=== PATIENT | male | born 1945 | race Caucasian/White ===

== ENCOUNTER 2018-02-07 17:12 | Inpatient (IN) | payer MEDICARE ==
[2018-02-07] MEDS ORDERED: Atropine SYRINGE* 0.1 MG/ML 10 ML SYRINGE (1 MG) ONE (18:01)
[2018-02-07 18:12] LABS: ABS Basophils 0.1 10^3/ul (0-0.2); ABS Eosinophils 0.1 10^3/ul (0-0.6); ABS Lymphocytes 1.2 10^3/ul (1.0-4.8); ABS Monocytes 0.8 10^3/ul (0-0.8); ABS Neutrophils 4.5 10^3/ul (1.5-7.7); ABS Nucleated RBC 0 10^3/ul; Eosinophil % 1.4 % (0-6); Hematocrit 51 % (42-52); Lymphocyte % 18.2 % (25-47); Mean Corpuscular HGB Conc 33 g/dl (31-36); Mean Corpuscular Hemoglobin 31 pg (27-31); Mean Corpuscular Volume 94 fL (80-94); Mean Platelet Volume 10.3 um3 (7.4-10.4); Nucleated Red Blood Cells % 0.1; Platelet Count 190 10^3/ul (150-450); Red Blood Count 5.46 10^6/ul (4.0-5.4); Red Cell Distribution Width 14 % (10.5-15); White Blood Count 6.8 10^3/ul (3.5-10.8)
--- NOTE | 2018-02-07 18:50 | RAD ---
Indication: Cough, chest pain. Comparison: No relevant prior exams available on the [facility] for comparison. Technique: Upright AP 1830 hours Report: Cutaneous pacemaker pads noted. Partial atelectasis of the bilateral lower lobes. Negative for pleural effusion or pneumothorax. Negative for cardiomegaly. Unremarkable central pulmonary vasculature and mediastinal contours. IMPRESSION: Partial atelectasis of the bilateral lower lobes of the lungs.
[2018-02-07 19:03] LABS: EGFR Non-African American 77.5 (>60)
[2018-02-07] MEDS ORDERED: Dextrose 50% Syringe 50 ML* 25 GM/50 ML SYRINGE IV PUSH PRN (20:04)
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
[2018-02-07] MEDS: Insulin LISPRO* 1 UNITS UNIT SUBCUT SCH (22:17)
[2018-02-07] MEDS: Heparin VIAL(*) 5000 UNITS/ML VIAL (FIVE THOUSAND) SUBCUT SCH (22:18)
[2018-02-07] MEDS ORDERED: Saline NASAL SPRAY 0.65%* BTL BOTH NARES PRN (23:55)
[2018-02-08] MEDS: Benzonatate CAP* 100 MG PO PRN ×3 (05:06→18:50)
[2018-02-08 05:44] LABS: Hematocrit 45 % (42-52); Hemoglobin 14.9 g/dl (14.0-18.0); Mean Corpuscular HGB Conc 33 g/dl (31-36); Mean Corpuscular Hemoglobin 31 pg (27-31); Mean Corpuscular Volume 93 fL (80-94); Platelet Count 159 10^3/ul (150-450); Red Blood Count 4.79 10^6/ul (4.0-5.4); Red Cell Distribution Width 14 % (10.5-15); White Blood Count 4.9 10^3/ul (3.5-10.8)
[2018-02-08 07:42] LABS: EGFR Non-African American 95.9 (>60)
--- NOTE | 2018-02-08 08:41 | ECHO ---
Patient: YESENIA HERNANDEZ [facility] Rec#: [id number] : 1945 Date: 02/08/2018 Age: 73y Height: 167.64 cm / 66.0 in Weight: 68.04 kg / 150.0 lbs Sex: M BSA: 1.77 Room#: ICU-1 Admit Date#: 02/07/2018 Type: Inpatient Referring: Dixie Hernandez DO Reading: Wild Ruffin MD Box Order [facility] Transthoracic Echocardiogram Indication: Complete heart block BP: 132/47 HR: 84 Rhythm: Heart Block Findings History: Progressively worsening shortness of breath and lower extremity edema for the past few weeks, no other known medical history. Technical Comments: The study quality is fair. Completed at 0825. Left Ventricle: The left ventricular chamber size is normal. Mild concentric left ventricular hypertrophy is observed. There is global hypokinesis of the left ventricle with minor regional variation. There is moderately decreased left ventricular systolic function. The estimated ejection fraction is 40-45%. High degre AV block with irregular R-R intervals making evaluation of EF difficult The assessment of diastolic function is non-diagnostic. Left Atrium: The left atrium is mildly dilated. Right Ventricle: Moderator Band present. The right ventricular cavity size is normal. The right ventricular global systolic function is low normal. Right Atrium: The right atrial cavity size is normal. Aortic Valve: The aortic valve is trileaflet. The aortic valve leaflets are mildly thickened. There is a trace of aortic regurgitation. There is no evidence of aortic stenosis. Mitral Valve: The mitral valve leaflets are mildly thickened. There is mild mitral regurgitation. There is no evidence of mitral stenosis. Tricuspid Valve: The tricuspid valve leaflets are normal. There is mild to moderate tricuspid regurgitation. The right ventricular systolic pressure is estimated at 49 mmHg. There is evidence of moderate pulmonary hypertension. There is no tricuspid stenosis. Pulmonic Valve: The pulmonic valve appears normal. There is trace to mild pulmonic regurgitation. There is no pulmonic stenosis. Pericardium: There is no significant pericardial effusion. Aorta: There is no dilatation of the aortic arch. The aortic root is normal in size. Pulmonary Artery: The main pulmonary artery appears normal. Venous: The inferior vena cava appears normal in size. There is less than 50% respiratory change in the inferior vena cava dimension. Summary: There was not any prior study for comparison. Conclusions There is global hypokinesis of the left ventricle with minor regional variation. There is moderately decreased left ventricular systolic function. The estimated ejection fraction is 40-45%. High degre AV block with irregular R-R intervals making evaluation of EF difficult The right ventricular global systolic function is low normal. There is a trace of aortic regurgitation. There is mild mitral regurgitation. There is mild to moderate tricuspid regurgitation. There is evidence of moderate pulmonary hypertension. There is no significant pericardial effusion. Measurements Name Value Normal Range RVIDd (AP) 2D 2.7 cm (0.9 - 2.6) RVDdMajor (2D) 4.4 cm (2.2 - 4.4) RAd ISD 4CH 4.6 cm (3.4 - 4.9) RA (A4C)W 4.1 cm (2.9 - 4.6) IVSd (2D) 1.1 cm (0.6 - 1) LVPWd (2D) 1.1 cm (0.6 - 1) LVIDd (2D) 4.1 cm (3.6 - 5.4) LVIDs (2D) 3.4 cm - LV FS (2D) 18 % (25 - 45) Aortic Annulus 1.9 cm (1.4 - 2.6) Ao root diameter (2D) 2.6 cm (2.1 - 3.5) Ascending Ao 2.8 cm (2.1 - 3.4) Aortic arch 2.6 cm (1.8 - 3.4) LA dimension (AP) 2D 3.6 cm (2.3 - 3.8) LAd ISD 4CH 4.9 cm (2.9 - 5.3) LA ISD 4CH W 4.2 cm (2.5 - 4.5) Name Value Normal Range LA ESV SP 4CH (A/L) 51 ml - LA ESV SP 2CH (A/L) 79 ml - LA ESV BP (A/L) 70 ml - LA ESV BP (A/L) index 39 ml/m2 - LA ESV SP 4CH (MOD) 45 ml - LA ESV SP 2CH (MOD) 77 ml - Name Value Normal Range MV E-wave Vmax 0.9 m/sec - MV deceleration time 186 msec - MV A-wave Vmax 1.02 m/sec - MV E:A ratio 0.92 ratio - LV septal e' Vmax 0.05 m/sec - LV lateral e' Vmax 0.07 m/sec - LV E:e' septal ratio 18 ratio - LV E:e' lateral ratio 12.86 ratio - Name Value Normal Range AV Vmax 1.65 m/sec - AV VTI 34.54 cm - AV peak gradient 11.09 mmHg - AV mean gradient 5.91 mmHg - LVOT Vmax 1.04 m/sec - LVOT VTI 21.86 cm - LVOT peak gradient 4.39 mmHg - LVOT mean gradient 2.48 mmHg - DURAN Vmax 0.84 m/sec - Name Value Normal Range TR Vmax 3.2 m/sec - TR peak gradient 41 mmHg - RAP 8 mmHg - RVSP 49 mmHg - IVC diameter 1.9 cm - Name Value Normal Range PV Vmax 1.34 m/sec - PV peak gradient 7.3 mmHg -
[2018-02-08] MEDS: Insulin LISPRO* 1 UNITS UNIT SUBCUT SCH ×4 (09:15→21:11)
[2018-02-08] MEDS: Heparin VIAL(*) 5000 UNITS/ML VIAL (FIVE THOUSAND) SUBCUT SCH (09:16)
--- NOTE | 2018-02-08 09:17 | RAD ---
Indication: Leg edema. Duplex Doppler sonography of the deep venous system of both lower extremities was performed. Bilaterally the common femoral veins, proximal greater saphenous veins, proximal deep femoral veins, femoral veins, popliteal veins, posterior tibial veins appear patent and compressible. In the right lower extremity one of the paired peroneal veins is noncompressible. In the left lower extremity both paired peroneal veins appear noncompressible. This is consistent with deep venous thrombosis of one of the peroneal veins in the right lower extremity and both peroneal veins in the left lower extremity. Complex fluid collection in the right popliteal fossa measures 3.0 x 0.9 x 1.2 cm. IMPRESSION: Deep venous thrombosis in one of the paired peroneal veins of the right lower extremity and both peroneal veins the left lower extremity. Popliteal cyst is noted in the right popliteal fossa.
--- NOTE | 2018-02-08 12:24 | ED ---
Ericka Shannon Edward, scribed for Humberto Decker MD on 02/07/18 at 1800 . Palpitations / Dysrhythmia - HPI Summary HPI Summary: 73 y/o male BIBA sent from [place] for worrying EKG and SOB. SOB aggravated by deep breaths, not alleviated by anything. Pt also c/o pressure in his stomach when he eats for several weeks, per triage note. Associated sx: congestion, and R arm swelling, wheezing cough. PMHx no heart conditions. Pt states he hasn't seen a doctor in long time. - History of Current Complaint Chief Complaint: EDDysrhythmPalp Hx Obtained From: Patient Onset/Duration: Lasting Weeks Timing: Constant Aggravating: Nothing Alleviating: Nothing Associated Signs & Symptoms: Shortness of Breath - Allergy/Home Medications Allergies/Adverse Reactions: Allergies Allergy/AdvReac Type Severity Reaction Status Date / Time No Known Allergies Allergy Verified 02/07/18 18:27 Home Medications: Home Medications Aspirin TAB* [Aspirin 325 MG TAB*] 325 - 650 mg PO BID PRN 02/07/18 [History Confirmed 02/07/18] Multivitamins/Minerals TAB* [Theragran/minerals TAB*] 1 tab PO DAILY 02/07/18 [ History Confirmed 02/07/18] Hagerman-3 Fatty Acids (Nf) [Fish Oil (NF)] 1,000 mg PO DAILY 02/07/18 [History Confirmed 02/07/18] PMH/Surg Hx/FS Hx/Imm Hx Previously Healthy: No Cardiovascular History: Denies: Hx Congestive Heart Failure, Hx Myocardial Infarction Opthamlomology History: Denies: Hx Legally Blind Infectious Disease History: No Infectious Disease History: Denies: Traveled Outside the [place] in Last 30 Days - Family History Known Family History: Positive: Unknown - Social History Occupation: Retired Lives: Alone Hx Tobacco Use: No Smoking Status (MU): Never Smoked Tobacco Review of Systems Constitutional: Negative Eyes: Negative ENT: Other - congestion Cardiovascular: Negative Positive: Shortness Of Breath, Cough, Other - wheezing Positive: Abdominal Pain Genitourinary: Negative Positive: Edema - R arm Skin: Negative Neurological: Negative Psychological: Normal All Other Systems Reviewed And Are Negative: Yes Physical Exam - Summary Physical Exam Summary: GENERAL: ~Patient is a well developed and nourished M who is lying comfortable in the stretcher. ~Patient is not in any acute respiratory distress. HEAD AND FACE: Normocephalic EYES: PERRLA, EOMI x 2. EARS: Hearing grossly intact. MOUTH: Oropharynx within normal limits. NECK: Supple, trachea is midline, no adenopathy, no JVD, no carotid bruit. CHEST: Symmetric, no tenderness at palpation LUNGS: Wheezing, worse on R than L. CVS: Regular rate and rhythm, S1 and S2 present, no murmurs or gallops appreciated. ABDOMEN: Soft, non-tender. Bowel sounds are normal. No abdominal abnormal pulsations. EXTREMITIES: Full ROM in all major joints, no edema, no cyanosis or clubbing. NEURO: Alert and oriented x 3. No acute neurological deficits. Speech is normal and follows commands. SKIN: Dry and warm Vital Signs On Initial Exam: Initial Vitals Temp Pulse Resp BP Pulse Ox 97.9 F 48 16 170/50 97 02/07/18 17:14 02/07/18 17:14 02/07/18 17:14 02/07/18 17:14 02/07/18 17:14 Diagnostics - Vital Signs Vital Signs Temp Pulse Resp BP Pulse Ox 02/07/18 17:14 97.9 F 48 16 170/50 97 - Laboratory Lab Results: Lab Results 02/07/18 02/07/18 02/07/18 Range/Units 17:45 17:45 17:45 WBC 6.8 (3.5-10.8) 10^3/ul RBC 5.46 H (4.0-5.4) 10^6/ul Hgb 17.0 (14.0-18.0) g/dl Hct 51 (42-52) % MCV 94 (80-94) fL MCH 31 (27-31) pg MCHC 33 (31-36) g/dl RDW 14 (10.5-15) % Plt Count 190 (150-450) 10^3/ul MPV 10.3 (7.4-10.4) um3 Neut % (Auto) 67.3 (38-83) % Lymph % (Auto) 18.2 L (25-47) % Weber % (Auto) 12.0 H (0-7) % Eos % (Auto) 1.4 (0-6) % Baso % (Auto) 1.1 (0-2) % Absolute Neuts (auto) 4.5 (1.5-7.7) 10^3/ul Absolute Lymphs (auto) 1.2 (1.0-4.8) 10^3/ul Absolute Monos (auto) 0.8 (0-0.8) 10^3/ul Absolute Eos (auto) 0.1 (0-0.6) 10^3/ul Absolute Basos (auto) 0.1 (0-0.2) 10^3/ul Absolute Nucleated RBC 0 10^3/ul Nucleated RBC % 0.1 APTT (26.0-36.3) seconds Sodium 134 L (139-145) mmol/L Potassium TNP Chloride 96 L (101-111) mmol/L Carbon Dioxide 24 (22-32) mmol/L Anion Gap 14 H (2-11) mmol/L BUN 27 H (6-24) mg/dL Creatinine 0.95 (0.67-1.17) mg/dL Est GFR ( Amer) 99.7 (>60) Est GFR (Non-Af Amer) 77.5 (>60) BUN/Creatinine Ratio 28.4 H (8-20) Glucose 284 H (70-100) mg/dL Lactic Acid 1.7 (0.5-2.0) mmol/L Calcium 9.2 (8.6-10.3) mg/dL Total Bilirubin 0.70 (0.2-1.0) mg/dL AST TNP ALT 28 (7-52) U/L Alkaline Phosphatase 151 H (34-104) U/L Total Creatine Kinase 97 (10-223) U/L CK-MB (CK-2) 6.7 H (0.6-6.3) ng/mL Troponin I 0.05 H* (<0.04) ng/mL B-Natriuretic Peptide ( - 100) pg/mL Total Protein 6.4 (6.4-8.9) g/dL Albumin 3.5 (3.2-5.2) g/dL Globulin 2.9 (2-4) g/dL Albumin/Globulin Ratio 1.2 (1-3) TSH (0.34-5.60) mcIU/mL 02/07/18 02/07/18 02/07/18 Range/Units 17:45 17:45 17:48 WBC (3.5-10.8) 10^3/ul RBC (4.0-5.4) 10^6/ul Hgb (14.0-18.0) g/dl Hct (42-52) % MCV (80-94) fL MCH (27-31) pg MCHC (31-36) g/dl RDW (10.5-15) % Plt Count (150-450) 10^3/ul MPV (7.4-10.4) um3 Neut % (Auto) (38-83) % Lymph % (Auto) (25-47) % [place] % (Auto) (0-7) % Eos % (Auto) (0-6) % Baso % (Auto) (0-2) % Absolute Neuts (auto) (1.5-7.7) 10^3/ul Absolute Lymphs (auto) (1.0-4.8) 10^3/ul Absolute Monos (auto) (0-0.8) 10^3/ul Absolute Eos (auto) (0-0.6) 10^3/ul Absolute Basos (auto) (0-0.2) 10^3/ul Absolute Nucleated RBC 10^3/ul Nucleated RBC % APTT 31.6 (26.0-36.3) seconds Sodium (139-145) mmol/L Potassium 4.9 Chloride (101-111) mmol/L Carbon Dioxide (22-32) mmol/L Anion Gap (2-11) mmol/L BUN (6-24) mg/dL Creatinine (0.67-1.17) mg/dL Est GFR ( Amer) (>60) Est GFR (Non-Af Amer) (>60) BUN/Creatinine Ratio (8-20) Glucose (70-100) mg/dL Lactic Acid (0.5-2.0) mmol/L Calcium (8.6-10.3) mg/dL Total Bilirubin (0.2-1.0) mg/dL AST 19 ALT (7-52) U/L Alkaline Phosphatase (34-104) U/L Total Creatine Kinase (10-223) U/L CK-MB (CK-2) (0.6-6.3) ng/mL Troponin I (<0.04) ng/mL B-Natriuretic Peptide 95 ( - 100) pg/mL Total Protein (6.4-8.9) g/dL Albumin (3.2-5.2) g/dL Globulin (2-4) g/dL Albumin/Globulin Ratio (1-3) TSH 1.87 (0.34-5.60) mcIU/mL Result Diagrams: 02/08/18 05:25 02/08/18 05:25 Lab Statement: Any lab studies that have been ordered have been reviewed, and results considered in the medical decision making process. - Radiology CXR Xray Interpretation: Positive (See Comments) - Partial atelectasis of the bilateral lower lobes of the lungs. Radiology Interpretation Completed By: Radiologist - EKG 1 EKG Interpretation: Complete heart block @ 62 BPM Course/Dx - Course Assessment/Plan: 73 y/o male directed from [facility] for concerns of complete heart block after presenting there with SOB. Workup remarkable for troponin 0.05. Discussed with circuit court judge Janki, will see pt. Pt currently stable and will be admitted to hospitalist team. Discussed with Dr. Paige. Pacer pads placed and atropine at bedside - Diagnoses Provider Diagnoses: Complete heart block - Physician Notifications Discussed Care Of Patient With: Nohemi Shearer Time Discussed With Above Provider: 18:04 Discharge - Sign-Out/Discharge Documenting (check all that apply): Discharge/Admit/Transfer - Discharge Plan Condition: Stable Disposition: ADMITTED TO [facility] - Billing Disposition and Condition Condition: STABLE Disposition: [facility]P-[facility] [place] The documentation as recorded by the Ericka christine Edward accurately reflects the service I personally performed and the decisions made by , Humberto Decker MD.
[2018-02-08] MEDS ORDERED: Heparin 2 UNITS/ML IVPREMIX* 1,000 ML IV ONE (12:28)
[2018-02-08] MEDS ORDERED: Lidocaine 1% INJ* 10 MG/ML 30 ML SDV ONE (12:57)
--- NOTE | 2018-02-08 15:02 | CARD ---
TEMPORARY WIRE INSERTION: DATE OF PROCEDURE: 02/08/18 PROCEDURE: Temporary pacemaker wire. PRE-OP DIAGNOSES: Third-degree heart block, bradycardia. POST-OP DIAGNOSES: Third-degree heart block, bradycardia. ANESTHESIA: Local anesthesia with conscious sedation. ESTIMATED BLOOD LOSS: None. COMPLICATIONS: None. INDICATION: The patient is a 73-year-old gentleman who was admitted to the hospital with shortness o f breath and lightheadedness and lower extremity edema. He was found to have significant bradycardia and was noted to have high-degree AV block. The patient was observed overnight without any difficult y. Today, he was having heart rates down to 25 beats per minutes. It was recommended the patient ramírez ve a temporary wire until full evaluation of his cardiac status was completed. DESCRIPTION OF PROCEDURE: The patient was brought to the procedure room in a fasting state. Informe d consent had been obtained prior to the procedure. All labs have been reviewed. The patient's ante rior right neck was prepped and draped in usual fashion. 1% lidocaine was used for local anesthesia. Using a finder needle, a jugular vein was entered and an 18 gauge needle was inserted into the jugu lar vein. A guidewire was placed. Over the guidewire, a 5-Ethiopian sheath introducer was placed. A b alloon tipped pacer catheter was advanced to the RV apex. There was good threshold of the pacing wire . Threshold was 0.5 volts, 0.5 milliseconds. The patient left the lab in stable condition. His pac er was set at a heart rate of 60. [id number]/[facility] #: [id number]
[2018-02-08] MEDS: ceFAZolin 1 GM VIAL(*) 1 GM in D5W 50 ML BAG* 50 ML IVPB SCH ×2 (15:35→23:05)
[2018-02-08] MEDS ORDERED: Zolpidem TAB* 5 MG PO PRN (16:19)
--- NOTE | 2018-02-08 16:53 | PN ---
Subjective Date of Service: 02/08/18 Interval History: Pt seen and examined. Meds and labs reviewed. ROS: Denied GIVENS/dizziness, F/C, N/V, CP, SOB, increased cough, sputum production , abd pain, diarrhea, constipation, dysuria, myalgias, arthralgias, throat pain , and new skin lesions. The rest of the 14 point ROS are unremarkable. PHYSICAL EXAM: GEN APPEARANCE: Awake, not in acute distress HEENT: NC/AT, PERRLA, moist oral mucosa, (-) throat erythema NECK: Soft, supple, (-) cervical LAD, (-)JVD HEART: S1S2 WNL, RRR, No MRG CHEST: CTA, BL, GAE, No W/R/R ABD: Soft, ND/NT, NABS 4x Q EXT: No C/C/2+BLLE SKIN: Warm to touch PSYCH: No active psychosis, hallucinations, depression, SI/HI Objective Active Medications: Benzonatate (Tessalon Cap*) 200 mg PO TID PRN PRN Reason: COUGH Last Admin: 02/08/18 16:16 Dose: 100 mg Dextrose (D50w Syringe 50 Ml*) 12.5 gm IV PUSH .FOR FS < 60 - SS PRN PRN Reason: FS < 60 Heparin Sodium (Porcine) (Heparin Vial(*)) 5,000 units SUBCUT Q12HR [facility] Last Admin: 02/08/18 09:16 Dose: 5,000 units Cefazolin Sodium 1 gm/ (Dextrose) 50 mls @ 200 mls/hr IVPB Q8H [facility] Last Admin: 02/08/18 15:35 Dose: 200 mls/hr Insulin Human Lispro (Humalog*) 0 units SUBCUT ACHS [facility] PRN Reason: Protocol Last Admin: 02/08/18 12:09 Dose: 2 unit Sodium Chloride (Sodium Chloride 0.65% Nasal Sutter*) 2 spray BOTH NARES Q2H PRN PRN Reason: CONGESTION Zolpidem Tartrate (Ambien Tab*) 5 mg PO BEDTIME PRN PRN Reason: INSOMNIA Vital Signs - 8 hr 02/08/18 02/08/18 02/08/18 09:00 09:02 09:31 Temperature Pulse Rate 44 47 39 Respiratory 20 16 9 Rate Blood Pressure 133/45 135/48 (mmHg) O2 Sat by Pulse 81 80 96 Oximetry 02/08/18 02/08/18 02/08/18 09:44 10:00 10:01 Temperature Pulse Rate 33 36 Respiratory 12 6 8 Rate Blood Pressure 128/63 143/52 (mmHg) O2 Sat by Pulse 98 95 Oximetry 02/08/18 02/08/18 02/08/18 10:31 10:40 11:00 Temperature Pulse Rate 32 32 35 Respiratory 12 17 4 Rate Blood Pressure 123/52 123/53 131/53 (mmHg) O2 Sat by Pulse 95 95 96 Oximetry 02/08/18 02/08/18 02/08/18 11:30 12:00 13:00 Temperature 98.8 F Pulse Rate 34 34 35 Respiratory 6 5 16 Rate Blood Pressure 136/56 125/58 138/62 (mmHg) O2 Sat by Pulse 98 98 100 Oximetry 02/08/18 02/08/18 02/08/18 13:05 13:10 13:15 Temperature Pulse Rate 61 69 Respiratory 35 16 17 Rate Blood Pressure 143/68 159/72 162/94 (mmHg) O2 Sat by Pulse 100 100 100 Oximetry 02/08/18 02/08/18 02/08/18 13:20 13:25 13:45 Temperature Pulse Rate 61 67 60 Respiratory 18 17 Rate Blood Pressure 143/73 145/64 150/62 (mmHg) O2 Sat by Pulse 100 100 100 Oximetry 02/08/18 02/08/18 02/08/18 14:00 14:01 14:30 Temperature Pulse Rate 62 61 59 Respiratory 20 29 15 Rate Blood Pressure 150/78 147/63 (mmHg) O2 Sat by Pulse 97 97 95 Oximetry 02/08/18 02/08/18 02/08/18 15:00 15:01 15:30 Temperature Pulse Rate 71 71 74 Respiratory 24 29 24 Rate Blood Pressure 167/104 137/82 (mmHg) O2 Sat by Pulse 95 93 Oximetry 02/08/18 02/08/18 02/08/18 15:58 16:00 16:01 Temperature Pulse Rate 72 Respiratory 20 16 17 Rate Blood Pressure 150/87 (mmHg) O2 Sat by Pulse 97 Oximetry Oxygen Devices in Use Now: Nasal Cannula Result Diagrams: 02/08/18 05:25 02/08/18 05:25 Additional Lab and Data: Lab Results 02/07/18 02/07/18 02/07/18 Range/Units 17:45 17:45 17:45 WBC 6.8 (3.5-10.8) 10^3/ul RBC 5.46 H (4.0-5.4) 10^6/ul Hgb 17.0 (14.0-18.0) g/dl Hct 51 (42-52) % MCV 94 (80-94) fL MCH 31 (27-31) pg MCHC 33 (31-36) g/dl RDW 14 (10.5-15) % Plt Count 190 (150-450) 10^3/ul MPV 10.3 (7.4-10.4) um3 Neut % (Auto) 67.3 (38-83) % Lymph % (Auto) 18.2 L (25-47) % [place] % (Auto) 12.0 H (0-7) % Eos % (Auto) 1.4 (0-6) % Baso % (Auto) 1.1 (0-2) % Absolute Neuts (auto) 4.5 (1.5-7.7) 10^3/ul Absolute Lymphs (auto) 1.2 (1.0-4.8) 10^3/ul Absolute Monos (auto) 0.8 (0-0.8) 10^3/ul Absolute Eos (auto) 0.1 (0-0.6) 10^3/ul Absolute Basos (auto) 0.1 (0-0.2) 10^3/ul Absolute Nucleated RBC 0 10^3/ul Nucleated RBC % 0.1 APTT (26.0-36.3) seconds Sodium 134 L (139-145) mmol/L Potassium TNP Chloride 96 L (101-111) mmol/L Carbon Dioxide 24 (22-32) mmol/L Anion Gap 14 H (2-11) mmol/L BUN 27 H (6-24) mg/dL Creatinine 0.95 (0.67-1.17) mg/dL Est GFR ( Amer) 99.7 (>60) Est GFR (Non-Af Amer) 77.5 (>60) BUN/Creatinine Ratio 28.4 H (8-20) Glucose 284 H (70-100) mg/dL Lactic Acid 1.7 (0.5-2.0) mmol/L Calcium 9.2 (8.6-10.3) mg/dL Total Bilirubin 0.70 (0.2-1.0) mg/dL AST TNP ALT 28 (7-52) U/L Alkaline Phosphatase 151 H (34-104) U/L Total Creatine Kinase 97 (10-223) U/L CK-MB (CK-2) 6.7 H (0.6-6.3) ng/mL Troponin I 0.05 H* (<0.04) ng/mL B-Natriuretic Peptide ( - 100) pg/mL Total Protein 6.4 (6.4-8.9) g/dL Albumin 3.5 (3.2-5.2) g/dL Globulin 2.9 (2-4) g/dL Albumin/Globulin Ratio 1.2 (1-3) TSH (0.34-5.60) mcIU/mL 02/07/18 02/07/18 02/07/18 Range/Units 17:45 17:45 17:48 WBC (3.5-10.8) 10^3/ul RBC (4.0-5.4) 10^6/ul Hgb (14.0-18.0) g/dl Hct (42-52) % MCV (80-94) fL MCH (27-31) pg MCHC (31-36) g/dl RDW (10.5-15) % Plt Count (150-450) 10^3/ul MPV (7.4-10.4) um3 Neut % (Auto) (38-83) % Lymph % (Auto) (25-47) % [place] % (Auto) (0-7) % Eos % (Auto) (0-6) % Baso % (Auto) (0-2) % Absolute Neuts (auto) (1.5-7.7) 10^3/ul Absolute Lymphs (auto) (1.0-4.8) 10^3/ul Absolute Monos (auto) (0-0.8) 10^3/ul Absolute Eos (auto) (0-0.6) 10^3/ul Absolute Basos (auto) (0-0.2) 10^3/ul Absolute Nucleated RBC 10^3/ul Nucleated RBC % APTT 31.6 (26.0-36.3) seconds Sodium (139-145) mmol/L Potassium 4.9 Chloride (101-111) mmol/L Carbon Dioxide (22-32) mmol/L Anion Gap (2-11) mmol/L BUN (6-24) mg/dL Creatinine (0.67-1.17) mg/dL Est GFR ( Amer) (>60) Est GFR (Non-Af Amer) (>60) BUN/Creatinine Ratio (8-20) Glucose (70-100) mg/dL Lactic Acid (0.5-2.0) mmol/L Calcium (8.6-10.3) mg/dL Total Bilirubin (0.2-1.0) mg/dL AST 19 ALT (7-52) U/L Alkaline Phosphatase (34-104) U/L Total Creatine Kinase (10-223) U/L CK-MB (CK-2) (0.6-6.3) ng/mL Troponin I (<0.04) ng/mL B-Natriuretic Peptide 95 ( - 100) pg/mL Total Protein (6.4-8.9) g/dL Albumin (3.2-5.2) g/dL Globulin (2-4) g/dL Albumin/Globulin Ratio (1-3) TSH 1.87 (0.34-5.60) mcIU/mL Microbiology and Other Data: Microbiology 02/08/18 03:45 Gram Stain - Final Sputum Expectorated 02/07/18 22:45 Nasal Screen MRSA (PCR)(ROBBIN) - Final Nasal Mrsa Detected Assess/Plan/Problems-Billing Assessment: - Patient Problems (1) Heart block Current Visit: Yes Comment: - Pt seen this AM and had pacemaker placed - Reports document patient doing well (2) DVT (deep venous thrombosis) Current Visit: Yes Comment: - DVT in one of the paired peroneal veins of the RLE and both peroneal veins of the LLE; popliteal cyst in right popliteal fossa - D/C'd DVT prophylaxis (Heparin) and placed pt on full dose Lovenox after 4 hours post-pacemaker placement (3) Elevated troponin Current Visit: Yes Status: Acute Code(s): R74.8 - ABNORMAL LEVELS OF OTHER SERUM ENZYMES SNOMED Code(s): 048174506 Comment: - Very minimally elevated and likely due to demand ischemia and/or known recently diagnosed DVT above - Defer with Cardiology for any further W/U cardiac-aguilar (4) DVT prophylaxis Current Visit: Yes Status: Acute Code(s): NEN7732 - SNOMED Code(s): 259873673 Comment: - On full dose Lovenox described above Status and Disposition: - Consider transitioning to Coumadin tomorrow especially in the setting of pt being destitute and would unlikely be able to afford DOACs - Pt lives in tent behind [address], and reports that he has been homeless for 4-6 years. - Will discuss placement plan with care coordinators in AM
[2018-02-08] MEDS: Enoxaparin(*) 80 MG/0.8 ML SYR SUBCUT SCH (17:31)
--- NOTE | 2018-02-08 18:42 | RAD ---
HISTORY: Status post pacer COMPARISONS: February 07, 2018 VIEWS: 1: frontal portable view of the chest at 6:13 PM FINDINGS: LINES AND TUBES: What appears to be a transvenous pacer is noted from an internal jugular vein approach with the tip overlying the expected location of the right ventricle. CARDIOMEDIASTINAL SILHOUETTE: The cardiomediastinal silhouette is normal for portable technique. PLEURA: There is a small left pleural effusion. LUNG PARENCHYMA: There are stable calcified granulomas of the left upper lung. ABDOMEN: The upper abdomen is clear. There is no subphrenic gas. BONES AND SOFT TISSUES: No bone or soft tissue abnormalities are noted. IMPRESSION: 1. LINES AND TUBES ABOVE. 2. SMALL LEFT PLEURAL EFFUSION.
[2018-02-09] MEDS: Benzonatate CAP* 100 MG PO PRN ×2 (00:06→13:49)
[2018-02-09] MEDS: Enoxaparin(*) 80 MG/0.8 ML SYR SUBCUT SCH (05:41)
[2018-02-09 06:14] LABS: ABS Basophils 0.1 10^3/ul (0-0.2); ABS Eosinophils 0.2 10^3/ul (0-0.6); ABS Lymphocytes 1.2 10^3/ul (1.0-4.8); ABS Monocytes 0.7 10^3/ul (0-0.8); ABS Nucleated RBC 0 10^3/ul; Eosinophil % 3.7 % (0-6); Hematocrit 49 % (42-52); Hemoglobin 16.2 g/dl (14.0-18.0); Lymphocyte % 23.4 % (25-47); Mean Corpuscular HGB Conc 33 g/dl (31-36); Mean Corpuscular Hemoglobin 31 pg (27-31); Mean Corpuscular Volume 94 fL (80-94); Mean Platelet Volume 9.7 um3 (7.4-10.4); Nucleated Red Blood Cells % 0.1; Platelet Count 180 10^3/ul (150-450); Red Cell Distribution Width 14 % (10.5-15); White Blood Count 5.2 10^3/ul (3.5-10.8)
[2018-02-09 06:25] LABS: EGFR Non-African American 100.3 (>60)
[2018-02-09] MEDS: ceFAZolin 1 GM VIAL(*) 1 GM in D5W 50 ML BAG* 50 ML IVPB SCH ×2 (08:07→17:14)
--- NOTE | 2018-02-09 08:24 | RAD ---
INDICATION: Temporary cardiac pacemaker COMPARISON: February 08, 2018 TECHNIQUE: An AP portable view obtained at 0709 hours is submitted. FINDINGS: Bones/Soft Tissues: There are no acute bony findings. There is a temporary right-sided pacemaker Cardiomediastinal: The heart is normal in size. Lungs: There is atelectasis or infiltrate in the medial right lung base. Pleura: Small bilateral pleural effusions left greater than right. Other: None IMPRESSION: ATELECTASIS OR INFILTRATE MEDIAL RIGHT LUNG BASE. SMALL BILATERAL PLEURAL EFFUSIONS
[2018-02-09] MEDS: Insulin LISPRO* 1 UNITS UNIT SUBCUT SCH ×4 (09:20→21:37)
--- NOTE | 2018-02-09 16:20 | PN ---
Subjective Date of Service: 02/09/18 Interval History: Pt seen and examined. Meds and labs reviewed. ROS: Could not be relaibly obtained PHYSICAL EXAM: GEN APPEARANCE: Lethargic, not in acute distress, likely post-ictal HEENT: NC/AT, PERRLA, moist oral mucosa, (-) throat erythema NECK: Soft, supple, (-) cervical LAD, (-)JVD HEART: S1S2 WNL, RRR, No MRG CHEST: CTA, BL, GAE, No W/R/R ABD: Soft, ND/NT, NABS 4x Q EXT: No C/C/2+BLLE SKIN: Warm to touch PSYCH: No active psychosis, hallucinations, depression, SI/HI Objective Active Medications: Benzonatate (Tessalon Cap*) 200 mg PO TID PRN PRN Reason: COUGH Last Admin: 02/09/18 13:49 Dose: 200 mg Dextrose (D50w Syringe 50 Ml*) 12.5 gm IV PUSH .FOR FS < 60 - SS PRN PRN Reason: FS < 60 Enoxaparin Sodium (Lovenox(*)) 80 mg SUBCUT 0600,1800 [facility] Cefazolin Sodium 1 gm/ (Dextrose) 50 mls @ 200 mls/hr IVPB Q8H [facility] Last Admin: 02/09/18 08:07 Dose: 200 mls/hr Insulin Human Lispro (Humalog*) 0 units SUBCUT ACHS [facility] PRN Reason: Protocol Last Admin: 02/09/18 13:02 Dose: 1 unit Sodium Chloride (Sodium Chloride 0.65% Nasal [place]*) 2 spray BOTH NARES Q2H PRN PRN Reason: CONGESTION Zolpidem Tartrate (Ambien Tab*) 5 mg PO BEDTIME PRN PRN Reason: INSOMNIA Vital Signs - 8 hr 02/09/18 02/09/18 02/09/18 08:30 09:00 09:12 Temperature Pulse Rate 79 71 Respiratory 20 20 23 Rate Blood Pressure 135/86 132/90 (mmHg) O2 Sat by Pulse 96 97 Oximetry 02/09/18 02/09/18 02/09/18 09:30 10:00 10:30 Temperature Pulse Rate 72 72 73 Respiratory 19 20 20 Rate Blood Pressure 137/74 139/81 139/69 (mmHg) O2 Sat by Pulse 98 98 96 Oximetry 0502/09/18 02/09/18 11:00 11:01 11:30 Temperature Pulse Rate 77 72 72 Respiratory 20 21 21 Rate Blood Pressure 120/81 143/75 (mmHg) O2 Sat by Pulse 86 96 99 Oximetry 02/09/18 02/09/18 02/09/18 11:41 12:00 12:01 Temperature 98.4 F Pulse Rate 72 72 Respiratory 22 22 Rate Blood Pressure 118/55 (mmHg) O2 Sat by Pulse 98 95 Oximetry 02/09/18 02/09/18 02/09/18 12:30 13:00 13:30 Temperature Pulse Rate 72 72 72 Respiratory 22 31 19 Rate Blood Pressure 119/58 113/57 121/62 (mmHg) O2 Sat by Pulse 95 96 96 Oximetry 02/09/18 02/09/18 02/09/18 14:00 14:01 14:31 Temperature Pulse Rate 73 72 72 Respiratory 25 23 16 Rate Blood Pressure 112/53 135/62 (mmHg) O2 Sat by Pulse 93 95 97 Oximetry 02/09/18 15:00 Temperature Pulse Rate 72 Respiratory 23 Rate Blood Pressure 117/58 (mmHg) O2 Sat by Pulse 95 Oximetry Oxygen Devices in Use Now: Nasal Cannula Result Diagrams: 02/09/18 05:45 02/09/18 05:45 Additional Lab and Data: Lab Results 02/07/18 02/07/18 02/07/18 Range/Units 17:45 17:45 17:45 WBC 6.8 (3.5-10.8) 10^3/ul RBC 5.46 H (4.0-5.4) 10^6/ul Hgb 17.0 (14.0-18.0) g/dl Hct 51 (42-52) % MCV 94 (80-94) fL MCH 31 (27-31) pg MCHC 33 (31-36) g/dl RDW 14 (10.5-15) % Plt Count 190 (150-450) 10^3/ul MPV 10.3 (7.4-10.4) um3 Neut % (Auto) 67.3 (38-83) % Lymph % (Auto) 18.2 L (25-47) % [place] % (Auto) 12.0 H (0-7) % Eos % (Auto) 1.4 (0-6) % Baso % (Auto) 1.1 (0-2) % Absolute Neuts (auto) 4.5 (1.5-7.7) 10^3/ul Absolute Lymphs (auto) 1.2 (1.0-4.8) 10^3/ul Absolute Monos (auto) 0.8 (0-0.8) 10^3/ul Absolute Eos (auto) 0.1 (0-0.6) 10^3/ul Absolute Basos (auto) 0.1 (0-0.2) 10^3/ul Absolute Nucleated RBC 0 10^3/ul Nucleated RBC % 0.1 APTT (26.0-36.3) seconds Sodium 134 L (139-145) mmol/L Potassium TNP Chloride 96 L (101-111) mmol/L Carbon Dioxide 24 (22-32) mmol/L Anion Gap 14 H (2-11) mmol/L BUN 27 H (6-24) mg/dL Creatinine 0.95 (0.67-1.17) mg/dL Est GFR ( Amer) 99.7 (>60) Est GFR (Non-Af Amer) 77.5 (>60) BUN/Creatinine Ratio 28.4 H (8-20) Glucose 284 H (70-100) mg/dL Lactic Acid 1.7 (0.5-2.0) mmol/L Calcium 9.2 (8.6-10.3) mg/dL Total Bilirubin 0.70 (0.2-1.0) mg/dL AST TNP ALT 28 (7-52) U/L Alkaline Phosphatase 151 H (34-104) U/L Total Creatine Kinase 97 (10-223) U/L CK-MB (CK-2) 6.7 H (0.6-6.3) ng/mL Troponin I 0.05 H* (<0.04) ng/mL B-Natriuretic Peptide ( - 100) pg/mL Total Protein 6.4 (6.4-8.9) g/dL Albumin 3.5 (3.2-5.2) g/dL Globulin 2.9 (2-4) g/dL Albumin/Globulin Ratio 1.2 (1-3) TSH (0.34-5.60) mcIU/mL 02/07/18 02/07/18 02/07/18 Range/Units 17:45 17:45 17:48 WBC (3.5-10.8) 10^3/ul RBC (4.0-5.4) 10^6/ul Hgb (14.0-18.0) g/dl Hct (42-52) % MCV (80-94) fL MCH (27-31) pg MCHC (31-36) g/dl RDW (10.5-15) % Plt Count (150-450) 10^3/ul MPV (7.4-10.4) um3 Neut % (Auto) (38-83) % Lymph % (Auto) (25-47) % [place] % (Auto) (0-7) % Eos % (Auto) (0-6) % Baso % (Auto) (0-2) % Absolute Neuts (auto) (1.5-7.7) 10^3/ul Absolute Lymphs (auto) (1.0-4.8) 10^3/ul Absolute Monos (auto) (0-0.8) 10^3/ul Absolute Eos (auto) (0-0.6) 10^3/ul Absolute Basos (auto) (0-0.2) 10^3/ul Absolute Nucleated RBC 10^3/ul Nucleated RBC % APTT 31.6 (26.0-36.3) seconds Sodium (139-145) mmol/L Potassium 4.9 Chloride (101-111) mmol/L Carbon Dioxide (22-32) mmol/L Anion Gap (2-11) mmol/L BUN (6-24) mg/dL Creatinine (0.67-1.17) mg/dL Est GFR ( Amer) (>60) Est GFR (Non-Af Amer) (>60) BUN/Creatinine Ratio (8-20) Glucose (70-100) mg/dL Lactic Acid (0.5-2.0) mmol/L Calcium (8.6-10.3) mg/dL Total Bilirubin (0.2-1.0) mg/dL AST 19 ALT (7-52) U/L Alkaline Phosphatase (34-104) U/L Total Creatine Kinase (10-223) U/L CK-MB (CK-2) (0.6-6.3) ng/mL Troponin I (<0.04) ng/mL B-Natriuretic Peptide 95 ( - 100) pg/mL Total Protein (6.4-8.9) g/dL Albumin (3.2-5.2) g/dL Globulin (2-4) g/dL Albumin/Globulin Ratio (1-3) TSH 1.87 (0.34-5.60) mcIU/mL Microbiology and Other Data: Microbiology 02/08/18 03:45 Gram Stain - Final Sputum Expectorated 02/07/18 22:45 Nasal Screen MRSA (PCR)(ROBBIN) - Final Nasal Mrsa Detected Assess/Plan/Problems-Billing Assessment: - Patient Problems (1) Heart block Current Visit: Yes Comment: - Pt seen this AM and had transvenous pacemaker placed yesterday (02/08) - Reports document patient doing well - Spoke with Cardiology service and given Lyme screen is positive, agree with recommendation of ID consult (Dr. Reynaga--ID) (2) DVT (deep venous thrombosis) Current Visit: Yes Comment: - DVT in one of the paired peroneal veins of the RLE and both peroneal veins of the LLE; popliteal cyst in right popliteal fossa - D/C'd DVT prophylaxis (Heparin) and placed pt on full dose Lovenox after 4 hours post-pacemaker placement since yesterdayu - Discussed case with Cards given pt is awaiting permanent pacemaker placement pending Lyme titers. - Pt to continue with Lovenox SQ BID and will D/C coumadin given pending perm pacemaker procedure as described (3) Elevated troponin Current Visit: Yes Status: Acute Code(s): R74.8 - ABNORMAL LEVELS OF OTHER SERUM ENZYMES SNOMED Code(s): 353136954 Comment: - Very minimally elevated and likely due to demand ischemia and/or known recently diagnosed DVT above - Defer with Cardiology for any further W/U cardiac-aguilar (4) DVT prophylaxis Current Visit: Yes Status: Acute Code(s): DMZ1798 - SNOMED Code(s): 395145890 Comment: - On full dose Lovenox described above Status and Disposition: - Consider transitioning to Coumadin tomorrow especially in the setting of pt being destitute and would unlikely be able to afford DOACs - Pt lives in tent behind [facility], and reports that he has been homeless for 4-6 years. - Will discuss placement plan with care coordinators in AM
[2018-02-09] MEDS ORDERED: Warfarin TAB(*) 7.5 MG PO ONE (17:00)
[2018-02-09] MEDS ORDERED: cefTRIAXone(*) 1 GM in NS 0.9% 50 ML* 50 ML IVPB SCH (17:06)
[2018-02-09] MEDS ORDERED: Enoxaparin(*) 80 MG/0.8 ML SYR SUBCUT SCH (18:00)
[2018-02-10] MEDS ORDERED: Enoxaparin(*) 80 MG/0.8 ML SYR SUBCUT SCH (06:00)
[2018-02-10 06:37] LABS: ABS Basophils 0.1 10^3/ul (0-0.2); ABS Eosinophils 0.2 10^3/ul (0-0.6); ABS Lymphocytes 1.6 10^3/ul (1.0-4.8); ABS Monocytes 0.9 10^3/ul (0-0.8); ABS Neutrophils 3.1 10^3/ul (1.5-7.7); ABS Nucleated RBC 0 10^3/ul; Eosinophil % 3.2 % (0-6); Hematocrit 47 % (42-52); Hemoglobin 15.6 g/dl (14.0-18.0); Lymphocyte % 28.2 % (25-47); Mean Corpuscular HGB Conc 33 g/dl (31-36); Mean Corpuscular Hemoglobin 31 pg (27-31); Mean Corpuscular Volume 93 fL (80-94); Mean Platelet Volume 9.1 um3 (7.4-10.4); Nucleated Red Blood Cells % 0.1; Platelet Count 170 10^3/ul (150-450); Red Blood Count 5.06 10^6/ul (4.0-5.4); Red Cell Distribution Width 14 % (10.5-15); White Blood Count 5.8 10^3/ul (3.5-10.8)
[2018-02-10 06:50] LABS: INR 0.95 (0.77-1.02)
[2018-02-10 07:04] LABS: EGFR Non-African American 108.4 (>60)
[2018-02-10] MEDS: Insulin LISPRO* 1 UNITS UNIT SUBCUT SCH ×4 (08:20→21:20)
[2018-02-10] MEDS: Docusate CAP* 100 MG PO SCH (11:41)
[2018-02-10] MEDS: Senna TAB PO SCH (11:42)
[2018-02-10] MEDS ORDERED: Polyethylene Glycol 3350* 17 GM PACKET PO ONE (12:00)
[2018-02-10] MEDS ORDERED: Iohexol 350* (CONTRAST) 500 ML MDV IV ONE (12:00)
--- NOTE | 2018-02-10 12:18 | PN ---
Subjective Date of Service: 02/10/18 - CC: SOB Interval History: The patient states his breathing improved after the temporary pacer implanted. Still coughing (2 week history). Productive if he coughs very hard, yellow green sputum. +Orthopnea. THe patient hasn't been eating, eating leads to increased SOB. Also no recent bowel movement. Per pt 2 year history chronic constipation. Medications Active Medications: Benzonatate (Tessalon Cap*) 200 mg PO TID PRN PRN Reason: COUGH Last Admin: 02/09/18 13:49 Dose: 200 mg Dextrose (D50w Syringe 50 Ml*) 12.5 gm IV PUSH .FOR FS < 60 - SS PRN PRN Reason: FS < 60 Docusate Sodium (Colace Cap*) 200 mg PO DAILY [facility] Last Admin: 02/10/18 11:41 Dose: 200 mg Ceftriaxone Sodium 1 gm/ (Sodium Chloride) 100 mls @ 200 mls/hr IVPB Q24H [facility] Insulin Human Lispro (Humalog*) 0 units SUBCUT ACHS [facility] PRN Reason: Protocol Last Admin: 02/10/18 08:20 Dose: 4 unit Senna (Senokot Tab*) 1 tab PO DAILY [facility] Last Admin: 02/10/18 11:42 Dose: 1 tab Sodium Chloride (Sodium Chloride 0.65% Nasal [place]*) 2 spray BOTH NARES Q2H PRN PRN Reason: CONGESTION Zolpidem Tartrate (Ambien Tab*) 5 mg PO BEDTIME PRN PRN Reason: INSOMNIA Objective Vital Signs: Temp Pulse Resp BP Pulse Ox 98.1 F 71 18 131/86 97 02/10/18 08:00 02/10/18 12:01 02/10/18 12:01 02/10/18 12:00 02/10/18 12:01 Oxygen Devices in Use Now: Nasal Cannula Appearance: eldelry gentleman, lying at 50 degrees, O2 on, coughing. Eyes: No Scleral Icterus, PERRLA Ears/Nose/Mouth/Throat: Clear Oropharnyx, Mucous Membranes Moist Neck: Trachea Midline, No Thyroid Enlargement, Masses Respiratory: Symmetrical Chest Expansion and Respiratory Effort - diffuse wheezing, poor inspiratory effort, coughing. Cardiovascular: NL Sounds; No Murmurs; No JVD, RRR Abdominal: No Hepatosplenomegaly - +bowel sounds, soft, non tender Extremities: No Clubbing, Cyanosis - 1-2 + pitting edema lower legs. Neurological: Alert and Oriented x 3 Lines/Tubes/Other Access: Clean, Dry and Intact Peripheral IV Laboratory Results: 02/10/18 06:00 02/10/18 06:00 INR (Anticoag Therapy) 0.95 (0.77-1.02) 02/10/18 06:00 APTT 31.6 seconds (26.0-36.3) 02/07/18 17:45 Total Bilirubin 0.70 mg/dL (0.2-1.0) 02/09/18 05:45 AST 16 U/L (13-39) 02/09/18 05:45 ALT 18 U/L (7-52) 02/09/18 05:45 Alkaline Phosphatase 130 U/L (34-104) H 02/09/18 05:45 CK-MB (CK-2) 6.7 ng/mL (0.6-6.3) H 02/07/18 17:45 B-Natriuretic Peptide 95 pg/mL (-100) 02/07/18 17:48 Total Protein 5.1 g/dL (6.4-8.9) L 02/09/18 05:45 Albumin 2.7 g/dL (3.2-5.2) L 02/09/18 05:45 Globulin 2.4 g/dL (2-4) 02/09/18 05:45 Albumin/Globulin Ratio 1.1 (1-3) 02/09/18 05:45 Triglycerides 74 mg/dL 02/09/18 05:45 Cholesterol 171 mg/dL 02/09/18 05:45 LDL Cholesterol 100 mg/dL 02/09/18 05:45 HDL Cholesterol 56.6 mg/dL 02/09/18 05:45 TSH 1.87 mcIU/mL (0.34-5.60) 02/07/18 17:45 02/07/18 02/08/18 21:20 05:25 Troponin I 0.05 H* 0.05 H* Diagnostic Imaging: [employer] 02/09/18: Elevated R hemidiaphragm, small pleural effusions, infiltrate R base. Venous Doppler 02/10/18: DVT peroneal veins bilaterally. Echo 02/07/18: EF 45%, global hypokinesis, trace AI, mild MR, mild to mod TR, PApressure 49 mmHg. EKG Data: Monitor: V paced rhythm 70 bpm, AV dissociation, NSR. I turned paced rate to 50 bpm, occasional escape beat, persistant 3rd degree heart block. Assessment/Plan 73 yo with 2 week history of SOB found with 3rd degree heart block, slow escape rhythm now s/p temporary wire with improvement, but still coughing, infiltrate in right base and bilateral DVT's. Lyme screen +, awaiting Western blot. Elevated PA pressure and tricuspid insufficiency. 3rd degree heart block: -Unchanged, temporary pacer working and still indicated. Site looks good. -Await Western blot to help decide on permanent pacer or not. High risk patient for infection [place] homeless patient residing behind [facility]. If there is a reversible cause (Lyme) we could give the ceftriaxone a longer time to see if improvement in AV conduction. -Will make plans for possible pacemaker Thursday based on anticipated time of result of Western Blot. Troponin bump: Noted, will work up when less acute, could be PE, CAD, heart block. Coughing: -? PE and/or infection. -Cefriaxone on, WBC unremarkable. -Also wheezing. -Rx per hospitalists, but I can't put in a pacemaker unless his orthopnea resolves/markedly improves. -Heparin of any form OK, but would avoid coumodin/NOACs until after pacer implanted or decision made not to implant. -no cardiac contraindication to inhalers. Constipation: Senna noted. Could impact vagal tone/heart block and appetite and more.
--- NOTE | 2018-02-10 13:00 | RAD ---
INDICATION: Shortness of breath COMPARISON: Chest x-ray February 09, 2018 TECHNIQUE: Axial source images were acquired following the administration of 70 mL Omnipaque [address] angiographic technique. Coronal and sagittal reconstructed images were constructed and reviewed. FINDINGS: A right neck central venous catheter terminates at the right ventricle. There is occlusive filling defect in the posterior segmental branches of the right upper lobe artery (image 84). Near occlusive thrombus is seen in the segmental branches of the right lower lobe (image 145). Occlusive thrombus is seen in the anterior segmental branch of the left upper lobe (image 85) There is a moderate right-sided pleural effusion and small left pleural effusion. There is compressive atelectasis of the dependent bilateral lower lobes, more severely affecting the right lower lobe commensurate with the larger pleural effusion on that side. The lungs are otherwise grossly clear. The heart is normal in size. There is no evidence of pericardial effusion. There is no evidence of aortic aneurysm or dissection. There is no mediastinal, hilar, or axillary lymphadenopathy. Multilevel degenerative changes of the thoracic spine includes loss of intervertebral disc height and marginal osteophyte formation. Bilaterally the adrenal glands appear to exhibit symmetric mild hypertrophy. IMPRESSION: 1. Multifocal segmental pulmonary emboli as described above. 2. Moderate to large right and small left pleural effusions with adjacent compressive atelectasis. 3. Fairly symmetrical hypertrophy of the visualized adrenal glands bilaterally. Please correlate to endocrinologic laboratory values.
--- NOTE | 2018-02-10 14:38 | CONS ---
CONSULTATION REPORT: DATE OF CONSULT: 02/10/18. REQUESTING PROVIDER: Dr. Armstrong. REASON FOR CONSULTATION: Heart block, question Lyme. IMPRESSION: 1. Complete heart block in the setting of the decreased LV ejection fraction. Differential diagnosis this time of the year in this part of world does include Lyme carditis. Components of his history that argue against that include his decreased ejection fraction (myocarditis and cardiomyopathy unlikely in Lyme) as well as his undiagnosed diabetes, which taken together argues for underlying cardiac disease as the cause of the heart block. Those epidemiologic factors that support Lyme being part of the equation include the fact that he lives in a tent that is infested with mice and lives outdoors in area where there are lot of deer. So he has had chance for good tick exposure at this time of the year over the last few weeks. His Lyme DARION is positive; the Western blot is pending. 2. Two weeks' of nonproductive cough and with lower extremity DVT, question underlying malignancy and/or pulmonary embolism. 3. Undiagnosed diabetes. 4. Encephalopathy was present on admission and resolved. RECOMMENDATIONS: I agree ceftriaxone 1 g a day while awaiting the Lyme Western blot, which in this case I do think we should use as the deciding factor on whether or not he has Lyme carditis. HISTORY OF PRESENT ILLNESS: This is a 73-year-old man who is homeless, [place], admitted with chest pain, cough and dizziness. He had about 2 weeks' of cough, which was nonproductive. He had no hemoptysis. He had occasional chest pain. He had worst swelling in both legs. He had decreased activity levels without fevers, chills or sweats. He did notice significant malaise. He noticed and felt to be more dizzy when he was walking around and sometimes worsening chest pain with exertion. Eventually he came to the hospital after being seen at urgent care and found to be bradycardic. On , he came to the ER, his white count was 7, creatinine was 0.9, blood sugar 290, he was afebrile. He was noted to be in complete heart block. He had a temporary pace maker placed by Dr. Ruffin on the 02/08/18h. At the time of his admission, he was noted to be confused that not making sense. After the pacemaker was placed, his mental status improved significantly. He had chest x- ray that showed atelectasis. He had a Lyme serology sent in yesterday, the DARION came back positive. He was started on ceftriaxone. He had no fevers while he had been here. Other imaging has included an echocardiogram that showed ejection fraction 40% to 45% and decreased right ventricular function. He had a lower extremity ultrasound that showed DVT in the right peroneal vein and the left peroneal vein. He does not recall a febrile or viral illness a few weeks ago, did not have a round, red expanding rash a few weeks ago, but had not actually paid that close of attention for rashes either. PAST MEDICAL HISTORY: 1. Diabetes. The A1c is here is 14 and had not been tested for in the past. 2. Bilateral elbow spur surgery. ALLERGIES: No known drug allergies. MEDICATIONS: 1. Ceftriaxone. 2. Saline spray. 3. Warfarin. 4. Ambien. SOCIAL HISTORY: [place]. There is mice in it from time to time. He has a lot of deer around the area where he is living. He had been worked in [employer] industry until he lost the job a few years ago. He was in the [place] in [facility] and [place]. No history of positive tuberculin skin test or known TB exposure. FAMILY HISTORY: Mother in the 90s unknown cause. Father in 50s from motor vehicle accident. REVIEW OF SYSTEMS: A 14-point review of systems were all negative except noted above. PHYSICAL EXAMINATION: Vital Signs: Temperature 36.7, heart rate 70, respiratory rate 14, blood pressure 120/83, oxygen saturation 96% on 3 L nasal cannula. General: He is awake, and not in distress. Neurologic: He is oriented x3. Follows all commands. Moves all extremities. HEENT: There is no conjunctival hemorrhage. Oropharynx without lesions. Neck: Supple without mass. Lymph Nodes: There is no inguinal, axillary, or epitrochlear lymphadenopathy. Heart: Regular rate and rhythm without murmurs, rubs or gallops. Lungs: Clear to auscultation bilaterally. Abdomen is soft, nontender , nondistended. There are bowel sounds present. Skin: There is no rash or splinter hemorrhages. Musculoskeletal: No spine tenderness to palpation or joint synovitis. He has bilateral bunions with no foot wounds. He does have mild edema in both calves, which are nontender. LABORATORY DATA: White blood cell count 5, hemoglobin 15, platelets 170, creatinine 0.7. Lyme serology positive. Please see impressions and recommendations as outlined above. TIME SPENT: Seventy five minutes floor time, greater than 50% spent in counseling regarding further diagnostic studies and in coordination of care with Dr. Singh and the hospitalist team regarding delay in the timing of a permanent pacemaker while awaiting the Lyme serology. [id number]/[facility] #: [id number] MTDD
--- NOTE | 2018-02-10 15:49 | PN ---
Subjective Date of Service: 02/10/18 Interval History: Pt seen and examined. Meds and labs reviewed. ROS: Could not be relaibly obtained PHYSICAL EXAM: GEN APPEARANCE: Lethargic, not in acute distress, likely post-ictal HEENT: NC/AT, PERRLA, moist oral mucosa, (-) throat erythema NECK: Soft, supple, (-) cervical LAD, (-)JVD, with transvenous pacepaker in place in right side HEART: S1S2 WNL, RRR, No MRG CHEST: CTA, BL, GAE, No W/R/R ABD: Soft, ND/NT, NABS 4x Q EXT: No C/C/2+BLLE SKIN: Warm to touch PSYCH: No active psychosis, hallucinations, depression, SI/HI Objective Active Medications: Benzonatate (Tessalon Cap*) 200 mg PO TID PRN PRN Reason: COUGH Last Admin: 02/09/18 13:49 Dose: 200 mg Dextrose (D50w Syringe 50 Ml*) 12.5 gm IV PUSH .FOR FS < 60 - SS PRN PRN Reason: FS < 60 Docusate Sodium (Colace Cap*) 200 mg PO DAILY [facility] Last Admin: 02/10/18 11:41 Dose: 200 mg Enoxaparin Sodium (Lovenox(*)) 80 mg SUBCUT Q12H [facility] Guaifenesin/Dextromethorphan (Robitussin Dm Sugar Free*) 10 ml PO Q6H [facility] Stop: 02/11/18 15:59 Ceftriaxone Sodium 1 gm/ (Sodium Chloride) 50 mls @ 100 mls/hr IVPB Q24H [facility] Insulin Human Lispro (Humalog*) 0 units SUBCUT ACHS [facility] PRN Reason: Protocol Last Admin: 02/10/18 12:16 Dose: 4 unit Senna (Senokot Tab*) 1 tab PO DAILY [facility] Last Admin: 02/10/18 11:42 Dose: 1 tab Sodium Chloride (Sodium Chloride 0.65% Nasal [place]*) 2 spray BOTH NARES Q2H PRN PRN Reason: CONGESTION Zolpidem Tartrate (Ambien Tab*) 5 mg PO BEDTIME PRN PRN Reason: INSOMNIA Vital Signs - 8 hr 02/10/18 02/10/18 02/10/18 08:00 08:01 09:00 Temperature 98.1 F Pulse Rate 72 73 Respiratory 14 14 20 Rate Blood Pressure 120/83 (mmHg) O2 Sat by Pulse 95 96 Oximetry 02/10/18 02/10/18 02/10/18 09:23 10:00 11:00 Temperature Pulse Rate 73 73 72 Respiratory 20 19 18 Rate Blood Pressure 137/83 122/77 132/74 (mmHg) O2 Sat by Pulse 95 97 98 Oximetry 02/10/18 02/10/18 02/10/18 11:01 12:00 12:01 Temperature Pulse Rate 71 72 71 Respiratory 22 23 18 Rate Blood Pressure 131/86 (mmHg) O2 Sat by Pulse 97 97 97 Oximetry 02/10/18 02/10/18 02/10/18 13:00 13:34 14:00 Temperature Pulse Rate 72 71 Respiratory 19 22 22 Rate Blood Pressure 166/112 (mmHg) O2 Sat by Pulse 97 98 Oximetry 02/10/18 02/10/18 02/10/18 14:01 15:00 15:01 Temperature Pulse Rate 71 71 71 Respiratory 18 15 16 Rate Blood Pressure 114/72 114/62 (mmHg) O2 Sat by Pulse 96 94 95 Oximetry Oxygen Devices in Use Now: Nasal Cannula Result Diagrams: 02/10/18 06:00 02/10/18 06:00 Additional Lab and Data: Lab Results 02/07/18 02/07/18 02/07/18 Range/Units 17:45 17:45 17:45 WBC 6.8 (3.5-10.8) 10^3/ul RBC 5.46 H (4.0-5.4) 10^6/ul Hgb 17.0 (14.0-18.0) g/dl Hct 51 (42-52) % MCV 94 (80-94) fL MCH 31 (27-31) pg MCHC 33 (31-36) g/dl RDW 14 (10.5-15) % Plt Count 190 (150-450) 10^3/ul MPV 10.3 (7.4-10.4) um3 Neut % (Auto) 67.3 (38-83) % Lymph % (Auto) 18.2 L (25-47) % [place] % (Auto) 12.0 H (0-7) % Eos % (Auto) 1.4 (0-6) % Baso % (Auto) 1.1 (0-2) % Absolute Neuts (auto) 4.5 (1.5-7.7) 10^3/ul Absolute Lymphs (auto) 1.2 (1.0-4.8) 10^3/ul Absolute Monos (auto) 0.8 (0-0.8) 10^3/ul Absolute Eos (auto) 0.1 (0-0.6) 10^3/ul Absolute Basos (auto) 0.1 (0-0.2) 10^3/ul Absolute Nucleated RBC 0 10^3/ul Nucleated RBC % 0.1 APTT (26.0-36.3) seconds Sodium 134 L (139-145) mmol/L Potassium TNP Chloride 96 L (101-111) mmol/L Carbon Dioxide 24 (22-32) mmol/L Anion Gap 14 H (2-11) mmol/L BUN 27 H (6-24) mg/dL Creatinine 0.95 (0.67-1.17) mg/dL Est GFR ( Amer) 99.7 (>60) Est GFR (Non-Af Amer) 77.5 (>60) BUN/Creatinine Ratio 28.4 H (8-20) Glucose 284 H (70-100) mg/dL Lactic Acid 1.7 (0.5-2.0) mmol/L Calcium 9.2 (8.6-10.3) mg/dL Total Bilirubin 0.70 (0.2-1.0) mg/dL AST TNP ALT 28 (7-52) U/L Alkaline Phosphatase 151 H (34-104) U/L Total Creatine Kinase 97 (10-223) U/L CK-MB (CK-2) 6.7 H (0.6-6.3) ng/mL Troponin I 0.05 H* (<0.04) ng/mL B-Natriuretic Peptide ( - 100) pg/mL Total Protein 6.4 (6.4-8.9) g/dL Albumin 3.5 (3.2-5.2) g/dL Globulin 2.9 (2-4) g/dL Albumin/Globulin Ratio 1.2 (1-3) TSH (0.34-5.60) mcIU/mL 02/07/18 02/07/18 02/07/18 Range/Units 17:45 17:45 17:48 WBC (3.5-10.8) 10^3/ul RBC (4.0-5.4) 10^6/ul Hgb (14.0-18.0) g/dl Hct (42-52) % MCV (80-94) fL MCH (27-31) pg MCHC (31-36) g/dl RDW (10.5-15) % Plt Count (150-450) 10^3/ul MPV (7.4-10.4) um3 Neut % (Auto) (38-83) % Lymph % (Auto) (25-47) % [place] % (Auto) (0-7) % Eos % (Auto) (0-6) % Baso % (Auto) (0-2) % Absolute Neuts (auto) (1.5-7.7) 10^3/ul Absolute Lymphs (auto) (1.0-4.8) 10^3/ul Absolute Monos (auto) (0-0.8) 10^3/ul Absolute Eos (auto) (0-0.6) 10^3/ul Absolute Basos (auto) (0-0.2) 10^3/ul Absolute Nucleated RBC 10^3/ul Nucleated RBC % APTT 31.6 (26.0-36.3) seconds Sodium (139-145) mmol/L Potassium 4.9 Chloride (101-111) mmol/L Carbon Dioxide (22-32) mmol/L Anion Gap (2-11) mmol/L BUN (6-24) mg/dL Creatinine (0.67-1.17) mg/dL Est GFR ( Amer) (>60) Est GFR (Non-Af Amer) (>60) BUN/Creatinine Ratio (8-20) Glucose (70-100) mg/dL Lactic Acid (0.5-2.0) mmol/L Calcium (8.6-10.3) mg/dL Total Bilirubin (0.2-1.0) mg/dL AST 19 ALT (7-52) U/L Alkaline Phosphatase (34-104) U/L Total Creatine Kinase (10-223) U/L CK-MB (CK-2) (0.6-6.3) ng/mL Troponin I (<0.04) ng/mL B-Natriuretic Peptide 95 ( - 100) pg/mL Total Protein (6.4-8.9) g/dL Albumin (3.2-5.2) g/dL Globulin (2-4) g/dL Albumin/Globulin Ratio (1-3) TSH 1.87 (0.34-5.60) mcIU/mL Microbiology and Other Data: Microbiology 02/08/18 03:45 Gram Stain - Final Sputum Expectorated 02/07/18 22:45 Nasal Screen MRSA (PCR)(ROBBIN) - Final Nasal Mrsa Detected Assess/Plan/Problems-Billing Assessment: - Patient Problems (1) Heart block Current Visit: Yes Comment: - Pt seen this AM and had transvenous pacemaker placed yesterday (02/08) - Reports document patient doing well - Spoke with Dr. Reynaga who decreased Rocephin from 2 g to 1g per day given he believes that his presentation is unlikely Lymes, however, will need to be ruled out. In addition, pt has not had any fevers and does not have leukocytosis. (2) DVT (deep venous thrombosis) Current Visit: Yes Comment: - DVT in one of the paired peroneal veins of the RLE and both peroneal veins of the LLE; popliteal cyst in right popliteal fossa - D/C'd DVT prophylaxis (Heparin) and placed pt on full dose Lovenox after 4 hours post-pacemaker placement since yesterdayu - Discussed case with Cards given pt is awaiting permanent pacemaker placement pending Lyme titers. - Pt to continue with Lovenox SQ BID and will D/C coumadin given pending perm pacemaker procedure as described (3) Pulmonary embolism Current Visit: Yes Status: Acute Code(s): I26.99 - OTHER PULMONARY EMBOLISM WITHOUT ACUTE COR PULMONALE SNOMED Code(s): 19448783 Comment: --Pt placed back on Lovenox 1 mg/kg BID, SQ today --Please see above discussion --As suspected, consolidation and pleural effusion seen on CXR is due to PE given extensive BL DVTs found on admission --No concerning mets and/or mass reported on CTA (4) Elevated troponin Current Visit: Yes Status: Acute Code(s): R74.8 - ABNORMAL LEVELS OF OTHER SERUM ENZYMES SNOMED Code(s): 299131956 Comment: - Very minimally elevated and likely due to demand ischemia and/or known recently diagnosed DVT above - Defer with Cardiology for any further W/U cardiac-aguilar (5) DVT prophylaxis Current Visit: Yes Status: Acute Code(s): XNM7143 - SNOMED Code(s): 369929995 Comment: - On full dose Lovenox described above Status and Disposition: - Consider transitioning to Coumadin tomorrow especially in the setting of pt being destitute and would unlikely be able to afford DOACs - Pt lives in tent behind [address], and reports that he has been homeless for 4-6 years. - Will discuss placement plan with care coordinators in AM
[2018-02-10] MEDS: Enoxaparin(*) 80 MG/0.8 ML SYR SUBCUT SCH (16:47)
[2018-02-10] MEDS: GuaiFENesin DM sugar free* 5 ML UDC PO SCH ×2 (17:04→21:21)
[2018-02-10] MEDS ORDERED: cefTRIAXone(*) 1 GM in NS 0.9% 50 ML* 50 ML IVPB SCH (18:00)
[2018-02-11] MEDS: Enoxaparin(*) 80 MG/0.8 ML SYR SUBCUT SCH (03:24)
[2018-02-11] MEDS: GuaiFENesin DM sugar free* 5 ML UDC PO SCH ×2 (05:42→09:22)
[2018-02-11 05:53] LABS: Hematocrit 47 % (42-52); Hemoglobin 15.6 g/dl (14.0-18.0); Mean Corpuscular HGB Conc 33 g/dl (31-36); Mean Corpuscular Hemoglobin 31 pg (27-31); Mean Corpuscular Volume 93 fL (80-94); Mean Platelet Volume 8.6 um3 (7.4-10.4); Platelet Count 179 10^3/ul (150-450); Red Blood Count 5.03 10^6/ul (4.0-5.4); Red Cell Distribution Width 14 % (10.5-15); White Blood Count 5.6 10^3/ul (3.5-10.8)
--- NOTE | 2018-02-11 08:40 | PROCNOTE ---
Cardiology Procedure Note 02/11/2018 Temporary pacemaker interrogation Capture is at 0.5-1 mA, set 5 mA Remains pacemaker dependent Increased V-rate from 70 to 80 bpm with successful high burden PVC suppression
--- NOTE | 2018-02-11 08:49 | PN ---
Subjective Date of Service: 02/11/18 Interval History: f/u heart block Remains pacemaker dependent No dyspnea while sitting up. Medications Active Medications: Benzonatate (Tessalon Cap*) 200 mg PO TID PRN PRN Reason: COUGH Last Admin: 02/09/18 13:49 Dose: 200 mg Dextrose (D50w Syringe 50 Ml*) 12.5 gm IV PUSH .FOR FS < 60 - SS PRN PRN Reason: FS < 60 Docusate Sodium (Colace Cap*) 200 mg PO DAILY [facility] Last Admin: 02/10/18 11:41 Dose: 200 mg Enoxaparin Sodium (Lovenox(*)) 80 mg SUBCUT Q12H [facility] Last Admin: 02/11/18 03:24 Dose: 80 mg Guaifenesin/Dextromethorphan (Robitussin Dm Sugar Free*) 10 ml PO Q6H [facility] Stop: 02/11/18 15:59 Last Admin: 02/11/18 05:42 Dose: 10 ml Insulin Human Lispro (Humalog*) 0 units SUBCUT ACHS [facility] PRN Reason: Protocol Last Admin: 02/10/18 21:20 Dose: 8 unit Senna (Senokot Tab*) 1 tab PO DAILY [facility] Last Admin: 02/10/18 11:42 Dose: 1 tab Sodium Chloride (Sodium Chloride 0.65% Nasal [place]*) 2 spray BOTH NARES Q2H PRN PRN Reason: CONGESTION Zolpidem Tartrate (Ambien Tab*) 5 mg PO BEDTIME PRN PRN Reason: INSOMNIA Objective Vital Signs: Temp Pulse Resp BP Pulse Ox 97.9 F 73 23 137/70 96 02/11/18 08:00 02/11/18 08:01 02/11/18 08:01 02/11/18 08:00 02/11/18 08:01 Oxygen Devices in Use Now: Nasal Cannula Appearance: nad pleasant Eyes: No Scleral Icterus, PERRLA Ears/Nose/Mouth/Throat: Clear Oropharnyx, Mucous Membranes Moist Neck: Trachea Midline, No Thyroid Enlargement, Masses Respiratory: Symmetrical Chest Expansion and Respiratory Effort - diffuse wheezing, poor inspiratory effort, coughing. Cardiovascular: NL Sounds; No Murmurs; No JVD, RRR - temporary pacemaker in place Abdominal: No Hepatosplenomegaly - +bowel sounds, soft, non tender Extremities: No Clubbing, Cyanosis - 1-2 + pitting edema lower legs. Neurological: Alert and Oriented x 3 Lines/Tubes/Other Access: Clean, Dry and Intact Peripheral IV Laboratory Results: 02/11/18 05:45 02/11/18 05:45 INR (Anticoag Therapy) 0.95 (0.77-1.02) 02/10/18 06:00 APTT 31.6 seconds (26.0-36.3) 02/07/18 17:45 Total Bilirubin 0.70 mg/dL (0.2-1.0) 02/11/18 05:45 Direct Bilirubin 0.10 mg/dL (0.03-0.18) 02/11/18 05:45 Indirect Bilirubin 0.6 mg/dL (0.3-1.0) 02/11/18 05:45 AST 12 U/L (13-39) L 02/11/18 05:45 ALT 11 U/L (7-52) 02/11/18 05:45 Alkaline Phosphatase 86 U/L (34-104) 02/11/18 05:45 CK-MB (CK-2) 6.7 ng/mL (0.6-6.3) H 02/07/18 17:45 B-Natriuretic Peptide 95 pg/mL (-100) 02/07/18 17:48 Total Protein 5.0 g/dL (6.4-8.9) L 02/11/18 05:45 Albumin 2.4 g/dL (3.2-5.2) L 02/11/18 05:45 Globulin 2.6 g/dL (2-4) 02/11/18 05:45 Albumin/Globulin Ratio 0.9 (1-3) L 02/11/18 05:45 Triglycerides 74 mg/dL 02/09/18 05:45 Cholesterol 171 mg/dL 02/09/18 05:45 LDL Cholesterol 100 mg/dL 02/09/18 05:45 HDL Cholesterol 56.6 mg/dL 02/09/18 05:45 TSH 1.87 mcIU/mL (0.34-5.60) 02/07/18 17:45 02/07/18 02/08/18 21:20 05:25 Troponin I 0.05 H* 0.05 H* Diagnostic Imaging: ADJUNCT PHILOSOPHY FACULTY 02/09/18: Elevated R hemidiaphragm, small pleural effusions, infiltrate R base. Venous Doppler 02/10/18: DVT peroneal veins bilaterally. Echo 02/07/18: EF 45%, global hypokinesis, trace AI, mild MR, mild to mod TR, PApressure 49 mmHg. Assessment/Plan 73 year old homeless man admitted with symptomatic DVT/PE and high degree AV block now s/p temporary pacemaker, found with severely uncontrolled diabetes [id number] 14 and mild cardiomyopathy, ruled out for acute lyme's - Continue anti-coagulation for today - Plan for pacemaker tomorrow - Antibiotics per ID - Will address cardiac medications post-pacemaker Thank you for allowing me to participate in the cardiovascular care of this patient. Please do not hesitate to contact me with any questions or concerns.
--- NOTE | 2018-02-11 09:08 | PN ---
Progress Note - Progress Note Date of Service: 02/11/18 SOAP: Subjective: CC: heart block HPI: 73 year old man with CHB, temporary pacer, awaiting Lyme WB. No fever, rash, or diarrhea. No chest pain. Objective: Vital Signs Temp 36.6 C 02/11/18 08:00 Pulse 73 02/11/18 08:01 Resp 23 02/11/18 08:01 BP 137/70 02/11/18 08:00 Pulse Ox 96 02/11/18 08:01 Intake & Output 02/10/18 02/11/18 02/11/18 18:59 06:59 18:59 Intake Total 480 200 Output Total 765 350 Balance -285 -150 Weight 175 lb 174 lb 2.643 oz Intake: IV Fluids 50 ABX - CEFTRIAXONE 50 Oral 480 150 Output: Urine 765 350 Gen:awake, no distress HEENT: no thrush Neck: no mass Heart:RRR no murmur Lungs:Decr BS R base Abd:+BS NTND soft Skin: no rash Laboratory Results - last 24 hr 02/07/18 02/10/18 02/10/18 17:45 11:48 16:51 WBC RBC Hgb Hct MCV MCH MCHC RDW Plt Count MPV Sodium Potassium Chloride Carbon Dioxide Anion Gap BUN Creatinine Est GFR ( Amer) Est GFR (Non-Af Amer) BUN/Creatinine Ratio Glucose POC Glucose (mg/dL) 205 H 223 H Calcium Magnesium Total Bilirubin Direct Bilirubin Indirect Bilirubin AST ALT Alkaline Phosphatase Total Protein Albumin Globulin Albumin/Globulin Ratio Lyme IgG (Western Blot) Negative Lyme IgG Bands Present p66,p41,p39,p18 Lyme IgM (Western Blot) Negative Lyme IgM Bands Present p41 Lyme Disease Interpret See comment 02/10/18 02/11/18 02/11/18 21:10 05:45 05:45 WBC 5.6 RBC 5.03 Hgb 15.6 Hct 47 MCV 93 MCH 31 MCHC 33 RDW 14 Plt Count 179 MPV 8.6 Sodium 137 L Potassium 3.9 Chloride 98 L Carbon Dioxide 32 Anion Gap 7 BUN 17 Creatinine 0.68 Est GFR ( Amer) 146.6 Est GFR (Non-Af Amer) 114.0 BUN/Creatinine Ratio 25.0 H Glucose 170 H POC Glucose (mg/dL) 304 H Calcium 8.4 L Magnesium 1.9 Total Bilirubin 0.70 Direct Bilirubin 0.10 Indirect Bilirubin 0.6 AST 12 L ALT 11 Alkaline Phosphatase 86 Total Protein 5.0 L Albumin 2.4 L Globulin 2.6 Albumin/Globulin Ratio 0.9 L Lyme IgG (Western Blot) Lyme IgG Bands Present Lyme IgM (Western Blot) Lyme IgM Bands Present Lyme Disease Interpret Assessment: 1. Complete heart block; Lyme WB negative, not Lyme carditis 2. DVT/PE ?hypercoag state 3. Large right pleural effusion ?malignancy or infection 4. 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 DC ceftriaxone 2. pacemaker per Dr Singh 3. Right Thoracentesis for cell counts, cultures, cytology 35 minutes floor time >50% face to face discussing CT findings and Lyme results with patients
[2018-02-11] MEDS: Docusate CAP* 100 MG PO SCH (09:21)
[2018-02-11] MEDS: Insulin LISPRO* 1 UNITS UNIT SUBCUT SCH ×4 (09:21→21:08)
[2018-02-11] MEDS: Senna TAB PO SCH (09:21)
--- NOTE | 2018-02-11 09:39 | PN ---
Subjective Date of Service: 02/11/18 - CC 3rd degree HB Interval History: PACER consult Pt remains in 3rd degree HB. Lyme neg by Western blot. Medications Active Medications: Benzonatate (Tessalon Cap*) 200 mg PO TID PRN PRN Reason: COUGH Last Admin: 02/09/18 13:49 Dose: 200 mg Dextrose (D50w Syringe 50 Ml*) 12.5 gm IV PUSH .FOR FS < 60 - SS PRN PRN Reason: FS < 60 Docusate Sodium (Colace Cap*) 200 mg PO DAILY [facility] Last Admin: 02/11/18 09:21 Dose: 200 mg Enoxaparin Sodium (Lovenox(*)) 80 mg SUBCUT Q12H [facility] Last Admin: 02/11/18 03:24 Dose: 80 mg Guaifenesin/Dextromethorphan (Robitussin Dm Sugar Free*) 10 ml PO Q6H [facility] Stop: 02/11/18 15:59 Last Admin: 02/11/18 09:22 Dose: 10 ml Insulin Human Lispro (Humalog*) 0 units SUBCUT ACHS [facility] PRN Reason: Protocol Last Admin: 02/11/18 09:21 Dose: 4 unit Senna (Senokot Tab*) 1 tab PO DAILY [facility] Last Admin: 02/11/18 09:21 Dose: 1 tab Sodium Chloride (Sodium Chloride 0.65% Nasal [place]*) 2 spray BOTH NARES Q2H PRN PRN Reason: CONGESTION Zolpidem Tartrate (Ambien Tab*) 5 mg PO BEDTIME PRN PRN Reason: INSOMNIA Objective Vital Signs: Temp Pulse Resp BP Pulse Ox 97.9 F 73 23 137/70 96 02/11/18 08:00 02/11/18 08:01 02/11/18 08:01 02/11/18 08:00 02/11/18 08:01 Oxygen Devices in Use Now: Nasal Cannula Appearance: nad pleasant Eyes: No Scleral Icterus, PERRLA Ears/Nose/Mouth/Throat: Clear Oropharnyx, Mucous Membranes Moist Neck: NL Appearance and Movements; NL JVP, Trachea Midline, No Thyroid Enlargement, Masses Respiratory: Symmetrical Chest Expansion and Respiratory Effort - lungs clear. Cardiovascular: NL Sounds; No Murmurs; No JVD, RRR - temporary pacemaker in place R IJ Abdominal: No Hepatosplenomegaly - +bowel sounds, soft, non tender Extremities: No Clubbing, Cyanosis - Improved edema of legs. RUE 2 + pitting edema and enlarged c/w LUE. Neurological: Alert and Oriented x 3 Lines/Tubes/Other Access: Clean, Dry and Intact Peripheral IV Laboratory Results: 02/11/18 05:45 02/11/18 05:45 INR (Anticoag Therapy) 0.95 (0.77-1.02) 02/10/18 06:00 APTT 31.6 seconds (26.0-36.3) 02/07/18 17:45 Total Bilirubin 0.70 mg/dL (0.2-1.0) 02/11/18 05:45 Direct Bilirubin 0.10 mg/dL (0.03-0.18) 02/11/18 05:45 Indirect Bilirubin 0.6 mg/dL (0.3-1.0) 02/11/18 05:45 AST 12 U/L (13-39) L 02/11/18 05:45 ALT 11 U/L (7-52) 02/11/18 05:45 Alkaline Phosphatase 86 U/L (34-104) 02/11/18 05:45 CK-MB (CK-2) 6.7 ng/mL (0.6-6.3) H 02/07/18 17:45 B-Natriuretic Peptide 95 pg/mL (-100) 02/07/18 17:48 Total Protein 5.0 g/dL (6.4-8.9) L 02/11/18 05:45 Albumin 2.4 g/dL (3.2-5.2) L 02/11/18 05:45 Globulin 2.6 g/dL (2-4) 02/11/18 05:45 Albumin/Globulin Ratio 0.9 (1-3) L 02/11/18 05:45 Triglycerides 74 mg/dL 02/09/18 05:45 Cholesterol 171 mg/dL 02/09/18 05:45 LDL Cholesterol 100 mg/dL 02/09/18 05:45 HDL Cholesterol 56.6 mg/dL 02/09/18 05:45 TSH 1.87 mcIU/mL (0.34-5.60) 02/07/18 17:45 02/07/18 02/08/18 21:20 05:25 Troponin I 0.05 H* 0.05 H* Diagnostic Imaging: CXR 02/09/18: Elevated R hemidiaphragm, small pleural effusions, infiltrate R base. Venous Doppler 02/10/18: DVT peroneal veins bilaterally. Echo 02/07/18: EF 45%, global hypokinesis, trace AI, mild MR, mild to mod TR, PApressure 49 mmHg. EKG Data: Monitor: V paced rhythm 70 bpm, AV dissociation, NSR. Assessment/Plan 73 year old homeless man admitted with symptomatic DVT/PE and high degree AV block now s/p temporary pacemaker, newly dx'd DVT/PE, DM, pleural effusion. Lyme negative by Western Blot. Pacer implantation in AM. Will hold AM lovenox pre procedure. Discussed with Dr Dale and if surgery able to and consent obtained today can try and coordinate thoracentesis with pacer implant. Details of the procedure including risk of infection, bleeding, pneumothorax in injury to the heart explained to the patient. Consent has been signed, pro procedure orders completed. The patient was able to lie flat today comfortably.
[2018-02-11] MEDS: Insulin GLARGINE(*) 1 UNITS UNIT SUBCUT SCH (11:50)
--- NOTE | 2018-02-11 14:42 | RAD ---
HISTORY: Right upper extremity swelling COMPARISONS: None relevant TECHNIQUE: Multiple transverse and longitudinal ultrasound images were obtained of the right upper extremity from the level of the internal jugular vein inferiorly through to the infra-cubital veins using grayscale, color Doppler, and spectral Doppler imaging with and without compression and with augmentation. Comparison images were obtained of the contralateral internal jugular vein and subclavian vein. FINDINGS: VEINS: Evaluation is limited due to the presence of a chest port. This limits evaluation of the right internal jugular vein and distal brachial vein. The remainder of the venous system of the right upper extremity is compressible throughout its course, with normal flow on color Doppler imaging and normal response to augmentation on spectral Doppler imaging. SOFT TISSUES: Unremarkable. OTHER FINDINGS: None. IMPRESSION: LIMITED STUDY SECONDARY TO CHEST PORT. WITHIN THE LIMITATIONS OF STUDY, THERE IS NO RIGHT UPPER EXTREMITY DEEP VEIN THROMBOSIS
[2018-02-11] MEDS: Benzonatate CAP* 100 MG PO PRN ×2 (17:00→22:58)
[2018-02-11] MEDS ORDERED: Heparin DRIP 25,000 UNITS(*) 25,000 UNITS/500 ML BAG IV SCH (17:15)
[2018-02-11] MEDS ORDERED: Enoxaparin(*) 80 MG/0.8 ML SYR SUBCUT ONE (17:25)
--- NOTE | 2018-02-11 17:33 | PN ---
Subjective Date of Service: 02/11/18 Interval History: Pt seen and examined. Meds and labs reviewed. Touched base with Joel Lopes, and Daron. Touched base with [employer] late afternoon and mentioned that planned pacemaker placement is at 6 AM and thoracentesis sometime later. ROS: Denied GIVENS/dizziness, F/C, N/V, CP, SOB, increased cough, sputum production , abd pain, diarrhea, constipation, dysuria, myalgias, arthralgias, throat pain , and new skin lesions. The rest of the 14 point ROS are unremarkable. PHYSICAL EXAM: GEN APPEARANCE: Awake, not in acute distress HEENT: NC/AT, PERRLA, moist oral mucosa, (-) throat erythema NECK: Soft, supple, (-) cervical LAD, (-)JVD HEART: S1S2 WNL, RRR, No MRG CHEST: CTA, BL, GAE, No W/R/R ABD: Soft, ND/NT, NABS 4x Q EXT: No C/C/BLLE+1 SKIN: Warm to touch PSYCH: No active psychosis, hallucinations, depression, SI/HI Objective Active Medications: Benzonatate (Tessalon Cap*) 200 mg PO TID PRN PRN Reason: COUGH Last Admin: 02/11/18 17:00 Dose: 200 mg Dextrose (D50w Syringe 50 Ml*) 12.5 gm IV PUSH .FOR FS < 60 - SS PRN PRN Reason: FS < 60 Diazepam (Valium Tab(*)) 5 mg PO ONCE ONE Stop: 02/12/18 06:01 Docusate Sodium (Colace Cap*) 200 mg PO DAILY [facility] Last Admin: 02/11/18 09:21 Dose: 200 mg Enoxaparin Sodium (Lovenox(*)) 80 mg SUBCUT ONCE ONE Stop: 02/11/18 17:26 Sodium Chloride (Ns 0.9% 1000 Ml*) 1,000 mls @ 100 mls/hr IV .PER RATE [facility] Ceftriaxone Sodium 2 gm/ (Sodium Chloride) 100 mls @ 200 mls/hr IVPB ONCE ONE Stop: 02/12/18 06:29 Insulin Glargine (Lantus(*)) 10 units SUBCUT Q24H [facility] Last Admin: 02/11/18 11:50 Dose: 10 units Insulin Human Lispro (Humalog*) 0 units SUBCUT ACHS [facility] PRN Reason: Protocol Last Admin: 02/11/18 17:00 Dose: 6 unit Senna (Senokot Tab*) 1 tab PO DAILY [facility] Last Admin: 02/11/18 09:21 Dose: 1 tab Sodium Chloride (Sodium Chloride 0.65% Nasal [place]*) 2 spray BOTH NARES Q2H PRN PRN Reason: CONGESTION Zolpidem Tartrate (Ambien Tab*) 5 mg PO BEDTIME PRN PRN Reason: INSOMNIA Vital Signs - 8 hr 02/11/18 02/11/18 02/11/18 10:00 10:01 11:00 Temperature Pulse Rate 83 82 82 Respiratory 20 22 20 Rate Blood Pressure 104/86 116/63 (mmHg) O2 Sat by Pulse 94 98 97 Oximetry 02/11/18 02/11/18 02/11/18 11:01 12:00 12:01 Temperature 98 F Pulse Rate 76 81 82 Respiratory 23 23 20 Rate Blood Pressure 117/73 (mmHg) O2 Sat by Pulse 97 95 93 Oximetry 02/11/18 02/11/18 02/11/18 13:00 13:01 14:00 Temperature Pulse Rate 92 81 82 Respiratory 25 23 24 Rate Blood Pressure 116/62 128/67 (mmHg) O2 Sat by Pulse 93 94 96 Oximetry 02/11/18 02/11/18 02/11/18 14:01 15:00 16:00 Temperature 97.5 F Pulse Rate 82 82 Respiratory 26 25 Rate Blood Pressure 113/57 (mmHg) O2 Sat by Pulse 95 94 Oximetry Oxygen Devices in Use Now: Nasal Cannula Result Diagrams: 02/11/18 05:45 02/11/18 05:45 Additional Lab and Data: Lab Results 02/07/18 02/07/18 02/07/18 Range/Units 17:45 17:45 17:45 WBC 6.8 (3.5-10.8) 10^3/ul RBC 5.46 H (4.0-5.4) 10^6/ul Hgb 17.0 (14.0-18.0) g/dl Hct 51 (42-52) % MCV 94 (80-94) fL MCH 31 (27-31) pg MCHC 33 (31-36) g/dl RDW 14 (10.5-15) % Plt Count 190 (150-450) 10^3/ul MPV 10.3 (7.4-10.4) um3 Neut % (Auto) 67.3 (38-83) % Lymph % (Auto) 18.2 L (25-47) % [place] % (Auto) 12.0 H (0-7) % Eos % (Auto) 1.4 (0-6) % Baso % (Auto) 1.1 (0-2) % Absolute Neuts (auto) 4.5 (1.5-7.7) 10^3/ul Absolute Lymphs (auto) 1.2 (1.0-4.8) 10^3/ul Absolute Monos (auto) 0.8 (0-0.8) 10^3/ul Absolute Eos (auto) 0.1 (0-0.6) 10^3/ul Absolute Basos (auto) 0.1 (0-0.2) 10^3/ul Absolute Nucleated RBC 0 10^3/ul Nucleated RBC % 0.1 APTT (26.0-36.3) seconds Sodium 134 L (139-145) mmol/L Potassium TNP Chloride 96 L (101-111) mmol/L Carbon Dioxide 24 (22-32) mmol/L Anion Gap 14 H (2-11) mmol/L BUN 27 H (6-24) mg/dL Creatinine 0.95 (0.67-1.17) mg/dL Est GFR ( Amer) 99.7 (>60) Est GFR (Non-Af Amer) 77.5 (>60) BUN/Creatinine Ratio 28.4 H (8-20) Glucose 284 H (70-100) mg/dL Lactic Acid 1.7 (0.5-2.0) mmol/L Calcium 9.2 (8.6-10.3) mg/dL Total Bilirubin 0.70 (0.2-1.0) mg/dL AST TNP ALT 28 (7-52) U/L Alkaline Phosphatase 151 H (34-104) U/L Total Creatine Kinase 97 (10-223) U/L CK-MB (CK-2) 6.7 H (0.6-6.3) ng/mL Troponin I 0.05 H* (<0.04) ng/mL B-Natriuretic Peptide ( - 100) pg/mL Total Protein 6.4 (6.4-8.9) g/dL Albumin 3.5 (3.2-5.2) g/dL Globulin 2.9 (2-4) g/dL Albumin/Globulin Ratio 1.2 (1-3) TSH (0.34-5.60) mcIU/mL 02/07/18 02/07/18 02/07/18 Range/Units 17:45 17:45 17:48 WBC (3.5-10.8) 10^3/ul RBC (4.0-5.4) 10^6/ul Hgb (14.0-18.0) g/dl Hct (42-52) % MCV (80-94) fL MCH (27-31) pg MCHC (31-36) g/dl RDW (10.5-15) % Plt Count (150-450) 10^3/ul MPV (7.4-10.4) um3 Neut % (Auto) (38-83) % Lymph % (Auto) (25-47) % [place] % (Auto) (0-7) % Eos % (Auto) (0-6) % Baso % (Auto) (0-2) % Absolute Neuts (auto) (1.5-7.7) 10^3/ul Absolute Lymphs (auto) (1.0-4.8) 10^3/ul Absolute Monos (auto) (0-0.8) 10^3/ul Absolute Eos (auto) (0-0.6) 10^3/ul Absolute Basos (auto) (0-0.2) 10^3/ul Absolute Nucleated RBC 10^3/ul Nucleated RBC % APTT 31.6 (26.0-36.3) seconds Sodium (139-145) mmol/L Potassium 4.9 Chloride (101-111) mmol/L Carbon Dioxide (22-32) mmol/L Anion Gap (2-11) mmol/L BUN (6-24) mg/dL Creatinine (0.67-1.17) mg/dL Est GFR ( Amer) (>60) Est GFR (Non-Af Amer) (>60) BUN/Creatinine Ratio (8-20) Glucose (70-100) mg/dL Lactic Acid (0.5-2.0) mmol/L Calcium (8.6-10.3) mg/dL Total Bilirubin (0.2-1.0) mg/dL AST 19 ALT (7-52) U/L Alkaline Phosphatase (34-104) U/L Total Creatine Kinase (10-223) U/L CK-MB (CK-2) (0.6-6.3) ng/mL Troponin I (<0.04) ng/mL B-Natriuretic Peptide 95 ( - 100) pg/mL Total Protein (6.4-8.9) g/dL Albumin (3.2-5.2) g/dL Globulin (2-4) g/dL Albumin/Globulin Ratio (1-3) TSH 1.87 (0.34-5.60) mcIU/mL Microbiology and Other Data: Microbiology 02/08/18 03:45 Gram Stain - Final Sputum Expectorated 02/07/18 22:45 Nasal Screen MRSA (PCR)([facility]) - Final Nasal Mrsa Detected Assess/Plan/Problems-Billing Assessment: - Patient Problems (1) Heart block Current Visit: Yes Comment: - Had transvenous pacemaker placed (02/08) and for schedule for perm pacer tomorrow --Given Western blot of Lyme is not suggestive, will D/C Rocephin (2) DVT (deep venous thrombosis) Current Visit: Yes Comment: - DVT in one of the paired peroneal veins of the RLE and both peroneal veins of the LLE; popliteal cyst in right popliteal fossa - D/C'd DVT prophylaxis (Heparin) and placed pt on full dose Lovenox after 4 hours post-pacemaker placement since yesterdayu - To receive Lovenox tonight and hold AM dose tomorrow (3) Pulmonary embolism Current Visit: Yes Status: Acute Code(s): I26.99 - OTHER PULMONARY EMBOLISM WITHOUT ACUTE COR PULMONALE SNOMED Code(s): 10000316 Comment: --Please see above discussion --As suspected, consolidation and pleural effusion seen on CXR is due to PE given extensive BL DVTs found on admission --No concerning mets and/or mass reported on CTA --Will obtain diagnostic and therapeutic thoracentesis via Dr. Neri to R/O loculated infection and malignancy (4) Elevated troponin Current Visit: Yes Status: Acute Code(s): R74.8 - ABNORMAL LEVELS OF OTHER SERUM ENZYMES SNOMED Code(s): 590059483 Comment: - Very minimally elevated and likely due to demand ischemia and/or known recently diagnosed DVT above - Defer with Cardiology for any further W/U cardiac-aguilar (5) DVT prophylaxis Current Visit: Yes Status: Acute Code(s): HVV9874 - SNOMED Code(s): 412466137 Comment: - On full dose Lovenox described above Status and Disposition: - Consider transitioning to Coumadin and/or DOACs post pacemaker placement--- touch base with care coordinators given pt is destitute - Pt lives in [facility], and reports that he has been homeless for 4-6 years. - Will discuss placement plan with care coordinators in AM
[2018-02-11] MEDS ORDERED: Heparin VIAL(*) 5000 UNITS/ML VIAL (FIVE THOUSAND) IV SCH (18:00)
--- NOTE | 2018-02-11 19:01 | CONS ---
PULMONARY CONSULTATION REPORT: DATE OF CONSULT: 02/11/18 CONSULTATION REQUESTED BY: Dr. Herrera Armstrong. REASON FOR CONSULT: Evaluation of pleural effusion. HISTORY OF PRESENT ILLNESS: The patient is a 73-year-old male with history of diabetes, elbow spur surgery, homeless, [place], who presented with chest pain, cough, and dizziness. He has been having a cough, which is usually nonproductive over the past 2 weeks. Denies hemoptysis. The patient also reports intermittent chest pain and worsening swelling in lower extremity. Denies fever, chills, or night sweats. Also, reports intermittent dizziness while walking around. Further evaluation in the emergency room included EKG during which time the patient was noted to be bradycardic. The patient was noted to be having complete heart block and decreased left ventricular ejection fraction concerning for myocarditis or cardiomyopathy. The patient underwent CTA of the chest for further evaluation of pulmonary embolism given this chest pain and cough. I personally reviewed CTA of the chest. The patient noted to have bilateral pleural effusions, greater on the right compared to the left, with basal atelectasis. The patient also noted to have multifocal segmental pulmonary embolism. The patient also with evidence of hypertrophy of adrenal glands. The patient did not have significant mediastinal or hilar adenopathy. The patient was initiated on anticoagulation. The patient was evaluated by Cardiology and is scheduled to undergo pacemaker placement. Lower extremity Doppler was performed, which revealed DVT in peroneal veins in right lower extremity. Upper extremity Dopplers did not reveal any DVT. The patient was also evaluated by ID. The patient is scheduled to have pacemaker implantation in the morning. Pulmonary consultation was requested for evaluation of pleural effusion to evaluate for malignancy versus infection. The patient was seen and examined at bedside. The patient reports mildly intermittent cough. He has temporary pacemaker placed. No other complaints. PAST MEDICAL HISTORY: He has not seen a physician for a long time. 1. Recently diagnosed with diabetes. 2. Has history of bilateral elbow spur, status post surgery. ALLERGIES: No known drug allergies. FAMILY HISTORY: Mother in the 90s. Father in 50s from motor vehicle accident. SOCIAL HISTORY: He is homeless, [place] in [place]. Has deer around the area. He also has seen mice inside his home. He has worked in [employer] industry in the past, lost job few years ago. He was also in [employer] in [place] and [place]. No history of positive PPD. REVIEW OF SYSTEMS: All 14 systems reviewed and as per HPI. PHYSICAL EXAM: The patient is in bed, in no apparent distress. Vital Signs: Temperature 98, pulse 86 beats per minute, respiratory rate 23 per minute, O2 sat 94% on 4 L, blood pressure 116/62. HEENT: Pupils equal, reactive to light. Mucous membranes moist. Lungs: Good air entry bilaterally, diminished breath sounds at bases. Lymphatic: No palpable cervical or supraclavicular nodes. Cardiovascular: Regular. No murmurs. Abdomen: Soft, nontender, nondistended. Bowel sounds present. Skin: No rash. DIAGNOSTIC STUDIES/LAB DATA: WBC count 5.6, hemoglobin 15.6, hematocrit 47, platelet count 179. Sodium 137, potassium 3.9, chloride 98, bicarb 32, BUN 17, creatinine 0.68. Lyme serology was positive. Sputum Gram stain showed MRSA, Haemophilus parainfluenzae, and normal jada, susceptibilities to many antibiotics except for penicillin. CT of the chest as described above in HPI. Dopplers as described above. IMPRESSION AND RECOMMENDATIONS: 73-year-old male admitted for cough, shortness of breath, was found to have complete heart block and evidence of right pleural effusion and pulmonary embolism and deep venous thrombosis. 1. Pulmonary embolism and deep venous thrombosis secondary to inactivity versus underlying neoplastic process. 2. Pleural effusion could be secondary to underlying pulmonary embolism; however, given deep venous thromboses and pulmonary embolism need to evaluate for hypercoagulable state resulting from malignancy, less likely to be infectious. Will schedule the patient for a thoracentesis tomorrow morning. He had anticoagulation today. Will hold off on thoracentesis procedure today. Further recommendations pending thoracentesis results. Thank you for allowing me to participate in the care of your patient. [id number]/[facility] #: [id number] JEFE
[2018-02-11] MEDS: NS 0.9% 1000 ML* 1,000 ML IV SCH (23:57)
[2018-02-12] MEDS ORDERED: cefTRIAXone(*) 2 GM in NS 0.9% 100 ML* 100 ML IVPB ONE (06:00)
[2018-02-12] MEDS ORDERED: Diazepam TAB(*) 5 MG PO ONE (06:00)
[2018-02-12] MEDS ORDERED: Midazolam* 1 MG/ML 5 ML VIAL (5 MG) ONE (06:30)
[2018-02-12] MEDS ORDERED: Flumazenil* 0.1 MG/ML 5 ML MDV ONE (06:31)
[2018-02-12] MEDS ORDERED: fentaNYL* 50 MCG/ML 2 ML VIAL (100 MCG VIAL) ONE (06:31)
[2018-02-12] MEDS ORDERED: Naloxone* 0.4 MG/ML 1 ML VIAL ONE (06:31)
[2018-02-12] MEDS ORDERED: Lidocaine 1% INJ* 10 MG/ML 30 ML SDV ONE ×2 (06:34→12:25)
[2018-02-12] MEDS ORDERED: Iohexol 300 (CONTRAST) 10 ML SDV ONE (06:37)
[2018-02-12] MEDS: Insulin LISPRO* 1 UNITS UNIT SUBCUT SCH ×4 (08:48→21:16)
[2018-02-12] MEDS: Insulin GLARGINE(*) 1 UNITS UNIT SUBCUT SCH (11:26)
[2018-02-12] MEDS: Senna TAB PO SCH (11:26)
[2018-02-12] MEDS: Docusate CAP* 100 MG PO SCH (11:26)
[2018-02-12] MEDS: Multivitamins/Minerals TAB PO SCH (11:37)
--- NOTE | 2018-02-12 12:28 | PN ---
Subjective Date of Service: 02/12/18 Interval History: Pt seen and examined. Meds and labs reviewed. Pt S/P pacemaker placement this AM and currently being evaluated by Dr. Patterson for diagnostic and therapeutic throacentesis ROS: Denied GIVENS/dizziness, F/C, N/V, CP, SOB, increased cough, sputum production , abd pain, diarrhea, constipation, dysuria, myalgias, arthralgias, throat pain , and new skin lesions. The rest of the 14 point ROS are unremarkable. PHYSICAL EXAM: GEN APPEARANCE: Awake, not in acute distress HEENT: NC/AT, PERRLA, moist oral mucosa, (-) throat erythema NECK: Soft, supple, (-) cervical LAD, (-)JVD HEART: S1S2 WNL, RRR, No MRG CHEST: CTA, BL, GAE, No W/R/R ABD: Soft, ND/NT, NABS 4x Q EXT: No C/C/BLLE+1 SKIN: Warm to touch PSYCH: No active psychosis, hallucinations, depression, SI/HI Objective Active Medications: Benzonatate (Tessalon Cap*) 200 mg PO TID PRN PRN Reason: COUGH Last Admin: 02/11/18 22:58 Dose: 200 mg Dextrose (D50w Syringe 50 Ml*) 12.5 gm IV PUSH .FOR FS < 60 - SS PRN PRN Reason: FS < 60 Docusate Sodium (Colace Cap*) 200 mg PO DAILY [facility] Last Admin: 02/12/18 11:26 Dose: Not Given Sodium Chloride (Ns 0.9% 1000 Ml*) 1,000 mls @ 100 mls/hr IV .PER RATE [facility] Last Admin: 02/11/18 23:57 Dose: 100 mls/hr Cefazolin Sodium 1 gm/ Sodium (Chloride) 50 mls @ 200 mls/hr IVPB Q8H [facility] Insulin Glargine (Lantus(*)) 10 units SUBCUT Q24H [facility] Last Admin: 02/12/18 11:26 Dose: 10 units Insulin Human Lispro (Humalog*) 0 units SUBCUT ACHS [facility] PRN Reason: Protocol Last Admin: 02/12/18 11:25 Dose: 4 unit Multivitamins/Minerals (Theragran/Minerals Tab*) 1 tab PO DAILY [facility] Last Admin: 02/12/18 11:37 Dose: 1 tab Senna (Senokot Tab*) 1 tab PO DAILY [facility] Last Admin: 02/12/18 11:26 Dose: Not Given Sodium Chloride (Sodium Chloride 0.65% Nasal [place]*) 2 spray BOTH NARES Q2H PRN PRN Reason: CONGESTION Zolpidem Tartrate (Ambien Tab*) 5 mg PO BEDTIME PRN PRN Reason: INSOMNIA Vital Signs - 8 hr 02/12/18 02/12/18 02/12/18 05:00 06:00 06:22 Temperature Pulse Rate 79 84 Respiratory 13 18 18 Rate Blood Pressure 132/82 (mmHg) O2 Sat by Pulse 97 94 Oximetry 02/12/18 02/12/18 02/12/18 06:43 09:09 09:10 Temperature 98.0 F Pulse Rate 82 67 67 Respiratory 20 12 Rate Blood Pressure 117/75 127/75 (mmHg) O2 Sat by Pulse 98 97 97 Oximetry 02/12/18 02/12/18 02/12/18 09:13 10:00 10:01 Temperature Pulse Rate 69 65 64 Respiratory 12 10 10 Rate Blood Pressure 127/75 144/71 (mmHg) O2 Sat by Pulse 98 98 99 Oximetry 02/12/18 02/12/18 02/12/18 11:00 11:01 12:00 Temperature Pulse Rate 68 65 Respiratory 15 13 24 Rate Blood Pressure 152/79 142/71 (mmHg) O2 Sat by Pulse 98 100 Oximetry 02/12/18 12:01 Temperature Pulse Rate 71 Respiratory 17 Rate Blood Pressure (mmHg) O2 Sat by Pulse 97 Oximetry Oxygen Devices in Use Now: Nasal Cannula Result Diagrams: 02/11/18 05:45 02/11/18 05:45 Additional Lab and Data: Lab Results 02/07/18 02/07/18 02/07/18 Range/Units 17:45 17:45 17:45 WBC 6.8 (3.5-10.8) 10^3/ul RBC 5.46 H (4.0-5.4) 10^6/ul Hgb 17.0 (14.0-18.0) g/dl Hct 51 (42-52) % MCV 94 (80-94) fL MCH 31 (27-31) pg MCHC 33 (31-36) g/dl RDW 14 (10.5-15) % Plt Count 190 (150-450) 10^3/ul MPV 10.3 (7.4-10.4) um3 Neut % (Auto) 67.3 (38-83) % Lymph % (Auto) 18.2 L (25-47) % [place] % (Auto) 12.0 H (0-7) % Eos % (Auto) 1.4 (0-6) % Baso % (Auto) 1.1 (0-2) % Absolute Neuts (auto) 4.5 (1.5-7.7) 10^3/ul Absolute Lymphs (auto) 1.2 (1.0-4.8) 10^3/ul Absolute Monos (auto) 0.8 (0-0.8) 10^3/ul Absolute Eos (auto) 0.1 (0-0.6) 10^3/ul Absolute Basos (auto) 0.1 (0-0.2) 10^3/ul Absolute Nucleated RBC 0 10^3/ul Nucleated RBC % 0.1 APTT (26.0-36.3) seconds Sodium 134 L (139-145) mmol/L Potassium TNP Chloride 96 L (101-111) mmol/L Carbon Dioxide 24 (22-32) mmol/L Anion Gap 14 H (2-11) mmol/L BUN 27 H (6-24) mg/dL Creatinine 0.95 (0.67-1.17) mg/dL Est GFR ( Amer) 99.7 (>60) Est GFR (Non-Af Amer) 77.5 (>60) BUN/Creatinine Ratio 28.4 H (8-20) Glucose 284 H (70-100) mg/dL Lactic Acid 1.7 (0.5-2.0) mmol/L Calcium 9.2 (8.6-10.3) mg/dL Total Bilirubin 0.70 (0.2-1.0) mg/dL AST TNP ALT 28 (7-52) U/L Alkaline Phosphatase 151 H (34-104) U/L Total Creatine Kinase 97 (10-223) U/L CK-MB (CK-2) 6.7 H (0.6-6.3) ng/mL Troponin I 0.05 H* (<0.04) ng/mL B-Natriuretic Peptide ( - 100) pg/mL Total Protein 6.4 (6.4-8.9) g/dL Albumin 3.5 (3.2-5.2) g/dL Globulin 2.9 (2-4) g/dL Albumin/Globulin Ratio 1.2 (1-3) TSH (0.34-5.60) mcIU/mL 02/07/18 02/07/18 02/07/18 Range/Units 17:45 17:45 17:48 WBC (3.5-10.8) 10^3/ul RBC (4.0-5.4) 10^6/ul Hgb (14.0-18.0) g/dl Hct (42-52) % MCV (80-94) fL MCH (27-31) pg MCHC (31-36) g/dl RDW (10.5-15) % Plt Count (150-450) 10^3/ul MPV (7.4-10.4) um3 Neut % (Auto) (38-83) % Lymph % (Auto) (25-47) % [place] % (Auto) (0-7) % Eos % (Auto) (0-6) % Baso % (Auto) (0-2) % Absolute Neuts (auto) (1.5-7.7) 10^3/ul Absolute Lymphs (auto) (1.0-4.8) 10^3/ul Absolute Monos (auto) (0-0.8) 10^3/ul Absolute Eos (auto) (0-0.6) 10^3/ul Absolute Basos (auto) (0-0.2) 10^3/ul Absolute Nucleated RBC 10^3/ul Nucleated RBC % APTT 31.6 (26.0-36.3) seconds Sodium (139-145) mmol/L Potassium 4.9 Chloride (101-111) mmol/L Carbon Dioxide (22-32) mmol/L Anion Gap (2-11) mmol/L BUN (6-24) mg/dL Creatinine (0.67-1.17) mg/dL Est GFR ( Amer) (>60) Est GFR (Non-Af Amer) (>60) BUN/Creatinine Ratio (8-20) Glucose (70-100) mg/dL Lactic Acid (0.5-2.0) mmol/L Calcium (8.6-10.3) mg/dL Total Bilirubin (0.2-1.0) mg/dL AST 19 ALT (7-52) U/L Alkaline Phosphatase (34-104) U/L Total Creatine Kinase (10-223) U/L CK-MB (CK-2) (0.6-6.3) ng/mL Troponin I (<0.04) ng/mL B-Natriuretic Peptide 95 ( - 100) pg/mL Total Protein (6.4-8.9) g/dL Albumin (3.2-5.2) g/dL Globulin (2-4) g/dL Albumin/Globulin Ratio (1-3) TSH 1.87 (0.34-5.60) mcIU/mL Microbiology and Other Data: Microbiology 02/08/18 03:45 Gram Stain - Final Sputum Expectorated 02/07/18 22:45 Nasal Screen MRSA (PCR)([facility]) - Final Nasal Mrsa Detected Assess/Plan/Problems-Billing Assessment: - Patient Problems (1) Heart block Current Visit: Yes Comment: --S/P permanent pacemaker placement this AM and currently being evaluated for diagnostic and therapeutic thoracentesis --Given Western blot of Lyme is not suggestive, Rocephin D/C'd (02/11) (2) DVT (deep venous thrombosis) Current Visit: Yes Comment: - DVT in one of the paired peroneal veins of the RLE and both peroneal veins of the LLE; popliteal cyst in right popliteal fossa - Will place pt on Heparin gtt instead of Lovenox since he has not gotten his Lovenox this AM to restart anticoagulation full dose sooner --Left message with care coordinators as to best anticoagulant to prescribe given his social issues (3) Pulmonary embolism Current Visit: Yes Status: Acute Code(s): I26.99 - OTHER PULMONARY EMBOLISM WITHOUT ACUTE COR PULMONALE SNOMED Code(s): 64739008 Comment: --Please see above discussion --As suspected, consolidation and pleural effusion seen on CXR is due to PE given extensive BL DVTs found on admission --No concerning mets and/or mass reported on CTA --Will obtain diagnostic and therapeutic thoracentesis via Dr. Neri to R/O loculated infection and malignancy (4) Elevated troponin Current Visit: Yes Status: Acute Code(s): R74.8 - ABNORMAL LEVELS OF OTHER SERUM ENZYMES SNOMED Code(s): 446955475 Comment: - Very minimally elevated and likely due to demand ischemia and/or known recently diagnosed DVT above - Defer with Cardiology for any further W/U cardiac-aguilar (5) DVT prophylaxis Current Visit: Yes Status: Acute Code(s): SIO8008 - SNOMED Code(s): 945804497 Comment: - Will place pt on Heparin gtt to minimize time off anticoagulation given recent procedures --Spoke with [employer] to call me as soon as thoracetesis is done so that appropriate order for Heparin gtt 3 hrs can begin Status and Disposition: - Consider transitioning to Coumadin and/or DOACs post pacemaker placement--- left message with care coordinators today - Pt lives in tent behind [address], and reports that he has been homeless for 4-6 years. - Discuss placement plan with care coordinators in AM
--- NOTE | 2018-02-12 12:44 | PN ---
Subjective Date of Service: 02/12/18 - CC: 3rd degree heart block Interval History: Pt no new c/o. Underwent dual chamber MRI compatable device this AM Medications Active Medications: Benzonatate (Tessalon Cap*) 200 mg PO TID PRN PRN Reason: COUGH Last Admin: 02/11/18 22:58 Dose: 200 mg Dextrose (D50w Syringe 50 Ml*) 12.5 gm IV PUSH .FOR FS < 60 - SS PRN PRN Reason: FS < 60 Docusate Sodium (Colace Cap*) 200 mg PO DAILY [facility] Last Admin: 02/12/18 11:26 Dose: Not Given Sodium Chloride (Ns 0.9% 1000 Ml*) 1,000 mls @ 100 mls/hr IV .PER RATE [facility] Last Admin: 02/11/18 23:57 Dose: 100 mls/hr Cefazolin Sodium 1 gm/ Sodium (Chloride) 50 mls @ 200 mls/hr IVPB Q8H [facility] Insulin Glargine (Lantus(*)) 10 units SUBCUT Q24H [facility] Last Admin: 02/12/18 11:26 Dose: 10 units Insulin Human Lispro (Humalog*) 0 units SUBCUT ACHS [facility] PRN Reason: Protocol Last Admin: 02/12/18 11:25 Dose: 4 unit Multivitamins/Minerals (Theragran/Minerals Tab*) 1 tab PO DAILY [facility] Last Admin: 02/12/18 11:37 Dose: 1 tab Senna (Senokot Tab*) 1 tab PO DAILY [facility] Last Admin: 02/12/18 11:26 Dose: Not Given Sodium Chloride (Sodium Chloride 0.65% Nasal [place]*) 2 spray BOTH NARES Q2H PRN PRN Reason: CONGESTION Zolpidem Tartrate (Ambien Tab*) 5 mg PO BEDTIME PRN PRN Reason: INSOMNIA Objective Vital Signs: Temp Pulse Resp BP Pulse Ox 98.0 F 71 17 142/71 97 02/12/18 09:10 02/12/18 12:01 02/12/18 12:01 02/12/18 12:00 02/12/18 12:01 Oxygen Devices in Use Now: Nasal Cannula Appearance: nad pleasant Eyes: No Scleral Icterus, PERRLA Ears/Nose/Mouth/Throat: Clear Oropharnyx, Mucous Membranes Moist Neck: NL Appearance and Movements; NL JVP, Trachea Midline, No Thyroid Enlargement, Masses Respiratory: Symmetrical Chest Expansion and Respiratory Effort - lungs clear. Cardiovascular: NL Sounds; No Murmurs; No JVD, RRR - temporary pacemaker in place R IJ Abdominal: No Hepatosplenomegaly - +bowel sounds, soft, non tender Extremities: No Clubbing, Cyanosis - Improved edema of legs. RUE 2 + pitting edema and enlarged c/w LUE. Neurological: Alert and Oriented x 3 Lines/Tubes/Other Access: Clean, Dry and Intact Peripheral IV Laboratory Results: 02/11/18 05:45 02/11/18 05:45 INR (Anticoag Therapy) 0.95 (0.77-1.02) 02/10/18 06:00 APTT 31.6 seconds (26.0-36.3) 02/07/18 17:45 Total Bilirubin 0.70 mg/dL (0.2-1.0) 02/11/18 05:45 Direct Bilirubin 0.10 mg/dL (0.03-0.18) 02/11/18 05:45 Indirect Bilirubin 0.6 mg/dL (0.3-1.0) 02/11/18 05:45 AST 12 U/L (13-39) L 02/11/18 05:45 ALT 11 U/L (7-52) 02/11/18 05:45 Alkaline Phosphatase 86 U/L (34-104) 02/11/18 05:45 CK-MB (CK-2) 6.7 ng/mL (0.6-6.3) H 02/07/18 17:45 B-Natriuretic Peptide 95 pg/mL (-100) 02/07/18 17:48 Total Protein 5.0 g/dL (6.4-8.9) L 02/11/18 05:45 Albumin 2.4 g/dL (3.2-5.2) L 02/11/18 05:45 Globulin 2.6 g/dL (2-4) 02/11/18 05:45 Albumin/Globulin Ratio 0.9 (1-3) L 02/11/18 05:45 Triglycerides 74 mg/dL 02/09/18 05:45 Cholesterol 171 mg/dL 02/09/18 05:45 LDL Cholesterol 100 mg/dL 02/09/18 05:45 HDL Cholesterol 56.6 mg/dL 02/09/18 05:45 TSH 1.87 mcIU/mL (0.34-5.60) 02/07/18 17:45 02/07/18 02/08/18 21:20 05:25 Troponin I 0.05 H* 0.05 H* Diagnostic Imaging: CXR 02/09/18: Elevated R hemidiaphragm, small pleural effusions, infiltrate R base. Venous Doppler 02/10/18: DVT peroneal veins bilaterally. Echo 02/07/18: EF 45%, global hypokinesis, trace AI, mild MR, mild to mod TR, PApressure 49 mmHg. EKG Data: Monitor: V paced rhythm 70 bpm, AV dissociation, NSR. Assessment/Plan 73 year old homeless man admitted with symptomatic DVT/PE and high degree AV block now s/p temporary pacemaker, newly dx'd DVT/PE, DM, pleural effusion. Lyme negative by [place] Blot. Pacer is in. For DVT and PE, OK to resume anticoagulation tonight. I will defer to hospitalist if lovenox to coumodin vs. NOAC. CXR has not yet been done today, awaiting this result post pacemaker. I contacted ICU nursing about delay of CXR to assist with getting order implimented.
--- NOTE | 2018-02-12 12:58 | RAD ---
Indication: Anjel site for RIGHT thoracentesis. Comparison: February 10, 2018 CT. Technique: Ultrasound of the posterior inferior RIGHT hemithorax. REPORT AND IMPRESSION: Large volume of dependent RIGHT posterior basal pleural fluid visualized for thoracentesis. Skin over the area marked for thoracentesis.
[2018-02-12] MEDS ORDERED: Heparin DRIP 25,000 UNITS(*) 25,000 UNITS/500 ML BAG IV SCH ×3 (13:15→21:00)
[2018-02-12] MEDS ORDERED: Heparin VIAL(*) 5000 UNITS/ML VIAL (FIVE THOUSAND) IV PRN ×2 (13:19→16:00)
[2018-02-12] MEDS: ceFAZolin 1 GM VIAL(*) 1 GM in NS 0.9% 50 ML* 50 ML IVPB SCH ×2 (13:39→21:32)
[2018-02-12] MEDS: NS 0.9% 1000 ML* 1,000 ML IV SCH (13:40)
[2018-02-12] MEDS ORDERED: Heparin VIAL(*) 5000 UNITS/ML VIAL (FIVE THOUSAND) SUBCUT SCH (14:00)
--- NOTE | 2018-02-12 14:09 | RAD ---
HISTORY: Status post device implant COMPARISONS: February 09, 2018 VIEWS: 1: frontal portable view of the chest at 1:00 PM FINDINGS: LINES AND TUBES: A left-sided pacemaker is noted. CARDIOMEDIASTINAL SILHOUETTE: The cardiomediastinal silhouette is normal for portable technique. PLEURA: There is blunting of left costophrenic angle. There is no appreciable pneumothorax. LUNG PARENCHYMA: The lungs are clear. ABDOMEN: The upper abdomen is clear. There is no subphrenic gas. BONES AND SOFT TISSUES: There is a scoliotic curvature of the spine. Degenerative changes are noted. IMPRESSION: SMALL LEFT PLEURAL EFFUSION.
--- NOTE | 2018-02-12 15:38 | PN ---
Progress Note - Progress Note Date of Service: 02/12/18 - Pulm f/u note Note: Pt seen and examined at bedside. Pt had pacemaker placement this am, denies any discomfort at site Active Medications Generic Name Dose Route Start Last Admin Trade Name Freq PRN Reason Stop Dose Admin Benzonatate 200 mg 02/07/18 23:55 02/11/18 22:58 Tessalon Cap* PO 200 mg TID PRN Administration COUGH Dextrose 12.5 gm 02/07/18 20:04 D50w Syringe 50 Ml* IV PUSH .FOR FS < 60 - SS PRN FS < 60 Docusate Sodium 200 mg 02/10/18 12:00 02/12/18 11:26 Colace Cap* PO Not Given DAILY [facility] Heparin Sodium (Porcine) 0 units 02/12/18 16:00 Heparin Vial(*) IV .SEE PROTOCOL PRN PTT VALUES Protocol Sodium Chloride 1,000 mls @ 100 mls/hr 02/12/18 00:00 02/12/18 13:40 Ns 0.9% 1000 Ml* IV 100 mls/hr .PER RATE [facility] Administration Cefazolin Sodium 1 gm/ Sodium 50 mls @ 200 mls/hr 02/12/18 14:00 02/12/18 13: 39 Chloride IVPB 200 mls/hr Q8H [facility] Administration Heparin Sodium/Dextrose 25,000 units in 500 mls @ 0 mls/hr 02/12/18 21:00 Heparin Drip 25,000 Units(*) IV PER RATE [facility] Protocol Per Protocol Insulin Glargine 10 units 02/11/18 11:00 02/12/18 11:26 Lantus(*) SUBCUT 10 units Q24H [facility] Administration Insulin Human Lispro 0 units 02/07/18 21:00 02/12/18 11:25 Humalog* SUBCUT 4 unit ACHS [facility] Administration Protocol Multivitamins/Minerals 1 tab 02/12/18 09:00 02/12/18 11:37 Theragran/Minerals Tab* PO 1 tab DAILY [facility] Administration Senna 1 tab 02/10/18 12:00 02/12/18 11:26 Senokot Tab* PO Not Given DAILY [facility] Sodium Chloride 2 spray 02/07/18 23:55 Sodium Chloride 0.65% Nasal [place]* BOTH NARES Q2H PRN CONGESTION Zolpidem Tartrate 5 mg 02/08/18 16:19 Ambien Tab* PO BEDTIME PRN INSOMNIA Vital Signs Temp Pulse Resp BP Pulse Ox 96.7 F 62 10 120/59 100 02/12/18 14:02 02/12/18 14:00 02/12/18 14:00 02/12/18 14:00 02/12/18 14:00 O/E: Pt in NAD, alert, awake, oriented HEENT: PERRLA, No JVD RESP: decreased breath sounds at bases R>L CVS: S1, S2, pacamaker in place, dressing intact Abd: Soft, BS+ Ext: Normal ROM Neuro: No focal defecits Skin: NO rash or bruise Laboratory Results - last 24 hr 02/11/18 02/11/18 02/12/18 16:22 20:50 13:00 POC Glucose (mg/dL) 251 H 186 H Fluid Source Pleural fluid Fluid Volume 8 Fluid Color Red Fluid Appearance Bloody Fluid WBC 393 Fluid RBC 207992 Fluid Tot Cell Count 100 Fluid Neutrophils 51 Fluid Lymphocytes 39 Fluid Monocytes 10 Fluid Other Cells 7 I/R: 73 y o m with new onset DM, complete heart block also found to have b/l pl effusions, b/l PE and DVT Pt s/p thoracentesis on rt side, 850 ml of serosanguinous fluid was removed, pt tolerated procedure well Pls refer to separately dictated report with further details No PTX noted on post procedure CXR Pt could be started on anticoagulation Pleural fluid likely from PE, will check cytology Lt effusion is small, will not need to be drained s/p pacemaker for complete heart block D/w Aristides Armstrong
[2018-02-12 16:32] LABS: ABS Basophils 0.1 10^3/ul (0-0.2); ABS Eosinophils 0.2 10^3/ul (0-0.6); ABS Lymphocytes 1.4 10^3/ul (1.0-4.8); ABS Monocytes 0.6 10^3/ul (0-0.8); ABS Nucleated RBC 0 10^3/ul; Eosinophil % 2.6 % (0-6); Hematocrit 49 % (42-52); Hemoglobin 16.2 g/dl (14.0-18.0); Lymphocyte % 18.8 % (25-47); Mean Corpuscular HGB Conc 33 g/dl (31-36); Mean Corpuscular Hemoglobin 31 pg (27-31); Mean Corpuscular Volume 93 fL (80-94); Mean Platelet Volume 8.8 um3 (7.4-10.4); Nucleated Red Blood Cells % 0.1; Platelet Count 198 10^3/ul (150-450); Red Blood Count 5.25 10^6/ul (4.0-5.4); Red Cell Distribution Width 14 % (10.5-15); White Blood Count 7.2 10^3/ul (3.5-10.8)
[2018-02-12] MEDS: Benzonatate CAP* 100 MG PO PRN (21:32)
[2018-02-12] MEDS: Atorvastatin* 40 MG TAB PO SCH (21:42)
--- NOTE | 2018-02-13 04:34 | PRO ---
THORACENTESIS REPORT: DATE OF PROCEDURE: 02/12/18 PROCEDURE PERFORMED: Ultrasound-guided thoracentesis on the right side. PREPROCEDURAL DIAGNOSIS: [id number] right pleural effusion. POSTPROCEDURAL DIAGNOSIS: Sanguinous pleural effusion, moderate amounts on the right side. ANESTHESIA: 1% lidocaine, 6 cc. DESCRIPTION OF PROCEDURE: Informed consent was obtained from the patient prior to the procedure after all the risks and benefits including the risk of pneumothorax was thoroughly explained. The patient was sitting up in leaning forward position. The patient had pacemaker placed this morning for complete heart block. The patient also was diagnosed with bilateral pleural effusion, pulmonary embolism bilaterally. Appropriate time-out was agreed on by the attending staff prior to the procedure. Strict aseptic precautions were performed. Area was cleaned with chlorhexidine. A 1% lidocaine was then instilled subcutaneously intradermally taking precautions. A bedside ultrasound was utilized to localize large amounts of right pleural effusion. CareFusion 8-Divehi thoracentesis catheter was inserted after stab incision was made with a #11 scalpel blade. Catheter was left in place and needle was removed. Serosanguineous fluid was aspirated under manual suction. 850 mL fluid was removed. Fluid was sent into the lab for cytological and biochemical examination. A postprocedure chest x-ray was performed and was verified by me, did not show evidence of pneumothorax. The patient tolerated the procedure very well. [id number]/CPS #: [id number] MTDD
[2018-02-13] MEDS: ceFAZolin 1 GM VIAL(*) 1 GM in NS 0.9% 50 ML* 50 ML IVPB SCH ×3 (06:18→22:35)
[2018-02-13 06:30] LABS: ABS Basophils 0.1 10^3/ul (0-0.2); ABS Eosinophils 0.2 10^3/ul (0-0.6); ABS Lymphocytes 1.5 10^3/ul (1.0-4.8); ABS Monocytes 0.5 10^3/ul (0-0.8); ABS Neutrophils 3.5 10^3/ul (1.5-7.7); ABS Nucleated RBC 0 10^3/ul; Eosinophil % 4.2 % (0-6); Hematocrit 46 % (42-52); Hemoglobin 15.5 g/dl (14.0-18.0); Lymphocyte % 25.5 % (25-47); Mean Corpuscular HGB Conc 34 g/dl (31-36); Mean Corpuscular Hemoglobin 31 pg (27-31); Mean Corpuscular Volume 92 fL (80-94); Mean Platelet Volume 8.3 um3 (7.4-10.4); Nucleated Red Blood Cells % 0.1; Platelet Count 198 10^3/ul (150-450); Red Blood Count 4.99 10^6/ul (4.0-5.4); Red Cell Distribution Width 14 % (10.5-15); White Blood Count 5.9 10^3/ul (3.5-10.8)
[2018-02-13 06:47] LABS: EGFR Non-African American 131.7 (>60)
--- NOTE | 2018-02-13 08:16 | PN ---
Subjective Date of Service: 02/13/18 Interval History: HOSPITALIST PROGRESS NOTE Patient seen and examined at bedside. Care reviewed and d/w . Labs and xrays reviewed. He feels better today. Denies CP, palpitations, or dyspnea. Tolerating diet well , no N/V. ROS: 14 point ROS performed and pertinent negative and positive findings as above. Family History: Unchanged from Admission Social History: Unchanged from Admission Past Medical History: Unchanged from Admission Objective Active Medications: Atorvastatin Calcium (Lipitor*) 40 mg PO 2100 [facility] Last Admin: 02/12/18 21:42 Dose: 40 mg Benzonatate (Tessalon Cap*) 200 mg PO TID PRN PRN Reason: COUGH Last Admin: 02/12/18 21:32 Dose: 200 mg Dextrose (D50w Syringe 50 Ml*) 12.5 gm IV PUSH .FOR FS < 60 - SS PRN PRN Reason: FS < 60 Docusate Sodium (Colace Cap*) 200 mg PO DAILY [facility] Last Admin: 02/12/18 11:26 Dose: Not Given Heparin Sodium (Porcine) (Heparin Vial(*)) 0 units IV .SEE PROTOCOL PRN; Protocol PRN Reason: PTT VALUES Sodium Chloride (Ns 0.9% 1000 Ml*) 1,000 mls @ 100 mls/hr IV .PER RATE [facility] Last Admin: 02/12/18 13:40 Dose: 100 mls/hr Cefazolin Sodium 1 gm/ Sodium (Chloride) 50 mls @ 200 mls/hr IVPB Q8H [facility] Last Admin: 02/13/18 06:18 Dose: 200 mls/hr Heparin Sodium/Dextrose (Heparin Drip 25,000 Units(*)) 25,000 units in 500 mls @ 0 mls/hr IV PER RATE [facility]; Per Protocol PRN Reason: Protocol Last Admin: 02/12/18 21:16 Dose: 28 mls/hr Insulin Glargine (Lantus(*)) 10 units SUBCUT Q24H [facility] Last Admin: 02/12/18 11:26 Dose: 10 units Insulin Human Lispro (Humalog*) 0 units SUBCUT ACHS [facility] PRN Reason: Protocol Last Admin: 02/12/18 21:16 Dose: 6 unit Metoprolol Succinate (Toprol Xl Tab*) 25 mg PO DAILY [facility] Multivitamins/Minerals (Theragran/Minerals Tab*) 1 tab PO DAILY [facility] Last Admin: 02/12/18 11:37 Dose: 1 tab Senna (Senokot Tab*) 1 tab PO DAILY [facility] Last Admin: 02/12/18 11:26 Dose: Not Given Sodium Chloride (Sodium Chloride 0.65% Nasal [place]*) 2 spray BOTH NARES Q2H PRN PRN Reason: CONGESTION Zolpidem Tartrate (Ambien Tab*) 5 mg PO BEDTIME PRN PRN Reason: INSOMNIA Last Admin: 02/13/18 00:14 Dose: 5 mg Vital Signs - 8 hr 02/13/18 02/13/18 02/13/18 07:00 07:01 07:50 Temperature 97.9 F Pulse Rate 68 71 Respiratory 14 13 Rate Blood Pressure 135/68 (mmHg) O2 Sat by Pulse 94 92 Oximetry Oxygen Devices in Use Now: None Appearance: Elderly male lying in bed in NAD. Eyes: No Scleral Icterus Ears/Nose/Mouth/Throat: Mucous Membranes Moist Neck: Trachea Midline Respiratory: Symmetrical Chest Expansion and Respiratory Effort, Clear to Auscultation Cardiovascular: RRR - Normal S1 and S2, - - Left ACW pacer site hematoma Abdominal: NL Sounds; No Tenderness; No Distention Neurological: Alert and Oriented x 3, NL Muscle Strength and Tone Result Diagrams: 02/13/18 06:17 02/13/18 06:17 Assess/Plan/Problems-Billing Assessment: Mr. Jj is a 73yo M with PMH of homelessness, who presented to ED with c/o dyspnea, found to have high grade HB s/p pacer, also diagnosed with PE and DM. - Patient Problems (1) Heart block Comment: - s/p permanent pacemaker placement 02/12/[address] Singh. - Lyme serology was negative and Ceftriaxone discontinued. - Now has pacer site hematoma - pressure dressing placed by Cardiology. - Transfer to Medical floor. (2) Pulmonary embolism Comment: - CTA chest showed bilateral PE and LE doppler bilateral DVTs. - Consolidation and pleural effusion seen on CXR are due to PE s/p diagnostic and therapeutic thoracentesis by Dr. Neri 02/12/18 - follow cytology. - Change anticoagulation to Lovenox. (3) Elevated troponin Comment: - Minimally elevated likely due to PE. - Echo showed global LV hypokinesis with EF 40-45% while on HB. - May benefit of stress test as outpatient when stable. (4) Diabetes Comment: - Newly diagnosed this admission with A1c 14. - Increase Lantus to 20 units. (5) DVT prophylaxis Comment: - Lovenox. (6) Full code status Status and Disposition: Inpatient for management of HB and PE. Plan for SNF on discharge.
--- NOTE | 2018-02-13 09:02 | RAD ---
INDICATION: Status post device implant. COMPARISON: Comparison is made with a prior study from February 12, 2018. TECHNIQUE: Dual-energy PA and lateral views of the chest were obtained. FINDINGS: The heart is within normal limits in size. There is a dual-chamber transvenous pacemaker present. There is mild prominence of the interstitial markings. The lungs are otherwise clear. There is a trace right pleural effusion and a small left pleural effusion which appear unchanged. No pneumothorax is seen. IMPRESSION: TRACE RIGHT AND SMALL LEFT PLEURAL EFFUSIONS, UNCHANGED.
[2018-02-13] MEDS: Docusate CAP* 100 MG PO SCH (09:09)
[2018-02-13] MEDS: Multivitamins/Minerals TAB PO SCH (09:10)
[2018-02-13] MEDS: Metoprolol Succinate XL TAB* 25 MG PO SCH (09:10)
[2018-02-13] MEDS: Senna TAB PO SCH (09:10)
[2018-02-13] MEDS: Insulin LISPRO* 1 UNITS UNIT SUBCUT SCH ×4 (09:10→21:37)
[2018-02-13] MEDS: Benzonatate CAP* 100 MG PO PRN ×2 (09:17→21:37)
--- NOTE | 2018-02-13 10:12 | PROCNOTE ---
Cardiology Procedure Note 02/13/2018 SJM dual chamber PM Battery life 4.2-5.4 years A lead capture 0.5V @ 0.5 ms, sense 4.7 mV, impedence 480 ohms V lead capure 0.75 @ 0.5 ms, sensitivity not performed, 530 ohms Set DDD 60-120 bpm Impression: Normal functioning pacemaker
--- NOTE | 2018-02-13 10:18 | PN ---
Subjective Date of Service: 02/13/18 Interval History: f/u pacemaker No change in breathing, lightheadedness, chest discomfort other than incisional Interrogation this AM unremarkable s/p thoracentesis yesterday AM CXR no pneumothorax Has developed pacemaker site hematoma while on heparin gtt overnight in setting of PTT 126. I discussed this with Dr. Singh by phone. Medications Active Medications: Atorvastatin Calcium (Lipitor*) 40 mg PO 2100 [facility] Last Admin: 02/12/18 21:42 Dose: 40 mg Benzonatate (Tessalon Cap*) 200 mg PO TID PRN PRN Reason: COUGH Last Admin: 02/13/18 09:17 Dose: 200 mg Dextrose (D50w Syringe 50 Ml*) 12.5 gm IV PUSH .FOR FS < 60 - SS PRN PRN Reason: FS < 60 Docusate Sodium (Colace Cap*) 200 mg PO DAILY [facility] Last Admin: 02/13/18 09:09 Dose: 200 mg Heparin Sodium (Porcine) (Heparin Vial(*)) 0 units IV .SEE PROTOCOL PRN; Protocol PRN Reason: PTT VALUES Sodium Chloride (Ns 0.9% 1000 Ml*) 1,000 mls @ 100 mls/hr IV .PER RATE [facility] Last Admin: 02/12/18 13:40 Dose: 100 mls/hr Cefazolin Sodium 1 gm/ Sodium (Chloride) 50 mls @ 200 mls/hr IVPB Q8H [facility] Last Admin: 02/13/18 06:18 Dose: 200 mls/hr Heparin Sodium/Dextrose (Heparin Drip 25,000 Units(*)) 25,000 units in 500 mls @ 0 mls/hr IV PER RATE [facility]; Per Protocol PRN Reason: Protocol Last Admin: 02/12/18 21:16 Dose: 28 mls/hr Insulin Glargine (Lantus(*)) 10 units SUBCUT Q24H [facility] Last Admin: 02/12/18 11:26 Dose: 10 units Insulin Human Lispro (Humalog*) 0 units SUBCUT ACHS [facility] PRN Reason: Protocol Last Admin: 02/13/18 09:10 Dose: 4 unit Metoprolol Succinate (Toprol Xl Tab*) 25 mg PO DAILY [facility] Last Admin: 02/13/18 09:10 Dose: 25 mg Multivitamins/Minerals (Theragran/Minerals Tab*) 1 tab PO DAILY [facility] Last Admin: 02/13/18 09:10 Dose: 1 tab Senna (Senokot Tab*) 1 tab PO DAILY [facility] Last Admin: 02/13/18 09:10 Dose: 1 tab Sodium Chloride (Sodium Chloride 0.65% Nasal [place]*) 2 spray BOTH NARES Q2H PRN PRN Reason: CONGESTION Zolpidem Tartrate (Ambien Tab*) 5 mg PO BEDTIME PRN PRN Reason: INSOMNIA Last Admin: 02/13/18 00:14 Dose: 5 mg Objective Vital Signs: Temp Pulse Resp BP Pulse Ox 97.9 F 81 15 120/60 94 02/13/18 07:50 02/13/18 09:00 02/13/18 09:00 02/13/18 09:00 02/13/18 09:00 Oxygen Devices in Use Now: None Appearance: nad pleasant Eyes: No Scleral Icterus, PERRLA Ears/Nose/Mouth/Throat: Clear Oropharnyx, Mucous Membranes Moist Neck: NL Appearance and Movements; NL JVP, Trachea Midline, No Thyroid Enlargement, Masses Respiratory: Symmetrical Chest Expansion and Respiratory Effort - lungs clear. Cardiovascular: NL Sounds; No Murmurs; No JVD, RRR - temporary pacemaker in place R IJ, - - pacemaker site jacobo intact with firm hematoma, skin integrity is not threatened at this point. Abdominal: No Hepatosplenomegaly - +bowel sounds, soft, non tender Extremities: No Clubbing, Cyanosis - Improved edema of legs. RUE 2 + pitting edema and enlarged c/w LUE. Neurological: Alert and Oriented x 3 Lines/Tubes/Other Access: Clean, Dry and Intact Peripheral IV Laboratory Results: 02/13/18 06:17 02/13/18 06:17 INR (Anticoag Therapy) 0.95 (0.77-1.02) 02/10/18 06:00 APTT 126.3 seconds (26.0-36.3) H* 02/13/18 03:10 Total Bilirubin 0.70 mg/dL (0.2-1.0) 02/11/18 05:45 Direct Bilirubin 0.10 mg/dL (0.03-0.18) 02/11/18 05:45 Indirect Bilirubin 0.6 mg/dL (0.3-1.0) 02/11/18 05:45 AST 12 U/L (13-39) L 02/11/18 05:45 ALT 11 U/L (7-52) 02/11/18 05:45 Alkaline Phosphatase 86 U/L (34-104) 02/11/18 05:45 CK-MB (CK-2) 6.7 ng/mL (0.6-6.3) H 02/07/18 17:45 B-Natriuretic Peptide 95 pg/mL (-100) 02/07/18 17:48 Total Protein 5.0 g/dL (6.4-8.9) L 02/11/18 05:45 Albumin 2.4 g/dL (3.2-5.2) L 02/11/18 05:45 Globulin 2.6 g/dL (2-4) 02/11/18 05:45 Albumin/Globulin Ratio 0.9 (1-3) L 02/11/18 05:45 Triglycerides 74 mg/dL 02/09/18 05:45 Cholesterol 171 mg/dL 02/09/18 05:45 LDL Cholesterol 100 mg/dL 02/09/18 05:45 HDL Cholesterol 56.6 mg/dL 02/09/18 05:45 TSH 1.87 mcIU/mL (0.34-5.60) 02/07/18 17:45 02/07/18 02/08/18 21:20 05:25 Troponin I 0.05 H* 0.05 H* Diagnostic Imaging: CXR 02/09/18: Elevated R hemidiaphragm, small pleural effusions, infiltrate R base. Venous Doppler 02/10/18: DVT peroneal veins bilaterally. Echo 02/07/18: EF 45%, global hypokinesis, trace AI, mild MR, mild to mod TR, PApressure [address] 02/10/2018: Multifocal PE's, b/l effusion EKG Data: monitor: v-paced Assessment/Plan 73 year old homeless man admitted with symptomatic DVT/PE and high degree AV block now s/p pacemaker 02/12/2018, newly dx'd DVT/PE, DM, mild LV dysfunction, pleural effusion s/p thoracentesis. Has developed pacemaker hematoma after heparin started - DM per primary service - Continue primary prevention statin - Continue BB for mild LV dysfunction - Will apply pressure bandage today to pacemaker site this AM Thank you for allowing me to participate in the cardiovascular care of this patient. Please do not hesitate to contact me with questions or concerns.
[2018-02-13] MEDS: Insulin GLARGINE(*) 1 UNITS UNIT SUBCUT SCH (12:23)
--- NOTE | 2018-02-13 14:02 | PN ---
Progress Note - Progress Note Date of Service: 02/13/18 - Pulm f/u note Note: Pt seen and examined at bedside. Pt sitting up in chair and eating lunch. Cough is decreased since thoracentesis Active Medications Generic Name Dose Route Start Last Admin Trade Name Freq PRN Reason Stop Dose Admin Atorvastatin Calcium 40 mg 02/12/18 21:00 02/12/18 21:42 Lipitor* PO 40 mg 2100 [facility] Administration Benzonatate 200 mg 02/07/18 23:55 02/13/18 09:17 Tessalon Cap* PO 200 mg TID PRN Administration COUGH Dextrose 12.5 gm 02/07/18 20:04 D50w Syringe 50 Ml* IV PUSH .FOR FS < 60 - SS PRN FS < 60 Docusate Sodium 200 mg 02/10/18 12:00 02/13/18 09:09 Colace Cap* PO 200 mg DAILY [facility] Administration Enoxaparin Sodium 75 mg 02/13/18 14:00 Lovenox(*) SUBCUT Q12H [facility] Cefazolin Sodium 1 gm/ Sodium 50 mls @ 200 mls/hr 02/12/18 14:00 02/13/18 06: 18 Chloride IVPB 200 mls/hr Q8H [facility] Administration Insulin Glargine 20 units 02/14/18 09:00 Lantus(*) SUBCUT Q24H [facility] Insulin Human Lispro 0 units 02/07/18 21:00 02/13/18 12:24 Humalog* SUBCUT 1 unit ACHS [facility] Administration Protocol Metoprolol Succinate 25 mg 02/13/18 09:00 02/13/18 09:10 Toprol Xl Tab* PO 25 mg DAILY [facility] Administration Multivitamins/Minerals 1 tab 02/12/18 09:00 02/13/18 09:10 Theragran/Minerals Tab* PO 1 tab DAILY [facility] Administration Senna 1 tab 02/10/18 12:00 02/13/18 09:10 Senokot Tab* PO 1 tab DAILY [facility] Administration Sodium Chloride 2 spray 02/07/18 23:55 Sodium Chloride 0.65% Nasal [place]* BOTH NARES Q2H PRN CONGESTION Zolpidem Tartrate 5 mg 02/08/18 16:19 02/13/18 00:14 Ambien Tab* PO 5 mg BEDTIME PRN Administration INSOMNIA Vital Signs Temp Pulse Resp BP Pulse Ox 99.5 F 90 17 119/64 96 02/13/18 12:00 02/13/18 11:01 02/13/18 11:56 02/13/18 11:00 02/13/18 11:01 O/E: Pt in NAD, alert, awake, oriented HEENT: PERRLA, No JVD RESP: decreased breath sounds at bases, no wheeze CVS: S1, S2, pacamaker in place, dressing intact Abd: Soft, BS+ Ext: Normal ROM Neuro: No focal defecits Skin: NO rash or bruise Laboratory Results - last 24 hr 02/12/18 02/12/18 02/12/18 11:17 13:00 13:00 WBC RBC Hgb Hct MCV MCH MCHC RDW Plt Count MPV Neut % (Auto) Lymph % (Auto) Marshall % (Auto) Eos % (Auto) Baso % (Auto) Absolute Neuts (auto) Absolute Lymphs (auto) Absolute Monos (auto) Absolute Eos (auto) Absolute Basos (auto) Absolute Nucleated RBC Nucleated RBC % APTT BUN Creatinine Est GFR ( Amer) Est GFR (Non-Af Amer) POC Glucose (mg/dL) 222 H Fluid Source Pleural fluid Fluid WBC 393 Fluid RBC [id number] Fluid Tot Cell Count 100 Fluid Neutrophils 51 Fluid Lymphocytes 39 Fluid Monocytes 10 Fluid Other Cells 7 Fluid Cell Count Rvw By Fluid Glucose Fluid Total Protein 1.8 02/12/18 02/12/18 02/12/18 13:00 16:05 16:05 WBC RBC Hgb Hct MCV MCH MCHC RDW Plt Count MPV Neut % (Auto) Lymph % (Auto) Marshall % (Auto) Eos % (Auto) Baso % (Auto) Absolute Neuts (auto) Absolute Lymphs (auto) Absolute Monos (auto) Absolute Eos (auto) Absolute Basos (auto) Absolute Nucleated RBC Nucleated RBC % APTT 32.7 BUN 17 Creatinine 0.73 Est GFR ( Amer) 135.1 Est GFR (Non-Af Amer) 105.0 POC Glucose (mg/dL) Fluid Source Pleural fluid Fluid WBC Fluid RBC Fluid Tot Cell Count Fluid Neutrophils Fluid Lymphocytes Fluid Monocytes Fluid Other Cells Fluid Cell Count Rvw By Fluid Glucose 256 Fluid Total Protein 02/12/18 02/12/18 02/12/18 16:05 17:05 21:10 WBC 7.2 RBC 5.25 Hgb 16.2 Hct 49 MCV 93 MCH 31 MCHC 33 RDW 14 Plt Count 198 MPV 8.8 Neut % (Auto) 69.2 Lymph % (Auto) 18.8 L Marshall % (Auto) 8.6 H Eos % (Auto) 2.6 Baso % (Auto) 0.8 Absolute Neuts (auto) 5.0 Absolute Lymphs (auto) 1.4 Absolute Monos (auto) 0.6 Absolute Eos (auto) 0.2 Absolute Basos (auto) 0.1 Absolute Nucleated RBC 0 Nucleated RBC % 0.1 APTT BUN Creatinine Est GFR ( Amer) Est GFR (Non-Af Amer) POC Glucose (mg/dL) 292 H 266 H Fluid Source Fluid WBC Fluid RBC Fluid Tot Cell Count Fluid Neutrophils Fluid Lymphocytes Fluid Monocytes Fluid Other Cells Fluid Cell Count Rvw By Fluid Glucose Fluid Total Protein 02/13/18 02/13/18 02/13/18 03:10 06:17 06:17 WBC 5.9 RBC 4.99 Hgb 15.5 Hct 46 MCV 92 MCH 31 MCHC 34 RDW 14 Plt Count 198 MPV 8.3 Neut % (Auto) 59.1 Lymph % (Auto) 25.5 Marshall % (Auto) 9.0 H Eos % (Auto) 4.2 Baso % (Auto) 2.2 H Absolute Neuts (auto) 3.5 Absolute Lymphs (auto) 1.5 Absolute Monos (auto) 0.5 Absolute Eos (auto) 0.2 Absolute Basos (auto) 0.1 Absolute Nucleated RBC 0 Nucleated RBC % 0.1 APTT 126.3 H* BUN 14 Creatinine 0.60 L Est GFR ( Amer) 169.4 Est GFR (Non-Af Amer) 131.7 POC Glucose (mg/dL) Fluid Source Fluid WBC Fluid RBC Fluid Tot Cell Count Fluid Neutrophils Fluid Lymphocytes Fluid Monocytes Fluid Other Cells Fluid Cell Count Rvw By Fluid Glucose Fluid Total Protein 02/13/18 02/13/18 07:59 11:15 WBC RBC Hgb Hct MCV MCH MCHC RDW Plt Count MPV Neut % (Auto) Lymph % (Auto) Marshall % (Auto) Eos % (Auto) Baso % (Auto) Absolute Neuts (auto) Absolute Lymphs (auto) Absolute Monos (auto) Absolute Eos (auto) Absolute Basos (auto) Absolute Nucleated RBC Nucleated RBC % APTT 120.7 H* BUN Creatinine Est GFR ( Amer) Est GFR (Non-Af Amer) POC Glucose (mg/dL) 239 H Fluid Source Fluid WBC Fluid RBC Fluid Tot Cell Count Fluid Neutrophils Fluid Lymphocytes Fluid Monocytes Fluid Other Cells Fluid Cell Count Rvw By Fluid Glucose Fluid Total Protein Laboratory Results - last 24 hr 02/11/18 02/11/18 02/12/18 16:22 20:50 13:00 POC Glucose (mg/dL) 251 H 186 H Fluid Source Pleural fluid Fluid Volume 8 Fluid Color Red Fluid Appearance Bloody Fluid WBC 393 Fluid RBC 047006 Fluid Tot Cell Count 100 Fluid Neutrophils 51 Fluid Lymphocytes 39 Fluid Monocytes 10 Fluid Other Cells 7 I/R: 73 y o m with new onset DM, complete heart block also found to have b/l pl effusions, b/l PE and DVT Pt s/p thoracentesis on rt side, 850 ml of serosanguinous fluid was removed, lymphocyte predominant, cytology pending On anticoagulation for DVT/PE for atleast 3 months s/p pacemaker for complete heart block F/u cytology results
[2018-02-13] MEDS: Enoxaparin(*) 80 MG/0.8 ML SYR SUBCUT SCH (14:14)
--- NOTE | 2018-02-13 15:27 | PN ---
Cardiology Progress Note Date of Service: 02/13/18 - CC: pocket hematoma See Dr Maldonado's note (cardiology). Pt developed pocket hematoma on UF heparin gtt with PTT 126, 120. Pocket/incision examined. No evidence of infection. No ecchymosis. small pocket collection c/w hematoma. I reapplied pressure dressing. Agree with d/c UF heparin gtt and conversion back to lovenox (for DVT/PE) Recommend pressure dressing x 3 days. Skin is fair, OK to leave current dressing on if able.
[2018-02-13] MEDS ORDERED: Benzoin COMPOUND swab* 1 applicator pak TOPICAL ONE (16:00)
[2018-02-13] MEDS: Atorvastatin* 40 MG TAB PO SCH (21:37)
[2018-02-14] MEDS: Enoxaparin(*) 80 MG/0.8 ML SYR SUBCUT SCH ×2 (02:35→13:19)
[2018-02-14] MEDS: ceFAZolin 1 GM VIAL(*) 1 GM in NS 0.9% 50 ML* 50 ML IVPB SCH ×3 (06:05→21:39)
[2018-02-14 06:27] LABS: ABS Basophils 0.1 10^3/ul (0-0.2); ABS Eosinophils 0.2 10^3/ul (0-0.6); ABS Lymphocytes 1.7 10^3/ul (1.0-4.8); ABS Monocytes 0.6 10^3/ul (0-0.8); ABS Neutrophils 2.9 10^3/ul (1.5-7.7); ABS Nucleated RBC 0 10^3/ul; Eosinophil % 3.8 % (0-6); Hematocrit 43 % (42-52); Hemoglobin 14.4 g/dl (14.0-18.0); Lymphocyte % 30.5 % (25-47); Mean Corpuscular HGB Conc 34 g/dl (31-36); Mean Corpuscular Hemoglobin 31 pg (27-31); Mean Corpuscular Volume 92 fL (80-94); Mean Platelet Volume 8.3 um3 (7.4-10.4); Nucleated Red Blood Cells % 0.1; Platelet Count 203 10^3/ul (150-450); Red Blood Count 4.71 10^6/ul (4.0-5.4); Red Cell Distribution Width 13 % (10.5-15); White Blood Count 5.4 10^3/ul (3.5-10.8)
[2018-02-14 06:41] LABS: EGFR Non-African American 126.8 (>60)
[2018-02-14] MEDS: Multivitamins/Minerals TAB PO SCH (08:43)
[2018-02-14] MEDS: Docusate CAP* 100 MG PO SCH (08:43)
[2018-02-14] MEDS: Metoprolol Succinate XL TAB* 25 MG PO SCH (08:43)
[2018-02-14] MEDS: Insulin LISPRO* 1 UNITS UNIT SUBCUT SCH ×5 (08:43→21:39)
[2018-02-14] MEDS: Senna TAB PO SCH (08:43)
[2018-02-14] MEDS: Insulin GLARGINE(*) 1 UNITS UNIT SUBCUT SCH (08:44)
--- NOTE | 2018-02-14 10:22 | PN ---
Subjective Date of Service: 02/14/18 Interval History: f/u pacemaker No change in breathing, lightheadedness, chest discomfort other than incisional Arm was out of sling this AM counseled on keeping it in Pressure bandage not removed but through bandages does not appear to have expanded since yesterday. Medications Active Medications: Atorvastatin Calcium (Lipitor*) 40 mg PO 2100 [facility] Last Admin: 02/13/18 21:37 Dose: 40 mg Benzonatate (Tessalon Cap*) 200 mg PO TID PRN PRN Reason: COUGH Last Admin: 02/13/18 21:37 Dose: 200 mg Dextrose (D50w Syringe 50 Ml*) 12.5 gm IV PUSH .FOR FS < 60 - SS PRN PRN Reason: FS < 60 Docusate Sodium (Colace Cap*) 200 mg PO DAILY [facility] Last Admin: 02/14/18 08:43 Dose: Not Given Enoxaparin Sodium (Lovenox(*)) 75 mg SUBCUT Q12H [facility] Last Admin: 02/14/18 02:35 Dose: 75 mg Cefazolin Sodium 1 gm/ Sodium (Chloride) 50 mls @ 200 mls/hr IVPB Q8H [facility] Last Admin: 02/14/18 06:05 Dose: 200 mls/hr Insulin Glargine (Lantus(*)) 20 units SUBCUT Q24H [facility] Last Admin: 02/14/18 08:44 Dose: 20 units Insulin Human Lispro (Humalog*) 0 units SUBCUT ACHS [facility] PRN Reason: Protocol Last Admin: 02/14/18 08:43 Dose: 6 unit Metoprolol Succinate (Toprol Xl Tab*) 25 mg PO DAILY [facility] Last Admin: 02/14/18 08:43 Dose: 25 mg Multivitamins/Minerals (Theragran/Minerals Tab*) 1 tab PO DAILY [facility] Last Admin: 02/14/18 08:43 Dose: 1 tab Senna (Senokot Tab*) 1 tab PO DAILY [facility] Last Admin: 02/14/18 08:43 Dose: Not Given Sodium Chloride (Sodium Chloride 0.65% Nasal [place]*) 2 spray BOTH NARES Q2H PRN PRN Reason: CONGESTION Zolpidem Tartrate (Ambien Tab*) 5 mg PO BEDTIME PRN PRN Reason: INSOMNIA Last Admin: 02/13/18 00:14 Dose: 5 mg Objective Vital Signs: Temp Pulse Resp BP Pulse Ox 97.5 F 72 16 137/74 97 02/14/18 08:00 02/14/18 08:00 02/14/18 08:00 02/14/18 08:00 02/14/18 08:00 Oxygen Devices in Use Now: None Appearance: nad pleasant Eyes: No Scleral Icterus, PERRLA Ears/Nose/Mouth/Throat: Clear Oropharnyx, Mucous Membranes Moist Neck: NL Appearance and Movements; NL JVP, Trachea Midline, No Thyroid Enlargement, Masses Respiratory: Symmetrical Chest Expansion and Respiratory Effort - lungs clear. Cardiovascular: NL Sounds; No Murmurs; No JVD, RRR - temporary pacemaker in place R IJ, - - PM site exam as above Abdominal: No Hepatosplenomegaly - +bowel sounds, soft, non tender Extremities: No Clubbing, Cyanosis - Improved edema of legs. RUE 2 + pitting edema and enlarged c/w LUE. Neurological: Alert and Oriented x 3 Lines/Tubes/Other Access: Clean, Dry and Intact Peripheral IV Laboratory Results: 02/14/18 06:17 02/14/18 06:17 INR (Anticoag Therapy) 0.95 (0.77-1.02) 02/10/18 06:00 APTT 120.7 seconds (26.0-36.3) H* 02/13/18 11:15 Total Bilirubin 0.70 mg/dL (0.2-1.0) 02/11/18 05:45 Direct Bilirubin 0.10 mg/dL (0.03-0.18) 02/11/18 05:45 Indirect Bilirubin 0.6 mg/dL (0.3-1.0) 02/11/18 05:45 AST 12 U/L (13-39) L 02/11/18 05:45 ALT 11 U/L (7-52) 02/11/18 05:45 Alkaline Phosphatase 86 U/L (34-104) 02/11/18 05:45 CK-MB (CK-2) 6.7 ng/mL (0.6-6.3) H 02/07/18 17:45 B-Natriuretic Peptide 95 pg/mL (-100) 02/07/18 17:48 Total Protein 5.0 g/dL (6.4-8.9) L 02/11/18 05:45 Albumin 2.4 g/dL (3.2-5.2) L 02/11/18 05:45 Globulin 2.6 g/dL (2-4) 02/11/18 05:45 Albumin/Globulin Ratio 0.9 (1-3) L 02/11/18 05:45 Triglycerides 74 mg/dL 02/09/18 05:45 Cholesterol 171 mg/dL 02/09/18 05:45 LDL Cholesterol 100 mg/dL 02/09/18 05:45 HDL Cholesterol 56.6 mg/dL 02/09/18 05:45 TSH 1.87 mcIU/mL (0.34-5.60) 02/07/18 17:45 02/07/18 02/08/18 21:20 05:25 Troponin I 0.05 H* 0.05 H* Diagnostic Imaging: CXR 02/09/18: Elevated R hemidiaphragm, small pleural effusions, infiltrate R base. Venous Doppler 02/10/18: DVT peroneal veins bilaterally. Echo 02/07/18: EF 45%, global hypokinesis, trace AI, mild MR, mild to mod TR, PApressure [address] 02/10/2018: Multifocal PE's, b/l effusion EKG Data: monitor: v-paced Assessment/Plan 73 year old homeless man admitted with symptomatic DVT/PE and high degree AV block now s/p pacemaker 02/12/2018, newly dx DM, mild LV dysfunction, pleural effusion s/p thoracentesis. Has developed pacemaker hematoma after heparin gtt with high PTT now on lovenox - DM per primary service - Continue primary prevention statin - Continue BB for mild LV dysfunction - Continue pacemaker wound care Thank you for allowing me to participate in the cardiovascular care of this patient. Please do not hesitate to contact me with questions or concerns.
--- NOTE | 2018-02-14 15:53 | PN ---
Subjective Date of Service: 02/14/18 Interval History: HOSPITALIST PROGRESS NOTE Patient seen and examined at bedside. Care reviewed and d/w Eliana Cardenas RN. Still has mild dyspnea, but otherwise feels well. Family History: Unchanged from Admission Social History: Unchanged from Admission Past Medical History: Unchanged from Admission Objective Active Medications: Atorvastatin Calcium (Lipitor*) 40 mg PO 2100 [facility] Last Admin: 02/13/18 21:37 Dose: 40 mg Benzonatate (Tessalon Cap*) 200 mg PO TID PRN PRN Reason: COUGH Last Admin: 02/13/18 21:37 Dose: 200 mg Dextrose (D50w Syringe 50 Ml*) 12.5 gm IV PUSH .FOR FS < 60 - SS PRN PRN Reason: FS < 60 Docusate Sodium (Colace Cap*) 200 mg PO DAILY [facility] Last Admin: 02/14/18 08:43 Dose: Not Given Enoxaparin Sodium (Lovenox(*)) 75 mg SUBCUT Q12H [facility] Last Admin: 02/14/18 13:19 Dose: 75 mg Cefazolin Sodium 1 gm/ Sodium (Chloride) 50 mls @ 200 mls/hr IVPB Q8H [facility] Last Admin: 02/14/18 13:18 Dose: 200 mls/hr Insulin Glargine (Lantus(*)) 20 units SUBCUT Q24H [facility] Last Admin: 02/14/18 08:44 Dose: 20 units Insulin Human Lispro (Humalog*) 0 units SUBCUT ACHS [facility] PRN Reason: Protocol Last Admin: 02/14/18 13:17 Dose: 10 unit Metoprolol Succinate (Toprol Xl Tab*) 25 mg PO DAILY [facility] Last Admin: 02/14/18 08:43 Dose: 25 mg Multivitamins/Minerals (Theragran/Minerals Tab*) 1 tab PO DAILY [facility] Last Admin: 02/14/18 08:43 Dose: 1 tab Senna (Senokot Tab*) 1 tab PO DAILY [facility] Last Admin: 02/14/18 08:43 Dose: Not Given Sodium Chloride (Sodium Chloride 0.65% Nasal [place]*) 2 spray BOTH NARES Q2H PRN PRN Reason: CONGESTION Last Admin: 02/14/18 12:04 Dose: 2 spray Zolpidem Tartrate (Ambien Tab*) 5 mg PO BEDTIME PRN PRN Reason: INSOMNIA Last Admin: 02/13/18 00:14 Dose: 5 mg Vital Signs - 8 hr 02/14/18 02/14/18 02/14/18 08:00 08:40 11:47 Temperature 97.5 F 97.6 F Pulse Rate 72 78 Respiratory 16 18 16 Rate Blood Pressure 137/74 114/52 (mmHg) O2 Sat by Pulse 97 94 Oximetry Oxygen Devices in Use Now: None Appearance: Pleasant elderly lady sitting up in a chair reading a book, in NAD. Eyes: No Scleral Icterus Ears/Nose/Mouth/Throat: Mucous Membranes Moist Neck: Trachea Midline Respiratory: Symmetrical Chest Expansion and Respiratory Effort, Clear to Auscultation Cardiovascular: RRR - Normal S1 and S2 Neurological: Alert and Oriented x 3 Result Diagrams: 02/14/18 06:17 02/14/18 06:17 Assess/Plan/Problems-Billing Assessment: Mr. Jj is a 73yo M with PMH of homelessness, who presented to ED with c/o dyspnea, found to have high grade HB s/p pacer, also diagnosed with PE and DM. - Patient Problems (1) Heart block Comment: - s/p permanent pacemaker placement 02/12/[address] Singh. - Lyme serology was negative and Ceftriaxone discontinued. - Now has pacer site hematoma - pressure dressing placed by Cardiology. (2) Pulmonary embolism Comment: - CTA chest showed bilateral PE and LE doppler bilateral DVTs. - Consolidation and pleural effusion seen on CXR are due to PE s/p diagnostic and therapeutic thoracentesis by Dr. Neri 02/12/18 - follow cytology. - Continue Lovenox. (3) Elevated troponin Comment: - Minimally elevated likely due to PE. - Echo showed global LV hypokinesis with EF 40-45% while on HB. - May benefit of stress test as outpatient when stable. (4) Diabetes Comment: - Newly diagnosed this admission with A1c 14. - Continue Lantus and Lispro SS. - Change diet to consistent carb. (5) DVT prophylaxis Comment: - Lovenox. (6) Full code status Status and Disposition: Inpatient for management of HB and PE. Will need safe discharge plan.
[2018-02-14] MEDS: Atorvastatin* 40 MG TAB PO SCH (20:18)
[2018-02-14] MEDS: Benzonatate CAP* 100 MG PO PRN (20:19)
[2018-02-15] MEDS: Enoxaparin(*) 80 MG/0.8 ML SYR SUBCUT SCH ×2 (02:18→14:05)
--- NOTE | 2018-02-15 03:11 | OP ---
DATE OF OPERATION: 02/12/18 - ROOM #449 DATE OF : 43 SURGEON: Peggy Singh MD ANESTHESIA: MAC. PRE-OP DIAGNOSIS: Third-degree heart block. POST-OP DIAGNOSIS: Third-degree heart block. OPERATIVE PROCEDURE: Dual-chamber pacemaker implantation. ESTIMATED BLOOD LOSS: Less than 5 cc. DESCRIPTION OF PROCEDURE: The patient had extensive discussions on the details of the procedure, risks, and benefits the day before and the morning of the procedure, and he was amenable to proceeding. The patient was right handed and the left subclavian fossa was prepped and draped in the usual sterile fashion. A time-out was procedure called. Following this, the patient received a total of 6 mg of Versed and 50 mcg of fentanyl for sedation in addition to 20 cc of 1% lidocaine for local anesthesia. A 10 cc was injected in the left upper extremity outlining the left subclavian and left axillary veins. Following this, the local lidocaine was infused and using a 10-blade knife, a 2.5-cm incision was made and extended to the level of the pectoralis muscle. Additional lidocaine was infused inferomedially and using blunt dissection, a small pocket was fashioned. Using a modified Seldinger technique, the left subclavian vein was cannulated; however, stick prior to this, the left subclavian artery was cannulated and the needle was removed and direct pressure held. Once the vein was located, the guidewire was inserted using fluoroscopic guidance into the right atrium. The procedure was repeated with a second guidewire. Using an introducer technique, the ventricular lead was guided into the right ventricular apex and actively fixed in place. Pacing and sensing thresholds were checked and found to be good. Using the second guidewire and a second introducer, the right atrial lead was guided into the right atrial appendage, actively fixed in place and pacing and sensing thresholds were checked. Sensing was excellent, lead impedance was good, but pacing thresholds were initially above 2, but gradually improved. The patient had an external pacer. The existing leads were attached to a new generator and after that the temporary pacer was retracted, taking care not to dislodge the permanent pacer leads. The leads had been stitched in place with 0 silk suture. The pocket was then copiously irrigated. The device was placed in the pocket and the pocket was sutured using 2 layers, 2-0 followed by 4-0, followed by jacobo and external dressing. The system is an MRI compatible system, [employer]. The generator is a [employer] PM [id number], serial number [id number]. The atrial lead is a [employer], model [id number]. Serial number is [id number]. The ventricular lead is the [employer] [id number]. Serial number is [id number]. In the atrium, P waves were sensed at 2.1 millivolts with an atrial lead impedance of 575 ohms and an atrial pacing threshold of 1.8 volts at 0.5 milliseconds. In the ventricle, R waves were sensed at 9.2 millivolts with a ventricular lead impedance of 866 ohms and a ventricular pacing threshold of 0.7 volts at 0.5 milliseconds. Within the pocket, the atrial pacing threshold is improved to 1.2 volts at 0.5 milliseconds. The patient was hemodynamically stable throughout the procedure and then transferred to the floor. There was the complication of sticking the subclavian artery as above. Otherwise, no additional complications. [id number]/[facility] #: [id number] [facility]ITAL[facility]
[2018-02-15] MEDS: ceFAZolin 1 GM VIAL(*) 1 GM in NS 0.9% 50 ML* 50 ML IVPB SCH ×2 (05:31→14:05)
[2018-02-15] MEDS: Docusate CAP* 100 MG PO SCH ×2 (08:20→08:27)
[2018-02-15] MEDS: Multivitamins/Minerals TAB PO SCH (08:20)
[2018-02-15] MEDS: Senna TAB PO SCH (08:20)
[2018-02-15] MEDS: Metoprolol Succinate XL TAB* 25 MG PO SCH (08:20)
[2018-02-15] MEDS: Insulin GLARGINE(*) 1 UNITS UNIT SUBCUT SCH (08:21)
[2018-02-15] MEDS: Insulin LISPRO* 1 UNITS UNIT SUBCUT SCH ×7 (09:21→22:18)
--- NOTE | 2018-02-15 15:56 | PN ---
Subjective Date of Service: 02/15/18 Interval History: HOSPITALIST PROGRESS NOTE Patient seen and examined at bedside. He feels well, offers no complaints today. No CP or dyspnea, able to ambulate around unit. Family History: Unchanged from Admission Social History: Unchanged from Admission Past Medical History: Unchanged from Admission Objective Active Medications: Atorvastatin Calcium (Lipitor*) 40 mg PO 2100 [facility] Last Admin: 02/14/18 20:18 Dose: 40 mg Benzonatate (Tessalon Cap*) 200 mg PO TID PRN PRN Reason: COUGH Last Admin: 02/14/18 20:19 Dose: 200 mg Dextrose (D50w Syringe 50 Ml*) 12.5 gm IV PUSH .FOR FS < 60 - SS PRN PRN Reason: FS < 60 Docusate Sodium (Colace Cap*) 200 mg PO DAILY [facility] Last Admin: 02/15/18 08:27 Dose: Not Given Enoxaparin Sodium (Lovenox(*)) 75 mg SUBCUT Q12H [facility] Last Admin: 02/15/18 14:05 Dose: 75 mg Heparin Sodium (Porcine) (Heparin Flush Picc/Ml/Cvc(*)) 1 ml FLUSH 0600,1800 [facility] PRN Reason: Protocol Cefazolin Sodium 1 gm/ Sodium (Chloride) 50 mls @ 200 mls/hr IVPB Q8H [facility] Last Admin: 02/15/18 14:05 Dose: 200 mls/hr Insulin Glargine (Lantus(*)) 20 units SUBCUT Q24H [facility] Last Admin: 02/15/18 08:21 Dose: 20 units Insulin Human Lispro (Humalog*) 0 units SUBCUT ACHS [facility] PRN Reason: Protocol Last Admin: 02/15/18 14:01 Dose: 6 unit Insulin Human Lispro (Humalog*) 0 units SUBCUT AC [facility] PRN Reason: Protocol Last Admin: 02/15/18 14:02 Dose: 4 units Metoprolol Succinate (Toprol Xl Tab*) 25 mg PO DAILY [facility] Last Admin: 02/15/18 08:20 Dose: 25 mg Multivitamins/Minerals (Theragran/Minerals Tab*) 1 tab PO DAILY [facility] Last Admin: 02/15/18 08:20 Dose: 1 tab Senna (Senokot Tab*) 1 tab PO DAILY [facility] Last Admin: 02/15/18 08:20 Dose: 1 tab Sodium Chloride (Sodium Chloride 0.65% Nasal [place]*) 2 spray BOTH NARES Q2H PRN PRN Reason: CONGESTION Last Admin: 02/14/18 12:04 Dose: 2 spray Warfarin Sodium (Coumadin Tab(*)) 5 mg PO DAILY@1700 [facility] PRN Reason: Protocol Zolpidem Tartrate (Ambien Tab*) 5 mg PO BEDTIME PRN PRN Reason: INSOMNIA Last Admin: 02/13/18 00:14 Dose: 5 mg Vital Signs - 8 hr 02/15/18 02/15/18 02/15/18 08:14 08:25 09:37 Temperature Pulse Rate 71 Respiratory 20 16 16 Rate Blood Pressure 129/65 (mmHg) O2 Sat by Pulse 94 Oximetry 02/15/18 02/15/18 11:44 14:35 Temperature 98.1 F Pulse Rate 71 Respiratory 20 Rate Blood Pressure 118/52 (mmHg) O2 Sat by Pulse 100 Oximetry Oxygen Devices in Use Now: None Appearance: Pleasant gentleman sitting up on chair in NAD. Eyes: No Scleral Icterus Ears/Nose/Mouth/Throat: Mucous Membranes Moist Neck: Trachea Midline Respiratory: Symmetrical Chest Expansion and Respiratory Effort, Clear to Auscultation Cardiovascular: NL Sounds; No Murmurs; No JVD, RRR, - - Pressure dressing intact to anterior LCW pacer site Neurological: Alert and Oriented x 3, NL Muscle Strength and Tone Result Diagrams: 02/14/18 06:17 02/14/18 06:17 Assess/Plan/Problems-Billing Assessment: Mr. Jj is a 73yo M with PMH of homelessness, who presented to ED with c/o dyspnea, found to have high grade HB s/p pacer, also diagnosed with PE and DM. - Patient Problems (1) Heart block Comment: - s/p permanent pacemaker placement 02/12/[address] Singh. - Lyme serology was negative and Ceftriaxone discontinued. - Now has pacer site hematoma - pressure dressing placed by Cardiology. (2) Pulmonary embolism Comment: - CTA chest showed bilateral PE and LE doppler bilateral DVTs. - Consolidation and pleural effusion seen on CXR are due to PE s/p diagnostic and therapeutic thoracentesis by Dr. Neri 02/12/18 - follow cytology. - Continue Lovenox and start Warfarin. (3) Elevated troponin Comment: - Minimally elevated likely due to PE. - Echo showed global LV hypokinesis with EF 40-45% while on HB. - May benefit of stress test as outpatient when stable. (4) Diabetes Comment: - Newly diagnosed this admission with A1c 14. - Continue Lantus and Lispro SS. - DM education consult. (5) DVT prophylaxis Comment: - Lovenox. (6) Full code status Status and Disposition: Inpatient for management of HB and PE. Will need safe discharge plan - probably SNF.
[2018-02-15] MEDS ORDERED: Insulin GLARGINE(*) 1 UNITS UNIT SUBCUT ONE (15:57)
[2018-02-15] MEDS ORDERED: Warfarin TAB(*) 5 MG PO SCH (17:00)
[2018-02-15] MEDS: Atorvastatin* 40 MG TAB PO SCH (20:02)
[2018-02-15] MEDS: Benzonatate CAP* 100 MG PO PRN (20:02)
[2018-02-15] MEDS: ceFAZolin 1 GM VIAL(*) 1 GM in D5W 50 ML BAG* 50 ML IVPB SCH (22:18)
[2018-02-16] MEDS: Enoxaparin(*) 80 MG/0.8 ML SYR SUBCUT SCH ×2 (02:33→13:08)
[2018-02-16] MEDS: ceFAZolin 1 GM VIAL(*) 1 GM in D5W 50 ML BAG* 50 ML IVPB SCH ×2 (05:29→13:08)
[2018-02-16 06:08] LABS: INR 0.9 (0.77-1.02)
[2018-02-16] MEDS: Insulin LISPRO* 1 UNITS UNIT SUBCUT SCH ×4 (08:21→13:08)
[2018-02-16] MEDS ORDERED: Insulin GLARGINE(*) 1 UNITS UNIT SUBCUT SCH (09:00)
[2018-02-16] MEDS: Multivitamins/Minerals TAB PO SCH (10:11)
[2018-02-16] MEDS: Senna TAB PO SCH (10:11)
[2018-02-16] MEDS: Metoprolol Succinate XL TAB* 25 MG PO SCH (10:11)
[2018-02-16] MEDS: Docusate CAP* 100 MG PO SCH (10:13)
[2018-02-16 12:16] VITALS: BP 132/53
--- NOTE | 2018-02-16 15:17 | DS ---
CC: Dr. Sierra; Dr. Singh; with the patient to [facility] on discharge DISCHARGE SUMMARY: DATE OF ADMISSION: 02/07/18. DATE OF DISCHARGE: 02/16/18. NEW PRIMARY CARE PROVIDER: Dr. Sierra. LOOM FIXER: Dr. Singh. DISCHARGE DIAGNOSES: 1. High-degree heart block, status post pacemaker. 2. Pulmonary embolism. 3. Deep venous thrombosis. 4. Elevated troponin. 5. Newly diagnosed diabetes. 6. Bilateral adrenal gland hypertrophy. MEDICATIONS: At the time of transfer: 1. Atorvastatin 40 mg p.o. daily. 2. Tessalon Perles 200 mg p.o. t.i.d. as needed for cough. 3. Cephalexin 500 mg p.o. q.6 hours for five days. 4. Colace 200 mg p.o. daily. 5. Lovenox 75 mg subcutaneously q.12 hours until INR greater than 2 for 48 hours. 6. Lantus 30 units subcutaneously daily. 7. Lispro sliding scale as follows: Fingersticks 131 to 150 at 1 unit, 151 to 200 at 3 units, 201 t o 250 at 4 units, 251 to 300 at 6 units, 301 to 350 at 8 units, 351 to 400 at 10 units; greater than 400 call MD. 8. Metoprolol succinate 25 mg p.o. daily. 9. Multivitamin 1 tablet p.o. daily. 10. Fish oil 1000 mg p.o. daily. 11. Saline nasal spray 2 sprays to both nares q.12 hours p.r.n. nasal congestion. 12. Senna 1 tablet p.o. daily. 13. Warfarin 5 mg p.o. daily, adjust dose according to INR. HOSPITAL COURSE: Mr. Jj is a 73-year-old male with a past medical history of homelessness that presented to the emergency room on 02/07/18 with complaints of shortness of breath. For more details of about his presentation, I refer you to his history and physical. In summary, the patient was not ed to have a high-degree AV block and he was admitted to the intensive care unit. There were some qu estions if the patient could have lyme disease causing his heart block and his lyme disease serology was positive, but his western blot showed negative IgG and IgM bands, so this was discontinued. For his heart block, he was seen in consultation by Cardiology, and on 02/12/18 the patient underwent a d ual-chamber pacemaker implantation; an MRI compatible [facility] system. The patient also had a transthoracic echocardiogram that showed an ejection fraction 40% to 45% with global hypokinesis of the left ventricle, [id number] TR. The patient had a lower extremity Doppler that showed DVT in one of the paired peroneal veins of the right lower extremity and both peroneal veins in the left lower extremity. A CTA of the chest showed multifocal segmental pulmonary embolism with a [id number] right and a small left pleural effu troy with adjacent compressive atelectasis. Fairly symmetrical hypertrophy of the visualized adrenal glands bilaterally. This adrenal gland finding will need to be worked up as outpatient. The patient was started on anticoagulation with a heparin drip initially and this was later transitio rick to Lovenox and warfarin. His INR on day of discharge is 0.9 and this will need to be followed as outpatient. He will need to continue his Lovenox until his INR is greater than 2 for 48 hours at [facility]. The patient was also seen in consultation by Pulmonology (Dr. Neri) and her impression was that his pleural effusions were associated with his PE and DVT. A thoracentesis was performed and 850 mL of serosanguineous fluid was drained. Pathology of that specimen was negative for malignant cells. The patient continued to improve clinically and he was felt to be stable for discharge. He was found to have minimal troponin elevation up to 0.05 and this was felt to be secondary to PE likely. The patie nt will benefit from a stress test as outpatient when more stable. Cardiology recommended statin for primary prevention, beta-enriqueta for mild LV dysfunction, and pacemaker wound care as the patient ramírez d developed a hematoma. The patient was advised to avoid stretching, lifting, and sudden movements. He is not supposed to lift more than 5 pounds for 1 month and he should wear his arm shoulder immobi lizer on the left side for 3 to 4 weeks. Please see the discharge instructions for more details. The patient was also found to have diabetes. He was found to be hyperglycemic with initial glucose o f 276. His A1c was 14.3 and he was started on a regimen of Lantus and lispro insulin and his glucose on the day of discharge is 113. Later on when his glucose is very controlled, he could probably be transitioned to oral medications. The patient was found to have occupational therapy needs and he is medically stable for discharge at this time to continue his rehabilitation process. PHYSICAL EXAMINATION: Vital Signs: Temperature is 97.7, heart rate is 76, respiratory rate is 16, ox ygen saturation is 95% on room air, blood pressure is 114/63. General: The patient is a pleasant el zofia male, sitting up in a chair, in no acute distress. CVS: Normal S1, S2. Regular rate and rhyt hm. Chest: Breath sounds present bilaterally with no added sounds. Extremities: Trace edema. Neuro : He is alert and oriented x3, able to move all 4 extremities. Chest: He has a pressure dressing t o the left anterior chest wall. DIET: Consistent carb diet. ACTIVITY: As tolerated. Please see pacemaker discharge instructions for more details. DISPOSITION: To [facility]. STATUS WHILE IN THE HOSPITAL: Inpatient. TIME SPENT: Approximately 45 minutes was spent to complete this discharge. [id number]/[facility] #: [id number]
== END 2018-02-16 15:45 | DRG 242 ==
LOC: ED 17:12 → ICU 19:31 → MEDTELE 02-13 18:36 → MED 02-15 07:59
PROVIDERS: ADMIT Hospitalist; ATTEND Internal Medicine
PROC: 5A1223Z Performance of Cardiac Pacing, Continuous (ICD-10-PCS; 2018-02-08)
PROC: 4B02XSZ Measurement of Cardiac Pacemaker, External Approach (ICD-10-PCS; 2018-02-11)
PROC: 02H63JZ Insertion of Pacemaker Lead into Right Atrium, Percutaneous Approach (ICD-10-PCS; 2018-02-12)
PROC: 02HK3JZ Insertion of Pacemaker Lead into Right Ventricle, Percutaneous Approach (ICD-10-PCS; 2018-02-12)
PROC: 0JH606Z Insertion of Pacemaker, Dual Chamber into Chest Subcutaneous Tissue and Fascia, Open Approach (ICD-10-PCS; principal; 2018-02-12 07:00)
PROC: 0W993ZZ Drainage of Right Pleural Cavity, Percutaneous Approach (ICD-10-PCS; 2018-02-13)
DX: I44.2 Atrioventricular block, complete (principal); I26.99 Other pulmonary embolism without acute cor pulmonale; G93.40 Encephalopathy, unspecified; J90 Pleural effusion, not elsewhere classified; J98.11 Atelectasis; I82.4Z1 Acute embolism and thrombosis of unspecified deep veins of right distal lower extremity; I42.9 Cardiomyopathy, unspecified; I82.493 Acute embolism and thrombosis of other specified deep vein of lower extremity, bilateral; L76.32 Postprocedural hematoma of skin and subcutaneous tissue following other procedure; E27.8 Other specified disorders of adrenal gland; R41.0 Disorientation, unspecified; E11.65 Type 2 diabetes mellitus with hyperglycemia; R00.1 Bradycardia, unspecified; I07.1 Rheumatic tricuspid insufficiency; M71.21 Synovial cyst of popliteal space [Baker], right knee; R74.8 Abnormal levels of other serum enzymes; Y69 Unspecified misadventure during surgical and medical care; Y71.3 Surgical instruments, materials and cardiovascular devices (including sutures) associated with adverse incidents; E11.649 Type 2 diabetes mellitus with hypoglycemia without coma; Y92.239 Unspecified place in hospital as the place of occurrence of the external cause; Z79.01 Long term (current) use of anticoagulants; Z59.0 Homelessness; Z79.4 Long term (current) use of insulin
CPT/HCPCS: 33208; 33210; 36415; 71045; 71046; 71275; 76604; 80048; 80053; 80061; 80076; 82550; 82553; 82565; 82945; 82947; 83036; 83605; 83615; 83735; 83880; 83986; 84157; 84443; 84484; 84520; 85025; 85027; 85610; 85730; 86617; 86618; 87070; 87077; 87186; 87205; 87641; 88112; 89051; 93005; 93306; 93970; 94760; 99156; 99157; 99284; A9270-GY; C1785; C1898; G8978-GP-CH; G8978-GP-CI; G8979-GP-CH; G8979-GP-CI; G8980-GP-CH; G8980-GP-CI; G8987-GO-CJ; G8988-GO-CH; J0461; J0690; J0696; J1644; J1650; J2250; J2310; J3010; Q9967

== ENCOUNTER 2019-03-13 17:31 | Inpatient (IN) | payer MEDICARE ==
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
[2019-03-13] MEDS ORDERED: NS 0.9% 1000 ML** 1,000 ML IV SCH ×2 (18:15→22:15)
[2019-03-13 18:56] LABS: Hematocrit 49 % (42-52); Hemoglobin 16.6 g/dL (14.0-18.0); Mean Corpuscular HGB Conc 34 g/dL (31-36); Mean Corpuscular Hemoglobin 31 pg (27-31); Mean Corpuscular Volume 91 fL (80-94); Mean Platelet Volume 8.8 fL (7.4-10.4); Platelet Count 279 10^3/uL (150-450); Red Blood Count 5.42 10^6 /uL (4.18-5.48); Red Cell Distribution Width 13 % (10.5-15); White Blood Count 19.9 10^3/uL (3.5-10.8)
[2019-03-13 19:09] LABS: Activated Partial Thrombo Time 32.7 seconds (26.0-38.0); INR 1.03 (0.82-1.09)
[2019-03-13 19:14] LABS: ALT 18 U/L (7-52); AST 21 U/L (13-39); Albumin 3.7 g/dL (3.2-5.2); Albumin/Globulin Ratio 0.9 (1-3); Alkaline Phosphatase 158 U/L (34-104); Anion Gap 24 mmol/L (2-11); BUN/Creatinine Ratio 29.5 (8-20); Blood Urea Nitrogen 31 mg/dL (6-24); C Reactive Protein 362.53 mg/L (<8.01); CO2 Carbon Dioxide 17 mmol/L (22-32); Calcium 10.2 mg/dL (8.6-10.3); Chloride 91 mmol/L (101-111); Creatine Kinase 135 U/L (10-223); EGFR African American 83.3 (>60); EGFR Non-African American 68.9 (>60); Globulin 4.1 g/dL (2-4); Glucose 367 mg/dL (70-100); Potassium 4.2 mmol/L (3.5-5.0); Sodium 132 mmol/L (135-145); Total Protein 7.8 g/dL (6.4-8.9)
[2019-03-13 19:19] LABS: Troponin I 0.04 ng/mL (<0.04)
[2019-03-13 19:28] LABS: Alcohol < 10 mg/dL (<10)
[2019-03-13 19:43] LABS: TSH (Thyroid Stimulating Horm) 1.11 mcIU/mL (0.34-5.60)
[2019-03-13 19:58] LABS: ABS Neutrophils 18.1 10^3/ul (1.5-7.7); ABS Neutrophils 18.4 10^3/ul (1.5-7.7)
[2019-03-13] MEDS ORDERED: Acetaminophen TAB* 325 MG PO ONE (20:46)
[2019-03-13] MEDS ORDERED: NS 0.9% 1000 ML** 1,000 ML IV ONE (21:20)
[2019-03-13] MEDS ORDERED: Vancomycin(*) 1,000 MG in NS 0.9% 250 ML* 250 ML IVPB ONE (21:57)
[2019-03-13] MEDS ORDERED: Lactated Ringers 1000 ML Bag* 1,000 ML IV SCH (22:00)
[2019-03-13] MEDS ORDERED: Morphine 4 MG/ML VIAL (1 ml) 4 MG/ML VIAL IV ONE (22:05)
[2019-03-13] MEDS ORDERED: Dextrose 50% Syringe 50 ML* 25 GM/50 ML SYRINGE IV PUSH PRN (22:11)
[2019-03-13 22:12] LABS: Urine Appearance Clear; Urine Bacteria Absent (Absent); Urine Bilirubin Negative (Negative); Urine Blood 2+ (Negative); Urine Color Straw; Urine Glucose 3+(>=500 mg/dL) (Negative); Urine Ketones 2+ (Negative); Urine Nitrite Negative (Negative); Urine Protein Negative (Negative); Urine Red Blood Cell Trace(0-2/hpf) (Absent); Urine Specific Gravity 1.023 (1.010-1.030); Urine Urobilinogen Negative (Negative); Urine White Blood Cell Trace(0-5/hpf) (Absent)
[2019-03-13] MEDS ORDERED: NS 0.9% 250 ML* 250 ML ONE (22:20)
[2019-03-13 22:30] LABS: Urine Benzodiazepine Screen None Detected (None Detect); Urine Opiates Screen None Detected (None Detect)
[2019-03-13 23:21] LABS: Prealbumin < 3 mg/dL (18-38)
[2019-03-13 23:50] LABS: BUN/Creatinine Ratio 29.9 (8-20); Blood Urea Nitrogen 29 mg/dL (6-24); Calcium 8.8 mg/dL (8.6-10.3); Chloride 98 mmol/L (101-111); EGFR African American 91.3 (>60); EGFR Non-African American 75.5 (>60); Glucose 316 mg/dL (70-100); Sodium 136 mmol/L (135-145)
[2019-03-13 23:59] LABS: Anion Gap 25 mmol/L (2-11); CO2 Carbon Dioxide 13 mmol/L (22-32)
[2019-03-14] MEDS ORDERED: Insulin LISPRO* 1 UNITS UNIT SUBCUT ONE ×2 (00:15)
[2019-03-14] MEDS ORDERED: Dextrose 50% Syringe 50 ML* 25 GM/50 ML SYRINGE IV PUSH PRN ×2 (00:15→19:49)
[2019-03-14] MEDS ORDERED: Insulin GLARGINE(*) 1 UNITS UNIT SUBCUT ONE ×2 (00:18→11:29)
[2019-03-14] MEDS ORDERED: Heparin VIAL(*) 5000 UNITS/ML VIAL (FIVE THOUSAND) SUBCUT SCH ×2 (00:30→06:00)
[2019-03-14 00:42] LABS: Troponin I 0.05 ng/mL (<0.04)
[2019-03-14] MEDS: Cefepime 2 GM in Dextrose(*) 2 GM/50 ML BAG IV SCH ×3 (00:42→22:50)
[2019-03-14] MEDS ORDERED: Iohexol 350* (CONTRAST) 500 ML MDV IV ONE (00:42)
[2019-03-14] MEDS: metroNIDAZOLE IV 500 MG/100ML* 500 MG/100 ML BAG IVPB SCH ×3 (00:45→23:59)
[2019-03-14 00:48] LABS: Phosphorus 3.6 mg/dL (2.5-5.0)
[2019-03-14] MEDS ORDERED: Lactated Ringers 1000 ML Bag* 1,000 ML IV SCH (01:00)
[2019-03-14] MEDS ORDERED: NS 0.9% 1000 ML** 1,000 ML IV SCH (01:00)
--- NOTE | 2019-03-14 01:02 | PN ---
Progress Note - Progress Note Date of Service: 03/14/19 Note: Patient with now worsening anion gap acidosis, suspect mostly from starvation ketoacidosis, but also with hyperglycemia. Will start insulin drip and continue IVFs. Glucose q1 hr. NPO.
[2019-03-14 01:27] LABS: Folate 13.17 ng/mL (>3.99)
[2019-03-14] MEDS ORDERED: Insulin IVPB 100 units/100 ml 100 UNITS/100 ML UNIT IVPB SCH ×2 (01:30→09:00)
[2019-03-14] MEDS ORDERED: Iodixanol* (CONTRAST) 320 MG/ML 100 ML SDV IV ONE (01:45)
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
--- NOTE | 2019-03-14 01:58 | HP ---
HISTORY AND PHYSICAL: DATE OF ADMISSION: ADDENDUM: The patient's venous blood gas results show venous pH was 7.17, pCO2 of 35, pO2 of 38, HCO3 of 12.5, venous O2 saturation of 64. The patient's repeat BMP showed bicarb of 13, anion gap of 25, BUN of 29, and a blood sugar of 316. The patient was given 6 units of Lispro subcu and Lantus 10 units sub[address] We will place him on an insulin drip and titrate fluids as needed. We will repeat BMP in 4 hours. History of DVT and PE. Due to the patient's noncompliance and suspected unprovoked PE and DVTs in February of 2018, I will get a CTA of the chest as the patient is tachycardic and not on anticoagulation with a history of DVT and PEs and I will also order bilateral lower extremity venous ultrasound to rule out DVTs. SANG DUARTE NP [id number]/[facility] #: [id number] JEFE
[2019-03-14 02:33] LABS: Troponin I 0.04 ng/mL (<0.04)
[2019-03-14 04:38] LABS: Hematocrit 43 % (42-52); Hemoglobin 14.6 g/dL (14.0-18.0); Mean Corpuscular HGB Conc 34 g/dL (31-36); Mean Corpuscular Hemoglobin 31 pg (27-31); Mean Corpuscular Volume 91 fL (80-94); Mean Platelet Volume 9.5 fL (7.4-10.4); Platelet Count 251 10^3/uL (150-450); Red Blood Count 4.77 10^6 /uL (4.18-5.48); Red Cell Distribution Width 12 % (10.5-15); White Blood Count 17.4 10^3/uL (3.5-10.8)
[2019-03-14 04:40] LABS: INR 1.07 (0.82-1.09)
[2019-03-14 04:53] LABS: BUN/Creatinine Ratio 30.2 (8-20); Calcium 8.8 mg/dL (8.6-10.3); EGFR African American 104.9 (>60); EGFR Non-African American 86.7 (>60); HDL Cholesterol 62.8 mg/dL; Potassium 3.3 mmol/L (3.5-5.0)
[2019-03-14] MEDS ORDERED: D5W 1/2 NS 1000 ML BAG* 1,000 ML IV SCH (05:00)
[2019-03-14 05:06] LABS: ABS Basophils 0.1 10^3/ul (0-0.2); ABS Eosinophils 0.1 10^3/ul (0-0.6); ABS Lymphocytes 0.4 10^3/ul (1.0-4.8); ABS Monocytes 0.8 10^3/ul (0-0.8)
[2019-03-14 05:10] LABS: Polychromasia 1+
[2019-03-14 05:11] LABS: ABS Neutrophils 16.1 10^3/ul (1.5-7.7)
[2019-03-14] MEDS: D5W 1/2 NS KCl 20 Meq 1000 ML* 1,000 ML IV SCH ×2 (05:15→11:10)
[2019-03-14 05:36] LABS: Magnesium 1.9 mg/dL (1.9-2.7)
[2019-03-14] MEDS ORDERED: Insulin LISPRO* 1 UNITS UNIT SUBCUT SCH (07:30)
--- NOTE | 2019-03-14 07:50 | PN ---
Subjective Date of Service: 03/14/19 Interval History: Pt is feeling fine currently. He states everything has been happening so quickly that he cant follow what has been going on. He denies any pain in his L foot. He states his only issue currently is that he is thirsty. When I tell him he can not have a drink right now in anticipation of possible surgery later today he becomes agitated. Objective Active Medications: Acetaminophen (Tylenol Tab*) 650 mg PO Q4H PRN PRN Reason: FEVER/PAIN Dextrose (D50w Syringe 50 Ml*) 12.5 gm IV PUSH .FOR FS < 60 - SS PRN PRN Reason: FS < 60 Cefepime HCl (Maxipime 2 Gm In Dextrose Duplex (*)) 2 gm in 50 mls @ 100 mls/ hr IV Q12H [facility] Last Admin: 03/14/19 00:42 Dose: 100 mls/hr Metronidazole/Sodium Chloride (Flagyl 500 Mg Ivpb*) 500 mg in 100 mls @ 100 mls /hr IVPB Q12H [facility] Last Admin: 03/14/19 00:45 Dose: 100 mls/hr Insulin Human Regular (Insulin Regular Iv Drip 1 Unit/Ml) 100 units in 100 mls @ 5.625 mls/hr IVPB Q16H [facility]; Protocol Last Admin: 03/14/19 02:00 Dose: 5.625 mls/hr Potassium Chloride/Dextrose (D5w 1/2 Ns Kcl 20 Meq 1000 Ml*) 1,000 mls @ 175 mls/hr IV PER RATE [facility] Last Admin: 03/14/19 05:15 Dose: 175 mls/hr Vital Signs - 8 hr 03/13/19 03/14/19 03/14/19 23:45 00:00 00:10 Temperature Pulse Rate 98 99 100 Respiratory 23 23 19 Rate Blood Pressure 145/71 144/74 (mmHg) O2 Sat by Pulse 97 98 98 Oximetry 03/14/19 03/14/19 03/14/19 00:30 01:00 02:00 Temperature Pulse Rate 96 94 93 Respiratory 20 18 21 Rate Blood Pressure 139/70 144/71 (mmHg) O2 Sat by Pulse 97 97 96 Oximetry 03/14/19 03/14/19 03/14/19 02:03 03:00 04:00 Temperature 98.6 F 98.6 F Pulse Rate 92 89 87 Respiratory 19 16 16 Rate Blood Pressure 117/67 116/61 119/65 (mmHg) O2 Sat by Pulse 97 97 97 Oximetry 03/14/19 03/14/19 03/14/19 04:01 05:00 05:01 Temperature Pulse Rate 85 89 88 Respiratory 16 16 15 Rate Blood Pressure 123/63 (mmHg) O2 Sat by Pulse 96 97 97 Oximetry 03/14/19 03/14/19 03/14/19 06:00 07:00 07:01 Temperature Pulse Rate 89 88 87 Respiratory 19 18 15 Rate Blood Pressure 120/67 118/61 (mmHg) O2 Sat by Pulse 98 97 98 Oximetry 03/14/19 07:39 Temperature 97.4 F Pulse Rate Respiratory Rate Blood Pressure (mmHg) O2 Sat by Pulse Oximetry Oxygen Devices in Use Now: None Appearance: Elderly male sitting up in bed, NAD Eyes: No Scleral Icterus Ears/Nose/Mouth/Throat: - - dry oral mucosa Respiratory: Symmetrical Chest Expansion and Respiratory Effort, Clear to Auscultation Cardiovascular: NL Sounds; No Murmurs; No JVD, RRR, No Edema Abdominal: NL Sounds; No Tenderness; No Distention Extremities: No Clubbing, Cyanosis Skin: No Nodules or Sclerosis, - - L first toe is cool and blue in color, there is a large eschar overlying the medial 1st MTP, there is a serous fluid filled blister on the dorsum of the 1st MTP, erythema that was outlined previously has receeded. Neurological: Alert and Oriented x 3 Result Diagrams: 03/14/19 04:20 03/14/19 04:20 Microbiology and Other Data: Microbiology 03/13/19 18:22 Skin and Soft Tissue MRSA/MSSA (PCR - Final Foot Left Mrsa Positive S.aureus Positive Gram Stain - Final 03/13/19 18:48 Aerobic Blood Culture - Preliminary Blood Venous Anaerobic Blood Culture - Preliminary 03/13/19 18:48 Aerobic Blood Culture - Preliminary Blood Venous Anaerobic Blood Culture - Preliminary Blood MRSA/MSSA (PCR) - Final Mrsa Negative S.aureus Negative Assess/Plan/Problems-Billing Mr Jj is a 74yo M who [place] and not sought any medical care since his last admission in 01/2018 who presented to the ER with complaints of generalized weakness, decreased appetite and L foot wound and was found to be septic secondary to likely osteomyelitis of the L distal foot and in what was initially thought to be starvation ketosis. - Patient Problems (1) Sepsis Current Visit: Yes Status: Acute Comment: The patient was septic on admission secondary to likely osteomyelitis of the left foot. The patient's tachycardia and tachypnea have resolved. He continues to have a significant leukocytosis and bandemia. (2) Osteomyelitis of ankle or foot, acute Current Visit: Yes Status: Acute Code(s): M86.179 - OTHER ACUTE OSTEOMYELITIS, UNSPECIFIED ANKLE AND FOOT SNOMED Code(s): 829674165 Comment: The patient likely has osteomyelitis involving the left 1st toe and likely 1st metatarsal. Orthopedics consulation has been requested. I have also requested ID consult. For now continue vancomycin, cefepime and flagyl. The patient has a dry eschar present-it is unclear where the wound culture was obtained from. Wound culture is positive for MRSA. Keep NPO in anticipation of surgery being recommended. (3) Uncontrolled type II diabetes mellitus Current Visit: Yes Status: Acute Code(s): E11.65 - TYPE 2 DIABETES MELLITUS WITH HYPERGLYCEMIA SNOMED Code(s): 877619233 Comment: The patient was diagnosed with diabetes last year. A1c is now 16.8. He has not been taking any medications for this. He may have a component of DKA as his AG and serum CO2 have improved after initiation of the insulin drip. Continue insulin drip and monitor electrolyte pannel q4hr. BMP is pending for 0800 this AM. Will need to determine an appropriate medication regimen that the patient can take on d/c. (4) Starvation ketoacidosis Current Visit: Yes Status: Acute Code(s): E87.2 - ACIDOSIS SNOMED Code(s) : 78558618 Comment: The patient reportedly had not had anything to eat for the last 1 week. Elevated AG on admission thought to be secondary to starvation. May have been a component but not complete cause of elevated AG. (5) Hyponatremia Current Visit: Yes Status: Acute Code(s): E87.1 - HYPO-OSMOLALITY AND HYPONATREMIA SNOMED Code(s): 46211805 Comment: Resolved with IVF hydration. (6) Elevated troponin Current Visit: Yes Status: Acute Code(s): R74.8 - ABNORMAL LEVELS OF OTHER SERUM ENZYMES SNOMED Code(s): 973943530 Comment: Likely secondary to demand ischemia. Will get echo today to re-eval his EF that was slightly low last year in anticipation of going to the OR. (7) DVT prophylaxis Current Visit: Yes Status: Acute Code(s): ZKV1287 - SNOMED Code(s): 872341211 Comment: SQ heparin to begin later today depending on plan of care. (8) DNR (do not resuscitate) Current Visit: Yes Status: Acute
[2019-03-14] MEDS ORDERED: Vancomycin per Pharmacy* NOTE FOLLOW UP PRN (08:01)
[2019-03-14 09:41] LABS: BUN/Creatinine Ratio 32.4 (8-20); Blood Urea Nitrogen 24 mg/dL (6-24); CO2 Carbon Dioxide 22 mmol/L (22-32); Calcium 8.8 mg/dL (8.6-10.3); Chloride 106 mmol/L (101-111); EGFR African American 124.8 (>60); EGFR Non-African American 103.1 (>60); Glucose 198 mg/dL (70-100); Sodium 136 mmol/L (135-145)
[2019-03-14] MEDS: Vancomycin(*) 1,000 MG in NS 0.9% 250 ML* 250 ML IVPB SCH ×2 (09:50→21:49)
[2019-03-14] MEDS: KCL 20 MEQ/100 ML IVPREMIX* 20 MEQ/100 ML BAG IV SCH ×2 (09:50→11:36)
--- NOTE | 2019-03-14 09:55 | ECHO ---
*[facility]* [place] [address] Fax #: [phone] Transthoracic Echocardiogram Patient: Parviz, Height: 66 in / Conor 167.6 cm : 1945 Weight: 126.7 lb / Study Date: 03/14/2019 57.6 kg Age: 74 BP: 120 / 67 Gender: M BMI/BSA: 20.5 kg/m^2 HR: 89 bpm / 1.65 m^2 *Rn Access: * Lisa Potts [facility] *Referring Physician: * Paola Son *Reading Physician: * Wild Ruffin MD Indications: Abnormal EKG. History: Atrioventricular block. Pulmonary embolic disease. Risk factors: Diabetes mellitus. Labs, prior tests, procedures, and surgery: ICD system implantation. Conclusions Summary: 1. Left ventricle: Systolic function is mildly reduced. The estimated ejection fraction is 40-45%. 2. Right ventricle: Pacer wire noted in the right ventricle. Systolic function is normal. 3. Ventricular septum: There is abnormal interventricular septal wall motion consistent with an RV pacemaker. 4. Mitral valve: There is mild regurgitation. 5. Aortic valve: There is no evidence of stenosis. 6. Tricuspid valve: There is mild regurgitation. 7. No change from 02/08/18. Study data: Transthoracic echocardiogram. Procedure: Transthoracic echocardiography was performed. Image quality was good. Complete 2D, spectral Doppler, and color flow Doppler. Location: ICU Patient status: Inpatient. Patient room number: 5. Rhythm: Paced rhythm. Findings Left ventricle: The cavity size is normal. Wall thickness is mildly increased. Systolic function is mildly reduced. The estimated ejection fraction is 40-45%. There is no consistent Doppler evidence of clinically significant diastolic dysfunction. Right ventricle: The cavity size is normal. Pacer wire noted in the right ventricle. Systolic function is normal. Systolic pressure is within the normal range. Ventricular septum: There is abnormal interventricular septal wall motion consistent with an RV pacemaker. Left atrium: Not well visualized. Right atrium: The atrium is normal in size. Pacer wire noted in right atrium. Mitral valve: The leaflets are mildly thickened. There is no evidence of stenosis. There is mild regurgitation. Aortic valve: The annulus is mildly calcified. The valve is trileaflet. The leaflets are mildly thickened. There is no evidence of stenosis. There is no significant regurgitation. Tricuspid valve: The leaflets are normal thickness. There is mild regurgitation. Pulmonic valve: The leaflets are normal thickness. There is no significant regurgitation. Aorta: Aortic arch: The aortic arch is appears normal. The aortic root is not dilated. Pericardium: There is no significant pericardial effusion. Pulmonary arteries: The main pulmonary artery is normal-sized. Systemic veins: Inferior vena cava: The vessel is normal in size. The respirophasic diameter changes are blunted (< 50%). Measurements Left ventricle Value Ref Aortic valve continued Value Ref AMADOU, LAX 4.8 cm 4.2 - 5.8 Mean grad, S 4.0 mm Hg ----- ESD, LAX 4.0 cm 2.5 - 4.0 Peak grad, S 7.0 mm Hg ----- FS, LAX (L) 16 % 25 - 43 PW, ED, LAX 0.9 cm 0.6 - 1.0 Mitral valve Value Ref EF (L) 33 % 52 - 72 Peak E 0.63 m/sec ----- E', lat cande, TDI (L) 4.4 cm/sec >=10.0 Peak A 1.08 m/sec - ---- E/e', lat cande, 14 Decel time 108 ms ---- - TDI PHT 66 ms ----- E', med cande, TDI (L) 6.5 cm/sec >=7.0 Mean grad, D 2.0 mm Hg - ---- E/e', med cande, 10 Peak grad, D 5.0 mm Hg ---- - TDI Peak E/A ratio 0.6 ----- E', avg, TDI 5.5 cm/sec MVA, PHT 3.3 cm^2 ---- - E/e', avg, TDI 12 <=14 Pulmonic valve Value Ref LVOT Value Ref Peak v, S 1.06 m/sec ----- Peak doug, S 0.89 m/sec Peak grad, S 4.0 mm Hg ----- Mean grad, S 1 mm Hg Tricuspid valve Value Ref Ventricular septum Value Ref TR peak v 2.5 m/sec <=2.8 IVS, ED 0.9 cm 0.6 - 1.0 Peak RV-RA grad, S 25 mm Hg ----- Right ventricle Value Ref Aortic root Value Ref AMADOU, LAX 2.8 cm Root diam 2.6 cm <3.9 AMADOU minor ax, A4C 3.0 cm 1.9 - 3.5 mid Ascending aorta Value Ref Pressure, S 28 mm Hg AAo AP diam, S 2.4 cm ----- Left atrium Value Ref Aortic arch Value Ref AP dim, ES (L) 2.70 cm 3.00 - Arch diam 2.8 cm ----- 4.00 ML dim, A4C 3.6 cm Decending aorta Value Ref SI dim, A4C 4.6 cm Robb peak doug 0.52 m/sec ----- Vol/bsa, ES, A/L 34 ml/m^2 16 - 34 Pulmonary artery Value Ref Right atrium Value Ref Pressure, S 24.0 mm Hg ----- SI dim, ES 4.3 cm 3.4 - 5.3 ML dim, ES, A4C 3.4 cm 2.6 - 4.4 Inferior vena cava Value Ref Estimated RAP 3 mm Hg Diam 1.7 cm ----- Aortic valve Value Ref Cande diam, ED 2.0 cm Peak v, S 1.34 m/sec VTI, S 23.3 cm Legend: (L) and (H) monica values outside specified reference range. Prepared and electronically signed by Wild Ruffin MD 03/14/2019 09:54
[2019-03-14 10:06] LABS: Anion Gap 8 mmol/L (2-11)
--- NOTE | 2019-03-14 11:33 | PN ---
Hospitalist Progress Note Date of Service: 03/13/19 Mr. Jj gave verbal consent to obtain photos of left foot.
[2019-03-14] MEDS: NS 0.9% 1000 ML** 1,000 ML IV SCH (12:56)
--- NOTE | 2019-03-14 14:48 | CONS ---
CONSULTATION REPORT: DATE OF CONSULT: 03/14/19 REQUESTING PHYSICIAN: Dr. Hernandez. CONSULTING SERVICE: Infectious Diseases. REASON FOR CONSULT: Bacteriemia, foot infection. IMPRESSION: 1. Gram-positive cocci in 4/4 blood culture blood culture bottles. The Staph aureus PCR is negative. He does also have methicillin-resistant Staphylococcus aureus from a foot infection, so it is possible the PCR is a false negative. If that is not the case, the other options include coag-negative staph or enterococcus are other considerations for his bacteremia. Because he also has severe mid-back pain a spine infection is in the differential diagnoses. His neurologic exam is intact in the lower extremities currently. The differential diagnosis also includes endocarditis and cardiac-device infection. 2. Gangrene of the left-great toe and forefoot with the wound culture that shows gram-positive cocci and a Gram stain and is PCR positive for methicillin- resistant Staphylococcus aureus. The Gram stain also shows gram-negative bacilli and gram-positive bacilli. 3. Uncontrolled diabetes, initially with ketoacidosis here. 4. History of pacemaker placed in 2018. RECOMMENDATIONS: We will continue broad-spectrum antibiotics including vancomycin, goal trough 15 to 20; cefepime and Flagyl. I discussed the case with Dr. Hernandez who obtained an MRI with contrast of the thoracic and lumbar spine to evaluate for epidural abscess and vertebral ostial diskitis. He is going to have transmetatarsal amputation tomorrow. Once that has resolved and the spine imaging question is settled, he will need a transesophageal echocardiogram to look for endocarditis and cardiac-device infection. HISTORY OF PRESENT ILLNESS: This is a 74-year-old man with diabetes admitted with shortness of breath and left toe bruise. He was found to have what looked to be gangrene by his admitting provider. CT scan showed soft-tissue swelling around the first MTP, a little bit of gas around the joint and intraarticular gas at the base of the proximal phalanx suspicious for osteomyelitis and cellulitis. He was started on broad-spectrum antibiotics and admitted to the ICU. He also had an acidosis, was on an insulin-drip. He had a wound culture taken from the left-great toe that showed gram-positive cocci; gram-positive bacilli; gram-negative bacilli; the PCR Staph aureus and MRSA positive. Blood cultures 4/4 taken at admission are positive for gram-positive cocci and PCR negative for Staph aureus. He notes mid-back pain which has been present for a few days. It is severe, makes it painful to move around in bed. He has not noticed any weakness in his legs or numbness in his leg or difficulty urinating or having bowel movement. He had a pacemaker placed in 2018 at [facility]. He does not know of other prosthetic material being present. PAST MEDICAL HISTORY: 1. AV block status post pacemaker placement in 2018. 2. Diabetes 2018. 3. DVT and PE diagnosed in 2018. He is not continued on anticoagulation. MEDICATIONS: 1. Tylenol. 2. Cefepime 2 g every 12 hours. 3. Insulin. 4. Flagyl 500 mg every 12 hours. 5. Vancomycin 1 g every 12 hours. ALLERGIES: No known drug allergies. FAMILY HISTORY: Mother decreased in her 90s. Father in his 60s from a car accident. SOCIAL HISTORY: He is a nonsmoker. No injection drug. He is essentially homeless. REVIEW OF SYSTEMS: All negative except as noted above to a 14-point review. PHYSICAL EXAM: Vital Signs: Temperature 36, heart rate 80, respiratory rate 20 , blood pressure 114/62, oxygen saturation is 97% on room air. General: He is awake, not in distress. Neurologic: He is oriented x3, follows commands and answers questions appropriately. Cranial nerves II through XII are intact. Strength is 5/5 in the biceps, triceps, wrist flexion bilaterally and 5/5 in the quadriceps, tibialis anterior, and gastrocnemius bilaterally. Sensation is intact to light touch in both feet, though obscured in the left foot area that is gangrenous. There is no lower extremity clonus bilaterally. HEENT: There is no conjunctival hemorrhage. Oropharynx without lesions. Neck is supple without mass. Heart is regular rate and rhythm without murmurs, rubs, or gallops. Lungs are clear to auscultation bilaterally. Abdomen is soft, nontender, and nondistended. There is bowel sounds present. Skin: There is no rash or splinter hemorrhage. Musculoskeletal: There is thoracic spine tenderness to palpation. There is no paraspinal tenderness. There is left great toe purple discoloration with dusky changes to the forefoot with surrounding mild erythema. There is tenderness to palpation through the mid foot. DIAGNOSTIC STUDIES/LAB DATA: White blood cell count 17 down from 19.9, creatinine is 0.7, CRP was 360 on admission, troponin was 0.05. Please see impressions and recommendations outlined above. Thanks for asking me to see Mr. Jj in consultation. [id number]/[facility] #: [id number] JEFE
[2019-03-14] MEDS ORDERED: chlorproMAZINE TAB* 50 MG PO PRN (15:03)
[2019-03-14] MEDS ORDERED: fentaNYL* 50 MCG/ML 2 ML VIAL (100 MCG VIAL) ONE (16:27)
[2019-03-14] MEDS ORDERED: Midazolam* 1 MG/ML 5 ML VIAL (5 MG) ONE (16:27)
[2019-03-14] MEDS ORDERED: Lidocaine 2% VISCOUS* 15 ML UDC ONE (16:32)
[2019-03-14] MEDS ORDERED: Flumazenil* 0.1 MG/ML 5 ML MDV ONE (16:37)
[2019-03-14] MEDS ORDERED: Naloxone* 0.4 MG/ML 10 ML VIAL ONE (16:37)
--- NOTE | 2019-03-14 16:45 | CONS ---
CONSULTATION REPORT: DATE OF CONSULT: 03/14/19 ATTENDING ORTHOPEDIC PROVIDER: Dr. Ganesh Hernandez. PRIMARY CARE PROVIDER: None. DOG OR ANIMAL SITTER: Dr. Singh. Last seen 1 year ago. REASON FOR CONSULT: Left foot wound. HISTORY OF PRESENT ILLNESS: Mr. Jj is a 74-year-old male with past medical history significant for AV block; he is status post pacemaker in 2018; type 2 diabetes; history of DVT and PE. He presented to the emergency room 11/30 due to generalized weakness and left foot infection. He noticed a wound over his bunion and dark discoloration of his left great toe roughly one month ago, which he believes to be due to his bunion rubbing on the inside of his shoe. The great toe was painful prior to presenting to the hospital, pain has since resolved. He also complains of numbness of the left great toe. Denies any fever or chills though he has had weakness over the past week. At baseline , he walks without an assistive device. No history of heart attack or stroke. + hx DVT and PE PAST MEDICAL HISTORY: Significant for pacemaker with AV block in 2018, type 2 diabetes, history of DVT and PE in March 2018. Not on any anticoagulation and not treated for diabetes. PAST SURGICAL HISTORY: Pacemaker without complications from anesthesia. MEDICATIONS: Home medications none. ALLERGIES: No known drug allergies. FAMILY HISTORY: Mother in her 90s. Father in his 50s from motor vehicle accident. SOCIAL HISTORY: The patient denies any alcohol, tobacco, or drug use. He lives in the [facility]. REVIEW OF SYSTEMS: General: Negative for fever or chills. Positive for recent weakness. HEENT: Negative for any acute changes in hearing, vision, or headache. Cardio: History of pacemaker placement. No current chest pain. Respiratory: No shortness of breath. No cough. Abdomen: Denies any abdominal pain, nausea, vomiting, diarrhea. : Denies dysuria. Musculoskeletal: Positive for left foot pain prior to admission to the hospital , which has since resolved. Neuro: Reports normal sensation of bilateral lower extremities asides from left great toe, which has severely decreased sensation. Hematology positive for history of DVT and PE. Skin: Left great toe, tran. Left foot, red. PHYSICAL EXAM: Vital Signs: Temperature 98, heart rate 87, respiratory rate 16 , oxygen saturation 97, blood pressure 125/67. Respiratory: Normal rate and effort of breathing. Abdomen: Nondistended. Musculoskeletal: Bilateral upper extremities and right lower extremity with skin envelope intact, no obvious deformity, moves extremities well without pain. Left foot: +hallux valgus, + eschar at the medial first metatarsal head with surrounding macerated tissue and expressible purulent drainage. The left great toe is dusky tran in color with severely decreased sensation but reports normal sensation of toes 2 through 5. There is erythema that spans to mid foot, no streaking proximally. No appreciable capillary refill on the great toe. Capillary refill 3 seconds in the remainder of the digits. DP and PT pulses are both palpable. Flexion and extension is intact at the ankle. DIAGNOSTIC STUDIES/LAB DATA: Left foot CT scan: Impression: Soft tissue swelling surrounding the hallux, hallux valgus deformity of the first MTP with gas around the joint laterally, possible intraarticular gas at the dorsal aspect , the base of the proximal phalanx. Findings suspicious for osteomyelitis with surrounding cellulitis. ABIs; left ankle brachial index is 1.29. Unable to detect any arterial flow to the left great toe. Unable to obtain MRI as the patient has pacemaker. White blood cell count 17.4, hemoglobin 14.6, hematocrit 43. INR 1.07. Potassium 3.2, sodium 136, creatinine 0.74. Microbiology, left foot wound culture growing Staph aureus as well as Citrobacter braakii. ASSESSMENT: Left foot infection. PLAN: The patient will require continued IV antibiotics per Infectious Disease. He will need amputation at left mid foot or hind foot, anticipated to take place tomorrow 03/15/[address] Ganesh Hernandez. The patient is aware and agreeable to this. He should be n.p.o. after midnight. DVT prophylaxis per Medicine, hold chemical DVT prophylaxis at midnight for OR tomorrow. Dr Cardenas also saw this patient, he is in agreement with this plan. LUKE HANCOCK [id number]/[facility] #: [id number] MTDFareed
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
--- NOTE | 2019-03-14 18:57 | TEE ---
*[facility]* [place] [address] Fax #: [phone] Transesophageal Echocardiogram Patient: Parviz, Height: 66.1 in / Conor 168 cm : 1945 Weight: 123.2 lb / Study Date: 03/14/2019 56 kg Age: 74 BP: 126 / 68 Gender: M BMI/BSA: 19.8 kg/m^2 HR: 96 bpm / 1.61 m^2 *Explosives Detonator: Lisa Perez [facility] *Referring Physician: * Dixie Hernandez *Reading Physician: * Wild Ruffin MD Indications: Bacteremia. History: Atrioventricular block. Risk factors: Diabetes mellitus. Labs, prior tests, procedures, and surgery: ICD system implantation. Conclusions Summary: 1. Left ventricle: Systolic function is mildly reduced. The estimated ejection fraction is 40-45%. 2. Right ventricle: Pacer wire noted in the right ventricle with no evidence of vegetations Systolic function is normal. 3. Atrial septum: A PFO is not demonstrated by color Doppler or agitated saline contrast. 4. Mitral valve: There is no evidence of a vegetation. There is mild regurgitation. 5. Aortic valve: There is no evidence of a vegetation. There is no significant regurgitation. 6. Tricuspid valve: There is no evidence of a vegetation. There is mild regurgitation. 7. Pulmonic valve: There is no evidence of a vegetation. Study data: Diagnostic Transesophageal Echocardiogram Consent: The risks and benefits of the procedure, including alternatives were discussed with the patient and/or their health care artist representative and written informed consent was obtained. Procedure: Initial setup: The patient was brought to the laboratory in the fasting state.Intravenous access was obtained. Surface ECG leads, heart rate, heart rhythm, blood pressure measurements, pulse oximetric signals, and mainstream end-tidal CO2 tracings were monitored throughout the procedure. Sedation. Moderate sedation was administered by intensive care unit nursing staff. History and physical as well as labs were reviewed. An oral bite block was inserted for protection of oral dentition. The patient was placed in the left lateral decubitus position. Topical anesthesia was obtained using viscous lidocaine. A transesophageal probe was inserted by the attending commercial review appraiser. Transesophageal echocardiography was performed, image quality was good, and all standard views were attempted within the limitations of patient tolerance and safety. Multiple 2D, color flow Doppler and spectral Doppler images were obtained. The transesophageal probe was removed. A bubble study was performed. Location: ICU Patient status: Inpatient. Patient room number: 5. Study completion: The patient tolerated the procedure well. There were no complications. Administered medications: Midazolam, 3mg. Fentanyl, 25mcg. Rhythm: Normal sinus rhythm. Findings Left ventricle: The cavity size is normal. Systolic function is mildly reduced. The estimated ejection fraction is 40-45%. Right ventricle: The cavity size is normal. Pacer wire noted in the right ventricle. Systolic function is normal. Left atrium: The atrium is mildly dilated. Emptying velocity is normal. There is no evidence of a thrombus in the atrial cavity or appendage. Right atrium: The atrium is normal in size. Pacer wire noted in right atrium. Atrial septum: A PFO is not demonstrated by color Doppler or agitated saline contrast. Mitral valve: The leaflets are normal thickness. There is no evidence of a vegetation. There is mild regurgitation. Aortic valve: The annulus is mildly calcified. The valve is trileaflet. There is no evidence of a vegetation. There is no evidence of stenosis. There is no significant regurgitation. Tricuspid valve: The leaflets are normal thickness. There is no evidence of a vegetation. There is no evidence of stenosis. There is mild regurgitation. Pulmonic valve: The valve is structurally normal. There is no evidence of a vegetation. There is no regurgitation. Aorta: The aortic root is not dilated. Pericardium: There is no significant pericardial effusion. Pulmonary arteries: The main pulmonary artery is normal-sized. Systemic veins: Inferior vena cava: Not well visualized. Superior vena cava: The vessel is appears normal. Pulmonary veins: The flow of the pulmonary veins appears normal. Measurements Aortic valve Value 03/14/2019 Ref Mitral valve continued Value 03/14/2019 Ref Christine diam, ED 2.0 cm 2.0 ---- Peak grad, D 3.3 mm 5.0 ---- Peak v, S 1.73 m/sec 1.34 ---- Hg Peak grad, S 12.0 mm Hg 7.0 ---- Peak E/A 0.8 0.6 ---- ratio Mitral valve Value 03/14/2019 Ref Peak E 0.9 m/sec 0.63 ---- Aortic root Value 03/14/2019 Ref Peak A 1.11 m/sec 1.08 ---- Root diam 2.6 cm 2.6 <3.9 Decel time 58 ms 108 ---- Ascending aorta Value 03/14/2019 Ref AAo AP diam, 2.9 cm 2.4 ---- S Legend: (L) and (H) monica values outside specified reference range. Prepared and electronically signed by Wild Ruffin MD 03/14/2019 18:57
[2019-03-14] MEDS: Insulin LISPRO* 1 UNITS UNIT SUBCUT SCH (21:44)
[2019-03-14] MEDS: Mirtazapine TAB* 15 MG PO SCH (22:04)
[2019-03-15] MEDS: Melatonin 3 MG TAB PO PRN (02:02)
[2019-03-15] MEDS: NS 0.9% 1000 ML** 1,000 ML IV SCH (02:42)
[2019-03-15 06:53] LABS: Hematocrit 40 % (42-52); Hemoglobin 13.2 g/dL (14.0-18.0); Mean Corpuscular HGB Conc 33 g/dL (31-36); Mean Corpuscular Hemoglobin 30 pg (27-31); Mean Corpuscular Volume 91 fL (80-94); Mean Platelet Volume 8.5 fL (7.4-10.4); Platelet Count 204 10^3/uL (150-450); Red Blood Count 4.44 10^6 /uL (4.18-5.48); Red Cell Distribution Width 13 % (10.5-15); White Blood Count 15.9 10^3/uL (3.5-10.8)
[2019-03-15 07:03] LABS: BUN/Creatinine Ratio 38.2 (8-20); EGFR African American 175.7 (>60); EGFR Non-African American 145.2 (>60); Potassium 3.6 mmol/L (3.5-5.0)
[2019-03-15 08:28] LABS: ABS Eosinophils 0.1 10^3/ul (0-0.6); ABS Lymphocytes 0.7 10^3/ul (1.0-4.8); ABS Monocytes 1.1 10^3/ul (0-0.8); ABS Neutrophils 13.9 10^3/ul (1.5-7.7); Eosinophil % 0.8 %; Lymphocyte % 4.4 %; Nucleated Red Blood Cells % 0.1
[2019-03-15] MEDS ORDERED: Buffered Lidocaine 1% SYRIN* 1 ML/SYRINGE INTRADERM ONE (08:30)
[2019-03-15] MEDS ORDERED: Vancomycin Trough Check NOTE FOLLOW UP ONE (09:30)
[2019-03-15] MEDS: Insulin LISPRO* 1 UNITS UNIT SUBCUT SCH ×3 (09:45→16:05)
[2019-03-15] MEDS ORDERED: Midazolam* 1 MG/ML 2 ML VIAL (2 MG) ONE (09:57)
[2019-03-15] MEDS ORDERED: fentaNYL* 50 MCG/ML 2 ML VIAL (100 MCG VIAL) ONE (09:57)
[2019-03-15] MEDS ORDERED: Bupivacaine 0.25% SDV PF* 10 ML VIAL INJ ONE (10:33)
[2019-03-15] MEDS ORDERED: Bupivacaine 0.5%* 50 ML VIAL ONE (10:33)
[2019-03-15] MEDS: Lactated Ringers 1000 ML Bag* 1,000 ML IV SCH ×4 (11:00→20:34)
[2019-03-15] MEDS: Vancomycin(*) 1,000 MG in NS 0.9% 250 ML* 250 ML IVPB SCH ×2 (11:12→20:34)
[2019-03-15] MEDS: Cefepime 2 GM in Dextrose(*) 2 GM/50 ML BAG IV SCH ×2 (11:12→23:26)
[2019-03-15] MEDS ORDERED: Lidocaine 2% PF * 5 ML VIAL ONE (11:13)
[2019-03-15] MEDS: metroNIDAZOLE IV 500 MG/100ML* 500 MG/100 ML BAG IVPB SCH ×2 (11:13→14:12)
[2019-03-15] MEDS ORDERED: Propofol* 10 MG/ML 20 ML BTL ONE (11:14)
[2019-03-15] MEDS ORDERED: DiMENhydriNATE IV* 50 MG/ML VIAL IV PUSH PRN (11:56)
[2019-03-15] MEDS ORDERED: Naloxone* 0.4 MG/ML 1 ML VIAL IV PRN (11:56)
[2019-03-15] MEDS ORDERED: fentaNYL* 50 MCG/ML 2 ML VIAL (100 MCG VIAL) IV PRN (11:56)
[2019-03-15] MEDS ORDERED: HYDROcodone/ACETAMIN 5-325 MG* 1 TAB PO PRN (11:56)
[2019-03-15] MEDS ORDERED: diPHENhydraMINE IV* 50 MG/ML 1 ml VIAL (BENADRYL) IV PRN (11:56)
--- NOTE | 2019-03-15 12:29 | CONSULT ---
Consult Consult: Psychiatry attempted to follow up with Mr. Jj this morning but he had already left for the OR for his surgical procedure. I did note that he refused mirtazapine last night, which will be offered again tonight. His acute risk for suicide attempt is quite low and 1:1 observations are not warranted at this time. His intermediate-term risks for suicide are more elevated, given his stated plan to purchase a firearm legally and shoot himself sometime in the near future. In the interest of means reduction, we have filed a [facility] Safe Act referral, which should prevent such a purchase. Psychiatry will continue to follow closely and the patient will be seen again tomorrow.
--- NOTE | 2019-03-15 12:47 | OP ---
Operative Report - Blank - Operative Report Date of Operation: 03/15/19 Note: PATIENT: Conor Jj DATE OF : 1945 DATE OF SURGERY: 03/15/2019 SURGEON: Ganesh Hernandez MD PROJECTOR OPERATOR: LUKE Eddy, whos assistance was necessary for positioning, retraction, help with instrumentation, and closure. ANESTHESIOLOGIST: Dr. Lr PREOPERATIVE DIAGNOSIS: Left foot infection POSTOPERATIVE DIAGNOSIS: Left foot infection OPERATION: 1. Left foot transmetatarsal amputation 2. Left Achilles tendon lengthening ANESTHESIA: General IMPLANTS: none TOURNIQUET TIME: Less than 1 hour with a well-padded thigh tourniquet at 250mmHg. SPECIMENS: Foot sent to pathology. Culture swabs to micro. ESTIMATED BLOOD LOSS: minimal COMPLICATIONS: none STATUS: Stable from the operating room to the recovery room and then back to the ICU. INDICATIONS FOR PROCEDURE: Conor is homeless, with uncontrolled DM and an A1c of 16.8. He presented with a left forefoot infection, a necrotic hallux and septic. Both operative and non operative treatment alternatives were reviewed. Further, the nature and risks of surgery were reviewed in careful detail. Our discussions regarding the risks of surgery included, but were not limited to, infection, wound problems, nerve injury, neuroma, RSD, persistent symptoms, blood clot, persistent or worsening infection, phantom limb pain, failure of the surgery, need for further amputation, and even the remote chance of catastrophic complication. DESCRIPTION OF PROCEDURE: The patient was seen in the preoperative holding unit and informed written consent was obtained. The appropriate extremity was marked. The patient was then brought to the operating room and carefully positioned on the operating room table. Anesthesia was induced. All bony prominences were padded with great care. A well-padded thigh tourniquet was placed. A chlorhexidine based pre- scrub was performed followed by a chloraprep prep and drape in standard sterile fashion. A surgical safety pause was then conducted in which we confirmed the appropriate patient, extremity, planned procedure, availability of equipment, indication and administration of prophylactic antibiotics, and DVT prophylaxis in the form of a compression boot on the non-surgical extremity. We began with Esmarch exsanguination of the limb, avoiding the involved foot, and inflated the tourniquet. We utilized a fish-mouth incision at the forefoot. I dissected down through the dorsal forefoot to the level of the metatarsals. An oscillating saw was used to osteotomize all five metatarsals. These were beveled to decrease prominence plantarly. A rongeur and rasp were used to round and smooth the bone edges. The plantar half of the incision was completed and forefoot was then amputated. Culture swabs were taken from the hallux. The foot was sent to pathology. The remaining tissue appeared healthy and viable. The wound was copiously irrigated. I then turned my attention to the Achilles tendon to prevent a progressive equinus contracture and overload of the amputation stump. I performed a triple- cut percutaneous tendon lengthening of the Achilles tendon utilizing a 15-blade scalpel. The ankle was then dorsiflexed confirming increased range of motion with dorsiflexion. At this point, the tourniquet was deflated. Hemostasis was obtained. We irrigated copiously. All remain tissue appeared healthy and viable. We closed meticulously in layers utilizing 0 PDS for the deep layer, 3-0 Monocryl for the subdermal layer, and 2-0 Prolene for the skin. There were no bony prominences appreciated beneath the skin after closure. A sterile dressing was then applied followed by a splint with the ankle in neutral alignment. The patient was then awakened from anesthesia and transferred to the recovery room in stable condition. There were no complications. All needle and sponge counts were correct at the end of the case. ATTESTATION: I attest I was present and scrubbed and performed the critical portions of the procedure myself. POSTOPERATIVE PLAN: The patient will remain [id number] in the splint and will follow up will be in 1 week for a wound check, but we will likely leave the sutures in for 3-4 weeks. Antibiotic treatment will be guided by the infectious disease service.
--- NOTE | 2019-03-15 18:56 | PN ---
Subjective Date of Service: 03/15/19 Interval History: Patient seen and examined per-op. Seems very anxious and agitated about the procedure today. per notes, patient was very agitated overnight. Examined patient with [facility] ortho service. Patient denies chest pain, no SOB , no n/v. Complains of dry mouth and wants water. Explained he can eat and drink after anesthesia. No fevers or chills. Objective Active Medications: Acetaminophen (Tylenol Tab*) 650 mg PO Q4H PRN PRN Reason: FEVER/PAIN Chlorpromazine HCl (Thorazine Tab*) 50 mg PO Q6H PRN PRN Reason: HICCUPS Last Admin: 03/15/19 16:18 Dose: 50 mg Dextrose (D50w Syringe 50 Ml*) 12.5 gm IV PUSH .FOR FS < 60 - SS PRN PRN Reason: FS < 60 Enoxaparin Sodium (Lovenox(*)) 40 mg SUBCUT 0900 [facility] Cefepime HCl (Maxipime 2 Gm In Dextrose Duplex (*)) 2 gm in 50 mls @ 100 mls/ hr IV Q12H [facility] Last Admin: 03/15/19 11:12 Dose: Not Given Metronidazole/Sodium Chloride (Flagyl 500 Mg Ivpb*) 500 mg in 100 mls @ 100 mls /hr IVPB Q12H [facility] Last Admin: 03/15/19 14:12 Dose: 100 mls/hr Vancomycin HCl 1,000 mg/ (Sodium Chloride) 250 mls @ 166.667 mls/hr IVPB Q8H [facility] Lactated Ringer's (Lactated Ringers 1000 Ml Bag*) 1,000 mls @ 100 mls/hr IV PER RATE [facility] Last Admin: 03/15/19 16:19 Dose: 100 mls/hr Insulin Glargine (Lantus(*)) 12 units SUBCUT Q24H [facility] Insulin Glargine (Lantus(*)) 5 units SUBCUT ONCE ONE Stop: 03/15/19 20:01 Insulin Human Lispro (Humalog*) 0 units SUBCUT [facility]; Protocol Last Admin: 03/15/19 16:05 Dose: 3 units Melatonin (Melatonin) 3 mg PO BEDTIME PRN PRN Reason: SLEEP Last Admin: 03/15/19 02:02 Dose: 3 mg Mirtazapine (Remeron Tab*) 15 mg PO BEDTIME [facility] Last Admin: 03/14/19 22:04 Dose: Not Given Pharmacy Consult (Vancomycin Per Pharmacy*) 1 note FOLLOW UP . PRN PRN Reason: PER PROTOCOL Pharmacy Profile Note (Vancomycin Trough Check) 1 note FOLLOW UP ONCE ONE Stop: 03/17/19 09:31 Vital Signs - 8 hr 03/15/19 03/15/19 03/15/19 11:00 12:36 12:37 Temperature 97.2 F Pulse Rate 88 82 82 Respiratory 19 14 Rate Blood Pressure 119/65 123/70 (mmHg) O2 Sat by Pulse 96 99 99 Oximetry 03/15/19 03/15/19 03/15/19 12:45 12:50 12:55 Temperature Pulse Rate 82 84 Respiratory 15 15 16 Rate Blood Pressure 132/75 130/77 128/78 (mmHg) O2 Sat by Pulse 98 97 Oximetry 03/15/19 03/15/19 03/15/19 12:59 13:00 13:05 Temperature Pulse Rate 84 84 Respiratory 21 15 13 Rate Blood Pressure 128/74 130/72 (mmHg) O2 Sat by Pulse 97 98 Oximetry 03/15/19 03/15/19 03/15/19 13:10 13:15 13:30 Temperature 97.8 F Pulse Rate 88 83 82 Respiratory 15 16 16 Rate Blood Pressure 130/79 132/73 125/76 (mmHg) O2 Sat by Pulse 96 98 96 Oximetry 03/15/19 03/15/19 03/15/19 13:34 14:00 14:01 Temperature Pulse Rate 83 91 86 Respiratory 17 15 Rate Blood Pressure 125/76 140/93 (mmHg) O2 Sat by Pulse 95 93 97 Oximetry 03/15/19 03/15/19 03/15/19 15:00 15:01 16:00 Temperature 96.7 F Pulse Rate 89 92 93 Respiratory 18 23 21 Rate Blood Pressure 148/77 (mmHg) O2 Sat by Pulse 85 97 84 Oximetry 03/15/19 03/15/19 03/15/19 16:01 17:00 17:01 Temperature Pulse Rate 95 88 85 Respiratory 19 15 14 Rate Blood Pressure 119/91 131/70 (mmHg) O2 Sat by Pulse 98 96 96 Oximetry 03/15/19 18:00 Temperature Pulse Rate 85 Respiratory 15 Rate Blood Pressure 127/69 (mmHg) O2 Sat by Pulse 94 Oximetry Oxygen Devices in Use Now: None Appearance: alert, anxious Eyes: No Scleral Icterus, PERRLA Ears/Nose/Mouth/Throat: - - dry oral mucosa Neck: NL Appearance and Movements; NL JVP, Trachea Midline Respiratory: Symmetrical Chest Expansion and Respiratory Effort, Clear to Auscultation Cardiovascular: NL Sounds; No Murmurs; No JVD, RRR, No Edema Abdominal: NL Sounds; No Tenderness; No Distention Extremities: - - left great toe dusky, no cap refill Neurological: Alert and Oriented x 3 Nutrition: - - NPO Result Diagrams: 03/15/19 06:02 03/15/19 06:02 Microbiology and Other Data: Microbiology 03/13/19 18:22 Skin and Soft Tissue MRSA/MSSA (PCR - Final Foot Left Mrsa Positive S.aureus Positive Gram Stain - Final 03/13/19 18:48 Aerobic Blood Culture - Preliminary Blood Venous Anaerobic Blood Culture - Preliminary 03/13/19 18:48 Aerobic Blood Culture - Preliminary Blood Venous Anaerobic Blood Culture - Preliminary Blood MRSA/MSSA (PCR) - Final Mrsa Negative S.aureus Negative Diagnostic Imaging: Patient Name: CONOR HERNANDEZ Medical Record#: [id number] Ordering Physician: Nadja Martinez MD Acct.#: [id number] : 1945 Age: 74 Sex: M Location: EMERGENCY DEPARTMENT Exam Date: 03/13/191841 ADM Status: REG ER Order Information: CT EXTREMITY LOWER LEFT WO Accession Number: [id number] CPT: 94110 EXAM: CT Left Lower Extremity Without Contrast, Foot EXAM DATE/TIME: 03/13/2019 7:38 PM CLINICAL HISTORY: 74 years old, male; Signs and symptoms; Other: Wound left great toe; Additional info: Wound left great toe, ? osteomyelitis TECHNIQUE: Imaging protocol: CT of the Left lower extremity without contrast was performed. Exam focused on the foot. Coronal and sagittal reformatted images were created and reviewed. Radiation optimization: All CT scans at this facility use at least one of these dose optimization techniques: automated exposure control; mA and/or kV adjustment per patient size (includes targeted exams where dose is matched to clinical indication); or iterative reconstruction. COMPARISON: No relevant prior studies available. FINDINGS: Bones/joints: Limited degenerative change elsewhere. Soft tissues: Soft tissue swelling surrounding the hallux valgus deformity at the first MTP. There are tiny bits of gas around the joint laterally and tiny foci of possible intra-articular gas in the dorsal aspect of the base of the proximal phalanx. Findings are highly suspicious for osteomyelitis and surrounding cellulitis. Difficult to assess for abscess without contrast. IMPRESSION: Soft tissue swelling surrounding the hallux valgus deformity at the first MTP. There are tiny bits of gas around the joint laterally and tiny foci of possible intra-articular gas in the dorsal aspect of the base of the proximal phalanx. Findings are highly suspicious for osteomyelitis and surrounding cellulitis. Difficult to assess for abscess without contrast. To contact [facility] with a general question: Operations Center - [phone] For direct physician to physician contact: Physician Hotline - [phone] [facility] ([facility] Facility ID #[id number]) <Electronically signed by Ag Suarez MD in OV> 03/13/192054 Dictated By: Ag Suarez MD Dictated Date/Time: 03/13/192054 Transcribed Date/Time: This report is only to be considered final once signed by the Provider(s) as displayed in the "<Electronically Signed by >" field (s). Absence of a signature indicates the report is in a draft status and still needs to be finalized. In the event this document was created by someone other than the signing Provider, the individual initiating the document will be listed in the "Entered by:" or "Dictated by:" leonard. 1 of 2 *[facility]* [place] [address] Fax #: [phone] Transesophageal Echocardiogram Patient: Parviz, Height: 66.1 in / Conor 168 cm : 1945 Weight: 123.2 lb / Study Date: 03/14/2019 56 kg Age: 74 BP: 126 / 68 Gender: M BMI/BSA: 19.8 kg/m^2 HR: 96 bpm / 1.61 m^2 *Bed Machine Operator: * Lisa Potts [facility] *Referring Physician: * Dixie HernandezReading Physician: * Wild Ruffin MD Indications: Bacteremia. History: Atrioventricular block. Risk factors: Diabetes mellitus. Labs, prior tests, procedures, and surgery: ICD system implantation. Conclusions Summary: 1. Left ventricle: Systolic function is mildly reduced. The estimated ejection fraction is 40-45%. 2. Right ventricle: Pacer wire noted in the right ventricle with no evidence of vegetations Systolic function is normal. 3. Atrial septum: A PFO is not demonstrated by color Doppler or agitated saline contrast. 4. Mitral valve: There is no evidence of a vegetation. There is mild regurgitation. 5. Aortic valve: There is no evidence of a vegetation. There is no significant regurgitation. This report is only to be considered final once signed by the Provider(s) as displayed in the "<Electronically Signed by >" field (s). Absence of a signature indicates the report is in a draft status and still needs to be finalized. In the event this document was created by someone other than the signing Provider, the individual initiating the document will be listed in the "Entered by:" or "Dictated by:" leonard. Assess/Plan/Problems-Billing This is a 74yo M who [place] and not sought any medical care since his last admission in 01/2018. He presented to the ER with complaints of generalized weakness, decreased appetite and L foot wound and was found to be septic secondary to likely osteomyelitis of the L distal foot and in what was initially thought to be starvation ketosis. - Patient Problems (1) Osteomyelitis of ankle or foot, acute Code(s): M86.179 - OTHER ACUTE OSTEOMYELITIS, UNSPECIFIED ANKLE AND FOOT SNOMED Code(s): 609954470 Comment: - Plan for midfoot amputation today with Dr. Hernandez - ID following, continue vanco, cefepime and flagyl - Positive for MRSA, strep and citrobacter, atbx per ID - POC per ortho - PT/OT (2) Elevated troponin Code(s): R74.8 - ABNORMAL LEVELS OF OTHER SERUM ENZYMES SNOMED Code(s): 101693398 Comment: - Likely secondary to demand ischemia in presence of sepsis - ECHO as above, systolic dysfunction and reduced EF 40-45% - Monitor for fluid overload (3) Hyponatremia Code(s): E87.1 - HYPO-OSMOLALITY AND HYPONATREMIA SNOMED Code(s): 71446405 Comment: - Resolved with IVF hydration. (4) Sepsis Comment: - Sepsis present on admission; source osteo left foot and strep bacteremia - tachycardia and tachypnea resolved - Follow white count and monitor fevers - resolved (5) Starvation ketoacidosis Code(s): E87.2 - ACIDOSIS SNOMED Code(s): 29087526 Comment: - The patient reportedly had not had anything to eat for the last 1 week - Elevated AG on admission thought to be secondary to starvation - May have been a component but not complete cause of elevated AG - Homelessness noted, SW following (6) Uncontrolled type II diabetes mellitus Code(s): E11.65 - TYPE 2 DIABETES MELLITUS WITH HYPERGLYCEMIA SNOMED Code(s): 576828501 Comment: - Off insulin drip, no DKA at admission - Needs tight glycemic control for wound healing - Will start weight-based lantus in AM (12units) with lisprol SS, CC diet/ heart healthy - Will give 5 units lantus this evening (BG 300 post up) and continue SS - Follow BG ACHS - Will need outpatient discharge plan for diabetes control (7) DVT prophylaxis Code(s): SDU2131 - SNOMED Code(s): 105648237 Comment: - Lovenox SQ (8) DNR (do not resuscitate) Status and Disposition: Inpatient, downgrade from ICU to surgical short stay on tele.
[2019-03-15] MEDS ORDERED: Insulin GLARGINE(*) 1 UNITS UNIT SUBCUT ONE (20:00)
[2019-03-15] MEDS: Mirtazapine TAB* 15 MG PO SCH (20:42)
[2019-03-15] MEDS: Acetaminophen TAB* 325 MG PO PRN (20:42)
[2019-03-16] MEDS: metroNIDAZOLE IV 500 MG/100ML* 500 MG/100 ML BAG IVPB SCH ×2 (00:06→12:07)
[2019-03-16] MEDS: Vancomycin(*) 1,000 MG in NS 0.9% 250 ML* 250 ML IVPB SCH ×3 (01:54→17:54)
[2019-03-16] MEDS: Acetaminophen TAB* 325 MG PO PRN ×2 (05:13→12:14)
[2019-03-16] MEDS ORDERED: Insulin GLARGINE(*) 1 UNITS UNIT SUBCUT SCH (08:00)
[2019-03-16 08:24] LABS: Hematocrit 36 % (42-52); Hemoglobin 11.9 g/dL (14.0-18.0); Mean Corpuscular HGB Conc 33 g/dL (31-36); Mean Corpuscular Hemoglobin 29 pg (27-31); Mean Corpuscular Volume 89 fL (80-94); Mean Platelet Volume 8.8 fL (7.4-10.4); Platelet Count 208 10^3/uL (150-450); Red Blood Count 4.05 10^6 /uL (4.18-5.48); Red Cell Distribution Width 13 % (10.5-15); White Blood Count 11.7 10^3/uL (3.5-10.8)
[2019-03-16 08:36] LABS: Albumin 2.1 g/dL (3.2-5.2); Albumin/Globulin Ratio 0.8 (1-3); BUN/Creatinine Ratio 36.8 (8-20); Calcium 8.5 mg/dL (8.6-10.3); EGFR African American 168.6 (>60); EGFR Non-African American 139.4 (>60); Globulin 2.7 g/dL (2-4); Potassium 3.3 mmol/L (3.5-5.0); Total Bilirubin 0.4 mg/dL (0.2-1.0); Total Protein 4.8 g/dL (6.4-8.9)
[2019-03-16] MEDS: Potassium Chlor TAB* 20 MEQ TAB.ER PO SCH ×3 (09:17→13:11)
[2019-03-16] MEDS: Enoxaparin(*) 40 MG/0.4 ML SYR SUBCUT SCH (09:18)
[2019-03-16 09:53] LABS: ABS Monocytes 0.9 10^3/ul (0-0.8); ABS Neutrophils 9.7 10^3/ul (1.5-7.7); Eosinophil % 0.3 %; Lymphocyte % 8.4 %; Nucleated Red Blood Cells % 0.3
--- NOTE | 2019-03-16 10:41 | PN ---
Progress Note - Progress Note Date of Service: 03/16/19 SOAP: Subjective: CC: Bacteriemia and left foot infection HPI: Mr. Jj is a 74 yo male with PMH significant for AV block s/p pacemaker placement, DM2, and DVT/PE. Denies fever or chills. Reports poor appetite since his admission, tolerable pain in the left LE, and has not urinated today. He also states that he is unsure of the last time that he moved his bowel and feels bloated. According to the NS documentation he has moved his bowels 4 times in the past 24 hours. Objective: Vital Signs - 8 hr 03/16/19 03/16/19 03:14 07:49 Temperature 99.9 F 97.5 F Pulse Rate 86 88 Respiratory 16 17 Rate Blood Pressure 119/56 119/59 (mmHg) O2 Sat by Pulse 95 97 Oximetry Physical Exam: General: NAD, laying in bed Neurological: Alert and Oriented HEENT: No thrush, moist MM Cardiovascular: Heart rate regular Respiratory: Lung sounds clear Abdominal: Bowel sounds present; ABD soft, large and non tender Skin: Dressing to left LE; clean, dry, and intact Laboratory Results - last 24 hr 03/15/19 03/15/19 03/16/19 18:18 20:15 06:18 WBC 11.7 H RBC 4.05 L Hgb 11.9 L Hct 36 L MCV 89 MCH 29 MCHC 33 RDW 13 Plt Count 208 MPV 8.8 Neut % (Auto) 83.1 Lymph % (Auto) 8.4 [place] % (Auto) 7.8 Eos % (Auto) 0.3 Baso % (Auto) 0.4 Absolute Neuts (auto) 9.7 H Absolute Lymphs (auto) 1.0 Absolute Monos (auto) 0.9 H Absolute Eos (auto) 0.0 Absolute Basos (auto) 0.0 Absolute Nucleated RBC 0.0 Nucleated RBC % 0.3 03/16/19 03/16/19 Sodium 140 Potassium 3.3 L Chloride 108 Carbon Dioxide 23 Anion Gap 9 BUN 21 Creatinine 0.57 L Est GFR ( Amer) 168.6 Est GFR (Non-Af Amer) 139.4 BUN/Creatinine Ratio 36.8 H Glucose 252 H POC Glucose (mg/dL) 283 H Calcium 8.5 L Total Bilirubin 0.40 AST 27 ALT 18 Alkaline Phosphatase 97 Total Protein 4.8 L Albumin 2.1 L Globulin 2.7 Albumin/Globulin Ratio 0.8 L Microbiology 03/13/19 18:22 Skin and Soft Tissue MRSA/MSSA (PCR - Final Foot Left Mrsa Positive S.aureus Positive Gram Stain - Final Wound Culture - Final Citrobacter Braakii Alcaligenes Species Strep Agalactiae - (Group B) MRSA 03/13/19 18:48 Aerobic Blood Culture - Final Blood Venous Strep Agalactiae - (Group B) Anaerobic Blood Culture - Final 03/13/19 18:48 Aerobic Blood Culture - Final Blood Venous Strep Agalactiae - (Group B) Anaerobic Blood Culture - Final Strep Agalactiae - (Group B) Blood MRSA/MSSA (PCR) - Final Mrsa Negative S.aureus Negative 03/15/19 11:53 Skin and Soft Tissue MRSA/MSSA (PCR - Final Foot Left Mrsa Negative S.aureus Negative Gram Stain - Final 03/13/19 21:54 Urine Culture - Final Urine Assessment: 1. Group strep B bacteremia. Group B strep in 4/4 blood culture bottles. ALEM with no vegetation seen on pacemaker wire or valves. Afebrile and leukocytosis is trending down. Radiology is working on arranging an MRI in the setting of a patient with a pacemaker. 2. Gangrene of the left 1st toe and forefoot. Initial wound cultures with MRSA, group B strep, alcaligenes, and citrobacter. S/P left foot transmetatarsal amputation and left achilles tendon lengthening, POD #1. Wound cultures obtained in the OR, MRSA and staph aureus negative. 3. Uncontrolled DM2. Plan: Continue cefepime, vancomycin and flagyl for now. He will need to have an MRI to eval for possible epidural abscess. Further recommendations will be based on the MRI results.
[2019-03-16] MEDS: Cefepime 2 GM in Dextrose(*) 2 GM/50 ML BAG IV SCH ×2 (10:54→23:10)
[2019-03-16] MEDS ORDERED: Dextrose 50% Syringe 50 ML* 25 GM/50 ML SYRINGE IV PUSH PRN ×2 (12:32→19:30)
--- NOTE | 2019-03-16 12:43 | PN ---
Progress Note - Progress Note Date of Service: 03/16/19 SOAP: Subjective: [] Pt seen at bedside. His left foot is mildly painful. Denies CP, SOB, dizziness, nausea. Objective: []General: NAD LLE: Splint CDI, no erythema proximal RLE calf supple and nontender Assessment: []Left foot infection POD 1 sp 1. Left foot transmetatarsal amputation 2. Left Achilles tendon lengthening Plan: []NWB LLE Continue abx per ID: cefepime, vanco, flagyl Lovenox 40 mg sq qd while immobilized FU Dr Neal 1 week post op for wound check Vital Signs Temp 98.3 F 03/16/19 11:42 Pulse 99 03/16/19 11:42 Resp 16 03/16/19 11:42 BP 127/56 03/16/19 11:42 Pulse Ox 94 03/16/19 11:42 Intake & Output 03/15/19 03/16/19 03/16/19 18:59 06:59 18:59 Intake Total 1941 1324 320 Output Total 600 0 900 Balance 1341 1324 -580 Intake: IV Fluids 1241 297 ABX - FLAGYL 110 LR 800 187 NS (0.9%) 441 IVPB 300 687 ABX - FLAGYL 105 ABX - VANCOMYCIN 582 NS (0.9%) 300 Oral 400 340 320 Output: Urine 600 0 900 Other: Estimated Void Medium # Voids 2 Laboratory Last Values WBC 11.7 10^3/uL (3.5-10.8) H 03/16/19 06:18 RBC 4.05 10^6 /uL (4.18-5.48) L 03/16/19 06:18 Hgb 11.9 g/dL (14.0-18.0) L 03/16/19 06:18 Hct 36 % (42-52) L 03/16/19 06:18 MCV 89 fL (80-94) 03/16/19 06:18 MCH 29 pg (27-31) 03/16/19 06:18 MCHC 33 g/dL (31-36) 03/16/19 06:18 RDW 13 % (10.5-15) 03/16/19 06:18 Plt Count 208 10^3/uL (150-450) 03/16/19 06:18 MPV 8.8 fL (7.4-10.4) 03/16/19 06:18 Neut % (Auto) 83.1 % 03/16/19 06:18 Lymph % (Auto) 8.4 % 03/16/19 06:18 [place] % (Auto) 7.8 % 03/16/19 06:18 Eos % (Auto) 0.3 % 03/16/19 06:18 Baso % (Auto) 0.4 % 03/16/19 06:18 Absolute Neuts (auto) 9.7 10^3/ul (1.5-7.7) H 03/16/19 06:18 Absolute Lymphs (auto) 1.0 10^3/ul (1.0-4.8) 03/16/19 06:18 Absolute Monos (auto) 0.9 10^3/ul (0-0.8) H 03/16/19 06:18 Absolute Eos (auto) 0.0 10^3/ul (0-0.6) 03/16/19 06:18 Absolute Basos (auto) 0.0 10^3/ul (0-0.2) 03/16/19 06:18 Absolute Nucleated RBC 0.0 10^3/ul 03/16/19 06:18 Immature Gran % 28.0 % (0-9) H 03/14/19 04:20 Neutrophils % 64.0 % 03/14/19 04:20 Band Neutrophils % 25.0 % (0-8) H 03/14/19 04:20 Lymphocytes % 1.0 % 03/14/19 04:20 Monocytes % 7.0 % 03/14/19 04:20 Eosinophils % 0.0 % 03/13/19 18:47 Basophils % 0.0 % 03/13/19 18:47 Metamyelocytes % 3.0 % (0-2) H 03/14/19 04:20 Nucleated RBC % 0.3 03/16/19 06:18 Abs Neuts (Manual) 16.1 10^3/ul (1.5-7.7) H 03/14/19 04:20 Abs Lymphs (Manual) 0.2 10^3/ul (1.0-4.8) L 03/14/19 04:20 Abs Monocytes (Manual) 1.2 10^3/ul (0-0.8) H 03/14/19 04:20 Absolute Eos (Manual) 0.0 10^3/ul (0-0.6) 03/13/19 18:47 Abs Basophils (Manual) 0.0 10^3/ul (0-0.2) 03/13/19 18:47 Normal RBC Morphology Not Reportable 03/14/19 04:20 Polychromasia 1+ 03/14/19 04:20 Anisocytosis 1+ 03/13/19 18:47 INR (Anticoag Therapy) 1.07 (0.82-1.09) 03/14/19 04:20 APTT 32.7 seconds (26.0-38.0) 03/13/19 18:47 VBG pH 7.17 (7.32-7.43) L 03/14/19 00:30 VBG pCO2 35 mmHg (41-51) L 03/14/19 00:30 VBG pO2 38.0 mmHg (35-45) 03/14/19 00:30 VBG HCO3 12.5 mmol/L (24-28) L 03/14/19 00:30 VBG O2 Saturation 64.0 % (70-80) L 03/14/19 00:30 VBG Base Excess -14.8 mmol/L (0.0-4.0) L 03/14/19 00:30 Sodium 140 mmol/L (135-145) 03/16/19 06:18 Potassium 3.3 mmol/L (3.5-5.0) L 03/16/19 06:18 Chloride 108 mmol/L (101-111) 03/16/19 06:18 Carbon Dioxide 23 mmol/L (22-32) 03/16/19 06:18 Anion Gap 9 mmol/L (2-11) 03/16/19 06:18 BUN 21 mg/dL (6-24) 03/16/19 06:18 Creatinine 0.57 mg/dL (0.67-1.17) L 03/16/19 06:18 Est GFR ( Amer) 168.6 (>60) 03/16/19 06:18 Est GFR (Non-Af Amer) 139.4 (>60) 03/16/19 06:18 BUN/Creatinine Ratio 36.8 (8-20) H 03/16/19 06:18 Glucose 252 mg/dL (70-100) H 03/16/19 06:18 POC Glucose (mg/dL) 374 mg/dL (70-100) H 03/16/19 12:08 Hemoglobin A1c 16.8 % (4.0-5.6) H 03/13/19 18:47 Lactic Acid 1.6 mmol/L (0.5-2.0) 03/13/19 18:47 Calcium 8.5 mg/dL (8.6-10.3) L 03/16/19 06:18 Phosphorus 3.6 mg/dL (2.5-5.0) 03/13/19 23:28 Magnesium 1.9 mg/dL (1.9-2.7) 03/14/19 04:20 Total Bilirubin 0.40 mg/dL (0.2-1.0) 03/16/19 06:18 AST 27 U/L (13-39) 03/16/19 06:18 ALT 18 U/L (7-52) 03/16/19 06:18 Alkaline Phosphatase 97 U/L (34-104) 03/16/19 06:18 Total Creatine Kinase 135 U/L (10-223) 03/13/19 18:47 Troponin I 0.04 ng/mL (<0.04) H* 03/14/19 02:02 C-Reactive Protein 362.53 mg/L (<8.01) H 03/13/19 18:47 B-Natriuretic Peptide 194 pg/mL (<=100) H 03/13/19 18:47 Total Protein 4.8 g/dL (6.4-8.9) L 03/16/19 06:18 Albumin 2.1 g/dL (3.2-5.2) L 03/16/19 06:18 Globulin 2.7 g/dL (2-4) 03/16/19 06:18 Albumin/Globulin Ratio 0.8 (1-3) L 03/16/19 06:18 Prealbumin < 3 mg/dL (18-38) L 03/13/19 18:47 Triglycerides 65 mg/dL 03/14/19 04:20 Cholesterol 124 mg/dL 03/14/19 04:20 LDL Cholesterol 48 mg/dL 03/14/19 04:20 HDL Cholesterol 62.8 mg/dL 03/14/19 04:20 Vitamin B12 > 1450 pg/mL (180-914) H 03/13/19 18:47 Folate 13.17 ng/mL (>3.99) 03/13/19 18:47 TSH 1.11 mcIU/mL (0.34-5.60) 03/13/19 18:47 Urine Color Straw 03/13/19 21:54 Urine Appearance Clear 03/13/19 21:54 Urine pH 5.0 (5-9) 03/13/19 21:54 Ur Specific [place] 1.023 (1.010-1.030) 03/13/19 21:54 Urine Protein Negative (Negative) 03/13/19 21:54 Urine Ketones 2+ (Negative) A 03/13/19 21:54 Urine Blood 2+ (Negative) A 03/13/19 21:54 Urine Nitrate Negative (Negative) 03/13/19 21:54 Urine Bilirubin Negative (Negative) 03/13/19 21:54 Urine Urobilinogen Negative (Negative) 03/13/19 21:54 Ur Leukocyte Esterase Negative (Negative) 03/13/19 21:54 Urine WBC (Auto) Trace(0-5/hpf) (Absent) 03/13/19 21:54 Urine RBC (Auto) Trace(0-2/hpf) (Absent) 03/13/19 21:54 Urine Bacteria Absent (Absent) 03/13/19 21:54 Hyaline Casts Present (Absent) A 03/13/19 21:54 Urine Glucose 3+(>=500 mg/dl) (Negative) A 03/13/19 21:54 Vancomycin Trough 7.0 mcg/mL 03/15/19 09:19 Salicylates 15.50 mg/dL (<30) 03/13/19 18:47 Urine Opiates Screen None detected (None Detect) 03/13/19 21:54 Ur Barbiturates Screen None detected (None Detect) 03/13/19 21:54 Ur Phencyclidine Scrn None detected (None Detect) 03/13/19 21:54 Ur Amphetamines Screen None detected (None Detect) 03/13/19 21:54 U Benzodiazepines Scrn None detected (None Detect) 03/13/19 21:54 Urine Cocaine Screen None detected (None Detect) 06/02/19 21:54 U Cannabinoids Screen None detected (None Detect) 03/13/19 21:54 Serum Alcohol < 10 mg/dL (<10) 03/13/19 18:47
[2019-03-16] MEDS ORDERED: Insulin LISPRO* 1 UNITS UNIT SUBCUT ONE (13:08)
[2019-03-16] MEDS: Insulin LISPRO* 1 UNITS UNIT SUBCUT SCH ×3 (13:11→21:49)
--- NOTE | 2019-03-16 14:13 | CONSULT ---
Identification - Patient Identification Reason for Psychiatric Consultation: Suicidal Ideation -: Patient is a 74 year old, M admitted on 03/13/19. - MHU Identification Employment Status: Disabled Hx Psychiatric Hospitalization: No History - Objective HPI: Mr. Jj is seen for psychiatric follow up this afternoon in his new room on . He is one day s/p surgery and is understandably uncomfortable from this, although pleased that he can eat and drink again. On the subject of suicidality, he responds "My plan hasn't changed one bit" meaning that he still intends to purchase a firearm after discharge in order to shoot himself to . "I've thought about it. I've rehearsed it in my head. Human beings are made up of electrons and neutrons and it's just the way those things come together in the brain that makes us think like we really matter. It's a delusion, that we really matter." I brought up the possibility of transfer to the psychiatric unit to treat clinical depression, to which he replies "Why do they care? I'm one of 7 billion people on this planet." The patient is given some psychoeducation about depression, however, he is irritable and not open to considering. I did note that he took the mirtazapine as scheduled last night and has no complaints about it. He reiterates that he has no acute thought, plan or intention of harming himself here in the hospital. Exam Appearance: Well Developed/Nourished Hygiene: Normal Grooming: Disheveled Psychomotor Activities: Abnormal-Decreased Exhibits Abnormal Movement: No Attitude and Relatedness: Irritable Eye Contact: Fair - Speech Quality: Unpressured Latencies: Long Quantity: Terse Patient's Decription of Mood: "Terrible" Observed Affect: Constricted Affect Consistent with: Dysphoria Patient's Thought Process: Coherent Thought Content: Yes Suicidal Planning, No Passive Wish, No Homicidal Ideation, No Paranoid Ideation Experiencing Hallucinations: No, Sensorium is Clear Type of Hallucinations: Visual: No, Auditory: No, Command: No Level of Consciousness: Alert Orientation: Yes Intact, Yes Orientated to Time, Yes Orientated to Place, Yes Orientated to Person Impulse Control: Tenuous Insight and Judgement: Fair Impression - Impression Clinical Impression: 74 y.o. , homeless, white male with a complicated medical history but no formal psychiatric diagnosis or treatment in the past, who is admitted to the Hospitalist service for medical and surgical treatment of severe osteomylitis of his left foot. The patient has made several active suicidal statements that are intermediate, rather than acute in nature and he is quite clinically depressed. Inpatient DSM-V Dx: F32.2 Merits Inpatient Hospitalization: Yes BSU: Problem List - Patient Problems (1) MDD (major depressive disorder), single episode, severe Current Visit: Yes Status: Acute Priority: High Code(s): F32.2 - MAJOR DEPRESSV DISORD, SINGLE EPSD, SEV W/O PSYCH FEATURES SNOMED Code(s): 161876915475 Plan - Treatment Plan Treatment Plan: The patient continues to describe a suicidal plan that he intends to pursue following an unspecified period of time s/p discharge from the hospital. Since his plan involves purchase of a legal firearm I have already registered him in the [facility] Safe Act database as a means restriction. We have started mirtazapine 15mg PO qhs, which he has only had one dose of. Unless his presentation changes dramatically, the patient would likely meet criteria for transfer to the BSU on involuntary (9.39) status. 1:1 observational restrictions would not be justified at this time given the fact that the patient has stated repeatedly that he has no intention of harming himself here in the hospital. I have spoken with Katharine Marvin on the Hospitalist staff and will follow up with her after seeing the patient tomorrow (03/17). Continued Medication Management: Start Medication Medications: Current Medications Acetaminophen (Tylenol Tab*) 650 mg PO Q4H PRN PRN Reason: FEVER/PAIN Last Admin: 03/16/19 12:14 Dose: 650 mg Chlorpromazine HCl (Thorazine Tab*) 50 mg PO Q6H PRN PRN Reason: HICCUPS Last Admin: 03/15/19 16:18 Dose: 50 mg Dextrose (D50w Syringe 50 Ml*) 12.5 gm IV PUSH .FOR FS < 60 - SS PRN PRN Reason: FS < 60 Enoxaparin Sodium (Lovenox(*)) 40 mg SUBCUT 0900 SEGUNDO Last Admin: 03/16/19 09:18 Dose: 40 mg Cefepime HCl (Maxipime 2 Gm In Dextrose Duplex (*)) 2 gm in 50 mls @ 100 mls/ hr IV Q12H [facility] Last Admin: 03/16/19 10:54 Dose: 100 mls/hr Metronidazole/Sodium Chloride (Flagyl 500 Mg Ivpb*) 500 mg in 100 mls @ 100 mls /hr IVPB Q12H [facility] Last Admin: 03/16/19 12:07 Dose: 100 mls/hr Vancomycin HCl 1,000 mg/ (Sodium Chloride) 250 mls @ 166.667 mls/hr IVPB Q8H [facility] Last Admin: 03/16/19 09:34 Dose: 166.667 mls/hr Lactated Ringer's (Lactated Ringers 1000 Ml Bag*) 1,000 mls @ 100 mls/hr IV PER RATE [facility] Last Admin: 03/15/19 20:34 Dose: 100 mls/hr Insulin Glargine (Lantus(*)) 12 units SUBCUT Q24H [facility] Last Admin: 03/16/19 09:18 Dose: 12 units Insulin Human Lispro (Humalog*) 0 units SUBCUT ACHS [facility]; Protocol Last Admin: 03/16/19 13:11 Dose: 5 units Melatonin (Melatonin) 3 mg PO BEDTIME PRN PRN Reason: SLEEP Last Admin: 03/15/19 02:02 Dose: 3 mg Mirtazapine (Remeron Tab*) 15 mg PO BEDTIME [facility] Last Admin: 03/15/19 20:42 Dose: 15 mg Pharmacy Consult (Vancomycin Per Pharmacy*) 1 note FOLLOW UP . PRN PRN Reason: PER PROTOCOL Pharmacy Profile Note (Vancomycin Trough Check) 1 note FOLLOW UP ONCE ONE Stop: 03/17/19 09:31 - Discharge Plan Discharge Plan: Inpatient Hospitalization
[2019-03-16] MEDS: Lactated Ringers 1000 ML Bag* 1,000 ML IV SCH (15:14)
--- NOTE | 2019-03-16 18:07 | PN ---
Subjective Date of Service: 03/16/19 Interval History: Pt not doing well today; he is depressed, upset about amputation. He is short- tempered. He c/o pain in LLE, although feels that it is moderately well controlled with medications. Denies cough, fever/chills/sweats, pain in calves. Objective Active Medications: Acetaminophen (Tylenol Tab*) 650 mg PO Q4H PRN Chlorpromazine HCl (Thorazine Tab*) 50 mg PO Q6H PRN Dextrose (D50w Syringe 50 Ml*) 12.5 gm IV PUSH .FOR FS < 60 - SS PRN Enoxaparin Sodium (Lovenox(*)) 40 mg SUBCUT 0900 SEGUNDO Cefepime HCl (Maxipime 2 Gm In Dextrose Duplex (*)) 2 gm in 50 mls @ 100 mls/ hr IV Q12H [facility] Metronidazole/Sodium Chloride (Flagyl 500 Mg Ivpb*) 500 mg in 100 mls @ 100 mls /hr IVPB Q12H [facility] Vancomycin HCl 1,000 mg/ (Sodium Chloride) 250 mls @ 166.667 mls/hr IVPB Q8H [facility] Lactated Ringer's (Lactated Ringers 1000 Ml Bag*) 1,000 mls @ 100 mls/hr IV PER RATE SEG[facility] Insulin Glargine (Lantus(*)) 12 units SUBCUT Q24H [facility] Insulin Human Lispro (Humalog*) 0 units SUBCUT ACHS [facility]; Protocol Melatonin (Melatonin) 3 mg PO BEDTIME PRN Mirtazapine (Remeron Tab*) 15 mg PO BEDTIME SEG[facility] Pharmacy Consult (Vancomycin Per Pharmacy*) 1 note FOLLOW UP . PRN Pharmacy Profile Note (Vancomycin Trough Check) 1 note FOLLOW UP ONCE ONE Vital Signs: Temp Pulse Resp BP Pulse Ox 98.3 F 98 22 114/60 95 03/16/19 15:14 03/16/19 15:14 03/16/19 15:14 03/16/19 15:14 03/16/19 15:14 Oxygen Devices in Use Now: None Appearance: Pt sitting up in bed with HOB and LE elevated. He has flat affect and appears depressed. No acute distress. Eyes: No Scleral Icterus, PERRLA, - - L periorbital ecchymosis Ears/Nose/Mouth/Throat: NL Teeth, Lips, Gums, Mucous Membranes Moist Neck: NL Appearance and Movements; NL JVP, Trachea Midline Respiratory: Symmetrical Chest Expansion and Respiratory Effort, Clear to Auscultation Cardiovascular: NL Sounds; No Murmurs; No JVD, RRR Abdominal: NL Sounds; No Tenderness; No Distention, No Hepatosplenomegaly Extremities: - - LLE with CDI dressing. Neurological: Alert and Oriented x 3 Result Diagrams: 03/16/19 06:18 03/16/19 06:18 Microbiology and Other Data: Microbiology 03/13/19 18:22 Skin and Soft Tissue MRSA/MSSA (PCR - Final Foot Left Mrsa Positive S.aureus Positive Gram Stain - Final 03/13/19 18:48 Aerobic Blood Culture - Preliminary Blood Venous Anaerobic Blood Culture - Preliminary 03/13/19 18:48 Aerobic Blood Culture - Preliminary Blood Venous Anaerobic Blood Culture - Preliminary Blood MRSA/MSSA (PCR) - Final Mrsa Negative S.aureus Negative Diagnostic Imaging: Patient Name: CONOR HERNANDEZ Medical Record#: [id number] Ordering Physician: Nadja Martinez MD Acct.#: [id number] : 1945 Age: 74 Sex: M Location: EMERGENCY DEPARTMENT Exam Date: 03/13/191841 ADM Status: REG ER Order Information: CT EXTREMITY LOWER LEFT WO Accession Number: [id number] CPT: 82912 EXAM: CT Left Lower Extremity Without Contrast, Foot EXAM DATE/TIME: 03/13/2019 7:38 PM CLINICAL HISTORY: 74 years old, male; Signs and symptoms; Other: Wound left great toe; Additional info: Wound left great toe, ? osteomyelitis TECHNIQUE: Imaging protocol: CT of the Left lower extremity without contrast was performed. Exam focused on the foot. Coronal and sagittal reformatted images were created and reviewed. Radiation optimization: All CT scans at this facility use at least one of these dose optimization techniques: automated exposure control; mA and/or kV adjustment per patient size (includes targeted exams where dose is matched to clinical indication); or iterative reconstruction. COMPARISON: No relevant prior studies available. FINDINGS: Bones/joints: Limited degenerative change elsewhere. Soft tissues: Soft tissue swelling surrounding the hallux valgus deformity at the first MTP. There are tiny bits of gas around the joint laterally and tiny foci of possible intra-articular gas in the dorsal aspect of the base of the proximal phalanx. Findings are highly suspicious for osteomyelitis and surrounding cellulitis. Difficult to assess for abscess without contrast. IMPRESSION: Soft tissue swelling surrounding the hallux valgus deformity at the first MTP. There are tiny bits of gas around the joint laterally and tiny foci of possible intra-articular gas in the dorsal aspect of the base of the proximal phalanx. Findings are highly suspicious for osteomyelitis and surrounding cellulitis. Difficult to assess for abscess without contrast. To contact [facility] with a general question: [facility] - [phone] For direct physician to physician contact: Physician Hotline - [phone] [facility] ([facility] Facility ID #[id number]) <Electronically signed by Ag Suarez MD in OV> 03/13/192054 Dictated By: Ag Suarez MD Dictated Date/Time: 03/13/192054 Transcribed Date/Time: This report is only to be considered final once signed by the Provider(s) as displayed in the "<Electronically Signed by >" field (s). Absence of a signature indicates the report is in a draft status and still needs to be finalized. In the event this document was created by someone other than the signing Provider, the individual initiating the document will be listed in the "Entered by:" or "Dictated by:" leonard. 1 of 2 *[facility] System* [place] [address] Fax #: [phone] Transesophageal Echocardiogram Patient: Parviz, Height: 66.1 in / Conor 168 cm : 1945 Weight: 123.2 lb / Study Date: 03/14/2019 56 kg Age: 74 BP: 126 / 68 Gender: M BMI/BSA: 19.8 kg/m^2 HR: 96 bpm / 1.61 m^2 *Cartridge Loader: * [facility] *Referring Physician: * Dixie HernandezReading Physician: * Wild Ruffin MD Indications: Bacteremia. History: Atrioventricular block. Risk factors: Diabetes mellitus. Labs, prior tests, procedures, and surgery: ICD system implantation. Conclusions Summary: 1. Left ventricle: Systolic function is mildly reduced. The estimated ejection fraction is 40-45%. 2. Right ventricle: Pacer wire noted in the right ventricle with no evidence of vegetations Systolic function is normal. 3. Atrial septum: A PFO is not demonstrated by color Doppler or agitated saline contrast. 4. Mitral valve: There is no evidence of a vegetation. There is mild regurgitation. 5. Aortic valve: There is no evidence of a vegetation. There is no significant regurgitation. This report is only to be considered final once signed by the Provider(s) as displayed in the "<Electronically Signed by >" field (s). Absence of a signature indicates the report is in a draft status and still needs to be finalized. In the event this document was created by someone other than the signing Provider, the individual initiating the document will be listed in the "Entered by:" or "Dictated by:" leonard. Assess/Plan/Problems-Billing This is a 74yo M who [place] and not sought any medical care since his last admission in 01/2018. He presented to the ER with complaints of generalized weakness, decreased appetite and L foot wound and was found to be septic secondary to likely osteomyelitis of the L distal foot and in what was initially thought to be starvation ketosis. - Patient Problems (1) Osteomyelitis of ankle or foot, acute Comment: - POD1 midfoot amputation with Dr. Hernandez - ID following, continue vanco, cefepime and flagyl - Positive for MRSA, strep and citrobacter, atbx per ID - POC per ortho - PT/OT - MRI cannot be performed, due to not compatible with [employer] pacemaker (2) Uncontrolled type II diabetes mellitus Comment: - Off insulin drip, no DKA at admission - Needs tight glycemic control for wound healing - Increase Lantus from 12 to 20 units - Continue lispr SS with added 1 unit/10g carbs - Consult endocrinology in a.m. (3) Starvation ketoacidosis Comment: - The patient reportedly had not had anything to eat for the last 1 week - Elevated AG on admission thought to be secondary to starvation- resolved - May have been a component but not complete cause of elevated AG - Homelessness noted, SW following (4) Elevated troponin Comment: - Likely secondary to demand ischemia in presence of sepsis - ECHO as above, systolic dysfunction and reduced EF 40-45% - Monitor for fluid overload (5) Sepsis Comment: - Sepsis present on admission; source osteo left foot and strep bacteremia - tachycardia and tachypnea resolved - Follow white count and monitor fevers - resolved (6) Hyponatremia Comment: - Resolved with IVF hydration. (7) DVT prophylaxis Comment: - Lovenox SQ (8) DNR (do not resuscitate) Status and Disposition: Inpatient, downgrade from ICU to surgical short stay on tele.
[2019-03-16] MEDS: Mirtazapine TAB* 15 MG PO SCH (21:48)
[2019-03-17] MEDS: metroNIDAZOLE IV 500 MG/100ML* 500 MG/100 ML BAG IVPB SCH ×2 (00:12→14:14)
[2019-03-17] MEDS: Lactated Ringers 1000 ML Bag* 1,000 ML IV SCH ×2 (03:02→17:53)
[2019-03-17] MEDS: Vancomycin(*) 1,000 MG in NS 0.9% 250 ML* 250 ML IVPB SCH ×3 (03:03→17:53)
[2019-03-17] MEDS: Acetaminophen TAB* 325 MG PO PRN (03:27)
[2019-03-17] MEDS: oxyCODONE/Acetamin 5/325 MG* TAB PO PRN ×4 (04:14→21:49)
[2019-03-17 06:18] LABS: Hematocrit 40 % (42-52); Hemoglobin 13.3 g/dL (14.0-18.0); Mean Corpuscular HGB Conc 34 g/dL (31-36); Mean Corpuscular Hemoglobin 30 pg (27-31); Mean Corpuscular Volume 90 fL (80-94); Platelet Count 227 10^3/uL (150-450); Red Blood Count 4.42 10^6 /uL (4.18-5.48); Red Cell Distribution Width 13 % (10.5-15); White Blood Count 10.1 10^3/uL (3.5-10.8)
[2019-03-17 06:36] LABS: Calcium 8.2 mg/dL (8.6-10.3); EGFR African American 196.1 (>60); EGFR Non-African American 162.1 (>60); Potassium 3.5 mmol/L (3.5-5.0)
[2019-03-17 08:34] LABS: ABS Eosinophils 0.1 10^3/ul (0-0.6); ABS Lymphocytes 1.1 10^3/ul (1.0-4.8); ABS Neutrophils 7.9 10^3/ul (1.5-7.7); Eosinophil % 0.8 %; Lymphocyte % 10.8 %; Nucleated Red Blood Cells % 0.1
[2019-03-17] MEDS: Insulin GLARGINE(*) 1 UNITS UNIT SUBCUT SCH (09:22)
[2019-03-17] MEDS: Enoxaparin(*) 40 MG/0.4 ML SYR SUBCUT SCH (09:22)
[2019-03-17] MEDS: Insulin LISPRO* 1 UNITS UNIT SUBCUT SCH ×7 (09:22→21:51)
[2019-03-17] MEDS ORDERED: Vancomycin Trough Check NOTE FOLLOW UP ONE (09:30)
--- NOTE | 2019-03-17 09:43 | PN ---
Progress Note - Progress Note Date of Service: 03/17/19 SOAP: Subjective: CC: bacteremia HPI: 74 year old man with chronic left foot infection and sepsis, s/p L foot TMA ; he c/o back pain but is a little better. He has no fever, chills, or sweats. Does not want to participate in further questions. Objective: Vital Signs Temp 36.8 C 03/17/19 07:40 Pulse 96 03/17/19 07:40 Resp 18 03/17/19 09:23 BP 130/69 03/17/19 07:40 Pulse Ox 94 03/17/19 07:40 Intake & Output 03/16/19 03/17/19 03/17/19 18:59 06:59 18:59 Intake Total 2589 1720 240 Output Total 1825 600 0 Balance 764 1120 240 Intake: IV Fluids 975 1000 LR 975 1000 IVPB 424 ABX - CEFEPIME 54 ABX - FLAGYL 105 ABX - VANCOMYCIN 265 Oral 1190 720 240 Output: Urine 1825 600 0 Gen:awake, no distress HEENT: no thrush Heart:RRR no murmur Lungs:CTA BL Abd:+BS NTND soft Skin: no rash Neuro: strength 5/5 quad/TA/gastroc BL Laboratory Results - last 24 hr 03/16/19 03/16/19 03/16/19 06:18 12:08 16:57 WBC RBC Hgb Hct MCV MCH MCHC RDW Plt Count MPV Neut % (Auto) 83.1 Lymph % (Auto) 8.4 [place] % (Auto) 7.8 Eos % (Auto) 0.3 Baso % (Auto) 0.4 Absolute Neuts (auto) 9.7 H Absolute Lymphs (auto) 1.0 Absolute Monos (auto) 0.9 H Absolute Eos (auto) 0.0 Absolute Basos (auto) 0.0 Absolute Nucleated RBC 0.0 Nucleated RBC % 0.3 Sodium Potassium Chloride Carbon Dioxide Anion Gap BUN Creatinine Est GFR ( Amer) Est GFR (Non-Af Amer) BUN/Creatinine Ratio Glucose POC Glucose (mg/dL) 374 H 349 H Glucose Meter Confirm Calcium 03/16/19 03/16/19 03/17/19 20:38 20:52 06:03 WBC RBC Hgb Hct MCV MCH MCHC RDW Plt Count MPV Neut % (Auto) Lymph % (Auto) [place] % (Auto) Eos % (Auto) Baso % (Auto) Absolute Neuts (auto) Absolute Lymphs (auto) Absolute Monos (auto) Absolute Eos (auto) Absolute Basos (auto) Absolute Nucleated RBC Nucleated RBC % Sodium 140 Potassium 3.5 Chloride 106 Carbon Dioxide 26 Anion Gap 8 BUN 15 Creatinine 0.50 L Est GFR ( Amer) 196.1 Est GFR (Non-Af Amer) 162.1 BUN/Creatinine Ratio 30.0 H Glucose 260 H POC Glucose (mg/dL) 441 H* Glucose Meter Confirm 362 H Calcium 8.2 L 03/17/19 06:03 WBC 10.1 RBC 4.42 Hgb 13.3 L Hct 40 L MCV 90 MCH 30 MCHC 34 RDW 13 Plt Count 227 MPV 8.0 Neut % (Auto) 78.4 Lymph % (Auto) 10.8 [place] % (Auto) 9.7 Eos % (Auto) 0.8 Baso % (Auto) 0.3 Absolute Neuts (auto) 7.9 H Absolute Lymphs (auto) 1.1 Absolute Monos (auto) 1.0 H Absolute Eos (auto) 0.1 Absolute Basos (auto) 0.0 Absolute Nucleated RBC 0.0 Nucleated RBC % 0.1 Sodium Potassium Chloride Carbon Dioxide Anion Gap BUN Creatinine Est GFR ( Amer) Est GFR (Non-Af Amer) BUN/Creatinine Ratio Glucose POC Glucose (mg/dL) Glucose Meter Confirm Calcium Microbiology 03/15/19 11:53 Foot Left Skin and Soft Tissue MRSA/MSSA (PCR - Final Mrsa Negative S.aureus Negative 03/15/19 11:53 Foot Left Gram Stain - Final 03/15/19 11:53 Foot Left Wound Culture - Preliminary Strep Agalactiae - (Group B) 03/15/19 11:53 Wound - Other Anaerobic Culture - Preliminary 03/13/19 18:22 Foot Left Skin and Soft Tissue MRSA/MSSA (PCR - Final Mrsa Positive S.aureus Positive 03/13/19 18:22 Foot Left Gram Stain - Final 03/13/19 18:22 Foot Left Wound Culture - Final Citrobacter Braakii Alcaligenes Species Strep Agalactiae - (Group B) MRSA 03/13/19 18:48 Blood Venous Aerobic Blood Culture - Final Strep Agalactiae - (Group B) 03/13/19 18:48 Blood Venous Anaerobic Blood Culture - Final 03/13/19 18:48 Blood Venous Aerobic Blood Culture - Final Strep Agalactiae - (Group B) 03/13/19 18:48 Blood Venous Anaerobic Blood Culture - Final Strep Agalactiae - (Group B) 03/13/19 18:48 Blood Venous Blood MRSA/MSSA (PCR) - Final Mrsa Negative S.aureus Negative Assessment: 1. Left foot gangrene, acute osteomyelitis, polymicrobial including Grp B Strep 2. untreated insulin dependent diabetes mellitus, T2 3. Grp B Strep bacteremia, in presence of pacemaker, ALEM negative. Also has low back pain, can't have MRI per radiology dept Plan: 1. continue ceftriaxone vancomycin goal tr 15-20, cefepime, flagyl; can eventually narrow to vancomycin alone 2. CT T/L spine
[2019-03-17] MEDS: Cefepime 2 GM in Dextrose(*) 2 GM/50 ML BAG IV SCH ×3 (12:14→22:14)
--- NOTE | 2019-03-17 12:23 | CONSULT ---
Identification - Patient Identification Reason for Psychiatric Consultation: Suicidal Ideation -: Patient is a 74 year old, M admitted on 03/13/19. - MHU Identification Employment Status: Disabled Hx Psychiatric Hospitalization: No History - Objective HPI: Mr. Jj is seen for psychiatric follow up this afternoon on . He still presents as curmudgeonly but eagerly invites me in and appears in better spirits today. I note that he has now had two doses of mirtazapine and seems to be tolerating that well. "It helps me sleep." Nursing notes indicate that his appetite is good and he is eating well. Today he talks about growing up in [place] in the 50's and 60's. "I was less than 100 miles away from [place] the day that President Sreekanth was shot. I didn't believe it when they told me about it. Presidents don't get shot I told them. I guess I was wrong." He denies SI today. Exam Appearance: Well Developed/Nourished Hygiene: Normal Grooming: Disheveled Psychomotor Activities: Abnormal-Decreased Exhibits Abnormal Movement: No Attitude and Relatedness: Irritable Eye Contact: Fair - Speech Quality: Unpressured Latencies: Long Quantity: Terse Patient's Decription of Mood: "Terrible" Observed Affect: Constricted Affect Consistent with: Dysphoria Patient's Thought Process: Coherent Thought Content: Yes Suicidal Planning, No Passive Wish, No Homicidal Ideation, No Paranoid Ideation Experiencing Hallucinations: No, Sensorium is Clear Type of Hallucinations: Visual: No, Auditory: No, Command: No Level of Consciousness: Alert Orientation: Yes Intact, Yes Orientated to Time, Yes Orientated to Place, Yes Orientated to Person Impulse Control: Tenuous Insight and Judgement: Fair Impression - Impression Clinical Impression: 74 y.o. , homeless, white male with a complicated medical history but no formal psychiatric diagnosis or treatment in the past, who is admitted to the Hospitalist service for medical and surgical treatment of severe osteomylitis of his left foot. The patient has made several active suicidal statements that are intermediate, rather than acute in nature and he is quite clinically depressed. Inpatient DSM-V Dx: F32.2 Merits Inpatient Hospitalization: Yes BSU: Problem List - Patient Problems (1) MDD (major depressive disorder), single episode, severe Current Visit: Yes Status: Acute Priority: High Code(s): F32.2 - MAJOR DEPRESSV DISORD, SINGLE EPSD, SEV W/O PSYCH FEATURES SNOMED Code(s): 815326386586 Plan - Treatment Plan Treatment Plan: The patient remains depressed, although denying SI today. So far, we have registered him in the [facility] Safe Act database to prevent purchase of a firearm and started mirtazapine 15mg PO qhs. We are considering transfer to [facility] on involuntary (9.39) status, although this may not be necessary if he continues to improve. Psychiatry will continue to follow and is reassessing the patient' s progress daily. Continued Medication Management: Start Medication Medications: Current Medications Acetaminophen (Tylenol Tab*) 650 mg PO Q4H PRN PRN Reason: FEVER/PAIN Last Admin: 03/17/19 03:27 Dose: 650 mg Chlorpromazine HCl (Thorazine Tab*) 50 mg PO Q6H PRN PRN Reason: HICCUPS Last Admin: 03/15/19 16:18 Dose: 50 mg Dextrose (D50w Syringe 50 Ml*) 12.5 gm IV PUSH .FOR FS < 60 - SS PRN PRN Reason: FS < 60 Enoxaparin Sodium (Lovenox(*)) 40 mg SUBCUT 0900 [facility] Last Admin: 03/17/19 09:22 Dose: 40 mg Cefepime HCl (Maxipime 2 Gm In Dextrose Duplex (*)) 2 gm in 50 mls @ 100 mls/ hr IV Q12H [facility] Last Admin: 03/16/19 23:10 Dose: 100 mls/hr Metronidazole/Sodium Chloride (Flagyl 500 Mg Ivpb*) 500 mg in 100 mls @ 100 mls /hr IVPB Q12H [facility] Last Admin: 03/17/19 00:12 Dose: 100 mls/hr Vancomycin HCl 1,000 mg/ (Sodium Chloride) 250 mls @ 166.667 mls/hr IVPB Q8H [facility] Last Admin: 03/17/19 11:06 Dose: 166.667 mls/hr Lactated Ringer's (Lactated Ringers 1000 Ml Bag*) 1,000 mls @ 100 mls/hr IV PER RATE [facility] Last Admin: 03/17/19 03:02 Dose: 100 mls/hr Insulin Glargine (Lantus(*)) 20 units SUBCUT Q24H [facility] Last Admin: 03/17/19 09:22 Dose: 20 units Insulin Human Lispro (Humalog*) 0 units SUBCUT ACHS [facility]; Protocol Last Admin: 03/17/19 09:22 Dose: 3 units Insulin Human Lispro (Humalog*) 0 units SUBCUT AC [facility]; Protocol Last Admin: 03/17/19 09:22 Dose: 4 units Melatonin (Melatonin) 3 mg PO BEDTIME PRN PRN Reason: SLEEP Last Admin: 03/15/19 02:02 Dose: 3 mg Mirtazapine (Remeron Tab*) 15 mg PO BEDTIME [facility] Last Admin: 03/16/19 21:48 Dose: 15 mg Oxycodone/Acetaminophen (Percocet 5/325 Tab*) 1 tab PO Q4H PRN PRN Reason: PAIN Last Admin: 03/17/19 09:23 Dose: 1 tab Pharmacy Consult (Vancomycin Per Pharmacy*) 1 note FOLLOW UP . PRN PRN Reason: PER PROTOCOL Pharmacy Profile Note (Vancomycin Trough Check) 1 note FOLLOW UP ONCE ONE Stop: 03/19/19 09:31 - Discharge Plan Discharge Plan: Inpatient Hospitalization
--- NOTE | 2019-03-17 13:56 | PN ---
Progress Note - Progress Note Date of Service: 03/17/19 SOAP: Subjective: []Pt seen at bedside. He is in better spirits today. Foot pain is well controlled. Denies CP, SOB, dizziness, nausea. Objective: []General: NAD LLE: Splint CDI, no erythema proximal RLE calf supple and nontender Assessment: []Left foot infection POD 1 sp 1. Left foot transmetatarsal amputation 2. Left Achilles tendon lengthening Plan: []NWB LLE Continue abx per ID: cefepime, vanco, flagyl Lovenox 40 mg sq qd while immobilized FU Dr Neal 1 week post op for wound check Laboratory Last Values WBC 10.1 10^3/uL (3.5-10.8) 03/17/19 06:03 RBC 4.42 10^6 /uL (4.18-5.48) 03/17/19 06:03 Hgb 13.3 g/dL (14.0-18.0) L 03/17/19 06:03 Hct 40 % (42-52) L 03/17/19 06:03 MCV 90 fL (80-94) 03/17/19 06:03 MCH 30 pg (27-31) 03/17/19 06:03 MCHC 34 g/dL (31-36) 03/17/19 06:03 RDW 13 % (10.5-15) 03/17/19 06:03 Plt Count 227 10^3/uL (150-450) 03/17/19 06:03 MPV 8.0 fL (7.4-10.4) 03/17/19 06:03 Neut % (Auto) 78.4 % 03/17/19 06:03 Lymph % (Auto) 10.8 % 03/17/19 06:03 Day % (Auto) 9.7 % 03/17/19 06:03 Eos % (Auto) 0.8 % 03/17/19 06:03 Baso % (Auto) 0.3 % 03/17/19 06:03 Absolute Neuts (auto) 7.9 10^3/ul (1.5-7.7) H 03/17/19 06:03 Absolute Lymphs (auto) 1.1 10^3/ul (1.0-4.8) 03/17/19 06:03 Absolute Monos (auto) 1.0 10^3/ul (0-0.8) H 03/17/19 06:03 Absolute Eos (auto) 0.1 10^3/ul (0-0.6) 03/17/19 06:03 Absolute Basos (auto) 0.0 10^3/ul (0-0.2) 03/17/19 06:03 Absolute Nucleated RBC 0.0 10^3/ul 03/17/19 06:03 Immature Gran % 28.0 % (0-9) H 03/14/19 04:20 Neutrophils % 64.0 % 03/14/19 04:20 Band Neutrophils % 25.0 % (0-8) H 03/14/19 04:20 Lymphocytes % 1.0 % 03/14/19 04:20 Monocytes % 7.0 % 03/14/19 04:20 Eosinophils % 0.0 % 03/13/19 18:47 Basophils % 0.0 % 03/13/19 18:47 Metamyelocytes % 3.0 % (0-2) H 03/14/19 04:20 Nucleated RBC % 0.1 03/17/19 06:03 Abs Neuts (Manual) 16.1 10^3/ul (1.5-7.7) H 03/14/19 04:20 Abs Lymphs (Manual) 0.2 10^3/ul (1.0-4.8) L 03/14/19 04:20 Abs Monocytes (Manual) 1.2 10^3/ul (0-0.8) H 03/14/19 04:20 Absolute Eos (Manual) 0.0 10^3/ul (0-0.6) 03/13/19 18:47 Abs Basophils (Manual) 0.0 10^3/ul (0-0.2) 03/13/19 18:47 Normal RBC Morphology Not Reportable 03/14/19 04:20 Polychromasia 1+ 03/14/19 04:20 Anisocytosis 1+ 03/13/19 18:47 INR (Anticoag Therapy) 1.07 (0.82-1.09) 03/14/19 04:20 APTT 32.7 seconds (26.0-38.0) 03/13/19 18:47 VBG pH 7.17 (7.32-7.43) L 03/14/19 00:30 VBG pCO2 35 mmHg (41-51) L 03/14/19 00:30 VBG pO2 38.0 mmHg (35-45) 03/14/19 00:30 VBG HCO3 12.5 mmol/L (24-28) L 03/14/19 00:30 VBG O2 Saturation 64.0 % (70-80) L 03/14/19 00:30 VBG Base Excess -14.8 mmol/L (0.0-4.0) L 03/14/19 00:30 Sodium 140 mmol/L (135-145) 03/17/19 06:03 Potassium 3.5 mmol/L (3.5-5.0) 03/17/19 06:03 Chloride 106 mmol/L (101-111) 03/17/19 06:03 Carbon Dioxide 26 mmol/L (22-32) 03/17/19 06:03 Anion Gap 8 mmol/L (2-11) 03/17/19 06:03 BUN 15 mg/dL (6-24) 03/17/19 06:03 Creatinine 0.50 mg/dL (0.67-1.17) L 03/17/19 06:03 Est GFR ( Amer) 196.1 (>60) 03/17/19 06:03 Est GFR (Non-Af Amer) 162.1 (>60) 03/17/19 06:03 BUN/Creatinine Ratio 30.0 (8-20) H 03/17/19 06:03 Glucose 260 mg/dL (70-100) H 03/17/19 06:03 POC Glucose (mg/dL) 317 mg/dL (70-100) H 03/17/19 12:05 Glucose Meter Confirm 362 mg/dL (70-100) H 03/16/19 20:52 Hemoglobin A1c 16.8 % (4.0-5.6) H 03/13/19 18:47 Lactic Acid 1.6 mmol/L (0.5-2.0) 03/13/19 18:47 Calcium 8.2 mg/dL (8.6-10.3) L 03/17/19 06:03 Phosphorus 3.6 mg/dL (2.5-5.0) 03/13/19 23:28 Magnesium 1.9 mg/dL (1.9-2.7) 03/14/19 04:20 Total Bilirubin 0.40 mg/dL (0.2-1.0) 03/16/19 06:18 AST 27 U/L (13-39) 03/16/19 06:18 ALT 18 U/L (7-52) 03/16/19 06:18 Alkaline Phosphatase 97 U/L (34-104) 03/16/19 06:18 Total Creatine Kinase 135 U/L (10-223) 03/13/19 18:47 Troponin I 0.04 ng/mL (<0.04) H* 03/14/19 02:02 C-Reactive Protein 362.53 mg/L (<8.01) H 03/13/19 18:47 B-Natriuretic Peptide 194 pg/mL (<=100) H 03/13/19 18:47 Total Protein 4.8 g/dL (6.4-8.9) L 03/16/19 06:18 Albumin 2.1 g/dL (3.2-5.2) L 03/16/19 06:18 Globulin 2.7 g/dL (2-4) 03/16/19 06:18 Albumin/Globulin Ratio 0.8 (1-3) L 03/16/19 06:18 Prealbumin < 3 mg/dL (18-38) L 03/13/19 18:47 Triglycerides 65 mg/dL 03/14/19 04:20 Cholesterol 124 mg/dL 03/14/19 04:20 LDL Cholesterol 48 mg/dL 03/14/19 04:20 HDL Cholesterol 62.8 mg/dL 03/14/19 04:20 Vitamin B12 > 1450 pg/mL (180-914) H 03/13/19 18:47 Folate 13.17 ng/mL (>3.99) 03/13/19 18:47 TSH 1.11 mcIU/mL (0.34-5.60) 03/13/19 18:47 Urine Color Straw 03/13/19 21:54 Urine Appearance Clear 03/13/19 21:54 Urine pH 5.0 (5-9) 03/13/19 21:54 Ur Specific [place] 1.023 (1.010-1.030) 03/13/19 21:54 Urine Protein Negative (Negative) 03/13/19 21:54 Urine Ketones 2+ (Negative) A 03/13/19 21:54 Urine Blood 2+ (Negative) A 03/13/19 21:54 Urine Nitrate Negative (Negative) 03/13/19 21:54 Urine Bilirubin Negative (Negative) 03/13/19 21:54 Urine Urobilinogen Negative (Negative) 03/13/19 21:54 Ur Leukocyte Esterase Negative (Negative) 03/13/19 21:54 Urine WBC (Auto) Trace(0-5/hpf) (Absent) 03/13/19 21:54 Urine RBC (Auto) Trace(0-2/hpf) (Absent) 03/13/19 21:54 Urine Bacteria Absent (Absent) 03/13/19 21:54 Hyaline Casts Present (Absent) A 03/13/19 21:54 Urine Glucose 3+(>=500 mg/dl) (Negative) A 03/13/19 21:54 Vancomycin Trough 13.1 mcg/mL 03/17/19 09:03 Salicylates 15.50 mg/dL (<30) 03/13/19 18:47 Urine Opiates Screen None detected (None Detect) 03/13/19 21:54 Ur Barbiturates Screen None detected (None Detect) 03/13/19 21:54 Ur Phencyclidine Scrn None detected (None Detect) 03/13/19 21:54 Ur Amphetamines Screen None detected (None Detect) 03/13/19 21:54 U Benzodiazepines Scrn None detected (None Detect) 03/13/19 21:54 Urine Cocaine Screen None detected (None Detect) 03/13/19 21:54 U Cannabinoids Screen None detected (None Detect) 03/13/19 21:54 Serum Alcohol < 10 mg/dL (<10) 03/13/19 18:47 Vital Signs Temp 98.1 F 03/17/19 11:22 Pulse 102 03/17/19 11:22 Resp 18 03/17/19 13:23 BP 133/76 03/17/19 11:22 Pulse Ox 95 03/17/19 11:22 Intake & Output 03/16/19 03/17/19 03/17/19 18:59 06:59 18:59 Intake Total 2589 1720 240 Output Total 1825 600 700 Balance 764 1120 -460 Intake: IV Fluids 975 1000 LR 975 1000 IVPB 424 ABX - CEFEPIME 54 ABX - FLAGYL 105 ABX - VANCOMYCIN 265 Oral 1190 720 240 Output: Urine 1825 600 700
--- NOTE | 2019-03-17 18:02 | PN ---
Subjective Date of Service: 03/17/19 Interval History: Pt is sitting up in chair, states that he is happy to be moving/transferring. He admits to feeling "humiliated" because he is unable to walk currently and he feels a loss of autonomy. Despite this, he is more pleasant and interactive than yesterday. He denies CP, abd pain, n/c/d. He c/o LLE pain, but states that it is relatively well controlled with pain medications. Objective Active Medications: Acetaminophen (Tylenol Tab*) 650 mg PO Q4H PRN Chlorpromazine HCl (Thorazine Tab*) 50 mg PO Q6H PRN Dextrose (D50w Syringe 50 Ml*) 12.5 gm IV PUSH .FOR FS < 60 - SS PRN Enoxaparin Sodium (Lovenox(*)) 40 mg SUBCUT 0900 [facility] Cefepime HCl (Maxipime 2 Gm In Dextrose Duplex (*)) 2 gm in 50 mls @ 100 mls/ hr IV Q12H [facility] Metronidazole/Sodium Chloride (Flagyl 500 Mg Ivpb*) 500 mg in 100 mls @ 100 mls /hr IVPB Q12H [facility] Vancomycin HCl 1,000 mg/ (Sodium Chloride) 250 mls @ 166.667 mls/hr IVPB Q8H [facility] Lactated Ringer's (Lactated Ringers 1000 Ml Bag*) 1,000 mls @ 100 mls/hr IV PER RATE [facility] Insulin Glargine (Lantus(*)) 20 units SUBCUT Q24H [facility] Insulin Human Lispro (Humalog*) 0 units SUBCUT ACHS [facility]; Protocol Insulin Human Lispro (Humalog*) 0 units SUBCUT AC [facility]; Protocol Melatonin (Melatonin) 3 mg PO BEDTIME PRN Mirtazapine (Remeron Tab*) 15 mg PO BEDTIME [facility] Oxycodone/Acetaminophen (Percocet 5/325 Tab*) 1 tab PO Q4H PRN Pharmacy Consult (Vancomycin Per Pharmacy*) 1 note FOLLOW UP . PRN Pharmacy Profile Note (Vancomycin Trough Check) 1 note FOLLOW UP ONCE ONE Vital Signs: Temp Pulse Resp BP Pulse Ox 97.7 F 95 18 129/72 98 03/17/19 15:03/17/19 15:03/17/19 17:07 03/17/19 15:03/17/19 15:09 Oxygen Devices in Use Now: None Appearance: Pt is sitting up in chair with LE elevated. He is pleasant, cooperative, and in better spirits than the day prior. He appears to be in no acute distress. Eyes: No Scleral Icterus, PERRLA Ears/Nose/Mouth/Throat: NL Teeth, Lips, Gums Neck: NL Appearance and Movements; NL JVP, Trachea Midline Respiratory: Symmetrical Chest Expansion and Respiratory Effort, Clear to Auscultation Cardiovascular: NL Sounds; No Murmurs; No JVD, RRR, No Edema Abdominal: NL Sounds; No Tenderness; No Distention, No Hepatosplenomegaly Extremities: No Edema, No Clubbing, Cyanosis, - - LLE wrapped with CDI dressing Neurological: Alert and Oriented x 3 Result Diagrams: 03/17/19 06:03 03/17/19 06:03 Microbiology and Other Data: Microbiology 03/13/19 18:22 Skin and Soft Tissue MRSA/MSSA (PCR - Final Foot Left Mrsa Positive S.aureus Positive Gram Stain - Final 03/13/19 18:48 Aerobic Blood Culture - Preliminary Blood Venous Anaerobic Blood Culture - Preliminary 03/13/19 18:48 Aerobic Blood Culture - Preliminary Blood Venous Anaerobic Blood Culture - Preliminary Blood MRSA/MSSA (PCR) - Final Mrsa Negative S.aureus Negative Diagnostic Imaging: Patient Name: CONOR HERNANDEZ Medical Record#: [id number] Ordering Physician: Nadja Martinez MD Acct.#: [id number] : 1945 Age: 74 Sex: M Location: EMERGENCY DEPARTMENT Exam Date: 03/13/191841 ADM Status: REG ER Order Information: CT EXTREMITY LOWER LEFT WO Accession Number: [id number] CPT: 01283 EXAM: CT Left Lower Extremity Without Contrast, Foot EXAM DATE/TIME: 03/13/2019 7:38 PM CLINICAL HISTORY: 74 years old, male; Signs and symptoms; Other: Wound left great toe; Additional info: Wound left great toe, ? osteomyelitis TECHNIQUE: Imaging protocol: CT of the Left lower extremity without contrast was performed. Exam focused on the foot. Coronal and sagittal reformatted images were created and reviewed. Radiation optimization: All CT scans at this facility use at least one of these dose optimization techniques: automated exposure control; mA and/or kV adjustment per patient size (includes targeted exams where dose is matched to clinical indication); or iterative reconstruction. COMPARISON: No relevant prior studies available. FINDINGS: Bones/joints: Limited degenerative change elsewhere. Soft tissues: Soft tissue swelling surrounding the hallux valgus deformity at the first MTP. There are tiny bits of gas around the joint laterally and tiny foci of possible intra-articular gas in the dorsal aspect of the base of the proximal phalanx. Findings are highly suspicious for osteomyelitis and surrounding cellulitis. Difficult to assess for abscess without contrast. IMPRESSION: Soft tissue swelling surrounding the hallux valgus deformity at the first MTP. There are tiny bits of gas around the joint laterally and tiny foci of possible intra-articular gas in the dorsal aspect of the base of the proximal phalanx. Findings are highly suspicious for osteomyelitis and surrounding cellulitis. Difficult to assess for abscess without contrast. To contact [facility] with a general question: [facility] - [phone] For direct physician to physician contact: Physician Hotline - [phone] [facility] ([facility] Facility ID #[id number]) <Electronically signed by Ag Suarez MD in OV> 03/13/192054 Dictated By: Ag Suarez MD Dictated Date/Time: 03/13/192054 Transcribed Date/Time: This report is only to be considered final once signed by the Provider(s) as displayed in the "<Electronically Signed by >" field (s). Absence of a signature indicates the report is in a draft status and still needs to be finalized. In the event this document was created by someone other than the signing Provider, the individual initiating the document will be listed in the "Entered by:" or "Dictated by:" leonard. 1 of 2 *[facility]* [place] [address] Fax #: [phone] Transesophageal Echocardiogram Patient: Parviz, Height: 66.1 in / Conor 168 cm : 1945 Weight: 123.2 lb / Study Date: 03/14/2019 56 kg Age: 74 BP: 126 / 68 Gender: M BMI/BSA: 19.8 kg/m^2 HR: 96 bpm / 1.61 m^2 *Group Work Program Aide: * Lisa Potts [facility] *Referring Physician: * Dixie Hernandez *Reading Physician: * Wild Ruffin MD Indications: Bacteremia. History: Atrioventricular block. Risk factors: Diabetes mellitus. Labs, prior tests, procedures, and surgery: ICD system implantation. Conclusions Summary: 1. Left ventricle: Systolic function is mildly reduced. The estimated ejection fraction is 40-45%. 2. Right ventricle: Pacer wire noted in the right ventricle with no evidence of vegetations Systolic function is normal. 3. Atrial septum: A PFO is not demonstrated by color Doppler or agitated saline contrast. 4. Mitral valve: There is no evidence of a vegetation. There is mild regurgitation. 5. Aortic valve: There is no evidence of a vegetation. There is no significant regurgitation. This report is only to be considered final once signed by the Provider(s) as displayed in the "<Electronically Signed by >" field (s). Absence of a signature indicates the report is in a draft status and still needs to be finalized. In the event this document was created by someone other than the signing Provider, the individual initiating the document will be listed in the "Entered by:" or "Dictated by:" leonard. Assess/Plan/Problems-Billing This is a 74yo M who [place] and not sought any medical care since his last admission in 01/2018. He presented to the ER with complaints of generalized weakness, decreased appetite and L foot wound and was found to be septic secondary to likely osteomyelitis of the L distal foot and in what was initially thought to be starvation ketosis. - Patient Problems (1) Osteomyelitis of ankle or foot, acute Comment: - POD2 midfoot amputation with Dr. Hernandez - ID following, continue vanco, cefepime and flagyl - Positive for MRSA, strep and citrobacter, abx per ID - POC per ortho - PT/OT - MRI cannot be performed, due to [employer] pacemaker (2) Uncontrolled type II diabetes mellitus Comment: - Off insulin drip, no DKA at admission; BS remain uncontrolled - Needs tight glycemic control for wound healing - Increase Lantus from 12 to 20 units - Continue lispr SS with added 1 unit/10g carbs - Dr. Peralta to see tomorrow a.m. (3) Back pain Comment: -Back pain -CT T, L spine (4) Decubitus ulcer Comment: -Sacral wound, appx 1.5cm in length -Barrier cream -Continue to monitor (5) Elevated troponin Comment: - Likely secondary to demand ischemia in presence of sepsis - ECHO as above, systolic dysfunction and reduced EF 40-45% - Monitor for fluid overload (6) DVT prophylaxis Comment: - Lovenox SQ (7) DNR (do not resuscitate) Status and Disposition: Inpatient, downgrade from ICU to surgical short stay on tele.
[2019-03-17] MEDS ORDERED: Iodixanol* (CONTRAST) 320 MG/ML 100 ML SDV IV ONE (19:26)
[2019-03-17] MEDS: Mirtazapine TAB* 15 MG PO SCH (21:50)
[2019-03-18] MEDS: metroNIDAZOLE IV 500 MG/100ML* 500 MG/100 ML BAG IVPB SCH ×2 (00:41→14:15)
[2019-03-18] MEDS: OXYMETAZOLINE 0.05% BOTH NARES SCH ×3 (00:41→20:25)
[2019-03-18] MEDS: Vancomycin(*) 1,000 MG in NS 0.9% 250 ML* 250 ML IVPB SCH ×3 (02:53→17:59)
[2019-03-18] MEDS: oxyCODONE/Acetamin 5/325 MG* TAB PO PRN ×2 (07:17→20:13)
--- NOTE | 2019-03-18 09:12 | CONSULT ---
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 He has been unable to self-manage his medical conditions up to this point and is undomiciled. He will require a protective enviroment in the coming month(s) in order to regain control of diabetes and prevent further infectious/ischemic complications. Mental health ( SI) is a significant barrier to care at this time. I recommend once daily basal insulin and scheduled prandial insulin while he has nursing care. His insulin requirement is approximately 60 units/day = 1 unit /kg/day. Oral medications should be avoided while he has nursing care, but could be considered in the future. PLAN: - INCREASE insulin glargine to 30 units daily - START insulin lispro 10 units with meals - CHANGE insulin lispro sliding scale to 2 units/50mg/dL for BG>200mg/dL - continue the above regimen while patient remains inpatient or resident of SNF - if BG<200 consistently as inpatient, start glipizide XL 10mg QAM at discharge (in place of insulin lispro) - start metformin ER 750mg daily at bedtime at discharge SUBJECTIVE: History of Present Illness: 74 yo M with history of diabetes complicated by neuropathy, CAD and retinopathy, now admitted for LLE osteomyelitis and ketosis- prone type 2 diabetes. A1c was 16.8% on admission. He was diagnosed with T2DM in 2016 and has never used oral or injectable therapies to control blood glucose since then. His disease is complicated by neuropathy, CAD and presumed retinopathy. Past Medical History: 1. AV Block s/p pacemaker 2. T2DM 3. VTE Medications Prior to Admission: None Inpatient Medications: Acetaminophen (Tylenol Tab*) 650 mg PO Q4H PRN PRN Reason: FEVER/PAIN Last Admin: 03/17/19 03:27 Dose: 650 mg Chlorpromazine HCl (Thorazine Tab*) 50 mg PO Q6H PRN PRN Reason: HICCUPS Last Admin: 03/15/19 16:18 Dose: 50 mg Dextrose (D50w Syringe 50 Ml*) 12.5 gm IV PUSH .FOR FS < 60 - SS PRN PRN Reason: FS < 60 Enoxaparin Sodium (Lovenox(*)) 40 mg SUBCUT 0900 [facility] Last Admin: 03/17/19 09:22 Dose: 40 mg Cefepime HCl (Maxipime 2 Gm In Dextrose Duplex (*)) 2 gm in 50 mls @ 100 mls/ hr IV Q12H [facility] Last Admin: 03/17/19 22:14 Dose: 100 mls/hr Metronidazole/Sodium Chloride (Flagyl 500 Mg Ivpb*) 500 mg in 100 mls @ 100 mls /hr IVPB Q12H [facility] Last Admin: 03/18/19 00:41 Dose: 100 mls/hr Vancomycin HCl 1,000 mg/ (Sodium Chloride) 250 mls @ 166.667 mls/hr IVPB Q8H [facility] Last Admin: 03/18/19 02:53 Dose: 166.667 mls/hr Lactated Ringer's (Lactated Ringers 1000 Ml Bag*) 1,000 mls @ 100 mls/hr IV PER RATE [facility] Last Admin: 03/17/19 17:53 Dose: 100 mls/hr Insulin Glargine (Lantus(*)) 20 units SUBCUT Q24H [facility] Last Admin: 03/17/19 09:22 Dose: 20 units Insulin Human Lispro (Humalog*) 0 units SUBCUT ACHS [facility]; Protocol Last Admin: 03/17/19 21:51 Dose: 4 units Insulin Human Lispro (Humalog*) 0 units SUBCUT AC [facility]; Protocol Last Admin: 03/17/19 17:53 Dose: 4 units Melatonin (Melatonin) 3 mg PO BEDTIME PRN PRN Reason: SLEEP Last Admin: 03/15/19 02:02 Dose: 3 mg Mirtazapine (Remeron Tab*) 15 mg PO BEDTIME [facility] Last Admin: 03/17/19 21:50 Dose: 15 mg Oxycodone/Acetaminophen (Percocet 5/325 Tab*) 1 tab PO Q4H PRN PRN Reason: PAIN Last Admin: 03/18/19 07:17 Dose: 1 tab Oxymetazoline HCl (Afrin 0.05% Nasal [place]*) 2 spray BOTH NARES BID [facility] Last Admin: 03/18/19 00:41 Dose: 1 drop Pharmacy Consult (Vancomycin Per Pharmacy*) 1 note FOLLOW UP . PRN PRN Reason: PER PROTOCOL Pharmacy Profile Note (Vancomycin Trough Check) 1 note FOLLOW UP ONCE ONE Stop: 03/19/19 09:31 Allergies/Intolerances: NKDA. Social History: Homeless. Denies alcohol, tobacco or drugs. Originally from [place], moved to [place] in 2003. Family History: Diabetes. Review of Systems: As above. OBJECTIVE: Temp Pulse Resp BP Pulse Ox 98.5 F 93 16 118/57 93 03/18/19 03:22 03/18/19 03:22 03/18/19 07:17 03/18/19 03:22 03/18/19 03:22 General: alert, pleasant, oriented, no distress ENT: neck supple, no thyromegaly, no bruit is heard Chest: CTAB, no wheezing or crackles CV: RRR, no murmur Abdomen: soft, non-tender Extremities: no edema, distal pulses intact in RLE, LLE dressing/bandage in place Skin: warm, dry, no rash Neuro: grossly intact motor/sensory in extremities Psych: restricted affect, pleasant Labs: WBC 10.1 10^3/uL (3.5-10.8) 03/17/19 06:03 RBC 4.42 10^6 /uL (4.18-5.48) 03/17/19 06:03 Hgb 13.3 g/dL (14.0-18.0) L 03/17/19 06:03 Hct 40 % (42-52) L 03/17/19 06:03 MCV 90 fL (80-94) 03/17/19 06:03 MCH 30 pg (27-31) 03/17/19 06:03 MCHC 34 g/dL (31-36) 03/17/19 06:03 RDW 13 % (10.5-15) 03/17/19 06:03 Plt Count 227 10^3/uL (150-450) 03/17/19 06:03 MPV 8.0 fL (7.4-10.4) 03/17/19 06:03 Neut % (Auto) 78.4 % 03/17/19 06:03 Lymph % (Auto) 10.8 % 03/17/19 06:03 [place] % (Auto) 9.7 % 03/17/19 06:03 Eos % (Auto) 0.8 % 03/17/19 06:03 Baso % (Auto) 0.3 % 03/17/19 06:03 Absolute Neuts (auto) 7.9 10^3/ul (1.5-7.7) H 03/17/19 06:03 Absolute Lymphs (auto) 1.1 10^3/ul (1.0-4.8) 03/17/19 06:03 Absolute Monos (auto) 1.0 10^3/ul (0-0.8) H 03/17/19 06:03 Absolute Eos (auto) 0.1 10^3/ul (0-0.6) 03/17/19 06:03 Absolute Basos (auto) 0.0 10^3/ul (0-0.2) 03/17/19 06:03 Absolute Nucleated RBC 0.0 10^3/ul 03/17/19 06:03 Immature Gran % 28.0 % (0-9) H 03/14/19 04:20 Neutrophils % 64.0 % 03/14/19 04:20 Band Neutrophils % 25.0 % (0-8) H 03/14/19 04:20 Lymphocytes % 1.0 % 03/14/19 04:20 Monocytes % 7.0 % 03/14/19 04:20 Eosinophils % 0.0 % 03/13/19 18:47 Basophils % 0.0 % 03/13/19 18:47 Metamyelocytes % 3.0 % (0-2) H 03/14/19 04:20 Nucleated RBC % 0.1 03/17/19 06:03 Abs Neuts (Manual) 16.1 10^3/ul (1.5-7.7) H 03/14/19 04:20 Abs Lymphs (Manual) 0.2 10^3/ul (1.0-4.8) L 03/14/19 04:20 Abs Monocytes (Manual) 1.2 10^3/ul (0-0.8) H 03/14/19 04:20 Absolute Eos (Manual) 0.0 10^3/ul (0-0.6) 03/13/19 18:47 Abs Basophils (Manual) 0.0 10^3/ul (0-0.2) 03/13/19 18:47 Normal RBC Morphology Not Reportable 03/14/19 04:20 Polychromasia 1+ 03/14/19 04:20 Anisocytosis 1+ 03/13/19 18:47 INR (Anticoag Therapy) 1.07 (0.82-1.09) 03/14/19 04:20 APTT 32.7 seconds (26.0-38.0) 03/13/19 18:47 VBG pH 7.17 (7.32-7.43) L 03/14/19 00:30 VBG pCO2 35 mmHg (41-51) L 03/14/19 00:30 VBG pO2 38.0 mmHg (35-45) 03/14/19 00:30 VBG HCO3 12.5 mmol/L (24-28) L 03/14/19 00:30 VBG O2 Saturation 64.0 % (70-80) L 03/14/19 00:30 VBG Base Excess -14.8 mmol/L (0.0-4.0) L 03/14/19 00:30 Sodium 140 mmol/L (135-145) 03/17/19 06:03 Potassium 3.5 mmol/L (3.5-5.0) 03/17/19 06:03 Chloride 106 mmol/L (101-111) 03/17/19 06:03 Carbon Dioxide 26 mmol/L (22-32) 03/17/19 06:03 Anion Gap 8 mmol/L (2-11) 03/17/19 06:03 BUN 15 mg/dL (6-24) 03/17/19 06:03 Creatinine 0.50 mg/dL (0.67-1.17) L 03/17/19 06:03 Est GFR ( Amer) 196.1 (>60) 03/17/19 06:03 Est GFR (Non-Af Amer) 162.1 (>60) 03/17/19 06:03 BUN/Creatinine Ratio 30.0 (8-20) H 03/17/19 06:03 Glucose 260 mg/dL (70-100) H 03/17/19 06:03 POC Glucose (mg/dL) 310 mg/dL (70-100) H 03/18/19 07:21 Glucose Meter Confirm 362 mg/dL (70-100) H 03/16/19 20:52 Hemoglobin A1c 16.8 % (4.0-5.6) H 03/13/19 18:47 Lactic Acid 1.6 mmol/L (0.5-2.0) 03/13/19 18:47 Calcium 8.2 mg/dL (8.6-10.3) L 03/17/19 06:03 Phosphorus 3.6 mg/dL (2.5-5.0) 03/13/19 23:28 Magnesium 1.9 mg/dL (1.9-2.7) 03/14/19 04:20 Total Bilirubin 0.40 mg/dL (0.2-1.0) 03/16/19 06:18 AST 27 U/L (13-39) 03/16/19 06:18 ALT 18 U/L (7-52) 03/16/19 06:18 Alkaline Phosphatase 97 U/L (34-104) 03/16/19 06:18 Total Creatine Kinase 135 U/L (10-223) 03/13/19 18:47 Troponin I 0.04 ng/mL (<0.04) H* 03/14/19 02:02 C-Reactive Protein 362.53 mg/L (<8.01) H 03/13/19 18:47 B-Natriuretic Peptide 194 pg/mL (<=100) H 03/13/19 18:47 Total Protein 4.8 g/dL (6.4-8.9) L 03/16/19 06:18 Albumin 2.1 g/dL (3.2-5.2) L 03/16/19 06:18 Globulin 2.7 g/dL (2-4) 03/16/19 06:18 Albumin/Globulin Ratio 0.8 (1-3) L 03/16/19 06:18 Prealbumin < 3 mg/dL (18-38) L 03/13/19 18:47 Triglycerides 65 mg/dL 03/14/19 04:20 Cholesterol 124 mg/dL 03/14/19 04:20 LDL Cholesterol 48 mg/dL 03/14/19 04:20 HDL Cholesterol 62.8 mg/dL 03/14/19 04:20 Vitamin B12 > 1450 pg/mL (180-914) H 03/13/19 18:47 Folate 13.17 ng/mL (>3.99) 03/13/19 18:47 TSH 1.11 mcIU/mL (0.34-5.60) 03/13/19 18:47 Urine Color Straw 03/13/19 21:54 Urine Appearance Clear 03/13/19 21:54 Urine pH 5.0 (5-9) 03/13/19 21:54 Ur Specific [place] 1.023 (1.010-1.030) 03/13/19 21:54 Urine Protein Negative (Negative) 03/13/19 21:54 Urine Ketones 2+ (Negative) A 03/13/19 21:54 Urine Blood 2+ (Negative) A 03/13/19 21:54 Urine Nitrate Negative (Negative) 03/13/19 21:54 Urine Bilirubin Negative (Negative) 03/13/19 21:54 Urine Urobilinogen Negative (Negative) 03/13/19 21:54 Ur Leukocyte Esterase Negative (Negative) 03/13/19 21:54 Urine WBC (Auto) Trace(0-5/hpf) (Absent) 03/13/19 21:54 Urine RBC (Auto) Trace(0-2/hpf) (Absent) 03/13/19 21:54 Urine Bacteria Absent (Absent) 03/13/19 21:54 Hyaline Casts Present (Absent) A 03/13/19 21:54 Urine Glucose 3+(>=500 mg/dl) (Negative) A 03/13/19 21:54 Vancomycin Trough 13.1 mcg/mL 03/17/19 09:03 Salicylates 15.50 mg/dL (<30) 03/13/19 18:47 Urine Opiates Screen None detected (None Detect) 03/13/19 21:54 Ur Barbiturates Screen None detected (None Detect) 03/13/19 21:54 Ur Phencyclidine Scrn None detected (None Detect) 03/13/19 21:54 Ur Amphetamines Screen None detected (None Detect) 03/13/19 21:54 U Benzodiazepines Scrn None detected (None Detect) 03/13/19 21:54 Urine Cocaine Screen None detected (None Detect) 03/13/19 21:54 U Cannabinoids Screen None detected (None Detect) 03/13/19 21:54 Serum Alcohol < 10 mg/dL (<10) 03/13/19 18:47
[2019-03-18] MEDS: Insulin GLARGINE(*) 1 UNITS UNIT SUBCUT SCH (10:23)
[2019-03-18] MEDS: Insulin LISPRO* 1 UNITS UNIT SUBCUT SCH ×7 (10:24→20:18)
[2019-03-18] MEDS: Enoxaparin(*) 40 MG/0.4 ML SYR SUBCUT SCH (10:24)
--- NOTE | 2019-03-18 12:18 | PN ---
Progress Note - Progress Note Date of Service: 03/18/19 SOAP: Subjective: []Patient seen OOB in chair. He is upset that he has been waiting for breakfast. He denies foot pain. Objective: [] Vital Signs Temp 98.0 F 03/18/19 11:32 Pulse 95 03/18/19 11:32 Resp 18 03/18/19 11:32 BP 117/58 03/18/19 11:32 Pulse Ox 97 03/18/19 11:32 Intake & Output 03/17/19 03/18/19 03/18/19 18:59 06:59 18:59 Intake Total 2453 300 Output Total 1400 1050 800 Balance 1053 -750 -800 Weight 132 lb Intake: IV Fluids 998 LR 998 IVPB 415 ABX - CEFEPIME 55 ABX - FLAGYL 100 ABX - VANCOMYCIN 260 Oral 1040 300 Output: Urine 1400 1050 800 Other: # Bowel Movements 0 Laboratory Results - last 24 hr 03/17/19 03/17/19 03/17/19 12:05 17:00 21:01 POC Glucose (mg/dL) 317 H 266 H 344 H 03/18/19 07:21 POC Glucose (mg/dL) 310 H Microbiology 03/15/19 11:53 Anaerobic Culture - Preliminary Wound - Other 03/15/19 11:53 Skin and Soft Tissue MRSA/MSSA (PCR - Final Foot Left Mrsa Negative S.aureus Negative Gram Stain - Final Wound Culture - Preliminary Strep Agalactiae - (Group B) 03/13/19 18:22 Skin and Soft Tissue MRSA/MSSA (PCR - Final Foot Left Mrsa Positive S.aureus Positive Gram Stain - Final Wound Culture - Final Citrobacter Braakii Alcaligenes Species Strep Agalactiae - (Group B) MRSA 03/13/19 18:48 Aerobic Blood Culture - Final Blood Venous Strep Agalactiae - (Group B) Anaerobic Blood Culture - Final 03/13/19 18:48 Aerobic Blood Culture - Final Blood Venous Strep Agalactiae - (Group B) Anaerobic Blood Culture - Final Strep Agalactiae - (Group B) Blood MRSA/MSSA (PCR) - Final Mrsa Negative S.aureus Negative 03/13/19 21:54 Urine Culture - Final Urine LLE dressings / splint intact and dry Assessment: []s/p trans met amputation for infected foot POD #3 Plan: []NWB LLE Cefepime, Vanco, metronidazole abx SNF rehab when stable medically
[2019-03-18] MEDS: Cefepime 2 GM in Dextrose(*) 2 GM/50 ML BAG IV SCH ×2 (12:40→23:46)
[2019-03-18] MEDS ORDERED: Dextrose 50% Syringe 50 ML* 25 GM/50 ML SYRINGE IV PUSH PRN (13:37)
--- NOTE | 2019-03-18 14:02 | CONSULT ---
Identification - Patient Identification Reason for Psychiatric Consultation: Suicidal Ideation -: Patient is a 74 year old, M admitted on 03/13/19. - MHU Identification Employment Status: Disabled Hx Psychiatric Hospitalization: No History - Objective HPI: Mr. Jj is seen again for psychiatric follow up this afternoon on . He appears to have a bright affect and welcomes me in, saying "Don't tell anybody, but I think there's been a little change in my attitude." He goes on to tell me that he has reconsidered his plan to kill himself after discharge. "I feel better...I don't know why." Conor has been adherent with scheduled mirtazapine at night. His eating and sleeping behaviors are markedly improved over admission. He is future-oriented, reporting that he is willing to go to rehab and seek suitable housing thereafter, perhaps in an SNF environment. He has some back pain but no other complaints. Exam Appearance: Well Developed/Nourished Hygiene: Normal Grooming: Fairly Well Kept Psychomotor Activities: Normal Exhibits Abnormal Movement: No Attitude and Relatedness: Cooperative Eye Contact: Good - Speech Quality: Unpressured Latencies: Normal Quantity: Appropriate Patient's Decription of Mood: "Good" Observed Affect: Good Affect Consistent with: Euthymia Patient's Thought Process: Coherent Thought Content: No Passive Wish, No Suicidal Planning, No Homicidal Ideation, No Paranoid Ideation Experiencing Hallucinations: No, Sensorium is Clear Type of Hallucinations: Visual: No, Auditory: No, Command: No Level of Consciousness: Alert Orientation: Yes Intact, Yes Orientated to Time, Yes Orientated to Place, Yes Orientated to Person Impulse Control: Tenuous Insight and Judgement: Fair Impression - Impression Clinical Impression: 74 y.o. , homeless, white male with a complicated medical history but no formal psychiatric diagnosis or treatment in the past, who is admitted to the Hospitalist service for medical and surgical treatment of severe osteomylitis of his left foot. The patient has made several active suicidal statements that are intermediate, rather than acute in nature and he is quite clinically depressed. Inpatient DSM-V Dx: F32.2 Merits Inpatient Hospitalization: No [facility]: Problem List - Patient Problems (1) MDD (major depressive disorder), single episode, severe Current Visit: Yes Status: Acute Priority: High Code(s): F32.2 - MAJOR DEPRESSV DISORD, SINGLE EPSD, SEV W/O PSYCH FEATURES SNOMED Code(s): 360091219062 Plan - Treatment Plan Treatment Plan: The patient is steadily improving from a psychiatric perspective. He seems to be responding well to several factors, not the least of which is the excellent care he is receiving [facility]. Additionally, having his medical issues (pain , glucose control, infectious illness) better controlled is also benefiting his mood. We started mirtazapine 15mg PO qhs earlier this week and he is tolerating it well. We are no longer considering transfer to [facility] at this time. Patient instead is awaiting [facility] placement. Psychiatry will continue to follow. Continued Medication Management: Start Medication Medications: Current Medications Acetaminophen (Tylenol Tab*) 650 mg PO Q4H PRN PRN Reason: FEVER/PAIN Last Admin: 03/17/19 03:27 Dose: 650 mg Chlorpromazine HCl (Thorazine Tab*) 50 mg PO Q6H PRN PRN Reason: HICCUPS Last Admin: 03/15/19 16:18 Dose: 50 mg Dextrose (D50w Syringe 50 Ml*) 12.5 gm IV PUSH .FOR FS < 60 - SS PRN PRN Reason: FS < 60 Dextrose (D50w Syringe 50 Ml*) 12.5 gm IV PUSH .FOR FS < 60 - SS PRN PRN Reason: FS < 60 Enoxaparin Sodium (Lovenox(*)) 40 mg SUBCUT 0900 [facility] Last Admin: 03/18/19 10:24 Dose: 40 mg Cefepime HCl (Maxipime 2 Gm In Dextrose Duplex (*)) 2 gm in 50 mls @ 100 mls/ hr IV Q12H [facility] Last Admin: 03/18/19 12:40 Dose: 100 mls/hr Metronidazole/Sodium Chloride (Flagyl 500 Mg Ivpb*) 500 mg in 100 mls @ 100 mls /hr IVPB Q12H [facility] Last Admin: 03/18/19 00:41 Dose: 100 mls/hr Vancomycin HCl 1,000 mg/ (Sodium Chloride) 250 mls @ 166.667 mls/hr IVPB Q8H [facility] Last Admin: 03/18/19 10:25 Dose: 166.667 mls/hr Lactated Ringer's (Lactated Ringers 1000 Ml Bag*) 1,000 mls @ 100 mls/hr IV PER RATE [facility] Last Admin: 03/17/19 17:53 Dose: 100 mls/hr Insulin Glargine (Lantus(*)) 30 units SUBCUT Q24H [facility] Insulin Human Lispro (Humalog*) 10 units SUBCUT AC [facility] Insulin Human Lispro (Humalog*) 0 units SUBCUT ACHS [facility]; Protocol Melatonin (Melatonin) 3 mg PO BEDTIME PRN PRN Reason: SLEEP Last Admin: 03/15/19 02:02 Dose: 3 mg Mirtazapine (Remeron Tab*) 15 mg PO BEDTIME [facility] Last Admin: 03/17/19 21:50 Dose: 15 mg Oxycodone/Acetaminophen (Percocet 5/325 Tab*) 1 tab PO Q4H PRN PRN Reason: PAIN Last Admin: 03/18/19 07:17 Dose: 1 tab Oxymetazoline HCl (Afrin 0.05% Nasal [place]*) 2 spray BOTH NARES BID [facility] Last Admin: 03/18/19 10:25 Dose: Not Given Pharmacy Consult (Vancomycin Per Pharmacy*) 1 note FOLLOW UP . PRN PRN Reason: PER PROTOCOL Pharmacy Profile Note (Vancomycin Trough Check) 1 note FOLLOW UP ONCE ONE Stop: 03/19/19 09:31
--- NOTE | 2019-03-18 17:59 | PN ---
Subjective Date of Service: 03/18/19 Interval History: Pt mood improved today and yesterday. He seems more hopeful. L leg pain is controlled and no longer complaining of back pain. Denies CP, SOB, fever, cough , abd pain, n/v/d. Objective Active Medications: Acetaminophen (Tylenol Tab*) 650 mg PO Q4H PRN Chlorpromazine HCl (Thorazine Tab*) 50 mg PO Q6H PRN Dextrose (D50w Syringe 50 Ml*) 12.5 gm IV PUSH .FOR FS < 60 - SS PRN Dextrose (D50w Syringe 50 Ml*) 12.5 gm IV PUSH .FOR FS < 60 - SS PRN Enoxaparin Sodium (Lovenox(*)) 40 mg SUBCUT 0900 SEGUNDO Cefepime HCl (Maxipime 2 Gm In Dextrose Duplex (*)) 2 gm in 50 mls @ 100 mls/ hr IV Q12H SEGUNDO Metronidazole/Sodium Chloride (Flagyl 500 Mg Ivpb*) 500 mg in 100 mls @ 100 mls /hr IVPB Q12H SEGUNDO Vancomycin HCl 1,000 mg/ (Sodium Chloride) 250 mls @ 166.667 mls/hr IVPB Q8H SEGUNDO Lactated Ringer's (Lactated Ringers 1000 Ml Bag*) 1,000 mls @ 100 mls/hr IV PER RATE SEGUNDO Insulin Glargine (Lantus(*)) 30 units SUBCUT Q24H SEGUNDO Insulin Human Lispro (Humalog*) 10 units SUBCUT AC SEGUNDO Insulin Human Lispro (Humalog*) 0 units SUBCUT ACHS SEGUNDO; Protocol Melatonin (Melatonin) 3 mg PO BEDTIME PRN Mirtazapine (Remeron Tab*) 15 mg PO BEDTIME SEGUNDO Oxycodone/Acetaminophen (Percocet 5/325 Tab*) 1 tab PO Q4H PRN Oxymetazoline HCl (Afrin 0.05% Nasal [place]*) 2 spray BOTH NARES BID [facility] Pharmacy Consult (Vancomycin Per Pharmacy*) 1 note FOLLOW UP . PRN Pharmacy Profile Note (Vancomycin Trough Check) 1 note FOLLOW UP ONCE ONE Vital Signs: Temp Pulse Resp BP Pulse Ox 100 F 79 22 171/80 98 03/18/19 16:17 03/18/19 16:17 03/18/19 16:17 03/18/19 16:17 03/18/19 16:17 Oxygen Devices in Use Now: None Appearance: Pt is sittin gin bed with HOB and LE elevated. He is in no acute distress and appears comfortable. He is appropriate and cooperative. Eyes: No Scleral Icterus, PERRLA Ears/Nose/Mouth/Throat: NL Teeth, Lips, Gums, Mucous Membranes Moist Neck: NL Appearance and Movements; NL JVP, Trachea Midline Respiratory: Symmetrical Chest Expansion and Respiratory Effort, Clear to Auscultation Cardiovascular: NL Sounds; No Murmurs; No JVD, RRR, No Edema Abdominal: NL Sounds; No Tenderness; No Distention, No Hepatosplenomegaly Extremities: No Edema, No Clubbing, Cyanosis, - - L foot with CDI dressing in place. Neurological: Alert and Oriented x 3 Result Diagrams: 03/17/19 06:03 03/17/19 06:03 Microbiology and Other Data: Microbiology 03/13/19 18:22 Skin and Soft Tissue MRSA/MSSA (PCR - Final Foot Left Mrsa Positive S.aureus Positive Gram Stain - Final 03/13/19 18:48 Aerobic Blood Culture - Preliminary Blood Venous Anaerobic Blood Culture - Preliminary 03/13/19 18:48 Aerobic Blood Culture - Preliminary Blood Venous Anaerobic Blood Culture - Preliminary Blood MRSA/MSSA (PCR) - Final Mrsa Negative S.aureus Negative Diagnostic Imaging: Patient Name: CONOR HERNANDEZ Medical Record#: [id number] Ordering Physician: Nadja Martinez MD Acct.#: [id number] : 1945 Age: 74 Sex: M Location: EMERGENCY DEPARTMENT Exam Date: 03/13/191841 ADM Status: REG ER Order Information: CT EXTREMITY LOWER LEFT WO Accession Number: [id number] CPT: 61628 EXAM: CT Left Lower Extremity Without Contrast, Foot EXAM DATE/TIME: 03/13/2019 7:38 PM CLINICAL HISTORY: 74 years old, male; Signs and symptoms; Other: Wound left great toe; Additional info: Wound left great toe, ? osteomyelitis TECHNIQUE: Imaging protocol: CT of the Left lower extremity without contrast was performed. Exam focused on the foot. Coronal and sagittal reformatted images were created and reviewed. Radiation optimization: All CT scans at this facility use at least one of these dose optimization techniques: automated exposure control; mA and/or kV adjustment per patient size (includes targeted exams where dose is matched to clinical indication); or iterative reconstruction. COMPARISON: No relevant prior studies available. FINDINGS: Bones/joints: Limited degenerative change elsewhere. Soft tissues: Soft tissue swelling surrounding the hallux valgus deformity at the first MTP. There are tiny bits of gas around the joint laterally and tiny foci of possible intra-articular gas in the dorsal aspect of the base of the proximal phalanx. Findings are highly suspicious for osteomyelitis and surrounding cellulitis. Difficult to assess for abscess without contrast. IMPRESSION: Soft tissue swelling surrounding the hallux valgus deformity at the first MTP. There are tiny bits of gas around the joint laterally and tiny foci of possible intra-articular gas in the dorsal aspect of the base of the proximal phalanx. Findings are highly suspicious for osteomyelitis and surrounding cellulitis. Difficult to assess for abscess without contrast. To contact [facility] with a general question: [facility] - [phone] For direct physician to physician contact: Physician Hotline - [phone] [facility] ([facility] Facility ID #[id number]) <Electronically signed by Ag Suarez MD in OV> 03/13/192054 Dictated By: Ag Suarez MD Dictated Date/Time: 03/13/192054 Transcribed Date/Time: This report is only to be considered final once signed by the Provider(s) as displayed in the "<Electronically Signed by >" field (s). Absence of a signature indicates the report is in a draft status and still needs to be finalized. In the event this document was created by someone other than the signing Provider, the individual initiating the document will be listed in the "Entered by:" or "Dictated by:" leonard. 1 of 2 *[facility]* [place] [address] Fax #: [phone] Transesophageal Echocardiogram Patient: Parviz, Height: 66.1 in / Conor 168 cm : 1945 Weight: 123.2 lb / Study Date: 03/14/2019 56 kg Age: 74 BP: 126 / 68 Gender: M BMI/BSA: 19.8 kg/m^2 HR: 96 bpm / 1.61 m^2 *Body Service Team Member: * Lisa Potts [facility] *Referring Physician: * Dixie Hernandez *Reading Physician: * Wild Ruffin MD Indications: Bacteremia. History: Atrioventricular block. Risk factors: Diabetes mellitus. Labs, prior tests, procedures, and surgery: ICD system implantation. Conclusions Summary: 1. Left ventricle: Systolic function is mildly reduced. The estimated ejection fraction is 40-45%. 2. Right ventricle: Pacer wire noted in the right ventricle with no evidence of vegetations Systolic function is normal. 3. Atrial septum: A PFO is not demonstrated by color Doppler or agitated saline contrast. 4. Mitral valve: There is no evidence of a vegetation. There is mild regurgitation. 5. Aortic valve: There is no evidence of a vegetation. There is no significant regurgitation. This report is only to be considered final once signed by the Provider(s) as displayed in the "<Electronically Signed by >" field (s). Absence of a signature indicates the report is in a draft status and still needs to be finalized. In the event this document was created by someone other than the signing Provider, the individual initiating the document will be listed in the "Entered by:" or "Dictated by:" leonard. Assess/Plan/Problems-Billing This is a 74yo M who [place] and not sought any medical care since his last admission in 01/2018. He presented to the ER with complaints of generalized weakness, decreased appetite and L foot wound and was found to be septic secondary to likely osteomyelitis of the L distal foot and in what was initially thought to be starvation ketosis. - Patient Problems (1) Osteomyelitis of ankle or foot, acute Comment: - POD3 midfoot amputation with Dr. Hernandez - ID following, continue vanco, cefepime and flagyl - Positive for MRSA, strep and citrobacter, abx per ID - POC per ortho - PT/OT - MRI cannot be performed, due to [employer] pacemaker (2) Uncontrolled type II diabetes mellitus Comment: - Off insulin drip, no DKA at admission; BS remain uncontrolled - Needs tight glycemic control for wound healing - Dr. Peralta saw pt today; appreciate his recommendations: - Increase Lantus from 20 to 30 - Lispro 10U ac - Lispro 2U/50 for BS > 200 - Add metformin 750 at bedtime at discharge - If BS < 200 as inpatient, discharge on Glipizide XL [address] Lispro (3) Back pain Comment: -Back pain resolving -CT T, L spine show no abscess (4) Decubitus ulcer Comment: -Sacral wound, appx 1.5cm in length -Barrier cream -Continue to monitor (5) Elevated troponin Comment: - Likely secondary to demand ischemia in presence of sepsis - ECHO as above, systolic dysfunction and reduced EF 40-45% - Monitor for fluid overload (6) DVT prophylaxis Comment: - Lovenox SQ (7) DNR (do not resuscitate) Status and Disposition: Inpatient, downgrade from ICU to surgical short stay on tele.
[2019-03-18] MEDS ORDERED: Magnesium Hydroxide LIQ* 30 ML UDC PO PRN (20:11)
[2019-03-18] MEDS ORDERED: Docusate CAP* 100 MG PO PRN (20:11)
[2019-03-18] MEDS ORDERED: Senna TAB PO PRN (20:11)
[2019-03-18] MEDS: Mirtazapine TAB* 15 MG PO SCH (20:25)
[2019-03-18] MEDS: Lactated Ringers 1000 ML Bag* 1,000 ML IV SCH (20:30)
[2019-03-19] MEDS: metroNIDAZOLE IV 500 MG/100ML* 500 MG/100 ML BAG IVPB SCH ×2 (00:31→13:23)
[2019-03-19] MEDS: oxyCODONE/Acetamin 5/325 MG* TAB PO PRN ×3 (01:31→21:14)
[2019-03-19] MEDS: Vancomycin(*) 1,000 MG in NS 0.9% 250 ML* 250 ML IVPB SCH ×3 (02:22→17:33)
[2019-03-19] MEDS: Cyclobenzaprine TAB* 10 MG PO PRN (08:44)
[2019-03-19] MEDS: Enoxaparin(*) 40 MG/0.4 ML SYR SUBCUT SCH (08:44)
[2019-03-19] MEDS: OXYMETAZOLINE 0.05% BOTH NARES SCH ×2 (08:49→20:09)
[2019-03-19] MEDS ORDERED: Vancomycin Trough Check NOTE FOLLOW UP ONE (09:30)
[2019-03-19] MEDS: Insulin LISPRO* 1 UNITS UNIT SUBCUT SCH ×7 (09:41→21:39)
[2019-03-19] MEDS: Insulin GLARGINE(*) 1 UNITS UNIT SUBCUT SCH (09:42)
--- NOTE | 2019-03-19 10:10 | PN ---
Progress Note - Progress Note Date of Service: 03/19/19 SOAP: Subjective: [Pt reports minimal pain L LLE. Well-managed with po meds. Says flexeril is helpful. Reports some anxiety - "been staring at wall for 40 hours".] Objective: [A and O x 3. NAD L lower leg/foot splint, dressing C/D/I] Assessment: [s/p trans met amp for infected foot POD #4] Plan: [NWB LLE Cefepime, Vanco, metronidazole abx SNF rehab when medically stable]
[2019-03-19] MEDS: Lactated Ringers 1000 ML Bag* 1,000 ML IV SCH (10:19)
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
[2019-03-19] MEDS: LORazepam TAB(*) 0.5 MG PO PRN (11:08)
[2019-03-19] MEDS: Cefepime 2 GM in Dextrose(*) 2 GM/50 ML BAG IV SCH ×2 (12:27→23:14)
[2019-03-19] MEDS: Mirtazapine TAB* 15 MG PO SCH (20:09)
[2019-03-20] MEDS: metroNIDAZOLE IV 500 MG/100ML* 500 MG/100 ML BAG IVPB SCH ×2 (00:34→13:27)
[2019-03-20] MEDS: Vancomycin(*) 1,000 MG in NS 0.9% 250 ML* 250 ML IVPB SCH ×3 (01:53→18:00)
[2019-03-20] MEDS: Cyclobenzaprine TAB* 10 MG PO PRN ×3 (03:01→21:03)
[2019-03-20 05:03] LABS: ABS Eosinophils 0.2 10^3/ul (0-0.6); ABS Lymphocytes 1.5 10^3/ul (1.0-4.8); ABS Monocytes 0.6 10^3/ul (0-0.8); ABS Neutrophils 7.1 10^3/ul (1.5-7.7); Eosinophil % 1.7 %; Hematocrit 37 % (42-52); Hemoglobin 12.5 g/dL (14.0-18.0); Lymphocyte % 15.6 %; Mean Corpuscular HGB Conc 34 g/dL (31-36); Mean Corpuscular Hemoglobin 30 pg (27-31); Mean Corpuscular Volume 89 fL (80-94); Mean Platelet Volume 7.4 fL (7.4-10.4); Platelet Count 354 10^3/uL (150-450); Red Blood Count 4.19 10^6 /uL (4.18-5.48); Red Cell Distribution Width 13 % (10-15); White Blood Count 9.3 10^3/uL (3.5-10.8)
[2019-03-20 05:18] LABS: BUN/Creatinine Ratio 34.8 (8-20); Calcium 7.7 mg/dL (8.6-10.3); EGFR Non-African American 178.5 (>60); Potassium 3.3 mmol/L (3.5-5.0)
[2019-03-20] MEDS: oxyCODONE/Acetamin 5/325 MG* TAB PO PRN ×3 (07:34→23:21)
[2019-03-20] MEDS: LORazepam TAB(*) 0.5 MG PO PRN (07:35)
--- NOTE | 2019-03-20 08:39 | PN ---
Subjective Date of Service: 03/20/19 Interval History: no events overnight. Denies chest pain or shortness of breath. Denies abd pain n/v/d. Denies fever or chills. denies foot pain. No suicidal or homicidal ideation. Family History: Unchanged from Admission Social History: Unchanged from Admission Past Medical History: Unchanged from Admission Objective Active Medications: Acetaminophen (Tylenol Tab*) 650 mg PO Q4H PRN PRN Reason: FEVER/PAIN Last Admin: 03/17/19 03:27 Dose: 650 mg Chlorpromazine HCl (Thorazine Tab*) 50 mg PO Q6H PRN PRN Reason: HICCUPS Last Admin: 03/15/19 16:18 Dose: 50 mg Cyclobenzaprine HCl (Flexeril Tab*) 10 mg PO BID PRN PRN Reason: SPASMS Last Admin: 03/20/19 03:01 Dose: 10 mg Dextrose (D50w Syringe 50 Ml*) 12.5 gm IV PUSH .FOR FS < 60 - SS PRN PRN Reason: FS < 60 Dextrose (D50w Syringe 50 Ml*) 12.5 gm IV PUSH .FOR FS < 60 - SS PRN PRN Reason: FS < 60 Enoxaparin Sodium (Lovenox(*)) 40 mg SUBCUT 0900 [facility] Last Admin: 03/19/19 08:44 Dose: 40 mg Cefepime HCl (Maxipime 2 Gm In Dextrose Duplex (*)) 2 gm in 50 mls @ 100 mls/ hr IV Q12H [facility] Last Admin: 03/19/19 23:14 Dose: 100 mls/hr Metronidazole/Sodium Chloride (Flagyl 500 Mg Ivpb*) 500 mg in 100 mls @ 100 mls /hr IVPB Q12H [facility] Last Admin: 03/20/19 00:34 Dose: 100 mls/hr Vancomycin HCl 1,000 mg/ (Sodium Chloride) 250 mls @ 166.667 mls/hr IVPB Q8H [facility] Last Admin: 03/20/19 01:53 Dose: 166.667 mls/hr Insulin Glargine (Lantus(*)) 30 units SUBCUT Q24H [facility] Last Admin: 03/19/19 09:42 Dose: 30 units Insulin Human Lispro (Humalog*) 10 units SUBCUT AC [facility] Last Admin: 03/19/19 17:33 Dose: 10 units Insulin Human Lispro (Humalog*) 0 units SUBCUT ACHS [facility]; Protocol Last Admin: 03/19/19 21:39 Dose: Not Given Magnesium Hydroxide (Milk Of Magnesia Liq*) 30 ml PO Q6H PRN PRN Reason: CONSTIPATION Melatonin (Melatonin) 3 mg PO BEDTIME PRN PRN Reason: SLEEP Last Admin: 03/15/19 02:02 Dose: 3 mg Mirtazapine (Remeron Tab*) 15 mg PO BEDTIME [facility] Last Admin: 03/19/19 20:09 Dose: 15 mg Oxycodone/Acetaminophen (Percocet 5/325 Tab*) 1 tab PO Q4H PRN PRN Reason: PAIN Last Admin: 03/20/19 07:34 Dose: 1 tab Oxymetazoline HCl (Afrin 0.05% Nasal [place]*) 2 spray BOTH NARES BID [facility] Last Admin: 03/19/19 20:09 Dose: 2 drop Pharmacy Consult (Vancomycin Per Pharmacy*) 1 note FOLLOW UP . PRN PRN Reason: PER PROTOCOL Senna (Senokot Tab*) 2 tab PO BEDTIME PRN PRN Reason: CONSTIPATION Vital Signs - 8 hr 03/20/19 03/20/19 03/20/19 03:01 03:27 05:34 Temperature 97.8 F Pulse Rate 86 Respiratory 18 16 18 Rate Blood Pressure 130/75 (mmHg) O2 Sat by Pulse 94 Oximetry 03/20/19 03/20/19 03/20/19 07:18 07:34 07:35 Temperature 98.2 F Pulse Rate 87 Respiratory 18 18 16 Rate Blood Pressure 125/65 (mmHg) O2 Sat by Pulse 94 Oximetry Oxygen Devices in Use Now: None Appearance: alert, appears comfortable resting in bed, no acute distress Eyes: No Scleral Icterus Ears/Nose/Mouth/Throat: Clear Oropharnyx, Mucous Membranes Moist Neck: NL Appearance and Movements; NL JVP, Trachea Midline Respiratory: Symmetrical Chest Expansion and Respiratory Effort, Clear to Auscultation Cardiovascular: NL Sounds; No Murmurs; No JVD, No Edema Abdominal: NL Sounds; No Tenderness; No Distention Extremities: No Edema, No Clubbing, Cyanosis, - - dressing dry and intact to left foot. Skin: No Rash or Ulcers Neurological: Alert and Oriented x 3 Nutrition: Taking PO's Result Diagrams: 06/09/19 04:42 03/20/19 04:42 Microbiology and Other Data: Microbiology 03/13/19 18:22 Skin and Soft Tissue MRSA/MSSA (PCR - Final Foot Left Mrsa Positive S.aureus Positive Gram Stain - Final 03/13/19 18:48 Aerobic Blood Culture - Preliminary Blood Venous Anaerobic Blood Culture - Preliminary 03/13/19 18:48 Aerobic Blood Culture - Preliminary Blood Venous Anaerobic Blood Culture - Preliminary Blood MRSA/MSSA (PCR) - Final Mrsa Negative S.aureus Negative Diagnostic Imaging: Patient Name: CONOR HERNANDEZ Medical Record#: [id number] Ordering Physician: Nadja Martinez MD Acct.#: [id number] : 1945 Age: 74 Sex: M Location: EMERGENCY DEPARTMENT Exam Date: 03/13/191841 ADM Status: REG ER Order Information: CT EXTREMITY LOWER LEFT WO Accession Number: [id number] CPT: 21559 EXAM: CT Left Lower Extremity Without Contrast, Foot EXAM DATE/TIME: 03/13/2019 7:38 PM CLINICAL HISTORY: 74 years old, male; Signs and symptoms; Other: Wound left great toe; Additional info: Wound left great toe, ? osteomyelitis TECHNIQUE: Imaging protocol: CT of the Left lower extremity without contrast was performed. Exam focused on the foot. Coronal and sagittal reformatted images were created and reviewed. Radiation optimization: All CT scans at this facility use at least one of these dose optimization techniques: automated exposure control; mA and/or kV adjustment per patient size (includes targeted exams where dose is matched to clinical indication); or iterative reconstruction. COMPARISON: No relevant prior studies available. FINDINGS: Bones/joints: Limited degenerative change elsewhere. Soft tissues: Soft tissue swelling surrounding the hallux valgus deformity at the first MTP. There are tiny bits of gas around the joint laterally and tiny foci of possible intra-articular gas in the dorsal aspect of the base of the proximal phalanx. Findings are highly suspicious for osteomyelitis and surrounding cellulitis. Difficult to assess for abscess without contrast. IMPRESSION: Soft tissue swelling surrounding the hallux valgus deformity at the first MTP. There are tiny bits of gas around the joint laterally and tiny foci of possible intra-articular gas in the dorsal aspect of the base of the proximal phalanx. Findings are highly suspicious for osteomyelitis and surrounding cellulitis. Difficult to assess for abscess without contrast. To contact [facility] with a general question: [facility] - [phone] For direct physician to physician contact: Physician Hotline - [phone] [facility] ([facility] Facility ID #[id number]) <Electronically signed by Ag Suarez MD in OV> 03/13/192054 Dictated By: Ag Suarez MD Dictated Date/Time: 03/13/192054 Transcribed Date/Time: This report is only to be considered final once signed by the Provider(s) as displayed in the "<Electronically Signed by >" field (s). Absence of a signature indicates the report is in a draft status and still needs to be finalized. In the event this document was created by someone other than the signing Provider, the individual initiating the document will be listed in the "Entered by:" or "Dictated by:" leonard. 1 of 2 *[facility]* [place] [address] Fax #: [phone] Transesophageal Echocardiogram Patient: Parviz, Height: 66.1 in / Conor 168 cm : 1945 Weight: 123.2 lb / Study Date: 03/14/2019 56 kg Age: 74 BP: 126 / 68 Gender: M BMI/BSA: 19.8 kg/m^2 HR: 96 bpm / 1.61 m^2 *[employer]ing [employer] Machine Operator: * Lisa Potts [facility] *Referring Physician: * Dixie Hernandez *Reading Physician: * Wild Ruffin MD Indications: Bacteremia. History: Atrioventricular block. Risk factors: Diabetes mellitus. Labs, prior tests, procedures, and surgery: ICD system implantation. Conclusions Summary: 1. Left ventricle: Systolic function is mildly reduced. The estimated ejection fraction is 40-45%. 2. Right ventricle: Pacer wire noted in the right ventricle with no evidence of vegetations Systolic function is normal. 3. Atrial septum: A PFO is not demonstrated by color Doppler or agitated saline contrast. 4. Mitral valve: There is no evidence of a vegetation. There is mild regurgitation. 5. Aortic valve: There is no evidence of a vegetation. There is no significant regurgitation. This report is only to be considered final once signed by the Provider(s) as displayed in the "<Electronically Signed by >" field (s). Absence of a signature indicates the report is in a draft status and still needs to be finalized. In the event this document was created by someone other than the signing Provider, the individual initiating the document will be listed in the "Entered by:" or "Dictated by:" leonard. Assess/Plan/Problems-Billing This is a 74yo M who [place] and not sought any medical care since his last admission in 01/2018. He presented to the ER with complaints of generalized weakness, decreased appetite and L foot wound and was found to be septic secondary to likely osteomyelitis of the L distal foot and in what was initially thought to be starvation ketosis. - Patient Problems (1) Sepsis Current Visit: Yes Status: Acute Comment: - resolved - Sepsis present on admission; source osteo left foot and strep bacteremia - tachycardia and tachypnea resolved - monitoring white count and monitor fevers - continue cefepime, vancomycin and flagyl (2) Osteomyelitis of ankle or foot, acute Current Visit: Yes Status: Acute Code(s): M86.179 - OTHER ACUTE OSTEOMYELITIS, UNSPECIFIED ANKLE AND FOOT SNOMED Code(s): 198676926 Comment: - POD5 midfoot amputation with Dr. Hernandez - ID following, continue vanco, cefepime and flagyl (Day 7), with narrow to vanco when able per ID recommendations - Positive for MRSA, strep and citrobacter, abx per ID - PT/OT (3) Hyponatremia Current Visit: Yes Status: Acute Code(s): E87.1 - HYPO-OSMOLALITY AND HYPONATREMIA SNOMED Code(s): 79131175 Comment: - Resolved with IVF hydration. (4) MDD (major depressive disorder), single episode, severe Current Visit: Yes Status: Acute Priority: High Code(s): F32.2 - MAJOR DEPRESSV DISORD, SINGLE EPSD, SEV W/O PSYCH FEATURES SNOMED Code(s): 575606997598 Comment: seen by psych - patient is suicidal ideation early in admission - no further ideation - continue mirtazapine (5) Starvation ketoacidosis Current Visit: Yes Status: Acute Code(s): E87.2 - ACIDOSIS SNOMED Code(s) : 11517098 Comment: - The patient reportedly had not had anything to eat for the last 1 week - Elevated AG on admission thought to be secondary to starvation- resolved - May have been a component but not complete cause of elevated AG - Homelessness noted, SW following (6) Uncontrolled type II diabetes mellitus Current Visit: Yes Status: Acute Code(s): E11.65 - TYPE 2 DIABETES MELLITUS WITH HYPERGLYCEMIA SNOMED Code(s): 993817839 Comment: - BS 165-188- continue with current plan - Needs tight glycemic control for wound healing - Dr. Peralta consulted; appreciate his recommendations: - Lantus 30units - Lispro 10U ac - Lispro 2U/50 for BS > 200 - Add metformin 750 at bedtime at discharge - If BS < 200 as inpatient, discharge on Glipizide XL [address] of Lispro (7) DVT prophylaxis Current Visit: Yes Status: Acute Code(s): RHV9493 - SNOMED Code(s): 671386735 Comment: - Lovenox SQ (8) DNR (do not resuscitate) Current Visit: Yes Status: Acute Status and Disposition: Inpatient- discharge when medically stable
[2019-03-20] MEDS: Insulin LISPRO* 1 UNITS UNIT SUBCUT SCH ×7 (08:42→21:01)
[2019-03-20] MEDS: Enoxaparin(*) 40 MG/0.4 ML SYR SUBCUT SCH (08:47)
[2019-03-20] MEDS: Insulin GLARGINE(*) 1 UNITS UNIT SUBCUT SCH (08:47)
[2019-03-20] MEDS: OXYMETAZOLINE 0.05% BOTH NARES SCH (08:50)
--- NOTE | 2019-03-20 11:14 | PN ---
Progress Note - Progress Note Date of Service: 03/20/19 SOAP: Subjective: [Pt reports minimal pain LLE. Less anxious. Ativan has helped.] Objective: [Sleeping upon my entrance. Easily awakened. A and O x 3, NAD L LE splint/dressing C/D/I] Assessment: [s/p trans met amp for infected foot POD #4 Vital Signs: Temp Pulse Resp BP Pulse Ox 98.2 F 87 18 125/65 94 03/20/19 07:18 03/20/19 07:18 03/20/19 09:22 03/20/19 07:18 03/20/19 07:18 Laboratory Results - last 24 hr 03/19/19 03/19/19 03/19/19 12:28 17:08 21:09 WBC RBC Hgb Hct MCV MCH MCHC RDW Plt Count MPV Neut % (Auto) Lymph % (Auto) Hunt % (Auto) Eos % (Auto) Baso % (Auto) Absolute Neuts (auto) Absolute Lymphs (auto) Absolute Monos (auto) Absolute Eos (auto) Absolute Basos (auto) Absolute Nucleated RBC Nucleated RBC % Sodium Potassium Chloride Carbon Dioxide Anion Gap BUN Creatinine Est GFR ( Amer) Est GFR (Non-Af Amer) BUN/Creatinine Ratio Glucose POC Glucose (mg/dL) 316 H 242 H 193 H Calcium 03/20/19 03/20/19 03/20/19 04:42 04:42 07:42 WBC 9.3 RBC 4.19 Hgb 12.5 L Hct 37 L MCV 89 MCH 30 MCHC 34 RDW 13 Plt Count 354 MPV 7.4 Neut % (Auto) 75.7 Lymph % (Auto) 15.6 Hunt % (Auto) 6.7 Eos % (Auto) 1.7 Baso % (Auto) 0.3 Absolute Neuts (auto) 7.1 Absolute Lymphs (auto) 1.5 Absolute Monos (auto) 0.6 Absolute Eos (auto) 0.2 Absolute Basos (auto) 0.0 Absolute Nucleated RBC 0.0 Nucleated RBC % 0.0 Sodium 137 Potassium 3.3 L Chloride 101 Carbon Dioxide 32 Anion Gap 4 BUN 16 Creatinine 0.46 L Est GFR ( Amer) 216.0 Est GFR (Non-Af Amer) 178.5 BUN/Creatinine Ratio 34.8 H Glucose 165 H POC Glucose (mg/dL) 169 H Calcium 7.7 L ] Plan: [NWB LLE Con't abx - cefepime, Vanco, [facility] when [facility]]
[2019-03-20] MEDS: Cefepime 2 GM in Dextrose(*) 2 GM/50 ML BAG IV SCH ×2 (12:53→23:15)
--- NOTE | 2019-03-20 13:16 | CONSULT ---
Identification - Patient Identification Reason for Psychiatric Consultation: Suicidal Ideation -: Patient is a 74 year old, M admitted on 03/13/19. - MHU Identification Employment Status: Disabled Hx Psychiatric Hospitalization: No History - Objective HPI: Mr. Jj remains in good spirits other than anxiety from being "couped up and not able to come and go as I please." He is agreeable with rehab placement and feels physically a little better everyday. The patient denies suicidal ideations, plans or intentions. "No, I think I'm back to feeling pretty good about life." Exam Appearance: Well Developed/Nourished Hygiene: Normal Grooming: Fairly Well Kept Psychomotor Activities: Normal Exhibits Abnormal Movement: No Attitude and Relatedness: Cooperative Eye Contact: Good - Speech Quality: Unpressured Latencies: Normal Quantity: Appropriate Patient's Decription of Mood: "Good" Observed Affect: Good Affect Consistent with: Euthymia Patient's Thought Process: Coherent Thought Content: No Passive Wish, No Suicidal Planning, No Homicidal Ideation, No Paranoid Ideation Experiencing Hallucinations: No, Sensorium is Clear Type of Hallucinations: Visual: No, Auditory: No, Command: No Level of Consciousness: Alert Orientation: Yes Intact, Yes Orientated to Time, Yes Orientated to Place, Yes Orientated to Person Impulse Control: Tenuous Insight and Judgement: Fair Impression - Impression Clinical Impression: 74 y.o. , homeless, white male with a complicated medical history but no formal psychiatric diagnosis or treatment in the past, who is admitted to the Hospitalist service for medical and surgical treatment of severe osteomylitis of his left foot. The patient has made several active suicidal statements that are intermediate, rather than acute in nature and he is quite clinically depressed. Inpatient DSM-V Dx: F32.2 Merits Inpatient Hospitalization: No [facility]: Problem List - Patient Problems (1) MDD (major depressive disorder), single episode, severe Current Visit: Yes Status: Acute Priority: High Code(s): F32.2 - MAJOR DEPRESSV DISORD, SINGLE EPSD, SEV W/O PSYCH FEATURES SNOMED Code(s): 428947856882 Plan - Treatment Plan Treatment Plan: The patient is steadily improving from a psychiatric perspective. He seems to be responding well to several factors, not the least of which is the excellent care he is receiving on . Additionally, having his medical issues (pain , glucose control, infectious illness) better controlled is also benefiting his mood. We started mirtazapine 15mg PO qhs and he is tolerating it well. We are no longer considering transfer to [facility] at this time. Patient instead is awaiting [facility] placement. Psychiatry will continue to follow. Continued Medication Management: Start Medication Medications: Current Medications Acetaminophen (Tylenol Tab*) 650 mg PO Q4H PRN PRN Reason: FEVER/PAIN Last Admin: 03/17/19 03:27 Dose: 650 mg Chlorpromazine HCl (Thorazine Tab*) 50 mg PO Q6H PRN PRN Reason: HICCUPS Last Admin: 03/15/19 16:18 Dose: 50 mg Cyclobenzaprine HCl (Flexeril Tab*) 10 mg PO BID PRN PRN Reason: SPASMS Last Admin: 03/20/19 09:18 Dose: 10 mg Dextrose (D50w Syringe 50 Ml*) 12.5 gm IV PUSH .FOR FS < 60 - SS PRN PRN Reason: FS < 60 Dextrose (D50w Syringe 50 Ml*) 12.5 gm IV PUSH .FOR FS < 60 - SS PRN PRN Reason: FS < 60 Enoxaparin Sodium (Lovenox(*)) 40 mg SUBCUT 0900 [facility] Last Admin: 03/20/19 08:47 Dose: 40 mg Cefepime HCl (Maxipime 2 Gm In Dextrose Duplex (*)) 2 gm in 50 mls @ 100 mls/ hr IV Q12H [facility] Last Admin: 03/20/19 12:53 Dose: 100 mls/hr Metronidazole/Sodium Chloride (Flagyl 500 Mg Ivpb*) 500 mg in 100 mls @ 100 mls /hr IVPB Q12H [facility] Last Admin: 03/20/19 00:34 Dose: 100 mls/hr Vancomycin HCl 1,000 mg/ (Sodium Chloride) 250 mls @ 166.667 mls/hr IVPB Q8H [facility] Last Admin: 03/20/19 10:29 Dose: 166.667 mls/hr Insulin Glargine (Lantus(*)) 30 units SUBCUT Q24H [facility] Last Admin: 03/20/19 08:47 Dose: 30 units Insulin Human Lispro (Humalog*) 10 units SUBCUT AC [facility] Last Admin: 03/20/19 12:59 Dose: 10 units Insulin Human Lispro (Humalog*) 0 units SUBCUT ACHS [facility]; Protocol Last Admin: 03/20/19 12:56 Dose: Not Given Magnesium Hydroxide (Milk Of Magnesia Liq*) 30 ml PO Q6H PRN PRN Reason: CONSTIPATION Melatonin (Melatonin) 3 mg PO BEDTIME PRN PRN Reason: SLEEP Last Admin: 03/15/19 02:02 Dose: 3 mg Mirtazapine (Remeron Tab*) 15 mg PO BEDTIME [facility] Last Admin: 03/19/19 20:09 Dose: 15 mg Oxycodone/Acetaminophen (Percocet 5/325 Tab*) 1 tab PO Q4H PRN PRN Reason: PAIN Last Admin: 03/20/19 07:34 Dose: 1 tab Oxymetazoline HCl (Afrin 0.05% Nasal [place]*) 2 spray BOTH NARES BID [facility] Last Admin: 03/20/19 08:50 Dose: Not Given Pharmacy Consult (Vancomycin Per Pharmacy*) 1 note FOLLOW UP . PRN PRN Reason: PER PROTOCOL Senna (Senokot Tab*) 2 tab PO BEDTIME PRN PRN Reason: CONSTIPATION
[2019-03-20] MEDS ORDERED: Potassium Chlor TAB* 20 MEQ TAB.ER PO ONE (15:49)
[2019-03-20] MEDS: Mirtazapine TAB* 15 MG PO SCH (21:03)
[2019-03-20] MEDS: Melatonin 3 MG TAB PO PRN (23:21)
[2019-03-21] MEDS: metroNIDAZOLE IV 500 MG/100ML* 500 MG/100 ML BAG IVPB SCH ×2 (00:15→12:08)
[2019-03-21] MEDS: Vancomycin(*) 1,000 MG in NS 0.9% 250 ML* 250 ML IVPB SCH ×3 (01:36→18:12)
[2019-03-21 05:04] LABS: BUN/Creatinine Ratio 26.9 (8-20); Calcium 7.9 mg/dL (8.6-10.3); EGFR African American 187.5 (>60); EGFR Non-African American 154.9 (>60); Potassium 3.8 mmol/L (3.5-5.0)
[2019-03-21] MEDS: oxyCODONE/Acetamin 5/325 MG* TAB PO PRN ×3 (06:51→22:57)
[2019-03-21] MEDS: Insulin LISPRO* 1 UNITS UNIT SUBCUT SCH ×7 (08:39→20:43)
[2019-03-21] MEDS: Enoxaparin(*) 40 MG/0.4 ML SYR SUBCUT SCH (09:41)
[2019-03-21] MEDS: Insulin GLARGINE(*) 1 UNITS UNIT SUBCUT SCH (09:41)
--- NOTE | 2019-03-21 11:10 | PN ---
Progress Note - Progress Note Date of Service: 03/21/19 SOAP: Subjective: CC: Left foot infection HPI: Mr. Jj is a 74 yo male with PMH significant for who presented with a chronic left foot infection and sepsis, now S/P left foot transmetatarsal amputation. Denies fever, chills, ABD pain, nausea, vomiting, diarrhea. Reports that his appetite is ok and he is eating well. Reports right groin discomfort, he feels like he may have strained a muscle while working with PT. Objective: Vital Signs - 8 hr 03/21/19 03/21/19 03/21/19 05:00 06:51 07:36 Temperature 97.7 F 99.9 F Pulse Rate 89 88 Respiratory 16 14 18 Rate Blood Pressure 134/74 118/64 (mmHg) O2 Sat by Pulse 97 95 Oximetry Physical Exam: General: NAD, sitting up in a chair Neurological: Alert and Oriented x 4 HEENT: No thrush, moist MM Cardiovascular: Heart rate regular Respiratory: Lung sounds clear bilateral Abdominal: Bowel sounds present; ABD soft, non tender and non distended Musculoskeletal: No tenderness with palpation of the back or spine. Negative "log roll" bilateral hips. Skin: No rash. Surgical splint to the left LE clean, dry and intact Laboratory Last Values WBC 9.3 10^3/uL (3.5-10.8) 03/20/19 04:42 RBC 4.19 10^6 /uL (4.18-5.48) 03/20/19 04:42 Hgb 12.5 g/dL (14.0-18.0) L 03/20/19 04:42 Hct 37 % (42-52) L 03/20/19 04:42 MCV 89 fL (80-94) 03/20/19 04:42 MCH 30 pg (27-31) 03/20/19 04:42 MCHC 34 g/dL (31-36) 03/20/19 04:42 RDW 13 % (10-15) 03/20/19 04:42 Plt Count 354 10^3/uL (150-450) 03/20/19 04:42 MPV 7.4 fL (7.4-10.4) 03/20/19 04:42 Neut % (Auto) 75.7 % 03/20/19 04:42 Lymph % (Auto) 15.6 % 03/20/19 04:42 Isabella % (Auto) 6.7 % 03/20/19 04:42 Eos % (Auto) 1.7 % 03/20/19 04:42 Baso % (Auto) 0.3 % 03/20/19 04:42 Absolute Neuts (auto) 7.1 10^3/ul (1.5-7.7) 03/20/19 04:42 Absolute Lymphs (auto) 1.5 10^3/ul (1.0-4.8) 03/20/19 04:42 Absolute Monos (auto) 0.6 10^3/ul (0-0.8) 03/20/19 04:42 Absolute Eos (auto) 0.2 10^3/ul (0-0.6) 03/20/19 04:42 Absolute Basos (auto) 0.0 10^3/ul (0-0.2) 03/20/19 04:42 Absolute Nucleated RBC 0.0 10^3/ul 03/20/19 04:42 Immature Gran % 28.0 % (0-9) H 03/14/19 04:20 Neutrophils % 64.0 % 03/14/19 04:20 Band Neutrophils % 25.0 % (0-8) H 03/14/19 04:20 Lymphocytes % 1.0 % 03/14/19 04:20 Monocytes % 7.0 % 03/14/19 04:20 Eosinophils % 0.0 % 03/13/19 18:47 Basophils % 0.0 % 03/13/19 18:47 Metamyelocytes % 3.0 % (0-2) H 03/14/19 04:20 Nucleated RBC % 0.0 03/20/19 04:42 Abs Neuts (Manual) 16.1 10^3/ul (1.5-7.7) H 03/14/19 04:20 Abs Lymphs (Manual) 0.2 10^3/ul (1.0-4.8) L 03/14/19 04:20 Abs Monocytes (Manual) 1.2 10^3/ul (0-0.8) H 03/14/19 04:20 Absolute Eos (Manual) 0.0 10^3/ul (0-0.6) 03/13/19 18:47 Abs Basophils (Manual) 0.0 10^3/ul (0-0.2) 03/13/19 18:47 Normal RBC Morphology Not Reportable 03/14/19 04:20 Polychromasia 1+ 03/14/19 04:20 Anisocytosis 1+ 03/13/19 18:47 INR (Anticoag Therapy) 1.07 (0.82-1.09) 03/14/19 04:20 APTT 32.7 seconds (26.0-38.0) 03/13/19 18:47 VBG pH 7.17 (7.32-7.43) L 03/14/19 00:30 VBG pCO2 35 mmHg (41-51) L 03/14/19 00:30 VBG pO2 38.0 mmHg (35-45) 03/14/19 00:30 VBG HCO3 12.5 mmol/L (24-28) L 03/14/19 00:30 VBG O2 Saturation 64.0 % (70-80) L 03/14/19 00:30 VBG Base Excess -14.8 mmol/L (0.0-4.0) L 03/14/19 00:30 Sodium 137 mmol/L (135-145) 03/21/19 04:41 Potassium 3.8 mmol/L (3.5-5.0) 03/21/19 04:41 Chloride 101 mmol/L (101-111) 03/21/19 04:41 Carbon Dioxide 33 mmol/L (22-32) H 03/21/19 04:41 Anion Gap 3 mmol/L (2-11) 03/21/19 04:41 BUN 14 mg/dL (6-24) 03/21/19 04:41 Creatinine 0.52 mg/dL (0.67-1.17) L 03/21/19 04:41 Est GFR ( Amer) 187.5 (>60) 03/21/19 04:41 Est GFR (Non-Af Amer) 154.9 (>60) 03/21/19 04:41 BUN/Creatinine Ratio 26.9 (8-20) H 03/21/19 04:41 Glucose 123 mg/dL (70-100) H 03/21/19 04:41 POC Glucose (mg/dL) 163 mg/dL (70-100) H 03/21/19 07:21 Glucose Meter Confirm 362 mg/dL (70-100) H 03/16/19 20:52 Hemoglobin A1c 16.8 % (4.0-5.6) H 03/13/19 18:47 Lactic Acid 1.6 mmol/L (0.5-2.0) 03/13/19 18:47 Calcium 7.9 mg/dL (8.6-10.3) L 03/21/19 04:41 Phosphorus 3.6 mg/dL (2.5-5.0) 03/13/19 23:28 Magnesium 1.9 mg/dL (1.9-2.7) 03/14/19 04:20 Total Bilirubin 0.40 mg/dL (0.2-1.0) 03/16/19 06:18 AST 27 U/L (13-39) 03/16/19 06:18 ALT 18 U/L (7-52) 03/16/19 06:18 Alkaline Phosphatase 97 U/L (34-104) 03/16/19 06:18 Total Creatine Kinase 135 U/L (10-223) 03/13/19 18:47 Troponin I 0.04 ng/mL (<0.04) H* 03/14/19 02:02 C-Reactive Protein 362.53 mg/L (<8.01) H 03/13/19 18:47 B-Natriuretic Peptide 194 pg/mL (<=100) H 03/13/19 18:47 Total Protein 4.8 g/dL (6.4-8.9) L 03/16/19 06:18 Albumin 2.1 g/dL (3.2-5.2) L 03/16/19 06:18 Globulin 2.7 g/dL (2-4) 03/16/19 06:18 Albumin/Globulin Ratio 0.8 (1-3) L 03/16/19 06:18 Prealbumin < 3 mg/dL (18-38) L 03/13/19 18:47 Triglycerides 65 mg/dL 03/14/19 04:20 Cholesterol 124 mg/dL 03/14/19 04:20 LDL Cholesterol 48 mg/dL 03/14/19 04:20 HDL Cholesterol 62.8 mg/dL 03/14/19 04:20 Vitamin B12 > 1450 pg/mL (180-914) H 03/13/19 18:47 Folate 13.17 ng/mL (>3.99) 03/13/19 18:47 TSH 1.11 mcIU/mL (0.34-5.60) 03/13/19 18:47 Urine Color Straw 03/13/19 21:54 Urine Appearance Clear 03/13/19 21:54 Urine pH 5.0 (5-9) 03/13/19 21:54 Ur Specific [place] 1.023 (1.010-1.030) 03/13/19 21:54 Urine Protein Negative (Negative) 03/13/19 21:54 Urine Ketones 2+ (Negative) A 03/13/19 21:54 Urine Blood 2+ (Negative) A 03/13/19 21:54 Urine Nitrate Negative (Negative) 03/13/19 21:54 Urine Bilirubin Negative (Negative) 03/13/19 21:54 Urine Urobilinogen Negative (Negative) 03/13/19 21:54 Ur Leukocyte Esterase Negative (Negative) 03/13/19 21:54 Urine WBC (Auto) Trace(0-5/hpf) (Absent) 03/13/19 21:54 Urine RBC (Auto) Trace(0-2/hpf) (Absent) 03/13/19 21:54 Urine Bacteria Absent (Absent) 03/13/19 21:54 Hyaline Casts Present (Absent) A 03/13/19 21:54 Urine Glucose 3+(>=500 mg/dl) (Negative) A 03/13/19 21:54 Vancomycin Trough 15.1 mcg/mL 03/19/19 09:34 Salicylates 15.50 mg/dL (<30) 03/13/19 18:47 Urine Opiates Screen None detected (None Detect) 03/13/19 21:54 Ur Barbiturates Screen None detected (None Detect) 03/13/19 21:54 Ur Phencyclidine Scrn None detected (None Detect) 03/13/19 21:54 Ur Amphetamines Screen None detected (None Detect) 03/13/19 21:54 U Benzodiazepines Scrn None detected (None Detect) 03/13/19 21:54 Urine Cocaine Screen None detected (None Detect) 03/13/19 21:54 U Cannabinoids Screen None detected (None Detect) 03/13/19 21:54 Serum Alcohol < 10 mg/dL (<10) 03/13/19 18:47 Microbiology 03/15/19 11:53 Anaerobic Culture - Final Wound - Other 03/15/19 11:53 Skin and Soft Tissue MRSA/MSSA (PCR - Final Foot Left Mrsa Negative S.aureus Negative Gram Stain - Final Wound Culture - Final Strep Agalactiae - (Group B) 03/13/19 18:22 Skin and Soft Tissue MRSA/MSSA (PCR - Final Foot Left Mrsa Positive S.aureus Positive Gram Stain - Final Wound Culture - Final Citrobacter Braakii Alcaligenes Species Strep Agalactiae - (Group B) MRSA 03/13/19 18:48 Aerobic Blood Culture - Final Blood Venous Strep Agalactiae - (Group B) Anaerobic Blood Culture - Final 03/13/19 18:48 Aerobic Blood Culture - Final Blood Venous Strep Agalactiae - (Group B) Anaerobic Blood Culture - Final Strep Agalactiae - (Group B) Blood MRSA/MSSA (PCR) - Final Mrsa Negative S.aureus Negative 03/13/19 21:54 Urine Culture - Final Urine Assessment: 1. Left foot gangrene, acute osteomyelitits. Wound is polymicrobial including Group B strep. S/P left foot transmetatarsal amputation, POD #6. Afebrile and no leukocytosis. 2. Group B strep bacteremia. Has a pacemaker, ALEM negative for vegetation. Unable to have an MRI due to pacemaker. Denies back pain today, no abscess seen on CT scan. 3. DM2. Plan: Discontinue Cefepime and Flagyl. Continue Vancomycin (trough 15-20), day . Will add a CRP to today's labs. Will need to have weekly labs while on IV ABX: CBC, CMP, CRP and vanco trough.
[2019-03-21] MEDS: Cefepime 2 GM in Dextrose(*) 2 GM/50 ML BAG IV SCH (11:32)
[2019-03-21 11:51] LABS: C Reactive Protein 59.94 mg/L (<8.01)
[2019-03-21] MEDS: Cyclobenzaprine TAB* 10 MG PO PRN ×2 (12:07→21:09)
[2019-03-21] MEDS ORDERED: Polyethylene Glycol 3350* 17 GM PACKET PO PRN (13:24)
--- NOTE | 2019-03-21 15:58 | PN ---
Subjective Date of Service: 03/21/19 Interval History: patient denies chest pain or shortness of breath. denies abd pain d/v/d. c/o generalized body aches. Denies calf tenderness. C/o right groin pain and right shoulder pain states that he strained his should and groin doing PT. Family History: Unchanged from Admission Social History: Unchanged from Admission Past Medical History: Unchanged from Admission Objective Active Medications: Acetaminophen (Tylenol Tab*) 650 mg PO Q4H PRN PRN Reason: FEVER/PAIN Last Admin: 03/17/19 03:27 Dose: 650 mg Chlorpromazine HCl (Thorazine Tab*) 50 mg PO Q6H PRN PRN Reason: HICCUPS Last Admin: 03/15/19 16:18 Dose: 50 mg Cyclobenzaprine HCl (Flexeril Tab*) 10 mg PO BID PRN PRN Reason: SPASMS Last Admin: 03/21/19 12:07 Dose: 10 mg Dextrose (D50w Syringe 50 Ml*) 12.5 gm IV PUSH .FOR FS < 60 - SS PRN PRN Reason: FS < 60 Docusate Sodium (Colace Cap*) 100 mg PO BID [facility] Enoxaparin Sodium (Lovenox(*)) 40 mg SUBCUT 0900 [facility] Last Admin: 03/21/19 09:41 Dose: 40 mg Vancomycin HCl 1,000 mg/ (Sodium Chloride) 250 mls @ 166.667 mls/hr IVPB Q8H [facility] Last Admin: 03/21/19 09:45 Dose: 166.667 mls/hr Insulin Glargine (Lantus(*)) 30 units SUBCUT Q24H [facility] Last Admin: 03/21/19 09:41 Dose: 30 units Insulin Human Lispro (Humalog*) 10 units SUBCUT AC [facility] Last Admin: 03/21/19 13:11 Dose: 10 units Insulin Human Lispro (Humalog*) 0 units SUBCUT ACHS [facility]; Protocol Last Admin: 03/21/19 11:34 Dose: Not Given Magnesium Hydroxide (Milk Of Magnesia Liq*) 30 ml PO Q6H PRN PRN Reason: CONSTIPATION Melatonin (Melatonin) 3 mg PO BEDTIME PRN PRN Reason: SLEEP Last Admin: 03/20/19 23:21 Dose: 3 mg Mirtazapine (Remeron Tab*) 15 mg PO BEDTIME SEGUNDO Last Admin: 03/20/19 21:03 Dose: 15 mg Oxycodone/Acetaminophen (Percocet 5/325 Tab*) 1 tab PO Q4H PRN PRN Reason: PAIN Last Admin: 03/21/19 06:51 Dose: 1 tab Oxymetazoline HCl (Afrin 0.05% Nasal [place]*) 2 spray BOTH NARES BID PRN PRN Reason: CONGESTION Pharmacy Consult (Vancomycin Per Pharmacy*) 1 note FOLLOW UP . PRN PRN Reason: PER PROTOCOL Polyethylene Glycol/Electrolytes (Miralax*) 17 gm PO DAILY PRN PRN Reason: CONSTIPATION Senna (Senokot Tab*) 2 tab PO BEDTIME PRN PRN Reason: CONSTIPATION Vital Signs - 8 hr 03/21/19 03/21/19 11:23 12:07 Temperature 98.4 F Pulse Rate 91 Respiratory 17 16 Rate Blood Pressure 112/54 (mmHg) O2 Sat by Pulse 96 Oximetry Oxygen Devices in Use Now: None Appearance: alert, resting in chair, no acute distress Eyes: No Scleral Icterus Ears/Nose/Mouth/Throat: Clear Oropharnyx, Mucous Membranes Moist Neck: NL Appearance and Movements; NL JVP, Trachea Midline Respiratory: Symmetrical Chest Expansion and Respiratory Effort, Clear to Auscultation Cardiovascular: NL Sounds; No Murmurs; No JVD, No Edema Abdominal: NL Sounds; No Tenderness; No Distention Extremities: No Edema, No Clubbing, Cyanosis, - - dressing/ splint intact to left lower leg Skin: No Rash or Ulcers, No Nodules or Sclerosis Neurological: Alert and Oriented x 3 Nutrition: Taking PO's Result Diagrams: 03/20/19 04:42 03/21/19 04:41 Microbiology and Other Data: Microbiology 03/13/19 18:22 Skin and Soft Tissue MRSA/MSSA (PCR - Final Foot Left Mrsa Positive S.aureus Positive Gram Stain - Final 03/13/19 18:48 Aerobic Blood Culture - Preliminary Blood Venous Anaerobic Blood Culture - Preliminary 03/13/19 18:48 Aerobic Blood Culture - Preliminary Blood Venous Anaerobic Blood Culture - Preliminary Blood MRSA/MSSA (PCR) - Final Mrsa Negative S.aureus Negative Diagnostic Imaging: Patient Name: CONOR HERNANDEZ Medical Record#: [id number] Ordering Physician: Nadja Martinez MD Acct.#: [id number] : 1945 Age: 74 Sex: M Location: EMERGENCY DEPARTMENT Exam Date: 03/13/191841 ADM Status: REG ER Order Information: CT EXTREMITY LOWER LEFT WO Accession Number: [id number] CPT: 81045 EXAM: CT Left Lower Extremity Without Contrast, Foot EXAM DATE/TIME: 03/13/2019 7:38 PM CLINICAL HISTORY: 74 years old, male; Signs and symptoms; Other: Wound left great toe; Additional info: Wound left great toe, ? osteomyelitis TECHNIQUE: Imaging protocol: CT of the Left lower extremity without contrast was performed. Exam focused on the foot. Coronal and sagittal reformatted images were created and reviewed. Radiation optimization: All CT scans at this facility use at least one of these dose optimization techniques: automated exposure control; mA and/or kV adjustment per patient size (includes targeted exams where dose is matched to clinical indication); or iterative reconstruction. COMPARISON: No relevant prior studies available. FINDINGS: Bones/joints: Limited degenerative change elsewhere. Soft tissues: Soft tissue swelling surrounding the hallux valgus deformity at the first MTP. There are tiny bits of gas around the joint laterally and tiny foci of possible intra-articular gas in the dorsal aspect of the base of the proximal phalanx. Findings are highly suspicious for osteomyelitis and surrounding cellulitis. Difficult to assess for abscess without contrast. IMPRESSION: Soft tissue swelling surrounding the hallux valgus deformity at the first MTP. There are tiny bits of gas around the joint laterally and tiny foci of possible intra-articular gas in the dorsal aspect of the base of the proximal phalanx. Findings are highly suspicious for osteomyelitis and surrounding cellulitis. Difficult to assess for abscess without contrast. To contact [facility] with a general question: Operations Center - [phone] For direct physician to physician contact: Physician Hotline - [phone] [facility] ([facility] Facility ID #[id number]) <Electronically signed by Ag Suarez MD in OV> 03/13/192054 Dictated By: Ag Suarez MD Dictated Date/Time: 03/13/192054 Transcribed Date/Time: This report is only to be considered final once signed by the Provider(s) as displayed in the "<Electronically Signed by >" field (s). Absence of a signature indicates the report is in a draft status and still needs to be finalized. In the event this document was created by someone other than the signing Provider, the individual initiating the document will be listed in the "Entered by:" or "Dictated by:" leonard. 1 of 2 *[facility]* [place] [address] Fax #: [phone] Transesophageal Echocardiogram Patient: Parviz Height: 66.1 in / Conor 168 cm : 1945 Weight: 123.2 lb / Study Date: 03/14/2019 56 kg Age: 74 BP: 126 / 68 Gender: M BMI/BSA: 19.8 kg/m^2 HR: 96 bpm / 1.61 m^2 *Field Test Engineer: Lisa Perez [facility] *Referring Physician: * iDxie Hernandez *Reading Physician: * Wild Ruffin MD Indications: Bacteremia. History: Atrioventricular block. Risk factors: Diabetes mellitus. Labs, prior tests, procedures, and surgery: ICD system implantation. Conclusions Summary: 1. Left ventricle: Systolic function is mildly reduced. The estimated ejection fraction is 40-45%. 2. Right ventricle: Pacer wire noted in the right ventricle with no evidence of vegetations Systolic function is normal. 3. Atrial septum: A PFO is not demonstrated by color Doppler or agitated saline contrast. 4. Mitral valve: There is no evidence of a vegetation. There is mild regurgitation. 5. Aortic valve: There is no evidence of a vegetation. There is no significant regurgitation. This report is only to be considered final once signed by the Provider(s) as displayed in the "<Electronically Signed by >" field (s). Absence of a signature indicates the report is in a draft status and still needs to be finalized. In the event this document was created by someone other than the signing Provider, the individual initiating the document will be listed in the "Entered by:" or "Dictated by:" leonard. Assess/Plan/Problems-Billing This is a 74yo M who [place] and not sought any medical care since his last admission in 01/2018. He presented to the ER with complaints of generalized weakness, decreased appetite and L foot wound and was found to be septic secondary to likely osteomyelitis of the L distal foot and in what was initially thought to be starvation ketosis. - Patient Problems (1) Sepsis Current Visit: Yes Status: Acute Comment: - resolved - Sepsis present on admission; source osteo left foot and strep bacteremia - tachycardia and tachypnea resolved - monitoring white count and monitor fevers - continue vancomycin - antibiotic narrowed by ID today - will need IV antibiotics for total of 42 days (2) Osteomyelitis of ankle or foot, acute Current Visit: Yes Status: Acute Code(s): M86.179 - OTHER ACUTE OSTEOMYELITIS, UNSPECIFIED ANKLE AND FOOT SNOMED Code(s): 589073222 Comment: - POD6 midfoot amputation with Dr. Hernandez - ID following, continue vancomycin (Day 8) (6 days post op), narrowed to Vanco today as per ID recommendations - Positive for MRSA, strep and citrobacter, abx per ID - PT/OT (3) Hyponatremia Current Visit: Yes Status: Acute Code(s): E87.1 - HYPO-OSMOLALITY AND HYPONATREMIA SNOMED Code(s): 83975669 Comment: - Resolved with IVF hydration. (4) MDD (major depressive disorder), single episode, severe Current Visit: Yes Status: Acute Priority: High Code(s): F32.2 - MAJOR DEPRESSV DISORD, SINGLE EPSD, SEV W/O PSYCH FEATURES SNOMED Code(s): 539114524895 Comment: seen by psych - patient is suicidal ideation early in admission - no further ideation - continue mirtazapine (5) Starvation ketoacidosis Current Visit: Yes Status: Acute Code(s): E87.2 - ACIDOSIS SNOMED Code(s) : 60509778 Comment: - The patient reportedly had not had anything to eat for the last 1 week - Elevated AG on admission thought to be secondary to starvation- resolved - May have been a component but not complete cause of elevated AG - Homelessness noted, SW following (6) Uncontrolled type II diabetes mellitus Current Visit: Yes Status: Acute Code(s): E11.65 - TYPE 2 DIABETES MELLITUS WITH HYPERGLYCEMIA SNOMED Code(s): 690539714 Comment: - BS 123-192- continue with current plan - Needs tight glycemic control for wound healing - Dr. Peralta consulted; appreciate his recommendations: - Lantus 30units - Lispro 10U ac - Lispro 2U/50 for BS > 200 - Add metformin 750 at bedtime at discharge - If BS < 200 as inpatient, discharge on Glipizide XL [address] Lispro (7) DVT prophylaxis Current Visit: Yes Status: Acute Code(s): AWI3178 - SNOMED Code(s): 437804896 Comment: - Lovenox SQ (8) DNR (do not resuscitate) Current Visit: Yes Status: Acute Status and Disposition: Inpatient- discharge when medically stable
--- NOTE | 2019-03-21 16:45 | PN ---
Progress Note - Progress Note Date of Service: 03/21/19 SOAP: Subjective: POD #5 left foot TMA. Doing ok. No c/o pain. Denies CP/SOB, f/c, n/v Objective: Vitals: Temp Pulse Resp BP Pulse Ox 98.1 F 88 16 104/49 96 03/21/19 15:53 03/21/19 15:53 03/21/19 15:53 03/21/19 15:53 03/21/19 15:53 Gen: A&O x3, NAD at rest LLE: Splint C/D/I, no calf ttp Labs: Laboratory Results - last 24 hr 03/20/19 03/20/19 03/21/19 17:15 20:59 04:41 Sodium 137 Potassium 3.8 Chloride 101 Carbon Dioxide 33 H Anion Gap 3 BUN 14 Creatinine 0.52 L Est GFR ( Amer) 187.5 Est GFR (Non-Af Amer) 154.9 BUN/Creatinine Ratio 26.9 H Glucose 123 H POC Glucose (mg/dL) 203 H 163 H Calcium 7.9 L C-Reactive Protein 59.94 H 03/21/19 03/21/19 07:21 11:33 Sodium Potassium Chloride Carbon Dioxide Anion Gap BUN Creatinine Est GFR ( Amer) Est GFR (Non-Af Amer) BUN/Creatinine Ratio Glucose POC Glucose (mg/dL) 163 H 192 H Calcium C-Reactive Protein Assessment: POD #5 Left foot TMA Plan: Cont NWB LLE Awaiting SW assist for rehab placement Cont Lovenox for DVT ppx
--- NOTE | 2019-03-21 17:14 | CONSULT ---
Identification - Patient Identification Reason for Psychiatric Consultation: Suicidal Ideation -: Patient is a 74 year old, M admitted on 03/13/19. - MHU Identification Employment Status: Disabled Hx Psychiatric Hospitalization: No History - Objective HPI: Mr. Jj continues to appear euthymic, smiling and able to joke about his difficult circumstances. He has been informed that he will require a 42 day course of IV antibiotic therapy, of which he is only on day #6. "I feel like I' m gonna be stuck in this place for awhile, might as well make the best of it." He continues to deny SI and is tolerating antidepressant treatment well. Exam Appearance: Well Developed/Nourished Hygiene: Normal Grooming: Fairly Well Kept Psychomotor Activities: Normal Exhibits Abnormal Movement: No Attitude and Relatedness: Cooperative Eye Contact: Good - Speech Quality: Unpressured Latencies: Normal Quantity: Appropriate Patient's Decription of Mood: "Good" Observed Affect: Good Affect Consistent with: Euthymia Patient's Thought Process: Coherent Thought Content: No Passive Wish, No Suicidal Planning, No Homicidal Ideation, No Paranoid Ideation Experiencing Hallucinations: No, Sensorium is Clear Type of Hallucinations: Visual: No, Auditory: No, Command: No Level of Consciousness: Alert Orientation: Yes Intact, Yes Orientated to Time, Yes Orientated to Place, Yes Orientated to Person Impulse Control: Tenuous Insight and Judgement: Fair Impression - Impression Clinical Impression: 74 y.o. , homeless, white male with a complicated medical history but no formal psychiatric diagnosis or treatment in the past, who is admitted to the Hospitalist service for medical and surgical treatment of severe osteomylitis of his left foot. The patient presented initially with active SI and plan to shoot himself with a legally purchased firearm. Suicidality has since completely resolved. Inpatient DSM-V Dx: F32.2 Merits Inpatient Hospitalization: No BSU: Problem List - Patient Problems (1) MDD (major depressive disorder), single episode, severe Current Visit: Yes Status: Acute Priority: High Code(s): F32.2 - MAJOR DEPRESSV DISORD, SINGLE EPSD, SEV W/O PSYCH FEATURES SNOMED Code(s): 764230962417 Comment: seen by psych - patient is suicidal ideation early in admission - no further ideation - continue mirtazapine Plan - Treatment Plan Treatment Plan: Improving on mirtazapine 15mg PO qhs. The patient is psychiatrically cleared for [facility] placement. Psychiatry will continue to follow per patient preference. Continued Medication Management: Start Medication Medications: Current Medications Acetaminophen (Tylenol Tab*) 650 mg PO Q4H PRN PRN Reason: FEVER/PAIN Last Admin: 03/17/19 03:27 Dose: 650 mg Chlorpromazine HCl (Thorazine Tab*) 50 mg PO Q6H PRN PRN Reason: HICCUPS Last Admin: 03/15/19 16:18 Dose: 50 mg Cyclobenzaprine HCl (Flexeril Tab*) 10 mg PO BID PRN PRN Reason: SPASMS Last Admin: 03/21/19 12:07 Dose: 10 mg Dextrose (D50w Syringe 50 Ml*) 12.5 gm IV PUSH .FOR FS < 60 - SS PRN PRN Reason: FS < 60 Docusate Sodium (Colace Cap*) 100 mg PO BID SEGUNDO Enoxaparin Sodium (Lovenox(*)) 40 mg SUBCUT 0900 [facility] Last Admin: 03/21/19 09:41 Dose: 40 mg Vancomycin HCl 1,000 mg/ (Sodium Chloride) 250 mls @ 166.667 mls/hr IVPB Q8H [facility] Last Admin: 03/21/19 09:45 Dose: 166.667 mls/hr Insulin Glargine (Lantus(*)) 30 units SUBCUT Q24H [facility] Last Admin: 03/21/19 09:41 Dose: 30 units Insulin Human Lispro (Humalog*) 10 units SUBCUT AC [facility] Last Admin: 03/21/19 13:11 Dose: 10 units Insulin Human Lispro (Humalog*) 0 units SUBCUT ACHS [facility]; Protocol Last Admin: 03/21/19 11:34 Dose: Not Given Magnesium Hydroxide (Milk Of Magnesia Liq*) 30 ml PO Q6H PRN PRN Reason: CONSTIPATION Melatonin (Melatonin) 3 mg PO BEDTIME PRN PRN Reason: SLEEP Last Admin: 03/20/19 23:21 Dose: 3 mg Mirtazapine (Remeron Tab*) 15 mg PO BEDTIME [facility] Last Admin: 03/20/19 21:03 Dose: 15 mg Oxycodone/Acetaminophen (Percocet 5/325 Tab*) 1 tab PO Q4H PRN PRN Reason: PAIN Last Admin: 03/21/19 06:51 Dose: 1 tab Oxymetazoline HCl (Afrin 0.05% Nasal [place]*) 2 spray BOTH NARES BID PRN PRN Reason: CONGESTION Pharmacy Consult (Vancomycin Per Pharmacy*) 1 note FOLLOW UP . PRN PRN Reason: PER PROTOCOL Polyethylene Glycol/Electrolytes (Miralax*) 17 gm PO DAILY PRN PRN Reason: CONSTIPATION Senna (Senokot Tab*) 2 tab PO BEDTIME PRN PRN Reason: CONSTIPATION
[2019-03-21] MEDS: Docusate CAP* 100 MG PO SCH (20:32)
[2019-03-21] MEDS: Mirtazapine TAB* 15 MG PO SCH (21:09)
[2019-03-21] MEDS: Melatonin 3 MG TAB PO PRN (23:29)
[2019-03-22] MEDS: Vancomycin(*) 1,000 MG in NS 0.9% 250 ML* 250 ML IVPB SCH ×2 (02:32→11:22)
[2019-03-22] MEDS: Oxymetazoline 0.05% NASAL SPR* 15 ML BTL BOTH NARES PRN ×2 (02:41→19:57)
[2019-03-22] MEDS: oxyCODONE/Acetamin 5/325 MG* TAB PO PRN ×4 (03:02→22:00)
[2019-03-22] MEDS: Insulin LISPRO* 1 UNITS UNIT SUBCUT SCH ×7 (08:32→22:06)
[2019-03-22] MEDS: Insulin GLARGINE(*) 1 UNITS UNIT SUBCUT SCH (09:33)
[2019-03-22] MEDS: Enoxaparin(*) 40 MG/0.4 ML SYR SUBCUT SCH (09:34)
[2019-03-22] MEDS: Docusate CAP* 100 MG PO SCH ×2 (09:36→22:00)
[2019-03-22] MEDS ORDERED: hydrOXYzine HCL TAB* 25 MG PO PRN (14:49)
[2019-03-22] MEDS ORDERED: Furosemide IV* 10 MG/ML 2 ML VIAL (20 MG) IV ONE (14:49)
--- NOTE | 2019-03-22 14:51 | PN ---
Subjective Date of Service: 03/22/19 Interval History: Patient reporting feeling bloated in his abdomen today. Nursing reports no BM in several days, took milk of mag today. Reported to nursing he was hoping for medication to help with anxiety. Otherwise denies chest pain, difficulty breathing, abd pain, nausea, vomiting, fever/chills. Family History: Unchanged from Admission Social History: Unchanged from Admission Past Medical History: Unchanged from Admission Objective Active Medications: Acetaminophen (Tylenol Tab*) 650 mg PO Q4H PRN PRN Reason: FEVER/PAIN Last Admin: 03/17/19 03:27 Dose: 650 mg Chlorpromazine HCl (Thorazine Tab*) 50 mg PO Q6H PRN PRN Reason: HICCUPS Last Admin: 03/15/19 16:18 Dose: 50 mg Cyclobenzaprine HCl (Flexeril Tab*) 10 mg PO BID PRN PRN Reason: SPASMS Last Admin: 03/21/19 21:09 Dose: 10 mg Dextrose (D50w Syringe 50 Ml*) 12.5 gm IV PUSH .FOR FS < 60 - SS PRN PRN Reason: FS < 60 Docusate Sodium (Colace Cap*) 100 mg PO BID [facility] Last Admin: 03/22/19 09:36 Dose: Not Given Enoxaparin Sodium (Lovenox(*)) 40 mg SUBCUT 0900 [facility] Last Admin: 03/22/19 09:34 Dose: 40 mg Furosemide (Lasix Iv*) 20 mg IV ONCE ONE Stop: 03/22/19 14:50 Furosemide (Lasix Tab*) 20 mg PO DAILY [facility] Hydroxyzine HCl (Atarax Tab*) 25 mg PO Q6H PRN PRN Reason: ANXIETY Vancomycin HCl 1,500 mg/ (Sodium Chloride) 250 mls @ 166.667 mls/hr IVPB Q12H [facility] Insulin Glargine (Lantus(*)) 30 units SUBCUT Q24H [facility] Last Admin: 03/22/19 09:33 Dose: 30 units Insulin Human Lispro (Humalog*) 10 units SUBCUT AC [facility] Last Admin: 03/22/19 13:53 Dose: 10 units Insulin Human Lispro (Humalog*) 0 units SUBCUT ACHS [facility]; Protocol Last Admin: 03/22/19 11:57 Dose: Not Given Magnesium Hydroxide (Milk Of Magnesia Liq*) 30 ml PO Q6H PRN PRN Reason: CONSTIPATION Last Admin: 03/22/19 09:35 Dose: 30 ml Melatonin (Melatonin) 3 mg PO BEDTIME PRN PRN Reason: SLEEP Last Admin: 03/21/19 23:29 Dose: 3 mg Mirtazapine (Remeron Tab*) 15 mg PO BEDTIME [facility] Last Admin: 03/21/19 21:09 Dose: 15 mg Oxycodone/Acetaminophen (Percocet 5/325 Tab*) 1 tab PO Q4H PRN PRN Reason: PAIN Last Admin: 03/22/19 06:56 Dose: 1 tab Oxymetazoline HCl (Afrin 0.05% Nasal [place]*) 2 spray BOTH NARES BID PRN PRN Reason: CONGESTION Last Admin: 03/22/19 02:41 Dose: 2 spr Pharmacy Consult (Vancomycin Per Pharmacy*) 1 note FOLLOW UP . PRN PRN Reason: PER PROTOCOL Pharmacy Profile Note (Vancomycin Trough Check) 1 note FOLLOW UP 929 ONE Stop: 03/24/19 09:31 Polyethylene Glycol/Electrolytes (Miralax*) 17 gm PO DAILY PRN PRN Reason: CONSTIPATION Senna (Senokot Tab*) 2 tab PO BEDTIME PRN PRN Reason: CONSTIPATION Vital Signs - 8 hr 03/22/19 03/22/19 03/22/19 06:56 07:16 07:30 Temperature 98.3 F Pulse Rate 94 Respiratory 16 18 16 Rate Blood Pressure 119/63 (mmHg) O2 Sat by Pulse 94 Oximetry 03/22/19 03/22/19 09:22 11:42 Temperature 97.9 F Pulse Rate 94 Respiratory 16 18 Rate Blood Pressure 115/55 (mmHg) O2 Sat by Pulse 99 Oximetry Oxygen Devices in Use Now: None Appearance: Elderly, white male, sitting upright in chair, appearing in NAD Eyes: No Scleral Icterus, PERRLA Ears/Nose/Mouth/Throat: Mucous Membranes Moist Neck: NL Appearance and Movements; NL JVP, Trachea Midline Respiratory: Symmetrical Chest Expansion and Respiratory Effort, Clear to Auscultation Cardiovascular: NL Sounds; No Murmurs; No JVD, RRR Abdominal: NL Sounds; No Tenderness; No Distention Extremities: No Clubbing, Cyanosis, - - Tense but trace edema throughout bilateral LEs to knees; scrotal edema bilaterally Skin: No Rash or Ulcers Neurological: Alert and Oriented x 3, NL Muscle Strength and Tone Result Diagrams: 03/20/19 04:42 03/22/19 16:42 Microbiology and Other Data: Microbiology 03/13/19 18:22 Skin and Soft Tissue MRSA/MSSA (PCR - Final Foot Left Mrsa Positive S.aureus Positive Gram Stain - Final 03/13/19 18:48 Aerobic Blood Culture - Preliminary Blood Venous Anaerobic Blood Culture - Preliminary 03/13/19 18:48 Aerobic Blood Culture - Preliminary Blood Venous Anaerobic Blood Culture - Preliminary Blood MRSA/MSSA (PCR) - Final Mrsa Negative S.aureus Negative Diagnostic Imaging: Patient Name: CONOR HERNANDEZ Medical Record#: [id number] Ordering Physician: Nadja Martinez MD Acct.#: [id number] : 1945 Age: 74 Sex: M Location: EMERGENCY DEPARTMENT Exam Date: 03/13/191841 ADM Status: REG ER Order Information: CT EXTREMITY LOWER LEFT WO Accession Number: [id number] CPT: 03540 EXAM: CT Left Lower Extremity Without Contrast, Foot EXAM DATE/TIME: 03/13/2019 7:38 PM CLINICAL HISTORY: 74 years old, male; Signs and symptoms; Other: Wound left great toe; Additional info: Wound left great toe, ? osteomyelitis TECHNIQUE: Imaging protocol: CT of the Left lower extremity without contrast was performed. Exam focused on the foot. Coronal and sagittal reformatted images were created and reviewed. Radiation optimization: All CT scans at this facility use at least one of these dose optimization techniques: automated exposure control; mA and/or kV adjustment per patient size (includes targeted exams where dose is matched to clinical indication); or iterative reconstruction. COMPARISON: No relevant prior studies available. FINDINGS: Bones/joints: Limited degenerative change elsewhere. Soft tissues: Soft tissue swelling surrounding the hallux valgus deformity at the first MTP. There are tiny bits of gas around the joint laterally and tiny foci of possible intra-articular gas in the dorsal aspect of the base of the proximal phalanx. Findings are highly suspicious for osteomyelitis and surrounding cellulitis. Difficult to assess for abscess without contrast. IMPRESSION: Soft tissue swelling surrounding the hallux valgus deformity at the first MTP. There are tiny bits of gas around the joint laterally and tiny foci of possible intra-articular gas in the dorsal aspect of the base of the proximal phalanx. Findings are highly suspicious for osteomyelitis and surrounding cellulitis. Difficult to assess for abscess without contrast. To contact [facility] with a general question: Operations Center - [phone] For direct physician to physician contact: Physician Hotline - [phone] [facility] ([facility] Facility ID #[id number]) <Electronically signed by Ag Suarez MD in OV> 03/13/192054 Dictated By: Ag Suarez MD Dictated Date/Time: 03/13/192054 Transcribed Date/Time: This report is only to be considered final once signed by the Provider(s) as displayed in the "<Electronically Signed by >" field (s). Absence of a signature indicates the report is in a draft status and still needs to be finalized. In the event this document was created by someone other than the signing Provider, the individual initiating the document will be listed in the "Entered by:" or "Dictated by:" leonard. 1 of 2 *[facility]* [place] [address] Fax #: [phone] Transesophageal Echocardiogram Patient: Parviz, Height: 66.1 in / Conor 168 cm : 1945 Weight: 123.2 lb / Study Date: 03/14/2019 56 kg Age: 74 BP: 126 / 68 Gender: M BMI/BSA: 19.8 kg/m^2 HR: 96 bpm / 1.61 m^2 *Seo Engineer: * Lisa Potts [facility] *Referring Physician: * David, Dixie M *Reading Physician: * Wild Ruffin MD Indications: Bacteremia. History: Atrioventricular block. Risk factors: Diabetes mellitus. Labs, prior tests, procedures, and surgery: ICD system implantation. Conclusions Summary: 1. Left ventricle: Systolic function is mildly reduced. The estimated ejection fraction is 40-45%. 2. Right ventricle: Pacer wire noted in the right ventricle with no evidence of vegetations Systolic function is normal. 3. Atrial septum: A PFO is not demonstrated by color Doppler or agitated saline contrast. 4. Mitral valve: There is no evidence of a vegetation. There is mild regurgitation. 5. Aortic valve: There is no evidence of a vegetation. There is no significant regurgitation. This report is only to be considered final once signed by the Provider(s) as displayed in the "<Electronically Signed by >" field (s). Absence of a signature indicates the report is in a draft status and still needs to be finalized. In the event this document was created by someone other than the signing Provider, the individual initiating the document will be listed in the "Entered by:" or "Dictated by:" leonard. Assess/Plan/Problems-Billing This is a 74yo M who [place] and not sought any medical care since his last admission in 01/2018. He presented to the ER with complaints of generalized weakness, decreased appetite and L foot wound and was found to be septic secondary to likely osteomyelitis of the L distal foot and in what was initially thought to be starvation ketosis. - Patient Problems (1) Osteomyelitis of ankle or foot, acute Code(s): M86.179 - OTHER ACUTE OSTEOMYELITIS, UNSPECIFIED ANKLE AND FOOT SNOMED Code(s): 335195452 Comment: - s/p TMA with Dr. Hernandez on 03/15/19 - foot wound culture positive for MRSA, strep and citrobacter; abx per ID - ID recommends IV vancomycin x 6 weeks - PICC ordered today for discharge planning - PT/OT (2) Bacteremia Code(s): R78.81 - BACTEREMIA SNOMED Code(s): 5885357 Comment: -blood culture positive for strep agalactiae -likely secondary to osteomyelitis -ID following, no evidence of pacer vegetations or epidural abscess -continue vanco for MRSA positive osteomyelitis tx (3) Systolic CHF Code(s): I50.20 - UNSPECIFIED SYSTOLIC (CONGESTIVE) HEART FAILURE SNOMED Code( s): 88547854 Comment: -transthoracic echo 03/14/19 demonstrates EF 40-45%, which is unchanged from previous in 2018 -bilateral LE and scrotal edema noted today -ordered IV lasix 20 mg for today and will continue po lasix 20mg tomorrow and reassess -was previously not adherent to medication, restarting metoprolol succinate 25 mg po as patient was discharged in 2018 with this med (4) MDD (major depressive disorder), single episode, severe Code(s): F32.2 - MAJOR DEPRESSV DISORD, SINGLE EPSD, SEV W/O PSYCH FEATURES SNOMED Code(s): 331457252511 Comment: - seen by psych - patient expressed suicidal ideation early in admission - no further ideation - continue mirtazapine - requesting medication for breakthrough anxiety, added prn atarax; discussed with Dr. Levin and he is comfortable with this (5) Uncontrolled type II diabetes mellitus Code(s): E11.65 - TYPE 2 DIABETES MELLITUS WITH HYPERGLYCEMIA SNOMED Code(s): 852947685 Comment: - initially admitted with elevated anion gap, thought to be starvation ketoacidosis, now resolved - BS 74-172 in last 24 hours, will continue with current plan - Needs tight glycemic control for wound healing - Dr. Peralta consulted; appreciate his recommendations: Lantus 30units, Lispro 10U ac, Lispro 2U/50 for BS > 200 - Add metformin 750 at bedtime at discharge per Dr. Peralta rec - If BS < 200 as inpatient, discharge on Glipizide XL [address] of Lispro per Dr. Peralta rec -starting metformin 500 mg BID today as discharge may be delayed due to placement (6) DNR (do not resuscitate) (7) DVT prophylaxis Code(s): DVK3084 - SNOMED Code(s): 409127515 Comment: - Lovenox SQ Status and Disposition: Inpatient. Awaiting placement to subacute rehab.
--- NOTE | 2019-03-22 15:38 | PN ---
Progress Note - Progress Note Date of Service: 03/22/19 SOAP: Subjective: []Pt seen and examined at bedside. He is in better spirits today. Denies CP, SOB , dizziness, nausea or foot pain. Objective: []General: Appears well, NAD LLE: splint cdi, no erythema proximal right calf supple and nontender Assessment: []POD #6 Left foot TMA Plan: Cont NWB LLE Awaiting SW assist for rehab placement Cont Lovenox for DVT ppx vancomycin abx Wound check/ Dressing change thurs with Dr Hernandez Vital Signs Temp 97.9 F 03/22/19 11:42 Pulse 89 03/22/19 15:11 Resp 16 03/22/19 15:11 BP 111/52 03/22/19 15:11 Pulse Ox 99 03/22/19 15:11 Intake & Output 03/21/19 03/22/19 03/22/19 18:59 06:59 18:59 Intake Total 695 1472 780 Output Total 1150 950 600 Balance -455 522 180 Weight 182 lb 9.6 oz Intake: IV Fluids 45 NS 45 IVPB 627 ABX - VANCOMYCIN 597 NS 30 Oral 695 800 780 Output: Urine 1150 950 600 Other: # Bowel Movements 0 0 # Voids 1 Laboratory Last Values WBC 9.3 10^3/uL (3.5-10.8) 03/20/19 04:42 RBC 4.19 10^6 /uL (4.18-5.48) 03/20/19 04:42 Hgb 12.5 g/dL (14.0-18.0) L 03/20/19 04:42 Hct 37 % (42-52) L 03/20/19 04:42 MCV 89 fL (80-94) 03/20/19 04:42 MCH 30 pg (27-31) 03/20/19 04:42 MCHC 34 g/dL (31-36) 03/20/19 04:42 RDW 13 % (10-15) 03/20/19 04:42 Plt Count 354 10^3/uL (150-450) 03/20/19 04:42 MPV 7.4 fL (7.4-10.4) 03/20/19 04:42 Neut % (Auto) 75.7 % 03/20/19 04:42 Lymph % (Auto) 15.6 % 03/20/19 04:42 Peach % (Auto) 6.7 % 03/20/19 04:42 Eos % (Auto) 1.7 % 03/20/19 04:42 Baso % (Auto) 0.3 % 03/20/19 04:42 Absolute Neuts (auto) 7.1 10^3/ul (1.5-7.7) 03/20/19 04:42 Absolute Lymphs (auto) 1.5 10^3/ul (1.0-4.8) 03/20/19 04:42 Absolute Monos (auto) 0.6 10^3/ul (0-0.8) 03/20/19 04:42 Absolute Eos (auto) 0.2 10^3/ul (0-0.6) 03/20/19 04:42 Absolute Basos (auto) 0.0 10^3/ul (0-0.2) 03/20/19 04:42 Absolute Nucleated RBC 0.0 10^3/ul 03/20/19 04:42 Immature Gran % 28.0 % (0-9) H 03/14/19 04:20 Neutrophils % 64.0 % 03/14/19 04:20 Band Neutrophils % 25.0 % (0-8) H 03/14/19 04:20 Lymphocytes % 1.0 % 03/14/19 04:20 Monocytes % 7.0 % 03/14/19 04:20 Eosinophils % 0.0 % 03/13/19 18:47 Basophils % 0.0 % 03/13/19 18:47 Metamyelocytes % 3.0 % (0-2) H 03/14/19 04:20 Nucleated RBC % 0.0 03/20/19 04:42 Abs Neuts (Manual) 16.1 10^3/ul (1.5-7.7) H 03/14/19 04:20 Abs Lymphs (Manual) 0.2 10^3/ul (1.0-4.8) L 03/14/19 04:20 Abs Monocytes (Manual) 1.2 10^3/ul (0-0.8) H 03/14/19 04:20 Absolute Eos (Manual) 0.0 10^3/ul (0-0.6) 03/13/19 18:47 Abs Basophils (Manual) 0.0 10^3/ul (0-0.2) 03/13/19 18:47 Normal RBC Morphology Not Reportable 03/14/19 04:20 Polychromasia 1+ 03/14/19 04:20 Anisocytosis 1+ 03/13/19 18:47 INR (Anticoag Therapy) 1.07 (0.82-1.09) 03/14/19 04:20 APTT 32.7 seconds (26.0-38.0) 03/13/19 18:47 VBG pH 7.17 (7.32-7.43) L 03/14/19 00:30 VBG pCO2 35 mmHg (41-51) L 03/14/19 00:30 VBG pO2 38.0 mmHg (35-45) 03/14/19 00:30 VBG HCO3 12.5 mmol/L (24-28) L 03/14/19 00:30 VBG O2 Saturation 64.0 % (70-80) L 03/14/19 00:30 VBG Base Excess -14.8 mmol/L (0.0-4.0) L 03/14/19 00:30 Sodium 137 mmol/L (135-145) 03/21/19 04:41 Potassium 3.8 mmol/L (3.5-5.0) 03/21/19 04:41 Chloride 101 mmol/L (101-111) 03/21/19 04:41 Carbon Dioxide 33 mmol/L (22-32) H 03/21/19 04:41 Anion Gap 3 mmol/L (2-11) 03/21/19 04:41 BUN 14 mg/dL (6-24) 03/21/19 04:41 Creatinine 0.52 mg/dL (0.67-1.17) L 03/21/19 04:41 Est GFR ( Amer) 187.5 (>60) 03/21/19 04:41 Est GFR (Non-Af Amer) 154.9 (>60) 03/21/19 04:41 BUN/Creatinine Ratio 26.9 (8-20) H 03/21/19 04:41 Glucose 123 mg/dL (70-100) H 03/21/19 04:41 POC Glucose (mg/dL) 172 mg/dL (70-100) H 03/22/19 11:22 Glucose Meter Confirm 362 mg/dL (70-100) H 03/16/19 20:52 Hemoglobin A1c 16.8 % (4.0-5.6) H 03/13/19 18:47 Lactic Acid 1.6 mmol/L (0.5-2.0) 03/13/19 18:47 Calcium 7.9 mg/dL (8.6-10.3) L 03/21/19 04:41 Phosphorus 3.6 mg/dL (2.5-5.0) 03/13/19 23:28 Magnesium 1.9 mg/dL (1.9-2.7) 03/14/19 04:20 Total Bilirubin 0.40 mg/dL (0.2-1.0) 03/16/19 06:18 AST 27 U/L (13-39) 03/16/19 06:18 ALT 18 U/L (7-52) 03/16/19 06:18 Alkaline Phosphatase 97 U/L (34-104) 03/16/19 06:18 Total Creatine Kinase 135 U/L (10-223) 03/13/19 18:47 Troponin I 0.04 ng/mL (<0.04) H* 03/14/19 02:02 C-Reactive Protein 59.94 mg/L (<8.01) H 03/21/19 04:41 B-Natriuretic Peptide 194 pg/mL (<=100) H 03/13/19 18:47 Total Protein 4.8 g/dL (6.4-8.9) L 03/16/19 06:18 Albumin 2.1 g/dL (3.2-5.2) L 03/16/19 06:18 Globulin 2.7 g/dL (2-4) 03/16/19 06:18 Albumin/Globulin Ratio 0.8 (1-3) L 03/16/19 06:18 Prealbumin < 3 mg/dL (18-38) L 03/13/19 18:47 Triglycerides 65 mg/dL 03/14/19 04:20 Cholesterol 124 mg/dL 03/14/19 04:20 LDL Cholesterol 48 mg/dL 03/14/19 04:20 HDL Cholesterol 62.8 mg/dL 03/14/19 04:20 Vitamin B12 > 1450 pg/mL (180-914) H 03/13/19 18:47 Folate 13.17 ng/mL (>3.99) 03/13/19 18:47 TSH 1.11 mcIU/mL (0.34-5.60) 03/13/19 18:47 Urine Color Straw 03/13/19 21:54 Urine Appearance Clear 03/13/19 21:54 Urine pH 5.0 (5-9) 03/13/19 21:54 Ur Specific [place] 1.023 (1.010-1.030) 03/13/19 21:54 Urine Protein Negative (Negative) 03/13/19 21:54 Urine Ketones 2+ (Negative) A 03/13/19 21:54 Urine Blood 2+ (Negative) A 03/13/19 21:54 Urine Nitrate Negative (Negative) 03/13/19 21:54 Urine Bilirubin Negative (Negative) 03/13/19 21:54 Urine Urobilinogen Negative (Negative) 03/13/19 21:54 Ur Leukocyte Esterase Negative (Negative) 03/13/19 21:54 Urine WBC (Auto) Trace(0-5/hpf) (Absent) 03/13/19 21:54 Urine RBC (Auto) Trace(0-2/hpf) (Absent) 03/13/19 21:54 Urine Bacteria Absent (Absent) 03/13/19 21:54 Hyaline Casts Present (Absent) A 03/13/19 21:54 Urine Glucose 3+(>=500 mg/dl) (Negative) A 03/13/19 21:54 Vancomycin Trough 17.9 mcg/mL 03/22/19 10:19 Salicylates 15.50 mg/dL (<30) 03/13/19 18:47 Urine Opiates Screen None detected (None Detect) 03/13/19 21:54 Ur Barbiturates Screen None detected (None Detect) 03/13/19 21:54 Ur Phencyclidine Scrn None detected (None Detect) 03/13/19 21:54 Ur Amphetamines Screen None detected (None Detect) 03/13/19 21:54 U Benzodiazepines Scrn None detected (None Detect) 03/13/19 21:54 Urine Cocaine Screen None detected (None Detect) 03/13/19 21:54 U Cannabinoids Screen None detected (None Detect) 03/13/19 21:54 Serum Alcohol < 10 mg/dL (<10) 03/13/19 18:47
[2019-03-22 17:08] LABS: EGFR African American 135.3 (>60); EGFR Non-African American 111.8 (>60)
[2019-03-22] MEDS: Melatonin 3 MG TAB PO PRN (22:00)
[2019-03-22] MEDS: Vancomycin(*) 1,500 MG in NS 0.9% 250 ML* 250 ML IVPB SCH (22:00)
[2019-03-22] MEDS: Mirtazapine TAB* 15 MG PO SCH (22:00)
[2019-03-23] MEDS: oxyCODONE/Acetamin 5/325 MG* TAB PO PRN ×2 (03:35→23:35)
[2019-03-23] MEDS: Insulin LISPRO* 1 UNITS UNIT SUBCUT SCH ×7 (07:31→21:14)
[2019-03-23] MEDS: Insulin GLARGINE(*) 1 UNITS UNIT SUBCUT SCH (08:55)
[2019-03-23] MEDS: metFORMIN* 500 MG TAB PO SCH ×2 (08:57→17:07)
[2019-03-23] MEDS: Metoprolol Succinate XL TAB* 25 MG PO SCH (08:57)
[2019-03-23] MEDS: Docusate CAP* 100 MG PO SCH ×2 (08:57→21:15)
[2019-03-23] MEDS: Furosemide TAB* 20 MG PO SCH (08:58)
[2019-03-23] MEDS: Enoxaparin(*) 40 MG/0.4 ML SYR SUBCUT SCH (08:58)
--- NOTE | 2019-03-23 09:29 | PN ---
Progress Note - Progress Note Date of Service: 03/23/19 Note: I saw and examined Conor this morning. He is much more alert and oriented. He asked appropriate questions. He reports no pain in the left foot. I removed his splint. Overall, the stump and incision look great. The most medial aspect does have a little bit of erythema still. No drainage from the wound. I placed a new dry sterile dressing, and a new well-padded short-leg plaster posterior slab splint. His white count has normalized. He remains afebrile. He should remain nonweightbearing in the left lower extremity with elevation. Continue antibiotics as guided by the infectious disease service. Ganesh Hernandez MD
--- NOTE | 2019-03-23 10:21 | PN ---
Progress Note - Progress Note Date of Service: 03/23/19 SOAP: Subjective: CC: Left foot infection HPI: Mr. Jj is a 74 yo male with PMH significant for who presented with a chronic left foot infection and sepsis, now S/P left foot transmetatarsal amputation. Denies fever, chills, ABD pain, nausea, vomiting, diarrhea, back pain. Reports that his appetite is ok and he is eating well. Objective: Vital Signs 03/23/19 07:50 Temperature 98.8 F Pulse Rate 90 Respiratory 18 Rate Blood Pressure 119/69 (mmHg) O2 Sat by Pulse 96 Oximetry Physical Exam: General: NAD, laying in bed Neurological: Alert and Oriented x4 HEENT: No thrush, moist MM Cardiovascular: Heart rate regular, no murmur Respiratory: Lung sounds clear bilateral Abdominal: Bowel sounds present; ABD soft, non tender and non distended Skin: Splint to left LE clean, dry and intact. No rash seen on exposed skin Laboratory Last Values WBC 9.3 10^3/uL (3.5-10.8) 03/20/19 04:42 RBC 4.19 10^6 /uL (4.18-5.48) 03/20/19 04:42 Hgb 12.5 g/dL (14.0-18.0) L 03/20/19 04:42 Hct 37 % (42-52) L 03/20/19 04:42 MCV 89 fL (80-94) 03/20/19 04:42 MCH 30 pg (27-31) 03/20/19 04:42 MCHC 34 g/dL (31-36) 03/20/19 04:42 RDW 13 % (10-15) 03/20/19 04:42 Plt Count 354 10^3/uL (150-450) 03/20/19 04:42 MPV 7.4 fL (7.4-10.4) 03/20/19 04:42 Neut % (Auto) 75.7 % 03/20/19 04:42 Lymph % (Auto) 15.6 % 03/20/19 04:42 [place] % (Auto) 6.7 % 03/20/19 04:42 Eos % (Auto) 1.7 % 03/20/19 04:42 Baso % (Auto) 0.3 % 03/20/19 04:42 Absolute Neuts (auto) 7.1 10^3/ul (1.5-7.7) 03/20/19 04:42 Absolute Lymphs (auto) 1.5 10^3/ul (1.0-4.8) 03/20/19 04:42 Absolute Monos (auto) 0.6 10^3/ul (0-0.8) 03/20/19 04:42 Absolute Eos (auto) 0.2 10^3/ul (0-0.6) 03/20/19 04:42 Absolute Basos (auto) 0.0 10^3/ul (0-0.2) 03/20/19 04:42 Absolute Nucleated RBC 0.0 10^3/ul 03/20/19 04:42 Immature Gran % 28.0 % (0-9) H 03/14/19 04:20 Neutrophils % 64.0 % 03/14/19 04:20 Band Neutrophils % 25.0 % (0-8) H 03/14/19 04:20 Lymphocytes % 1.0 % 03/14/19 04:20 Monocytes % 7.0 % 03/14/19 04:20 Eosinophils % 0.0 % 03/13/19 18:47 Basophils % 0.0 % 03/13/19 18:47 Metamyelocytes % 3.0 % (0-2) H 03/14/19 04:20 Nucleated RBC % 0.0 03/20/19 04:42 Abs Neuts (Manual) 16.1 10^3/ul (1.5-7.7) H 03/14/19 04:20 Abs Lymphs (Manual) 0.2 10^3/ul (1.0-4.8) L 03/14/19 04:20 Abs Monocytes (Manual) 1.2 10^3/ul (0-0.8) H 03/14/19 04:20 Absolute Eos (Manual) 0.0 10^3/ul (0-0.6) 03/13/19 18:47 Abs Basophils (Manual) 0.0 10^3/ul (0-0.2) 03/13/19 18:47 Normal RBC Morphology Not Reportable 03/14/19 04:20 Polychromasia 1+ 03/14/19 04:20 Anisocytosis 1+ 03/13/19 18:47 INR (Anticoag Therapy) 1.07 (0.82-1.09) 03/14/19 04:20 APTT 32.7 seconds (26.0-38.0) 03/13/19 18:47 VBG pH 7.17 (7.32-7.43) L 03/14/19 00:30 VBG pCO2 35 mmHg (41-51) L 03/14/19 00:30 VBG pO2 38.0 mmHg (35-45) 03/14/19 00:30 VBG HCO3 12.5 mmol/L (24-28) L 03/14/19 00:30 VBG O2 Saturation 64.0 % (70-80) L 03/14/19 00:30 VBG Base Excess -14.8 mmol/L (0.0-4.0) L 03/14/19 00:30 Sodium 137 mmol/L (135-145) 03/21/19 04:41 Potassium 3.8 mmol/L (3.5-5.0) 03/21/19 04:41 Chloride 101 mmol/L (101-111) 03/21/19 04:41 Carbon Dioxide 33 mmol/L (22-32) H 03/21/19 04:41 Anion Gap 3 mmol/L (2-11) 03/21/19 04:41 BUN 17 mg/dL (6-24) 03/22/19 16:42 Creatinine 0.69 mg/dL (0.67-1.17) 03/22/19 16:42 Est GFR ( Amer) 135.3 (>60) 03/22/19 16:42 Est GFR (Non-Af Amer) 111.8 (>60) 03/22/19 16:42 BUN/Creatinine Ratio 26.9 (8-20) H 03/21/19 04:41 Glucose 123 mg/dL (70-100) H 03/21/19 04:41 POC Glucose (mg/dL) 95 mg/dL (70-100) 03/23/19 07:13 Glucose Meter Confirm 362 mg/dL (70-100) H 03/16/19 20:52 Hemoglobin A1c 16.8 % (4.0-5.6) H 03/13/19 18:47 Lactic Acid 1.6 mmol/L (0.5-2.0) 03/13/19 18:47 Calcium 7.9 mg/dL (8.6-10.3) L 03/21/19 04:41 Phosphorus 3.6 mg/dL (2.5-5.0) 03/13/19 23:28 Magnesium 1.9 mg/dL (1.9-2.7) 03/14/19 04:20 Total Bilirubin 0.40 mg/dL (0.2-1.0) 03/16/19 06:18 AST 27 U/L (13-39) 03/16/19 06:18 ALT 18 U/L (7-52) 03/16/19 06:18 Alkaline Phosphatase 97 U/L (34-104) 03/16/19 06:18 Total Creatine Kinase 135 U/L (10-223) 03/13/19 18:47 Troponin I 0.04 ng/mL (<0.04) H* 03/14/19 02:02 C-Reactive Protein 59.94 mg/L (<8.01) H 03/21/19 04:41 B-Natriuretic Peptide 194 pg/mL (<=100) H 03/13/19 18:47 Total Protein 4.8 g/dL (6.4-8.9) L 03/16/19 06:18 Albumin 2.1 g/dL (3.2-5.2) L 03/16/19 06:18 Globulin 2.7 g/dL (2-4) 03/16/19 06:18 Albumin/Globulin Ratio 0.8 (1-3) L 03/16/19 06:18 Prealbumin < 3 mg/dL (18-38) L 03/13/19 18:47 Triglycerides 65 mg/dL 03/14/19 04:20 Cholesterol 124 mg/dL 03/14/19 04:20 LDL Cholesterol 48 mg/dL 03/14/19 04:20 HDL Cholesterol 62.8 mg/dL 03/14/19 04:20 Vitamin B12 > 1450 pg/mL (180-914) H 03/13/19 18:47 Folate 13.17 ng/mL (>3.99) 03/13/19 18:47 TSH 1.11 mcIU/mL (0.34-5.60) 03/13/19 18:47 Urine Color Straw 03/13/19 21:54 Urine Appearance Clear 03/13/19 21:54 Urine pH 5.0 (5-9) 03/13/19 21:54 Ur Specific [place] 1.023 (1.010-1.030) 03/13/19 21:54 Urine Protein Negative (Negative) 03/13/19 21:54 Urine Ketones 2+ (Negative) A 03/13/19 21:54 Urine Blood 2+ (Negative) A 03/13/19 21:54 Urine Nitrate Negative (Negative) 03/13/19 21:54 Urine Bilirubin Negative (Negative) 03/13/19 21:54 Urine Urobilinogen Negative (Negative) 03/13/19 21:54 Ur Leukocyte Esterase Negative (Negative) 03/13/19 21:54 Urine WBC (Auto) Trace(0-5/hpf) (Absent) 03/13/19 21:54 Urine RBC (Auto) Trace(0-2/hpf) (Absent) 03/13/19 21:54 Urine Bacteria Absent (Absent) 03/13/19 21:54 Hyaline Casts Present (Absent) A 03/13/19 21:54 Urine Glucose 3+(>=500 mg/dl) (Negative) A 03/13/19 21:54 Vancomycin Trough 17.9 mcg/mL 03/22/19 10:19 Salicylates 15.50 mg/dL (<30) 03/13/19 18:47 Urine Opiates Screen None detected (None Detect) 03/13/19 21:54 Ur Barbiturates Screen None detected (None Detect) 03/13/19 21:54 Ur Phencyclidine Scrn None detected (None Detect) 03/13/19 21:54 Ur Amphetamines Screen None detected (None Detect) 03/13/19 21:54 U Benzodiazepines Scrn None detected (None Detect) 03/13/19 21:54 Urine Cocaine Screen None detected (None Detect) 03/13/19 21:54 U Cannabinoids Screen None detected (None Detect) 03/13/19 21:54 Serum Alcohol < 10 mg/dL (<10) 03/13/19 18:47 Microbiology 03/15/19 11:53 Anaerobic Culture - Final Wound - Other 03/15/19 11:53 Skin and Soft Tissue MRSA/MSSA (PCR - Final Foot Left Mrsa Negative S.aureus Negative Gram Stain - Final Wound Culture - Final Strep Agalactiae - (Group B) 03/13/19 18:22 Skin and Soft Tissue MRSA/MSSA (PCR - Final Foot Left Mrsa Positive S.aureus Positive Gram Stain - Final Wound Culture - Final Citrobacter Braakii Alcaligenes Species Strep Agalactiae - (Group B) MRSA 03/13/19 18:48 Aerobic Blood Culture - Final Blood Venous Strep Agalactiae - (Group B) Anaerobic Blood Culture - Final 03/13/19 18:48 Aerobic Blood Culture - Final Blood Venous Strep Agalactiae - (Group B) Anaerobic Blood Culture - Final Strep Agalactiae - (Group B) Blood MRSA/MSSA (PCR) - Final Mrsa Negative S.aureus Negative 03/13/19 21:54 Urine Culture - Final Urine Assessment: 1. Left foot gangrene, acute osteomyelitits. S/P left foot transmetatarsal amputation, POD #8. Wound is polymicrobial including Group B strep. Afebrile and no leukocytosis. CRP is trending down. 2. Group B strep bacteremia. Has a pacemaker, ALEM negative for vegetation. Unable to have an MRI due to pacemaker. Denies back pain, no abscess seen on CT scan of thoracic and lumbar spine. 3. DM2. Plan: Continue Vancomycin (trough 15-20), day . PICC Line will be placed later today. Will need to have weekly labs while on IV ABX: CBC, CMP, CRP and vanco trough.
[2019-03-23] MEDS: Vancomycin(*) 1,500 MG in NS 0.9% 250 ML* 250 ML IVPB SCH ×2 (10:47→21:49)
--- NOTE | 2019-03-23 11:09 | CONSULT ---
Identification - Patient Identification Reason for Psychiatric Consultation: Suicidal Ideation -: Patient is a 74 year old, M admitted on 03/13/19. - MHU Identification Employment Status: Disabled Hx Psychiatric Hospitalization: No History - Objective HPI: Conor is in good spirits. He remains adherent with antidepressant therapy and other medications and therapeutic interventions. He has no complaints today and continues to deny SI and is tolerating mirtazapine well. Exam Appearance: Well Developed/Nourished Hygiene: Normal Grooming: Well Kept Psychomotor Activities: Normal Exhibits Abnormal Movement: No Attitude and Relatedness: Cooperative Eye Contact: Good - Speech Quality: Unpressured Latencies: Normal Quantity: Appropriate Patient's Decription of Mood: "Good" Observed Affect: Good Affect Consistent with: Euthymia Patient's Thought Process: Coherent Thought Content: No Passive Wish, No Suicidal Planning, No Homicidal Ideation, No Paranoid Ideation Experiencing Hallucinations: No, Sensorium is Clear Type of Hallucinations: Visual: No, Auditory: No, Command: No Level of Consciousness: Alert Orientation: Yes Intact, Yes Orientated to Time, Yes Orientated to Place, Yes Orientated to Person Impulse Control: Tenuous Insight and Judgement: Fair Impression - Impression Clinical Impression: 74 y.o. , homeless, white male with a complicated medical history but no formal psychiatric diagnosis or treatment in the past, who is admitted to the Hospitalist service for medical and surgical treatment of severe osteomylitis of his left foot. The patient presented initially with active SI and plan to shoot himself with a legally purchased firearm. Suicidality has since completely resolved. Inpatient DSM-V Dx: F32.2 Merits Inpatient Hospitalization: No BSU: Problem List - Patient Problems (1) MDD (major depressive disorder), single episode, severe Current Visit: Yes Status: Acute Priority: High Code(s): F32.2 - MAJOR DEPRESSV DISORD, SINGLE EPSD, SEV W/O PSYCH FEATURES SNOMED Code(s): 208319746526 Comment: - seen by psych - patient expressed suicidal ideation early in admission - no further ideation - continue mirtazapine - requesting medication for breakthrough anxiety, added prn atarax; discussed with Dr. Levin and he is comfortable with this Plan - Treatment Plan Treatment Plan: Improving on mirtazapine 15mg PO qhs. The patient is psychiatrically cleared for [facility] placement. Psychiatry will continue to follow per patient preference. Continued Medication Management: Start Medication Medications: Current Medications Acetaminophen (Tylenol Tab*) 650 mg PO Q4H PRN PRN Reason: FEVER/PAIN Last Admin: 03/17/19 03:27 Dose: 650 mg Chlorpromazine HCl (Thorazine Tab*) 50 mg PO Q6H PRN PRN Reason: HICCUPS Last Admin: 03/15/19 16:18 Dose: 50 mg Cyclobenzaprine HCl (Flexeril Tab*) 10 mg PO BID PRN PRN Reason: SPASMS Last Admin: 03/21/19 21:09 Dose: 10 mg Dextrose (D50w Syringe 50 Ml*) 12.5 gm IV PUSH .FOR FS < 60 - SS PRN PRN Reason: FS < 60 Docusate Sodium (Colace Cap*) 100 mg PO BID [facility] Last Admin: 03/23/19 08:57 Dose: 100 mg Enoxaparin Sodium (Lovenox(*)) 40 mg SUBCUT 0900 [facility] Last Admin: 03/23/19 08:58 Dose: 40 mg Furosemide (Lasix Tab*) 20 mg PO DAILY [facility] Last Admin: 03/23/19 08:58 Dose: 20 mg Hydroxyzine HCl (Atarax Tab*) 25 mg PO Q6H PRN PRN Reason: ANXIETY Vancomycin HCl 1,500 mg/ (Sodium Chloride) 250 mls @ 166.667 mls/hr IVPB Q12H [facility] Last Admin: 03/23/19 10:47 Dose: 166.667 mls/hr Insulin Glargine (Lantus(*)) 30 units SUBCUT Q24H [facility] Last Admin: 03/23/19 08:55 Dose: 30 units Insulin Human Lispro (Humalog*) 10 units SUBCUT AC [facility] Last Admin: 03/23/19 08:55 Dose: 10 units Insulin Human Lispro (Humalog*) 0 units SUBCUT ACHS [facility]; Protocol Last Admin: 03/23/19 07:31 Dose: Not Given Magnesium Hydroxide (Milk Of Magnesia Liq*) 30 ml PO Q6H PRN PRN Reason: CONSTIPATION Last Admin: 03/22/19 09:35 Dose: 30 ml Melatonin (Melatonin) 3 mg PO BEDTIME PRN PRN Reason: SLEEP Last Admin: 03/22/19 22:00 Dose: 3 mg Metformin HCl (Glucophage*) 500 mg PO 0800,1700 [facility] Last Admin: 03/23/19 08:57 Dose: 500 mg Metoprolol Succinate (Toprol Xl Tab*) 25 mg PO DAILY [facility] Last Admin: 03/23/19 08:57 Dose: 25 mg Mirtazapine (Remeron Tab*) 15 mg PO BEDTIME [facility] Last Admin: 03/22/19 22:00 Dose: 15 mg Oxycodone/Acetaminophen (Percocet 5/325 Tab*) 1 tab PO Q4H PRN PRN Reason: PAIN Last Admin: 03/23/19 03:35 Dose: 1 tab Oxymetazoline HCl (Afrin 0.05% Nasal [place]*) 2 spray BOTH NARES BID PRN PRN Reason: CONGESTION Last Admin: 03/22/19 19:57 Dose: 2 spr Pharmacy Consult (Vancomycin Per Pharmacy*) 1 note FOLLOW UP . PRN PRN Reason: PER PROTOCOL Pharmacy Profile Note (Vancomycin Trough Check) 1 note FOLLOW UP 929 ONE Stop: 03/24/19 09:31 Polyethylene Glycol/Electrolytes (Miralax*) 17 gm PO DAILY PRN PRN Reason: CONSTIPATION Senna (Senokot Tab*) 2 tab PO BEDTIME PRN PRN Reason: CONSTIPATION
[2019-03-23] MEDS: Oxymetazoline 0.05% NASAL SPR* 15 ML BTL BOTH NARES PRN (17:33)
--- NOTE | 2019-03-23 18:20 | PN ---
Subjective Date of Service: 03/23/19 Interval History: Patient feels anxious about transport to rehab because "I have never fit in anywhere in my life." He reports his scrotal edema is improved. He denies pain at amputation site, chest pain, difficulty breathing, fever/chills. Family History: Unchanged from Admission Social History: Unchanged from Admission Past Medical History: Unchanged from Admission Objective Active Medications: Acetaminophen (Tylenol Tab*) 650 mg PO Q4H PRN PRN Reason: FEVER/PAIN Last Admin: 03/17/19 03:27 Dose: 650 mg Chlorpromazine HCl (Thorazine Tab*) 50 mg PO Q6H PRN PRN Reason: HICCUPS Last Admin: 03/15/19 16:18 Dose: 50 mg Cyclobenzaprine HCl (Flexeril Tab*) 10 mg PO BID PRN PRN Reason: SPASMS Last Admin: 03/21/19 21:09 Dose: 10 mg Dextrose (D50w Syringe 50 Ml*) 12.5 gm IV PUSH .FOR FS < 60 - SS PRN PRN Reason: FS < 60 Docusate Sodium (Colace Cap*) 100 mg PO BID [facility] Last Admin: 03/23/19 08:57 Dose: 100 mg Enoxaparin Sodium (Lovenox(*)) 40 mg SUBCUT 0900 [facility] Last Admin: 03/23/19 08:58 Dose: 40 mg Furosemide (Lasix Tab*) 20 mg PO DAILY [facility] Last Admin: 03/23/19 08:58 Dose: 20 mg Heparin Sodium (Porcine) (Heparin Flush Picc/Ml/Cvc(*)) 1 - 3 ml FLUSH 0600, 1800 [facility]; Protocol Last Admin: 03/23/19 17:08 Dose: 1 ml Hydroxyzine HCl (Atarax Tab*) 25 mg PO Q6H PRN PRN Reason: ANXIETY Vancomycin HCl 1,500 mg/ (Sodium Chloride) 250 mls @ 166.667 mls/hr IVPB Q12H [facility] Last Admin: 03/23/19 10:47 Dose: 166.667 mls/hr Insulin Glargine (Lantus(*)) 30 units SUBCUT Q24H [facility] Last Admin: 03/23/19 08:55 Dose: 30 units Insulin Human Lispro (Humalog*) 10 units SUBCUT AC [facility] Last Admin: 03/23/19 17:07 Dose: 10 units Insulin Human Lispro (Humalog*) 0 units SUBCUT ACHS [facility]; Protocol Last Admin: 03/23/19 16:59 Dose: Not Given Magnesium Hydroxide (Milk Of Magnesia Liq*) 30 ml PO Q6H PRN PRN Reason: CONSTIPATION Last Admin: 03/22/19 09:35 Dose: 30 ml Melatonin (Melatonin) 3 mg PO BEDTIME PRN PRN Reason: SLEEP Last Admin: 03/22/19 22:00 Dose: 3 mg Metformin HCl (Glucophage*) 500 mg PO 0800,1700 [facility] Last Admin: 03/23/19 17:07 Dose: 500 mg Metoprolol Succinate (Toprol Xl Tab*) 25 mg PO DAILY [facility] Last Admin: 03/23/19 08:57 Dose: 25 mg Mirtazapine (Remeron Tab*) 15 mg PO BEDTIME [facility] Last Admin: 03/22/19 22:00 Dose: 15 mg Oxycodone/Acetaminophen (Percocet 5/325 Tab*) 1 tab PO Q4H PRN PRN Reason: PAIN Last Admin: 03/23/19 03:35 Dose: 1 tab Oxymetazoline HCl (Afrin 0.05% Nasal [place]*) 2 spray BOTH NARES BID PRN PRN Reason: CONGESTION Last Admin: 03/23/19 17:33 Dose: 2 spr Pharmacy Consult (Vancomycin Per Pharmacy*) 1 note FOLLOW UP . PRN PRN Reason: PER PROTOCOL Pharmacy Profile Note (Vancomycin Trough Check) 1 note FOLLOW UP 0930 ONE Stop: 03/24/19 09:31 Polyethylene Glycol/Electrolytes (Miralax*) 17 gm PO DAILY PRN PRN Reason: CONSTIPATION Senna (Senokot Tab*) 2 tab PO BEDTIME PRN PRN Reason: CONSTIPATION Vital Signs - 8 hr 03/23/19 03/23/19 11:27 15:19 Temperature 97.8 F 98.2 F Pulse Rate 95 90 Respiratory 18 16 Rate Blood Pressure 103/62 107/55 (mmHg) O2 Sat by Pulse 97 97 Oximetry Oxygen Devices in Use Now: None Appearance: white male laying upright in hospital bed appearing in NAD Eyes: No Scleral Icterus, PERRLA Ears/Nose/Mouth/Throat: Mucous Membranes Moist Neck: NL Appearance and Movements; NL JVP Respiratory: Symmetrical Chest Expansion and Respiratory Effort, Clear to Auscultation Cardiovascular: NL Sounds; No Murmurs; No JVD, RRR Abdominal: - - abd is soft, nontender, nondistended Extremities: No Clubbing, Cyanosis, - - Minimal scrotal edema bilaterally, far improved from yesterday; bilateral LE edema resolved; left LE with chaparrita wraps to TMA site Skin: No Rash or Ulcers Neurological: Alert and Oriented x 3, NL Muscle Strength and Tone Result Diagrams: 03/20/19 04:42 03/22/19 16:42 Microbiology and Other Data: Microbiology 03/13/19 18:22 Skin and Soft Tissue MRSA/MSSA (PCR - Final Foot Left Mrsa Positive S.aureus Positive Gram Stain - Final 03/13/19 18:48 Aerobic Blood Culture - Preliminary Blood Venous Anaerobic Blood Culture - Preliminary 03/13/19 18:48 Aerobic Blood Culture - Preliminary Blood Venous Anaerobic Blood Culture - Preliminary Blood MRSA/MSSA (PCR) - Final Mrsa Negative S.aureus Negative Diagnostic Imaging: Patient Name: CONOR HERNANDEZ Medical Record#: [id number] Ordering Physician: Nadja Martinez MD Acct.#: [id number] : 1945 Age: 74 Sex: M Location: EMERGENCY DEPARTMENT Exam Date: 03/13/191841 ADM Status: REG ER Order Information: CT EXTREMITY LOWER LEFT WO Accession Number: [id number] CPT: 70031 EXAM: CT Left Lower Extremity Without Contrast, Foot EXAM DATE/TIME: 03/13/2019 7:38 PM CLINICAL HISTORY: 74 years old, male; Signs and symptoms; Other: Wound left great toe; Additional info: Wound left great toe, ? osteomyelitis TECHNIQUE: Imaging protocol: CT of the Left lower extremity without contrast was performed. Exam focused on the foot. Coronal and sagittal reformatted images were created and reviewed. Radiation optimization: All CT scans at this facility use at least one of these dose optimization techniques: automated exposure control; mA and/or kV adjustment per patient size (includes targeted exams where dose is matched to clinical indication); or iterative reconstruction. COMPARISON: No relevant prior studies available. FINDINGS: Bones/joints: Limited degenerative change elsewhere. Soft tissues: Soft tissue swelling surrounding the hallux valgus deformity at the first MTP. There are tiny bits of gas around the joint laterally and tiny foci of possible intra-articular gas in the dorsal aspect of the base of the proximal phalanx. Findings are highly suspicious for osteomyelitis and surrounding cellulitis. Difficult to assess for abscess without contrast. IMPRESSION: Soft tissue swelling surrounding the hallux valgus deformity at the first MTP. There are tiny bits of gas around the joint laterally and tiny foci of possible intra-articular gas in the dorsal aspect of the base of the proximal phalanx. Findings are highly suspicious for osteomyelitis and surrounding cellulitis. Difficult to assess for abscess without contrast. To contact [facility] with a general question: Operations Center - [phone] For direct physician to physician contact: Physician Hotline - [phone] [facility] ([facility] Facility ID #[id number]) <Electronically signed by Ag Suarez MD in OV> 03/13/192054 Dictated By: Ag Suarez MD Dictated Date/Time: 03/13/192054 Transcribed Date/Time: This report is only to be considered final once signed by the Provider(s) as displayed in the "<Electronically Signed by >" field (s). Absence of a signature indicates the report is in a draft status and still needs to be finalized. In the event this document was created by someone other than the signing Provider, the individual initiating the document will be listed in the "Entered by:" or "Dictated by:" leonard. 1 of 2 *[facility]* [place] [address] Fax #: [phone] Transesophageal Echocardiogram Patient: Parviz, Height: 66.1 in / Conor 168 cm : 1945 Weight: 123.2 lb / Study Date: 03/14/2019 56 kg Age: 74 BP: 126 / 68 Gender: M BMI/BSA: 19.8 kg/m^2 HR: 96 bpm / 1.61 m^2 *Lithographic Proofer: Lisa Perez [facility] *Referring Physician: * Dixie HernandezReading Physician: * Wild Ruffin MD Indications: Bacteremia. History: Atrioventricular block. Risk factors: Diabetes mellitus. Labs, prior tests, procedures, and surgery: ICD system implantation. Conclusions Summary: 1. Left ventricle: Systolic function is mildly reduced. The estimated ejection fraction is 40-45%. 2. Right ventricle: Pacer wire noted in the right ventricle with no evidence of vegetations Systolic function is normal. 3. Atrial septum: A PFO is not demonstrated by color Doppler or agitated saline contrast. 4. Mitral valve: There is no evidence of a vegetation. There is mild regurgitation. 5. Aortic valve: There is no evidence of a vegetation. There is no significant regurgitation. This report is only to be considered final once signed by the Provider(s) as displayed in the "<Electronically Signed by >" field (s). Absence of a signature indicates the report is in a draft status and still needs to be finalized. In the event this document was created by someone other than the signing Provider, the individual initiating the document will be listed in the "Entered by:" or "Dictated by:" leonard. Assess/Plan/Problems-Billing This is a 74yo M who [place] and not sought any medical care since his last admission in 01/2018. He presented to the ER with complaints of generalized weakness, decreased appetite and L foot wound and was found to be septic secondary to likely osteomyelitis of the L distal foot and in what was initially thought to be starvation ketosis. - Patient Problems (1) Osteomyelitis of ankle or foot, acute Code(s): M86.179 - OTHER ACUTE OSTEOMYELITIS, UNSPECIFIED ANKLE AND FOOT SNOMED Code(s): 374992012 Comment: - s/p TMA with Dr. Hernandez on 03/15/19 - foot wound culture positive for MRSA, strep and citrobacter; abx per ID - ID recommends IV vancomycin x 6 weeks - PICC placed today - PT/OT (2) Bacteremia Code(s): R78.81 - BACTEREMIA SNOMED Code(s): 5591923 Comment: -blood culture positive for strep agalactiae -likely secondary to osteomyelitis -ID following, no evidence of pacer vegetations or epidural abscess -continue vanco for MRSA positive osteomyelitis tx (3) Systolic CHF Code(s): I50.20 - UNSPECIFIED SYSTOLIC (CONGESTIVE) HEART FAILURE SNOMED Code( s): 11444351 Comment: -transthoracic echo 03/14/19 demonstrates EF 40-45%, which is unchanged from previous in 2018 -continue po lasis and metoprolol succinate -scrotal edema far improved and LE edema resolved today (4) MDD (major depressive disorder), single episode, severe Code(s): F32.2 - MAJOR DEPRESSV DISORD, SINGLE EPSD, SEV W/O PSYCH FEATURES SNOMED Code(s): 843054359170 Comment: - seen by psych - patient expressed suicidal ideation early in admission - no further ideation - continue mirtazapine and prn atarax (5) Uncontrolled type II diabetes mellitus Code(s): E11.65 - TYPE 2 DIABETES MELLITUS WITH HYPERGLYCEMIA SNOMED Code(s): 249432176 Comment: - initially admitted with elevated anion gap, thought to be starvation ketoacidosis, now resolved - BS 74-172 in last 24 hours, will continue with current plan - Needs tight glycemic control for wound healing - Dr. Peralta consulted; appreciate his recommendations: Lantus 30units, Lispro 10U ac, Lispro 2U/50 for BS > 200 - Add metformin ER 750 at bedtime at discharge per Dr. Peralta rec - If BS < 200 as inpatient, discharge on Glipizide XL [address] of Lispro per Dr. Peralta rec -started metformin 500 mg BID yesterday but will ensure SNF understands Dr. Peralta 's recommendation of metformin ER 750mg (6) DNR (do not resuscitate) (7) DVT prophylaxis Code(s): SCX0813 - SNOMED Code(s): 447690423 Comment: - Lovenox SQ Status and Disposition: Discharge early tomorrow to [facility]
--- NOTE | 2019-03-23 21:06 | DS ---
CC: Dr. Dale; Dr. Hernandez; Dr. Levin; Dr. Peralta * DISCHARGE SUMMARY: DATE OF ADMISSION: 03/13/19 DATE OF DISCHARGE: 03/24/19 PROVIDER: LUKE Cabrera ATTENDING PHYSICIAN WHILE IN THE HOSPITAL: Dr. Chandana Dominique * (dictated by LUKE Cabrera). PRIMARY CARE PROVIDER: None. CONSULTING INFECTIOUS DISEASE SPECIALIST: Dr. Dale. CONSULTING ORTHOPEDIC SURGEON: Dr. Hernandez. CONSULTING PSYCHIATRIST: Dr. Levin. CONSULTING DIRECTOR DATA ARCHITECTURE: Dr. Peralta. PRIMARY DIAGNOSES: 1. Osteomyelitis of left foot, status post left transmetatarsal amputation. 2. Bacteremia. 3. Left foot gangrene. 4. Major depressive disorder. SECONDARY DIAGNOSES: 1. Systolic congestive heart failure. 2. Atrioventricular block, status post pacemaker in 2018. 3. Diabetes mellitus type 2. 4. History of deep vein thrombosis and pulmonary embolism. PROCEDURES: Left TMA on 03/15/[address] Hernandez. STUDIES WHILE IN THE HOSPITAL: Orbit CT on 03/13/19, brain CT on 03/13/19, chest x- ray on 03/13/19, foot x-ray on 03/13/19, ankle x-ray on 03/13/19, lower extremity CT on 03/13/19. Impression: Soft tissue surrounding the hallux valgus deformity at the first MTP. There are tiny bits of gas around the joint laterally and tiny foci of possible intraarticular gas on dorsal aspect of the base of the proximal phalanx. Findings are highly suspicious for osteomyelitis and surrounding cellulitis. Difficult to assess for abscess without contrast. Echocardiogram on 03/13/19; of note, ejection fraction 40% to 55%, overall unchanged from 02/08/18. Chest/thorax CT angiogram on 03/14/19, no PE, moderate wall thickening of esophagus which may be esophagitis, no other acute disease. On 03/14/19, bilateral lower extremity Doppler, no evidence of DVT. Transesophageal ultrasound on 03/14/19 demonstrates no vegetations. Lumbar spine CT on 03/17/19, diffuse degenerative disk and facet disease, no soft tissue abscess. Thoracic spine CT on 03/17/19, bilateral pleural effusions , diffuse degenerative changes of the thoracic spine without acute fracture, and no paraspinous abscess. PERTINENT LAB DATA: Creatinine of 0.69 on 03/22/19. Hemoglobin A1c of 16.8. DISCHARGE MEDICATIONS: Continued home medications: Not applicable as the patient was not taking medication. Discharge medications: 1. Acetaminophen 650 mg p.o. q.4 hours p.r.n. pain. 2. Thorazine 50 mg p.o. q.6 hours p.r.n. hiccups. 3. Flexeril 10 mg p.o. b.i.d. p.r.n. muscle spasms. 4. Docusate 100 mg p.o. b.i.d. 5. Lasix 20 mg p.o. daily. 6. Hydroxyzine 25 mg p.o. q.6 hours p.r.n. anxiety. 7. Insulin glargine 30 units subcu every morning. 8. Glipizide XL 10 mg p.o. daily. 9. Metformin extended release 750 mg p.o. at bedtime. 10. Insulin lispro p.r.n. sliding scale for blood sugar over 200, use 2 units for every 50 units over 200. 11. Melatonin 3 mg p.o. at bedtime p.r.n. insomnia. 12. Metoprolol succinate 25 mg p.o. daily. 13. Mirtazapine 15 mg p.o. at bedtime. 14. Oxycodone/acetaminophen 5/325 mg 1 tab p.o. q.4 hours p.r.n. severe pain. 15. Oxymetazoline 2 sprays both nares b.i.d. p.r.n. 16. Vancomycin IV to be continued until 04/26/19. 17. Senna 2 tabs p.o. at bedtime p.r.n. constipation. HISTORY OF PRESENT ILLNESS/HOSPITAL COURSE: Conor Jj is a 74-year-old male with past medical history of systolic CHF, diabetes mellitus type 2, AV block, status post pacemaker, history of DVT/PE, who reported to emergency department on 03/13/19 due to generalized weakness and left foot wound. Please see history and physical admission note from nurse practitioner, Paola Son, on date of admission for further details. Ultimately, the patient was found to have left gangrene of left foot and left osteomyelitis of left foot and left-sided TMA was performed. As of day of discharge, wound is healing well. Due to the patient being positive for MRSA in the wound, he is to continue IV antibiotics for a total of 6 weeks per Infectious Disease recommendations. During his stay, he was found to have bacteremia with Strep agalactiae, which has been covered by vancomycin during his hospital stay. The patient has remained afebrile and his leukocytosis resolved after several days of treatment. His blood glucose was frequently uncontrolled during his stay and ultimately was seen by Dr. Peralta who recommended the regimen which was described above. Ultimately, this regimen has had very good control over the past several days with blood glucose less than 200. The patient did experience some lower extremity edema during his stay which improved with Lasix. There was at one point where the patient stated that there were concerns for suicidal ideation and Psychiatry was involved. The patient was started on Remeron and there was very good response. The patient was frequently refusing assistance with housing from social work, but ultimately after treatment of his depression did have more interest with housing assistance. Of note, the patient did have a minimally elevated troponin on date of admission which peaked at 0.05, this was likely due to demand ischemia in the setting of sepsis. The patient has had a PICC line placed for administration of IV antibiotics. On date of discharge, the patient is feeling well and denies chest pain, difficulty breathing, fever, chills, abdominal pain, nausea, vomiting, and pain at site of amputation. REVIEW OF SYSTEMS: An 11-point review of systems was completed and all pertinent positives and negatives are above in the HPI. All other systems are negative. PHYSICAL EXAMINATION: White male, lying upright in hospital bed, appearing in no acute distress. Head: Normocephalic with some ecchymosis to left infraorbital region. Eyes: PERRL. Sclerae anicteric. ENT: Mucous membranes moist. Neck: Supple without JVD. Cardio: Regular rate and rhythm without murmurs, rubs, or gallops. Lungs: Clear to auscultation throughout. Abdomen: Abdomen is soft, nontender, and nondistended. Extremities: No clubbing, cyanosis, or edema. Left lower extremity in ANI wraps to site of amputation. Neuro: No focal deficits. The patient is alert and oriented x3. Skin: Skin is warm, dry and intact. DISCHARGE PLAN: Diet: Carbohydrate controlled diet. Activity: Nonweightbearing on left extremity. The patient is to return to the emergency department if he has fever, difficulty breathing, chest pain, or purulent drainage from site of wound. The patient is to be nonweightbearing of the left extremity. He is to keep his splint clean, dry, and intact. He is to follow up with Tami Godfrey, an Orthopedic PA, early on 03/28/19 or 03/29/19 for a wound check or sooner with any concerns. Call the orthopedic office at [phone] to make an appointment please. He is to follow up with infectious disease in 2-3 weeks as well. Please call the ID office at [phone]. While the patient is receiving vancomycin, he should have CMP, CBC, CRP, and vancomycin troughs ordered every 7 days. He additionally should have routine PICC flushes. The regimen above is advised by our manager front office for his diabetes. For his systolic CHF, metoprolol and Lasix are advised to be continued, and for his depression with breakthrough anxiety, hydroxyzine was advised to be continued. As the patient does not have a home, it would be in the patient's best interest to have criminal justice social worker at the nursing facility investigate housing options for discharge planning. Additionally, as the patient doesn't have a PCP, it would be of benefit for him to be directed to the [facility] clinic for a primary care physician follow up. CONDITION ON DISCHARGE: Stable. DISPOSITION: [facility]. TIME SPENT: Approximately 45 minutes was spent on this discharge. LUKE CABRERA [id number]/CPS #: [id number]
[2019-03-23] MEDS: Mirtazapine TAB* 15 MG PO SCH (21:15)
[2019-03-23] MEDS: Melatonin 3 MG TAB PO PRN (22:37)
[2019-03-24] MEDS: oxyCODONE/Acetamin 5/325 MG* TAB PO PRN ×2 (08:09→12:01)
[2019-03-24] MEDS: Insulin LISPRO* 1 UNITS UNIT SUBCUT SCH ×4 (08:20→12:01)
[2019-03-24] MEDS: Insulin GLARGINE(*) 1 UNITS UNIT SUBCUT SCH (09:03)
[2019-03-24] MEDS: Docusate CAP* 100 MG PO SCH (09:05)
[2019-03-24] MEDS: Metoprolol Succinate XL TAB* 25 MG PO SCH (09:05)
[2019-03-24] MEDS: metFORMIN* 500 MG TAB PO SCH (09:05)
[2019-03-24] MEDS: Furosemide TAB* 20 MG PO SCH (09:05)
[2019-03-24] MEDS: Enoxaparin(*) 40 MG/0.4 ML SYR SUBCUT SCH (09:06)
[2019-03-24] MEDS ORDERED: Vancomycin Trough Check NOTE FOLLOW UP ONE (09:30)
[2019-03-24] MEDS: Vancomycin(*) 1,500 MG in NS 0.9% 250 ML* 250 ML IVPB SCH (10:13)
[2019-03-24 10:32] LABS: EGFR African American 205.6 (>60); EGFR Non-African American 169.9 (>60)
[2019-03-24 11:17] VITALS: BP 107/49
[2019-03-24] MEDS: Oxymetazoline 0.05% NASAL SPR* 15 ML BTL BOTH NARES PRN (11:45)
== END 2019-03-24 12:42 | DRG 853 ==
LOC: ED 17:31 → ICU 22:02 → SSU 03-15 19:06
PROVIDERS: ADMIT Pediatrics; ATTEND Internal Medicine
PROC: B24BZZ4 Ultrasonography of Heart with Aorta, Transesophageal (ICD-10-PCS; 2019-03-14)
PROC: 0Y6N0ZB Detachment at Left Foot, Partial 2nd Ray, Open Approach (ICD-10-PCS; 2019-03-15)
PROC: 0Y6N0ZC Detachment at Left Foot, Partial 3rd Ray, Open Approach (ICD-10-PCS; 2019-03-15)
PROC: 0Y6N0ZD Detachment at Left Foot, Partial 4th Ray, Open Approach (ICD-10-PCS; 2019-03-15)
PROC: 0Y6N0ZF Detachment at Left Foot, Partial 5th Ray, Open Approach (ICD-10-PCS; 2019-03-15)
PROC: 0L8W0ZZ Division of Left Foot Tendon, Open Approach (ICD-10-PCS; 2019-03-15)
PROC: 0Y6N0Z9 Detachment at Left Foot, Partial 1st Ray, Open Approach (ICD-10-PCS; principal; 2019-03-15 09:45)
DX: A40.1 Sepsis due to streptococcus, group B (principal); E11.10 Type 2 diabetes mellitus with ketoacidosis without coma; E87.1 Hypo-osmolality and hyponatremia; L97.429 Non-pressure chronic ulcer of left heel and midfoot with unspecified severity; E11.52 Type 2 diabetes mellitus with diabetic peripheral angiopathy with gangrene; I96 Gangrene, not elsewhere classified; L03.116 Cellulitis of left lower limb; F32.2 Major depressive disorder, single episode, severe without psychotic features; R45.851 Suicidal ideations; I24.8 Other forms of acute ischemic heart disease; M86.172 Other acute osteomyelitis, left ankle and foot; I50.20 Unspecified systolic (congestive) heart failure; E11.621 Type 2 diabetes mellitus with foot ulcer; E11.40 Type 2 diabetes mellitus with diabetic neuropathy, unspecified; Z66 Do not resuscitate; E11.319 Type 2 diabetes mellitus with unspecified diabetic retinopathy without macular edema; I25.10 Atherosclerotic heart disease of native coronary artery without angina pectoris; B96.89 Other specified bacterial agents as the cause of diseases classified elsewhere; Z95.0 Presence of cardiac pacemaker; E11.69 Type 2 diabetes mellitus with other specified complication; S05.12XA Contusion of eyeball and orbital tissues, left eye, initial encounter; I34.0 Nonrheumatic mitral (valve) insufficiency; X58.XXXA Exposure to other specified factors, initial encounter; M54.9 Dorsalgia, unspecified; L89.159 Pressure ulcer of sacral region, unspecified stage; Y92.89 Other specified places as the place of occurrence of the external cause; Z59.0 Homelessness; Z86.718 Personal history of other venous thrombosis and embolism; Z86.711 Personal history of pulmonary embolism; Z79.4 Long term (current) use of insulin; Z91.14 Patient's other noncompliance with medication regimen; I48.91 Unspecified atrial fibrillation
CPT/HCPCS: 36415; 70450; 70480; 71045; 71275; 72130; 72133; 80048; 80053; 80061; 80202; 80307; 80320; 80329; 81003; 81015; 82550; 82565; 82607; 82746; 82803; 82947; 83036; 83605; 83735; 83880; 84100; 84134; 84443; 84484; 84520; 85025; 85610; 85730; 86140; 87040; 87070; 87073; 87077; 87086; 87150; 87186; 87205; 87640; 87641; 88307; 88311; 93005; 93306; 93922; 93970; 99285; A9270-GY; C1751; G0480; G8978-GP-CM; G8979-GP-CJ; G8987-GO-CM; G8988-GO-CI; J0692; J1644; J1650; J1815; J1940; J2250; J2270; J2310; J2704; J3010; J3370; J3480; J3490; Q9967

== ENCOUNTER 2023-11-10 10:52 | Inpatient (IN) ==
[2023-11-10 12:16] LABS: ABS Basophils 0.1 10^3/uL (0.0-0.1); ABS Eosinophils 0.3 10^3/uL (0.0-0.5); ABS Lymphocytes 0.7 10^3/uL (1.0-4.8); ABS Monocytes 0.4 10^3/uL (0.0-1.1); ABS Neutrophils 6.9 10^3/uL (1.5-7.6); Hematocrit 28.6 % (38-53); Lymphocyte % 8.4 %; Mean Corpuscular Hemoglobin 24.7 pg (27-33); Mean Corpuscular Hgb Conc 31.4 g/dL (31-36); Mean Corpuscular Volume 78.7 fL (80-97); Mean Platelet Volume 8.6 fL (7.5-11.2); Platelet Count 374 10^3/uL (150-450); Red Blood Count 3.64 10^6/uL (4.06-5.63); Red Cell Distribution Width 18.7 % (12-17); White Blood Count 8.4 10^3/uL (3.6-10.2)
[2023-11-10 12:34] LABS: ALT 13 U/L (7-52); AST 24 U/L (13-39); Albumin 3.6 g/dL (3.2-5.2); Albumin/Globulin Ratio 1.2 (1-3); Alkaline Phosphatase 78 U/L (35-149); Anion Gap 8 mmol/L (2-16); Blood Urea Nitrogen 18 mg/dL (6-24); CO2 Carbon Dioxide 32 mmol/L (22-32); Calcium 9.3 mg/dL (8.6-10.3); Chloride 100 mmol/L (101-111); Creatinine, Serum 0.75 mg/dL (0.67-1.17); Globulin 3.1 g/dL (2-4); Glucose 93 mg/dL (70-100); Lipase < 10 U/L (11.0-82.0); Potassium 3.9 mmol/L (3.5-5.0); Sodium 140 mmol/L (135-145); Total Bilirubin 0.8 mg/dL (0.2-1.0); Total Protein 6.7 g/dL (6.4-8.9); eGFR CKD-EPI 91.8 (>60)
[2023-11-10] MEDS: Iodixanol (CONTRAST) 320 MG/ML 100 ML SDV IV ONE (13:26)
[2023-11-10 14:08] LABS: High Sens Troponin Baseline 19 pg/mL (<20)
[2023-11-10 14:46] LABS: High Sensitivity Troponin 1 Hr 19 pg/mL (<20)
[2023-11-10 16:11] LABS: Urine Appearance Clear; Urine Bilirubin Negative (Negative); Urine Blood 2+ (Negative); Urine Color Yellow; Urine Glucose Negative (Negative); Urine Ketones Negative (Negative); Urine Nitrite Negative (Negative); Urine Protein 1+(30 mg/dL) (Negative); Urine Urobilinogen Negative (Negative)
[2023-11-10 16:13] LABS: Budding Yeast Present (Absent); Urine Bacteria 1+ (Absent); Urine Red Blood Cell 3+(>10/hpf) (Absent); Urine White Blood Cell 1+(6-10/hpf) (Absent); Urine Yeast Present (Absent)
[2023-11-10] MEDS: PEG 3000 GI LAVAGE 1 GALLON PO ONE ×2 (18:08→23:16)
[2023-11-10] MEDS: Enoxaparin 40 MG/0.4 ML SYR SUBCUT ONE (23:15)
[2023-11-10] MEDS: Nystatin TOP POWDER 15 GM BTL TOPICAL SCH (23:50)
[2023-11-11 04:58] LABS: ABS Basophils 0.1 10^3/uL (0.0-0.1); ABS Eosinophils 0.4 10^3/uL (0.0-0.5); ABS Lymphocytes 0.9 10^3/uL (1.0-4.8); ABS Monocytes 0.7 10^3/uL (0.0-1.1); ABS Neutrophils 4.9 10^3/uL (1.5-7.6); ABS Nucleated RBC 0.01 10^3/ul; Eosinophil % 6.3 %; Hematocrit 27.6 % (38-53); Hemoglobin 8.8 g/dL (13.2-16.3); Lymphocyte % 13.4 %; Mean Corpuscular Hemoglobin 25.1 pg (27-33); Mean Corpuscular Hgb Conc 31.9 g/dL (31-36); Mean Corpuscular Volume 78.5 fL (80-97); Mean Platelet Volume 8.5 fL (7.5-11.2); Nucleated Red Blood Cells % 0.1 %/100WBC (0.0-0.8); Platelet Count 356 10^3/uL (150-450); Red Blood Count 3.51 10^6/uL (4.06-5.63); Red Cell Distribution Width 18.8 % (12-17)
[2023-11-11 05:14] LABS: Creatinine, Serum 0.73 mg/dL (0.67-1.17); INR 1.24 (0.83-1.13); Magnesium 1.7 mg/dL (1.9-2.7); Potassium 3.5 mmol/L (3.5-5.0); eGFR CKD-EPI 92.5 (>60)
[2023-11-11] MEDS: Magnesium Sulfate IV 1GM/100ML 1 GM/100 ML BAG IV SCH (10:14)
[2023-11-11] MEDS ORDERED: Albuterol/Ipratropium NEB.SOL (2.5/0.5 MG) 3 ML NEB.SOLN INH PRN (12:32)
[2023-11-11] MEDS: Sodium Phosphate ADULT ENEMA 133 ML BTL PR SCH (15:55)
[2023-11-11] MEDS ORDERED: Polyethylene Glycol 3350 BTL 238 GM BTL PO ONE (20:00)
[2023-11-11] MEDS: Dextrose 50% Syringe 50 ml 25 GM/50 ML SYRINGE IV PUSH PRN (21:00)
[2023-11-11] MEDS: Polyethylene Glycol 3350 17 GM PACKET PO ONE (21:10)
[2023-11-12 05:02] LABS: Hematocrit 30.9 % (38-53); Hemoglobin 9.7 g/dL (13.2-16.3); Mean Corpuscular Hemoglobin 24.6 pg (27-33); Mean Corpuscular Hgb Conc 31.5 g/dL (31-36); Mean Corpuscular Volume 78.2 fL (80-97); Mean Platelet Volume 8.7 fL (7.5-11.2); Platelet Count 404 10^3/uL (150-450); Red Blood Count 3.95 10^6/uL (4.06-5.63); Red Cell Distribution Width 18.6 % (12-17); White Blood Count 15.1 10^3/uL (3.6-10.2)
[2023-11-12 05:21] LABS: Albumin 3.3 g/dL (3.2-5.2); Albumin/Globulin Ratio 1.1 (1-3); Calcium 8.9 mg/dL (8.6-10.3); Creatinine, Serum 0.85 mg/dL (0.67-1.17); Globulin 3.1 g/dL (2-4); Magnesium 2.1 mg/dL (1.9-2.7); Potassium 4.3 mmol/L (3.5-5.0); Total Bilirubin 1.2 mg/dL (0.2-1.0); Total Protein 6.4 g/dL (6.4-8.9); eGFR CKD-EPI 88.4 (>60)
[2023-11-12] MEDS ORDERED: Sodium Phosphate ADULT ENEMA 133 ML BTL PR SCH (09:00)
[2023-11-12] MEDS: Sodium Phosphate ADULT ENEMA 133 ML BTL PR ONE (11:28)
[2023-11-12] MEDS ORDERED: fentaNYL 100 mcg/2 ml 50 MCG/ML VIAL ONE (12:29)
[2023-11-12] MEDS ORDERED: Midazolam 10 mg/10 ml VIAL 1 mg/ml 10 ml VIAL (10 mg) ONE (12:29)
[2023-11-12] MEDS: Enoxaparin 40 MG/0.4 ML SYR SUBCUT SCH (15:14)
[2023-11-12] MEDS: Ertapenem 1 GM in NS 0.9% 50 ML IVPB SCH (16:53)
[2023-11-12] MEDS: DAPTOmycin 500 MG/10 ML SYRINGE IVPB SCH (18:46)
[2023-11-12] MEDS: DAPTOMYCIN 500 MG IV SCH (19:09)
[2023-11-12] MEDS: ERTAPENEM 1 GM IM SCH (19:09)
[2023-11-13] MEDS: Ondansetron 4 mg VIAL 2 MG/ML 2 ml VIAL IV ONE (01:18)
[2023-11-13] MEDS: Piperacillin/Tazobac 3.375 BAG 3.375 GM/100 ML BAG IV ONE (02:27)
[2023-11-13] MEDS ORDERED: Zosyn per Pharmacy NOTE FOLLOW UP SCH (03:00)
[2023-11-13 05:16] LABS: Hematocrit 30.1 % (38-53); Hemoglobin 9.5 g/dL (13.2-16.3); Mean Corpuscular Hemoglobin 24.9 pg (27-33); Mean Corpuscular Hgb Conc 31.7 g/dL (31-36); Mean Corpuscular Volume 78.6 fL (80-97); Mean Platelet Volume 9.1 fL (7.5-11.2); Platelet Count 371 10^3/uL (150-450); Red Blood Count 3.83 10^6/uL (4.06-5.63); Red Cell Distribution Width 19.3 % (12-17); White Blood Count 11.3 10^3/uL (3.6-10.2)
[2023-11-13 05:18] LABS: Albumin 3.2 g/dL (3.2-5.2); Calcium 9.1 mg/dL (8.6-10.3); Creatinine, Serum 0.85 mg/dL (0.67-1.17); Globulin 3.2 g/dL (2-4); Potassium 4.3 mmol/L (3.5-5.0); Total Bilirubin 1.5 mg/dL (0.2-1.0); Total Protein 6.4 g/dL (6.4-8.9); eGFR CKD-EPI 88.4 (>60)
[2023-11-13] MEDS: ZOSYN 3.375 GM Q8H per EXTENDED INFUSION IV SCH (05:46)
[2023-11-13] MEDS: Influenza vaccine *QUAD* *2023-24* 0.5 ML SYRINGE IM ONE (18:22)
[2023-11-14 06:06] LABS: Hemoglobin 8.8 g/dL (13.2-16.3); Mean Corpuscular Hemoglobin 24.9 pg (27-33); Mean Corpuscular Hgb Conc 31.6 g/dL (31-36); Mean Corpuscular Volume 78.8 fL (80-97); Mean Platelet Volume 8.8 fL (7.5-11.2); Platelet Count 353 10^3/uL (150-450); Red Blood Count 3.55 10^6/uL (4.06-5.63); Red Cell Distribution Width 19.4 % (12-17); White Blood Count 14.8 10^3/uL (3.6-10.2)
[2023-11-14 06:33] LABS: Calcium 8.9 mg/dL (8.6-10.3); Globulin 3.1 g/dL (2-4); Potassium 3.6 mmol/L (3.5-5.0); Total Bilirubin 1.1 mg/dL (0.2-1.0); Total Protein 6.1 g/dL (6.4-8.9); eGFR CKD-EPI 76.6 (>60)
[2023-11-14 06:38] LABS: Carcinoembryonic Antigen 1.4 ng/mL (0.1-5.0)
[2023-11-14] MEDS: Albuterol/Ipratropium NEB.SOL (2.5/0.5 MG) 3 ML NEB.SOLN INH SCH (10:36)
[2023-11-14] MEDS: NS 0.9% 1000 ml BAG 1,000 ML IV SCH (11:20)
[2023-11-15 06:25] LABS: Albumin 3.1 g/dL (3.2-5.2); Albumin/Globulin Ratio 0.9 (1-3); Calcium 8.7 mg/dL (8.6-10.3); Creatinine, Serum 0.96 mg/dL (0.67-1.17); Globulin 3.3 g/dL (2-4); Magnesium 2.1 mg/dL (1.9-2.7); Potassium 3.3 mmol/L (3.5-5.0); Total Bilirubin 0.8 mg/dL (0.2-1.0); Total Protein 6.4 g/dL (6.4-8.9); eGFR CKD-EPI 80.4 (>60)
[2023-11-15 06:28] LABS: Hematocrit 28.3 % (38-53); Hemoglobin 8.6 g/dL (13.2-16.3); Mean Corpuscular Hemoglobin 24.4 pg (27-33); Mean Corpuscular Hgb Conc 30.4 g/dL (31-36); Mean Corpuscular Volume 80.3 fL (80-97); Mean Platelet Volume 8.9 fL (7.5-11.2); Platelet Count 334 10^3/uL (150-450); Red Blood Count 3.52 10^6/uL (4.06-5.63); Red Cell Distribution Width 19.2 % (12-17); White Blood Count 17.8 10^3/uL (3.6-10.2)
[2023-11-15] MEDS: Albuterol/Ipratropium NEB.SOL (2.5/0.5 MG) 3 ML NEB.SOLN INH SCH (07:23)
[2023-11-15] MEDS: KCL 20 MEQ/100 ML IVPREMIX 20 MEQ/100 ML BAG IV ONE (18:19)
[2023-11-16 06:38] LABS: ABS Eosinophils 0.1 10^3/uL (0.0-0.5); ABS Lymphocytes 0.7 10^3/uL (1.0-4.8); ABS Monocytes 0.8 10^3/uL (0.0-1.1); ABS Neutrophils 17.4 10^3/uL (1.5-7.6); ABS Nucleated RBC 0.02 10^3/ul; Eosinophil % 0.5 %; Hematocrit 28.5 % (38-53); Hemoglobin 8.7 g/dL (13.2-16.3); Lymphocyte % 3.5 %; Mean Corpuscular Hemoglobin 24.1 pg (27-33); Mean Corpuscular Hgb Conc 30.6 g/dL (31-36); Mean Corpuscular Volume 78.9 fL (80-97); Mean Platelet Volume 8.6 fL (7.5-11.2); Nucleated Red Blood Cells % 0.1 %/100WBC (0.0-0.8); Platelet Count 359 10^3/uL (150-450); Red Blood Count 3.62 10^6/uL (4.06-5.63); Red Cell Distribution Width 18.8 % (12-17)
[2023-11-16 06:55] LABS: Albumin 3.3 g/dL (3.2-5.2); Calcium 8.8 mg/dL (8.6-10.3); Creatinine, Serum 0.85 mg/dL (0.67-1.17); Globulin 3.4 g/dL (2-4); Potassium 3.5 mmol/L (3.5-5.0); Total Bilirubin 0.9 mg/dL (0.2-1.0); Total Protein 6.7 g/dL (6.4-8.9); eGFR CKD-EPI 88.4 (>60)
[2023-11-16] MEDS: NS 0.9% 1000 ml BAG 1,000 ML IV SCH (09:17)
[2023-11-16] MEDS: TPN CENT\\PICC SCH (17:58)
[2023-11-16] MEDS: [UNRECOGNIZED DRUG - OTHER] CENT\\PICC SCH (17:58)
[2023-11-16] MEDS: AMINO ACID INFUSION CENT\\PICC SCH (17:58)
[2023-11-16] MEDS: WATER CENT\\PICC SCH (17:58)
[2023-11-16] MEDS: DEXTROSE CENT\\PICC SCH (17:58)
[2023-11-16] MEDS: Acetaminophen IV 1 GM/100ML 1,000 MG/100 ML BAG IV PRN (20:27)
[2023-11-17 02:00] LABS: Hematocrit 28.9 % (38-53); Hemoglobin 8.9 g/dL (13.2-16.3); Mean Corpuscular Hemoglobin 24.2 pg (27-33); Mean Corpuscular Hgb Conc 30.7 g/dL (31-36); Mean Corpuscular Volume 78.8 fL (80-97); Mean Platelet Volume 9.2 fL (7.5-11.2); Platelet Count 364 10^3/uL (150-450); Red Blood Count 3.67 10^6/uL (4.06-5.63); Red Cell Distribution Width 19.1 % (12-17); White Blood Count 17.2 10^3/uL (3.6-10.2)
[2023-11-17] MEDS ORDERED: Albuterol/Ipratropium NEB.SOL (2.5/0.5 MG) 3 ML NEB.SOLN INH PRN (06:34)
[2023-11-17 06:39] LABS: ABS Lymphocytes 0.4 10^3/uL (1.0-4.8); ABS Monocytes 1.1 10^3/uL (0.0-1.1); ABS Neutrophils 14.2 10^3/uL (1.5-7.6); ABS Nucleated RBC 0.01 10^3/ul; Eosinophil % 0.2 %; Hematocrit 28.9 % (38-53); Hemoglobin 8.8 g/dL (13.2-16.3); Lymphocyte % 2.7 %; Mean Corpuscular Hemoglobin 24.1 pg (27-33); Mean Corpuscular Hgb Conc 30.5 g/dL (31-36); Mean Corpuscular Volume 79.1 fL (80-97); Nucleated Red Blood Cells % 0.1 %/100WBC (0.0-0.8); Platelet Count 366 10^3/uL (150-450); Red Blood Count 3.65 10^6/uL (4.06-5.63); White Blood Count 15.8 10^3/uL (3.6-10.2)
[2023-11-17 06:52] LABS: Albumin 3.2 g/dL (3.2-5.2); Albumin/Globulin Ratio 0.9 (1-3); Calcium 8.8 mg/dL (8.6-10.3); Creatinine, Serum 0.8 mg/dL (0.67-1.17); Globulin 3.5 g/dL (2-4); Magnesium 2.2 mg/dL (1.9-2.7); Phosphorus 1.5 mg/dL (2.5-5.0); Potassium 3.7 mmol/L (3.5-5.0); Total Bilirubin 0.8 mg/dL (0.2-1.0); Total Protein 6.7 g/dL (6.4-8.9)
[2023-11-17] MEDS: Pantoprazole VIAL 40 MG VIAL IV SCH (08:42)
[2023-11-17] MEDS: Insulin GLARGINE 100 un/ml 10 ml VIAL SUBCUT SCH (08:43)
[2023-11-17] MEDS: Potassium Phosphate IV 10 MMOL in NS 0.9% 250 ml 250 ML IVPB ONE (12:05)
[2023-11-17 14:37] LABS: Glucose Confirmatory 430 mg/dL (70-100)
[2023-11-17] MEDS: TPN 24 HR with Dextrose 50% Water 500 ML, Amino Acid Infusion 10% 1,000 ML, Lipid Emuls... CENT\\PICC SCH (17:19)
[2023-11-18] MEDS: Haloperidol 5 mg/ml SDV IV/IM 5 MG/ML AMP IM ONE (00:54)
[2023-11-18 06:03] LABS: ABS Lymphocytes 0.7 10^3/uL (1.0-4.8); ABS Neutrophils 10.1 10^3/uL (1.5-7.6); ABS Nucleated RBC 0.02 10^3/ul; Eosinophil % 0.2 %; Hemoglobin 8.8 g/dL (13.2-16.3); Lymphocyte % 6.3 %; Mean Corpuscular Hemoglobin 24.1 pg (27-33); Mean Corpuscular Hgb Conc 30.4 g/dL (31-36); Mean Corpuscular Volume 79.3 fL (80-97); Nucleated Red Blood Cells % 0.2 %/100WBC (0.0-0.8); Platelet Count 368 10^3/uL (150-450); Red Blood Count 3.66 10^6/uL (4.06-5.63); White Blood Count 11.9 10^3/uL (3.6-10.2)
[2023-11-18 06:25] LABS: Albumin 3.3 g/dL (3.2-5.2); Calcium 9.1 mg/dL (8.6-10.3); Creatinine, Serum 0.78 mg/dL (0.67-1.17); Globulin 3.3 g/dL (2-4); Magnesium 2.1 mg/dL (1.9-2.7); Potassium 3.7 mmol/L (3.5-5.0); Total Bilirubin 0.8 mg/dL (0.2-1.0); Total Protein 6.6 g/dL (6.4-8.9); eGFR CKD-EPI 90.7 (>60)
[2023-11-18] MEDS ORDERED: Insulin GLARGINE 100 un/ml 10 ml VIAL SUBCUT SCH (09:00)
[2023-11-18] MEDS: Insulin GLARGINE 100 un/ml 10 ml VIAL SUBCUT SCH ×2 (10:20→10:58)
[2023-11-18] MEDS: NS 0.45% 1000 ml BAG 1,000 ML IV SCH (11:09)
[2023-11-18] MEDS: D5W IVPB ONE ×2 (12:46→21:41)
[2023-11-18] MEDS: POTASSIUM PHOSPHATE IVPB ONE ×2 (12:46→21:41)
[2023-11-18 13:40] LABS: PCO2 Arterial 51 mmHg (35-45); PO2 Arterial 74 mmHg (80-100)
[2023-11-18] MEDS: Albuterol/Ipratropium NEB.SOL (2.5/0.5 MG) 3 ML NEB.SOLN INH SCH (13:47)
[2023-11-18] MEDS: Haloperidol 5 mg/ml SDV IV/IM 5 MG/ML AMP IV SLOW PU PRN (15:07)
[2023-11-18 18:15] LABS: Calcium 9.1 mg/dL (8.6-10.3); Creatinine, Serum 0.68 mg/dL (0.67-1.17); Phosphorus 1.1 mg/dL (2.5-5.0); Potassium 3.5 mmol/L (3.5-5.0); eGFR CKD-EPI 94.6 (>60)
[2023-11-18] MEDS: Haloperidol 5 mg/ml SDV IV/IM 5 MG/ML AMP IV SLOW PU ONE (18:39)
[2023-11-18] MEDS: Furosemide 40 mg/4 ml IV VIAL IV ONE (21:21)
[2023-11-18] MEDS: D5W 1000 ml BAG 1,000 ML IV SCH (21:40)
[2023-11-18] MEDS: Haloperidol 5 mg/ml SDV IV/IM 5 MG/ML AMP IM PRN (22:52)
[2023-11-19 01:15] LABS: Urine Appearance Clear; Urine Bilirubin Negative (Negative); Urine Blood 1+ (Negative); Urine Color Colorless; Urine Glucose Negative (Negative); Urine Ketones Negative (Negative); Urine Nitrite Negative (Negative); Urine Protein Negative (Negative); Urine Specific Gravity 1.006 (1.002-1.030); Urine Urobilinogen Negative (Negative)
[2023-11-19 01:23] LABS: Budding Yeast Present /HPF (Absent); Urine Bacteria Absent /HPF (Absent); Urine Red Blood Cell 1+(3-5/hpf) /HPF (0-Trace); Urine White Blood Cell 1+(6-10/hpf) /HPF (0-Trace)
[2023-11-19] MEDS: KCL 20 MEQ/100 ML IVPREMIX 20 MEQ/100 ML BAG IV ONE ×2 (03:34→11:02)
[2023-11-19] MEDS: ZOSYN 3.375 GM Q8H per EXTENDED INFUSION IV SCH ×2 (04:20→23:39)
[2023-11-19 07:04] LABS: ABS Basophils 0.1 10^3/uL (0.0-0.1); ABS Eosinophils 0.3 10^3/uL (0.0-0.5); ABS Lymphocytes 0.8 10^3/uL (1.0-4.8); ABS Monocytes 0.9 10^3/uL (0.0-1.1); ABS Neutrophils 8.2 10^3/uL (1.5-7.6); ABS Nucleated RBC 0.01 10^3/ul; Eosinophil % 2.6 %; Hematocrit 26.7 % (38-53); Hemoglobin 8.5 g/dL (13.2-16.3); Lymphocyte % 8.2 %; Mean Corpuscular Hemoglobin 24.8 pg (27-33); Mean Corpuscular Hgb Conc 31.9 g/dL (31-36); Mean Corpuscular Volume 77.5 fL (80-97); Mean Platelet Volume 8.5 fL (7.5-11.2); Platelet Count 320 10^3/uL (150-450); Red Blood Count 3.45 10^6/uL (4.06-5.63); Red Cell Distribution Width 19.4 % (12-17); White Blood Count 10.3 10^3/uL (3.6-10.2)
[2023-11-19 07:23] LABS: Calcium 8.5 mg/dL (8.6-10.3); Creatinine, Serum 0.72 mg/dL (0.67-1.17); Magnesium 1.8 mg/dL (1.9-2.7); Phosphorus 2.2 mg/dL (2.5-5.0); Potassium 3.6 mmol/L (3.5-5.0); eGFR CKD-EPI 92.9 (>60)
[2023-11-19] MEDS: Magnesium Sulfate 2 gm BAG 2 GM/50 ML BAG IVPB ONE (09:09)
[2023-11-19] MEDS ORDERED: Lidocaine 2% PF 5 ML VIAL ONE ×2 (11:27→13:38)
[2023-11-19] MEDS ORDERED: Rocuronium 50 mg VIAL 10 mg/ml 5 ml VIAL (50 mg) ONE ×2 (11:27→15:59)
[2023-11-19] MEDS ORDERED: Etomidate 20 mg/10 ml 2 MG/ML 10 ml VIAL ONE (11:27)
[2023-11-19] MEDS ORDERED: HYDROmorphone 0.5 MG/0.5 ML SYRINGE ONE (11:28)
[2023-11-19] MEDS ORDERED: Dexmedetomidine 200 mcg/2 ml 2 ml VIAL (200 mcg) ONE (11:28)
[2023-11-19] MEDS ORDERED: fentaNYL 250 mcg/5 ml 50 MCG/ML 5 ml VIAL (250 MCG) ONE (11:29)
[2023-11-19] MEDS ORDERED: Phenylephrine IV 10 MG/ML 1 ml VIAL ONE (11:34)
[2023-11-19] MEDS: Lactated Ringers 1000 ml BAG 1,000 ML IV SCH (13:06)
[2023-11-19] MEDS ORDERED: Midazolam 2 mg/2 ml VIAL 1 mg/ml 2 ml VIAL (2 mg) ONE (13:30)
[2023-11-19 14:34] LABS: PCO2 Arterial 48 mmHg (35-45); PO2 Arterial 264 mmHg (80-100)
[2023-11-19 14:37] LABS: ABS Eosinophils 0.4 10^3/uL (0.0-0.5); ABS Lymphocytes 0.9 10^3/uL (1.0-4.8); ABS Monocytes 0.9 10^3/uL (0.0-1.1); ABS Neutrophils 8.4 10^3/uL (1.5-7.6); ABS Nucleated RBC 0.02 10^3/ul; Hematocrit 25.8 % (38-53); Hemoglobin 8.2 g/dL (13.2-16.3); Lymphocyte % 8.8 %; Mean Corpuscular Hemoglobin 24.6 pg (27-33); Mean Corpuscular Hgb Conc 31.9 g/dL (31-36); Mean Platelet Volume 8.4 fL (7.5-11.2); Nucleated Red Blood Cells % 0.2 %/100WBC (0.0-0.8); Platelet Count 361 10^3/uL (150-450); Red Blood Count 3.34 10^6/uL (4.06-5.63); Red Cell Distribution Width 19.5 % (12-17); White Blood Count 10.7 10^3/uL (3.6-10.2)
[2023-11-19] MEDS ORDERED: Ondansetron 4 mg VIAL 2 MG/ML 2 ml VIAL ONE (15:01)
[2023-11-19 15:07] LABS: Albumin 2.8 g/dL (3.2-5.2); Calcium 8.4 mg/dL (8.6-10.3); Creatinine, Serum 0.65 mg/dL (0.67-1.17); Globulin 2.8 g/dL (2-4); Potassium 3.9 mmol/L (3.5-5.0); Total Bilirubin 0.8 mg/dL (0.2-1.0); Total Protein 5.6 g/dL (6.4-8.9); eGFR CKD-EPI 95.9 (>60)
[2023-11-19] MEDS ORDERED: fentaNYL 100 mcg/2 ml 50 MCG/ML VIAL ONE (16:02)
[2023-11-19] MEDS ORDERED: Bupivacaine 0.5% 50 ML MDV VIAL ONE (16:45)
[2023-11-19] MEDS ORDERED: TPN 24 HR with Dextrose 50% Water 500 ML, Amino Acid Infusion 10% 1,000 ML, Lipid Emuls... CENT\\PICC SCH (17:00)
[2023-11-19] MEDS ORDERED: Dextrose 50% Syringe 50 ml 25 GM/50 ML SYRINGE ONE (18:27)
[2023-11-19] MEDS: Dextrose 50% Syringe 50 ml 25 GM/50 ML SYRINGE IV PUSH PRN ×2 (18:28→23:21)
[2023-11-19] MEDS ORDERED: Haloperidol 5 mg/ml SDV IV/IM 5 MG/ML AMP ONE (18:40)
[2023-11-19] MEDS: Haloperidol 5 mg/ml SDV IV/IM 5 MG/ML AMP IV SLOW PU ONE ×2 (18:42→18:54)
[2023-11-19] MEDS: Buffered Lidocaine 1% SYRIN 1 ml INTRADERM ONE (21:15)
[2023-11-19] MEDS: D5W 1/2 NS 1000 ml BAG 1,000 ML IV SCH ×2 (21:27→23:13)
[2023-11-19] MEDS: Acetaminophen IV 1 GM/100ML 1,000 MG/100 ML BAG IV SCH (21:54)
[2023-11-20] MEDS: HYDROmorphone 0.5 MG/0.5 ML SYRINGE IV SLOW PU PRN (00:55)
[2023-11-20] MEDS: Haloperidol 5 mg/ml SDV IV/IM 5 MG/ML AMP IM ONE (02:17)
[2023-11-20] MEDS ORDERED: Albuterol/Ipratropium NEB.SOL (2.5/0.5 MG) 3 ML NEB.SOLN INH PRN (05:54)
[2023-11-20 09:10] LABS: ABS Basophils 0.1 10^3/uL (0.0-0.1); ABS Eosinophils 0.2 10^3/uL (0.0-0.5); ABS Lymphocytes 0.9 10^3/uL (1.0-4.8); ABS Monocytes 0.5 10^3/uL (0.0-1.1); ABS Neutrophils 11.2 10^3/uL (1.5-7.6); ABS Nucleated RBC 0.01 10^3/ul; Eosinophil % 1.6 %; Hematocrit 34.1 % (38-53); Hemoglobin 10.8 g/dL (13.2-16.3); Mean Corpuscular Hemoglobin 25.1 pg (27-33); Mean Corpuscular Hgb Conc 31.7 g/dL (31-36); Mean Corpuscular Volume 79.2 fL (80-97); Mean Platelet Volume 8.5 fL (7.5-11.2); Nucleated Red Blood Cells % 0.1 %/100WBC (0.0-0.8); Platelet Count 317 10^3/uL (150-450); Red Cell Distribution Width 20.4 % (12-17); White Blood Count 12.8 10^3/uL (3.6-10.2)
[2023-11-20 09:25] LABS: Creatinine, Serum 0.85 mg/dL (0.67-1.17); Magnesium 2.1 mg/dL (1.9-2.7); Phosphorus 2.8 mg/dL (2.5-5.0); Potassium 3.8 mmol/L (3.5-5.0); eGFR CKD-EPI 88.4 (>60)
[2023-11-21 06:45] LABS: ABS Eosinophils 0.7 10^3/uL (0.0-0.5); ABS Monocytes 0.7 10^3/uL (0.0-1.1); ABS Nucleated RBC 0.02 10^3/ul; Eosinophil % 5.3 %; Hematocrit 30.1 % (38-53); Hemoglobin 9.5 g/dL (13.2-16.3); Lymphocyte % 7.5 %; Mean Corpuscular Hemoglobin 24.9 pg (27-33); Mean Corpuscular Hgb Conc 31.4 g/dL (31-36); Mean Corpuscular Volume 79.2 fL (80-97); Mean Platelet Volume 8.7 fL (7.5-11.2); Nucleated Red Blood Cells % 0.1 %/100WBC (0.0-0.8); Platelet Count 297 10^3/uL (150-450); Red Cell Distribution Width 20.5 % (12-17); White Blood Count 13.4 10^3/uL (3.6-10.2)
[2023-11-21 07:02] LABS: Calcium 7.6 mg/dL (8.6-10.3); Creatinine, Serum 0.78 mg/dL (0.67-1.17); Magnesium 1.9 mg/dL (1.9-2.7); Potassium 3.6 mmol/L (3.5-5.0); eGFR CKD-EPI 90.7 (>60)
[2023-11-21] MEDS: Insulin GLARGINE 100 un/ml 10 ml VIAL SUBCUT SCH (07:59)
[2023-11-21] MEDS: Enoxaparin 40 MG/0.4 ML SYR SUBCUT SCH (13:11)
[2023-11-22 08:11] LABS: ABS Basophils 0.2 10^3/uL (0.0-0.1); ABS Eosinophils 0.9 10^3/uL (0.0-0.5); ABS Monocytes 0.7 10^3/uL (0.0-1.1); ABS Neutrophils 11.7 10^3/uL (1.5-7.6); ABS Nucleated RBC 0.01 10^3/ul; Eosinophil % 6.3 %; Hematocrit 32.1 % (38-53); Lymphocyte % 7.1 %; Mean Corpuscular Hemoglobin 24.4 pg (27-33); Mean Corpuscular Volume 78.7 fL (80-97); Mean Platelet Volume 8.9 fL (7.5-11.2); Nucleated Red Blood Cells % 0.1 %/100WBC (0.0-0.8); Platelet Count 364 10^3/uL (150-450); Red Blood Count 4.08 10^6/uL (4.06-5.63); Red Cell Distribution Width 20.7 % (12-17); White Blood Count 14.4 10^3/uL (3.6-10.2)
[2023-11-22 08:29] LABS: Calcium 8.6 mg/dL (8.6-10.3); Creatinine, Serum 0.89 mg/dL (0.67-1.17); Potassium 3.4 mmol/L (3.5-5.0); eGFR CKD-EPI 87.2 (>60)
[2023-11-22] MEDS: Potassium Chlor 20 meq TAB.ER PO ONE (11:30)
[2023-11-23 06:34] LABS: ABS Basophils 0.1 10^3/uL (0.0-0.1); ABS Eosinophils 0.6 10^3/uL (0.0-0.5); ABS Lymphocytes 0.8 10^3/uL (1.0-4.8); ABS Monocytes 0.7 10^3/uL (0.0-1.1); ABS Neutrophils 8.8 10^3/uL (1.5-7.6); ABS Nucleated RBC 0.01 10^3/ul; Eosinophil % 5.6 %; Hematocrit 25.7 % (38-53); Hemoglobin 8.3 g/dL (13.2-16.3); Lymphocyte % 7.2 %; Mean Corpuscular Hemoglobin 25.3 pg (27-33); Mean Corpuscular Hgb Conc 32.4 g/dL (31-36); Mean Platelet Volume 8.5 fL (7.5-11.2); Platelet Count 336 10^3/uL (150-450); Red Blood Count 3.29 10^6/uL (4.06-5.63); White Blood Count 10.9 10^3/uL (3.6-10.2)
[2023-11-23 06:52] LABS: Calcium 8.2 mg/dL (8.6-10.3); Creatinine, Serum 0.96 mg/dL (0.67-1.17); Potassium 3.2 mmol/L (3.5-5.0); eGFR CKD-EPI 80.4 (>60)
[2023-11-23] MEDS: Potassium Chloride LIQUID 20 MEQ/15 ML LIQUID PO ONE (09:18)
[2023-11-23] MEDS: Furosemide 40 mg/4 ml IV VIAL IV SLOW PU SCH (10:35)
[2023-11-24 08:24] LABS: ABS Basophils 0.1 10^3/uL (0.0-0.1); ABS Eosinophils 0.5 10^3/uL (0.0-0.5); ABS Lymphocytes 0.9 10^3/uL (1.0-4.8); ABS Monocytes 0.7 10^3/uL (0.0-1.1); ABS Neutrophils 8.2 10^3/uL (1.5-7.6); Hematocrit 28.6 % (38-53); Hemoglobin 9.2 g/dL (13.2-16.3); Lymphocyte % 8.7 %; Mean Corpuscular Hgb Conc 32.2 g/dL (31-36); Mean Corpuscular Volume 77.8 fL (80-97); Mean Platelet Volume 8.4 fL (7.5-11.2); Platelet Count 413 10^3/uL (150-450); Red Blood Count 3.68 10^6/uL (4.06-5.63); White Blood Count 10.5 10^3/uL (3.6-10.2)
[2023-11-24 08:42] LABS: Calcium 8.7 mg/dL (8.6-10.3); Creatinine, Serum 0.96 mg/dL (0.67-1.17); Potassium 3.2 mmol/L (3.5-5.0); eGFR CKD-EPI 80.4 (>60)
[2023-11-24] MEDS ORDERED: Potassium Chlor 20 meq TAB.ER PO ONE (09:37)
[2023-11-24 10:00] LABS: Magnesium 1.9 mg/dL (1.9-2.7)
[2023-11-24] MEDS: Potassium Chlor 20 meq TAB.ER PO ONE ×2 (11:44)
[2023-11-24] MEDS: Lidocaine 2% PF 5 ML VIAL INJ ONE (13:24)
[2023-11-24 18:58] LABS: Rapid COVID-19 Molecular Undetected (Undetected)
[2023-11-25] MEDS: Potassium Chlor 20 meq TAB.ER PO SCH (09:45)
[2023-11-25 10:58] LABS: Calcium 8.7 mg/dL (8.6-10.3); Creatinine, Serum 0.84 mg/dL (0.67-1.17); Magnesium 1.6 mg/dL (1.9-2.7); Potassium 3.4 mmol/L (3.5-5.0); eGFR CKD-EPI 88.7 (>60)
[2023-11-25] MEDS: Potassium Chlor 20 meq TAB.ER PO ONE (13:31)
[2023-11-25] MEDS: Magnesium Sulfate 2 gm BAG 2 GM/50 ML BAG IVPB ONE (13:35)
[2023-11-25] MEDS: Magnesium Sulfate IV 1GM/100ML 1 GM/100 ML BAG IV ONE (15:25)
[2023-11-26 07:40] LABS: Calcium 8.6 mg/dL (8.6-10.3); Creatinine, Serum 0.87 mg/dL (0.67-1.17); Magnesium 2.1 mg/dL (1.9-2.7); Potassium 3.2 mmol/L (3.5-5.0); eGFR CKD-EPI 87.8 (>60)
[2023-11-26] MEDS: Potassium Chlor 20 meq TAB.ER PO ONE (17:22)
[2023-11-27 06:26] LABS: Calcium 8.8 mg/dL (8.6-10.3); Creatinine, Serum 0.93 mg/dL (0.67-1.17); Potassium 3.5 mmol/L (3.5-5.0); eGFR CKD-EPI 83.5 (>60)
[2023-11-27] MEDS: Iodixanol (CONTRAST) 320 MG/ML 100 ML SDV IV ONE (12:34)
[2023-11-27] MEDS: DULoxetine DR 20 mg CAP PO SCH (16:48)
[2023-11-28 06:26] LABS: Hematocrit 31.5 % (38-53); Mean Corpuscular Hemoglobin 24.7 pg (27-33); Mean Corpuscular Hgb Conc 31.9 g/dL (31-36); Mean Corpuscular Volume 77.5 fL (80-97); Mean Platelet Volume 9.2 fL (7.5-11.2); Platelet Count 543 10^3/uL (150-450); Red Blood Count 4.06 10^6/uL (4.06-5.63); Red Cell Distribution Width 21.2 % (12-17); White Blood Count 10.4 10^3/uL (3.6-10.2)
[2023-11-28 06:47] LABS: Calcium 9.8 mg/dL (8.6-10.3); Creatinine, Serum 1.1 mg/dL (0.67-1.17); Magnesium 1.8 mg/dL (1.9-2.7); Potassium 3.4 mmol/L (3.5-5.0); eGFR CKD-EPI 68.3 (>60)
[2023-11-29 06:47] LABS: Hematocrit 33.7 % (38-53); Hemoglobin 10.9 g/dL (13.2-16.3); Mean Corpuscular Hemoglobin 24.7 pg (27-33); Mean Corpuscular Hgb Conc 32.2 g/dL (31-36); Mean Corpuscular Volume 76.5 fL (80-97); Mean Platelet Volume 8.9 fL (7.5-11.2); Platelet Count 583 10^3/uL (150-450); Red Blood Count 4.41 10^6/uL (4.06-5.63); Red Cell Distribution Width 21.2 % (12-17); White Blood Count 9.4 10^3/uL (3.6-10.2)
[2023-11-29 07:08] LABS: Calcium 10.4 mg/dL (8.6-10.3); Creatinine, Serum 1.26 mg/dL (0.67-1.17); Phosphorus 4.3 mg/dL (2.5-5.0); Potassium 3.4 mmol/L (3.5-5.0)
[2023-11-29] MEDS: NS 0.9% 250 ml 250 ML IV ONE (17:59)
[2023-11-29] MEDS: Ondansetron 4 mg VIAL 2 MG/ML 2 ml VIAL IV PRN (21:20)
[2023-11-30 06:12] LABS: Hematocrit 34.3 % (38-53); Hemoglobin 10.8 g/dL (13.2-16.3); Mean Corpuscular Hemoglobin 24.1 pg (27-33); Mean Corpuscular Hgb Conc 31.4 g/dL (31-36); Mean Corpuscular Volume 76.6 fL (80-97); Mean Platelet Volume 9.2 fL (7.5-11.2); Platelet Count 619 10^3/uL (150-450); Red Blood Count 4.47 10^6/uL (4.06-5.63); Red Cell Distribution Width 21.5 % (12-17); White Blood Count 26.8 10^3/uL (3.6-10.2)
[2023-11-30 06:31] LABS: Calcium 10.2 mg/dL (8.6-10.3); Creatinine, Serum 1.76 mg/dL (0.67-1.17); Potassium 3.8 mmol/L (3.5-5.0); eGFR CKD-EPI 38.8 (>60)
[2023-11-30] MEDS: NS 0.9% 1000 ml BAG 1,000 ML IV SCH (06:48)
[2023-11-30] MEDS: Pantoprazole VIAL 40 MG VIAL IV SCH (06:49)
[2023-11-30 08:00] LABS: Hematocrit 32.3 % (38-53); Hemoglobin 10.3 g/dL (13.2-16.3); Mean Corpuscular Hemoglobin 24.4 pg (27-33); Mean Corpuscular Hgb Conc 31.9 g/dL (31-36); Mean Corpuscular Volume 76.4 fL (80-97); Mean Platelet Volume 8.6 fL (7.5-11.2); Platelet Count 604 10^3/uL (150-450); Red Blood Count 4.23 10^6/uL (4.06-5.63); White Blood Count 28.4 10^3/uL (3.6-10.2)
[2023-11-30 08:20] LABS: Albumin 3.6 g/dL (3.2-5.2); Albumin/Globulin Ratio 0.8 (1-3); Calcium 10.1 mg/dL (8.6-10.3); Creatinine, Serum 1.75 mg/dL (0.67-1.17); Globulin 4.3 g/dL (2-4); Magnesium 2.2 mg/dL (1.9-2.7); Phosphorus 5.4 mg/dL (2.5-5.0); Potassium 3.9 mmol/L (3.5-5.0); Total Bilirubin 0.6 mg/dL (0.2-1.0); Total Protein 7.9 g/dL (6.4-8.9); eGFR CKD-EPI 39.1 (>60)
[2023-11-30 08:42] LABS: ABS Basophils 0.2 10^3/uL (0.0-0.1); ABS Lymphocytes 0.7 10^3/uL (1.0-4.8); ABS Monocytes 0.6 10^3/uL (0.0-1.1); ABS Neutrophils 26.8 10^3/uL (1.5-7.6); ABS Nucleated RBC 0.01 10^3/ul; Eosinophil % 0.1 %; Lymphocyte % 2.6 %
[2023-11-30] MEDS: Diatrizoate Meg/Sod(CONTRAST) 30 ML ORAL.SOLN PO ONE (11:00)
[2023-11-30] MEDS: cefTRIAXone 1 gm/50 mL D5W 1 GM/50 ML BAG IV SCH (12:02)
[2023-11-30] MEDS ORDERED: Midazolam 10 mg/10 ml VIAL 1 mg/ml 10 ml VIAL (10 mg) ONE (14:02)
[2023-11-30] MEDS ORDERED: fentaNYL 100 mcg/2 ml 50 MCG/ML VIAL ONE (14:02)
[2023-11-30] MEDS: Pantoprazole 80 mg in NS BAG 80 MG/250 ML BAG IV SCH (17:19)
[2023-11-30 17:52] LABS: Hematocrit 32.9 % (38-53); Hemoglobin 10.1 g/dL (13.2-16.3); Mean Corpuscular Hemoglobin 23.6 pg (27-33); Mean Corpuscular Hgb Conc 30.7 g/dL (31-36); Mean Corpuscular Volume 76.7 fL (80-97); Mean Platelet Volume 8.6 fL (7.5-11.2); Platelet Count 599 10^3/uL (150-450); Red Blood Count 4.29 10^6/uL (4.06-5.63); White Blood Count 26.6 10^3/uL (3.6-10.2)
[2023-11-30 18:39] LABS: Calcium 9.7 mg/dL (8.6-10.3); Creatinine, Serum 1.77 mg/dL (0.67-1.17); Magnesium 2.2 mg/dL (1.9-2.7); Phosphorus 5.6 mg/dL (2.5-5.0); Potassium 4.2 mmol/L (3.5-5.0); eGFR CKD-EPI 38.6 (>60)
[2023-11-30 18:46] LABS: ABS Basophils 0.2 10^3/uL (0.0-0.1); ABS Lymphocytes 0.7 10^3/uL (1.0-4.8); ABS Monocytes 0.6 10^3/uL (0.0-1.1); ABS Nucleated RBC 0.01 10^3/ul; Eosinophil % 0.1 %; Lymphocyte % 2.8 %
[2023-11-30 20:34] LABS: Urine Appearance Turbid; Urine Bilirubin Negative (Negative); Urine Blood Trace (Negative); Urine Color Light-Yellow; Urine Glucose 1+ (>=70 mg/dL) (Negative); Urine Ketones 1+ (Negative); Urine Nitrite Negative (Negative); Urine Protein Trace (Negative); Urine Specific Gravity 1.015 (1.002-1.030); Urine Urobilinogen Negative (Negative)
[2023-11-30 20:39] LABS: Budding Yeast Present /HPF (Absent); Urine Bacteria Absent /HPF (Absent); Urine Red Blood Cell 2+(6-10/hpf) /HPF (0-Trace); Urine White Blood Cell 3+(>20/hpf) /HPF (0-Trace)
[2023-11-30] MEDS ORDERED: Pantoprazole VIAL 40 MG VIAL IV SCH (21:00)
[2023-11-30 23:29] LABS: Hematocrit 28.3 % (38-53); Mean Corpuscular Hemoglobin 24.3 pg (27-33); Mean Corpuscular Hgb Conc 31.9 g/dL (31-36); Mean Corpuscular Volume 76.1 fL (80-97); Mean Platelet Volume 8.3 fL (7.5-11.2); Platelet Count 546 10^3/uL (150-450); Red Blood Count 3.72 10^6/uL (4.06-5.63); Red Cell Distribution Width 20.8 % (12-17)
[2023-12-01 00:20] LABS: Albumin 3.1 g/dL (3.2-5.2); Calcium 9.1 mg/dL (8.6-10.3); Creatinine, Serum 1.51 mg/dL (0.67-1.17); Globulin 3.2 g/dL (2-4); Phosphorus 4.1 mg/dL (2.5-5.0); Potassium 3.9 mmol/L (3.5-5.0); Total Bilirubin 0.4 mg/dL (0.2-1.0); Total Protein 6.3 g/dL (6.4-8.9); eGFR CKD-EPI 46.7 (>60)
[2023-12-01 03:43] LABS: Hematocrit 30.8 % (38-53); Hemoglobin 9.5 g/dL (13.2-16.3)
[2023-12-01 06:50] LABS: Hematocrit 31.7 % (38-53); Hemoglobin 9.9 g/dL (13.2-16.3); Mean Corpuscular Hgb Conc 31.3 g/dL (31-36); Mean Corpuscular Volume 76.8 fL (80-97); Mean Platelet Volume 8.7 fL (7.5-11.2); Platelet Count 564 10^3/uL (150-450); Red Blood Count 4.12 10^6/uL (4.06-5.63); White Blood Count 28.4 10^3/uL (3.6-10.2)
[2023-12-01 06:54] LABS: INR 1.06 (0.83-1.13)
[2023-12-01 07:06] LABS: Calcium 9.3 mg/dL (8.6-10.3); Creatinine, Serum 1.29 mg/dL (0.67-1.17); Magnesium 2.1 mg/dL (1.9-2.7); Phosphorus 2.6 mg/dL (2.5-5.0); Potassium 3.7 mmol/L (3.5-5.0); eGFR CKD-EPI 56.4 (>60)
[2023-12-02 07:39] LABS: ABS Basophils 0.3 10^3/uL (0.0-0.1); ABS Eosinophils 0.6 10^3/uL (0.0-0.5); ABS Lymphocytes 1.5 10^3/uL (1.0-4.8); ABS Monocytes 0.9 10^3/uL (0.0-1.1); ABS Neutrophils 12.3 10^3/uL (1.5-7.6); ABS Nucleated RBC 0.01 10^3/ul; Eosinophil % 4.1 %; Hematocrit 29.7 % (38-53); Hemoglobin 9.3 g/dL (13.2-16.3); Lymphocyte % 9.5 %; Mean Corpuscular Hgb Conc 31.4 g/dL (31-36); Mean Corpuscular Volume 76.5 fL (80-97); Mean Platelet Volume 8.4 fL (7.5-11.2); Platelet Count 485 10^3/uL (150-450); Red Blood Count 3.89 10^6/uL (4.06-5.63); Red Cell Distribution Width 20.4 % (12-17); White Blood Count 15.6 10^3/uL (3.6-10.2)
[2023-12-03 05:24] LABS: ABS Basophils 0.1 10^3/uL (0.0-0.1); ABS Eosinophils 0.4 10^3/uL (0.0-0.5); ABS Lymphocytes 1.4 10^3/uL (1.0-4.8); ABS Monocytes 0.9 10^3/uL (0.0-1.1); ABS Neutrophils 8.6 10^3/uL (1.5-7.6); Eosinophil % 3.6 %; Hematocrit 28.7 % (38-53); Lymphocyte % 12.2 %; Mean Corpuscular Hemoglobin 23.8 pg (27-33); Mean Corpuscular Hgb Conc 31.2 g/dL (31-36); Mean Corpuscular Volume 76.3 fL (80-97); Mean Platelet Volume 8.8 fL (7.5-11.2); Platelet Count 454 10^3/uL (150-450); Red Blood Count 3.76 10^6/uL (4.06-5.63); Red Cell Distribution Width 20.6 % (12-17); White Blood Count 11.5 10^3/uL (3.6-10.2)
[2023-12-03 10:31] VITALS: BP 104/45
== END 2023-12-03 12:30 | DRG 329 ==
LOC: EDHOLD 10:52 → ED 10:52 → MED 20:05 → SUATTDRO 11-12 16:10 → SSU 11-19 18:27
PROVIDERS: ADMIT Internal Medicine; ATTEND Internal Medicine

== ENCOUNTER 2023-12-09 16:27 | Observation (INO) ==
[2023-12-09] MEDS: Lactated Ringers 1000 ml BAG 1,000 ML IV ONE (17:02)
[2023-12-09 17:15] LABS: ABS Basophils 0.2 10^3/uL (0.0-0.1); ABS Eosinophils 0.6 10^3/uL (0.0-0.5); ABS Lymphocytes 1.6 10^3/uL (1.0-4.8); ABS Monocytes 0.7 10^3/uL (0.0-1.1); ABS Neutrophils 8.7 10^3/uL (1.5-7.6); Eosinophil % 5.5 %; Hematocrit 36.8 % (38-53); Hemoglobin 11.6 g/dL (13.2-16.3); Lymphocyte % 13.4 %; Mean Corpuscular Hemoglobin 23.8 pg (27-33); Mean Corpuscular Hgb Conc 31.4 g/dL (31-36); Mean Corpuscular Volume 75.9 fL (80-97); Mean Platelet Volume 8.8 fL (7.5-11.2); Platelet Count 411 10^3/uL (150-450); Red Blood Count 4.85 10^6/uL (4.06-5.63); White Blood Count 11.8 10^3/uL (3.6-10.2)
[2023-12-09 17:41] LABS: ALT 11 U/L (7-52); Albumin 3.6 g/dL (3.2-5.2); Albumin/Globulin Ratio 0.9 (1-3); Alkaline Phosphatase 132 U/L (35-149); Anion Gap 8 mmol/L (2-16); Blood Urea Nitrogen 45 mg/dL (6-24); C Reactive Protein 18.28 mg/L (<8.01); CO2 Carbon Dioxide 30 mmol/L (22-32); Calcium 10.1 mg/dL (8.6-10.3); Chloride 90 mmol/L (101-111); Creatinine, Serum 2.82 mg/dL (0.67-1.17); Globulin 3.9 g/dL (2-4); Glucose 357 mg/dL (70-100); Sodium 128 mmol/L (135-145); Total Bilirubin 0.6 mg/dL (0.2-1.0); Total Protein 7.5 g/dL (6.4-8.9); eGFR CKD-EPI 22.1 (>60)
[2023-12-09 17:51] LABS: Urine Appearance Extra Turbid; Urine Bilirubin Negative (Negative); Urine Blood 2+ (Negative); Urine Color Colorless; Urine Glucose 1+ (>=70 mg/dL) (Negative); Urine Ketones Negative (Negative); Urine Nitrite Negative (Negative); Urine Protein 1+ (>=30 mg/dL) (Negative); Urine Specific Gravity 1.007 (1.002-1.030); Urine Urobilinogen Negative (Negative)
[2023-12-09 17:58] LABS: TSH Ultra Thyroid Stim Horm 4.57 mcIU/mL (0.34-5.60)
[2023-12-09 18:03] LABS: Urine Bacteria 1+ /HPF (Absent); Urine Red Blood Cell 3+(>10/hpf) /HPF (0-Trace); Urine White Blood Cell 3+(>20/hpf) /HPF (0-Trace)
[2023-12-09] MEDS: cefTRIAXone 2 gm/50 mL D5W 2 GM/50 ML BAG IV ONE (18:12)
[2023-12-09] MEDS: Lactated Ringers 1000 ml BAG 1,000 ML IV SCH (23:38)
[2023-12-10] MEDS: DULoxetine DR 20 mg CAP PO SCH (04:35)
[2023-12-10 06:08] LABS: ABS Basophils 0.1 10^3/uL (0.0-0.1); ABS Eosinophils 0.6 10^3/uL (0.0-0.5); ABS Lymphocytes 1.8 10^3/uL (1.0-4.8); ABS Monocytes 0.7 10^3/uL (0.0-1.1); ABS Neutrophils 8.1 10^3/uL (1.5-7.6); Eosinophil % 5.4 %; Hematocrit 33.1 % (38-53); Hemoglobin 10.6 g/dL (13.2-16.3); Lymphocyte % 15.8 %; Mean Corpuscular Hemoglobin 24.1 pg (27-33); Mean Corpuscular Volume 75.3 fL (80-97); Mean Platelet Volume 8.4 fL (7.5-11.2); Platelet Count 379 10^3/uL (150-450); Red Blood Count 4.39 10^6/uL (4.06-5.63); Red Cell Distribution Width 21.5 % (12-17); White Blood Count 11.4 10^3/uL (3.6-10.2)
[2023-12-10 06:59] LABS: Calcium 9.8 mg/dL (8.6-10.3); Creatinine, Serum 2.51 mg/dL (0.67-1.17); Magnesium 1.1 mg/dL (1.9-2.7); Phosphorus 2.8 mg/dL (2.5-5.0); Potassium 3.9 mmol/L (3.5-5.0); eGFR CKD-EPI 25.4 (>60)
[2023-12-10] MEDS ORDERED: Dextrose 50% Syringe 50 ml 25 GM/50 ML SYRINGE IV PUSH PRN ×2 (07:42→17:16)
[2023-12-10] MEDS: Insulin GLARGINE 100 un/ml 10 ml VIAL SUBCUT SCH (08:35)
[2023-12-10] MEDS: Magnesium Sulf 4 GM/100 ML IV 4,000 MG/100 ML BAG IVPB ONE (08:46)
[2023-12-10] MEDS: cefTRIAXone 1 gm/50 mL D5W 1 GM/50 ML BAG IV SCH (17:14)
[2023-12-10] MEDS: Lactated Ringers 1000 ml BAG 1,000 ML IV SCH (17:56)
[2023-12-10] MEDS: Enoxaparin 30 MG/0.3 ML SYR SUBCUT SCH (20:46)
[2023-12-11 06:47] LABS: ABS Basophils 0.2 10^3/uL (0.0-0.1); ABS Eosinophils 0.8 10^3/uL (0.0-0.5); ABS Lymphocytes 1.8 10^3/uL (1.0-4.8); ABS Monocytes 1.1 10^3/uL (0.0-1.1); ABS Neutrophils 9.9 10^3/uL (1.5-7.6); ABS Nucleated RBC 0.01 10^3/ul; Eosinophil % 5.6 %; Hemoglobin 10.9 g/dL (13.2-16.3); Lymphocyte % 12.9 %; Mean Corpuscular Hemoglobin 24.3 pg (27-33); Mean Corpuscular Volume 75.8 fL (80-97); Nucleated Red Blood Cells % 0.1 %/100WBC (0.0-0.8); Platelet Count 399 10^3/uL (150-450); Red Blood Count 4.49 10^6/uL (4.06-5.63); Red Cell Distribution Width 21.7 % (12-17); White Blood Count 13.7 10^3/uL (3.6-10.2)
[2023-12-11 07:11] LABS: Creatinine, Serum 2.17 mg/dL (0.67-1.17); eGFR CKD-EPI 30.2 (>60)
[2023-12-11 10:38] VITALS: BP 110/56
[2023-12-11] MEDS: Lactated Ringers 1000 ml BAG 1,000 ML IV SCH (11:35)
== END 2023-12-11 14:00 ==
LOC: EDHOLD 16:27 → ED 16:27 → SUATTDRO 18:33 → EDHOLD 18:54 → MED 22:51
PROVIDERS: ADMIT Internal Medicine; ATTEND Hospitalist